=== PATIENT | male | born 1975 | race Caucasian/White ===

== ENCOUNTER 2018-10-28 20:00 | Emergency (ER) | payer MEDICAID, SELFPAY ==
[2018-10-28 20:01] VITALS: BP 143/86; PULSE 67; RESP 16; TEMP 36.8; O2SAT 96; BMI 44.7
[2018-10-28 21:18] LABS: Bacteria 0 SEEN /hpf (None Seen); Mucous, Urine 0 SEEN /hpf (<or=2+); Squamous Epithelial Cells - UA 0 SEEN /hpf (0-5); White Blood Cells 0 SEEN /hpf (0-5)
[2018-10-28 21:21] LABS: Color, Urine Yellow (Yellow); Glucose, Dipstick Normal (Normal); Ketone-Dipstick Negative (Negative); Leukocyte Esterase-Dipstick Negative /ul (Negative); Nitrite-Dipstick Negative (Negative); Occult Blood-Urine 10 /ul (Negative); Protein-Dipstick Negative (Negative); Specific Gravity, Urine 1.025 (1.002-1.030); Urine Bilirubin Dipstick Negative (Negative); Urine Clarity Clear (Clear); Urine Urobilinogen Normal (Normal)
[2018-10-28 21:29] LABS: Absolute Lymphocyte Count 3.23 X10^3/ul (0.83-4.51); Absolute Neutrophil Count 6.5 X10^3/uL (2.0-7.7); Basophil# 0.05 X10^3/uL; Basophil% 0.5 % (0-1); Eosinophil# 0.47 X10^3/uL; Eosinophils% 4.3 % (0-5); Hemoglobin 14.4 g/dl (13.0-16.5); Lymphocyte # 3.23 X10^3/ul (4.0); Lymphocyte % 29.3 % (19-41); Mean Corp Hgb Conc 32.7 g/gl (32-36); Mean Corpuscular Hgb 28.3 pg (27.0-32.0); Mean Corpuscular Volume 86.6 fL (80-94); Mean Platelet Vol. 9.4 fl (6.2-12.0); Monocyte# 0.75 X10^3/uL; Monocyte% 6.8 % (0-10); Neutrophil # 6.47 X10^3/uL (2.7-7.7); Neutrophil % 58.7 % (47-70); POSITIVE COUNT NO; POSITIVE DIFFERENTIAL NO; POSITIVE MORPHOLOGY NO; Platelet Count 294 K/mm3 (150-450); RBC Distribution Width CV 12.8 % (11.6-14.6); Red Blood Count 5.08 M/mm3 (4.6-6.2)
[2018-10-28 21:35] LABS: Anion Gap 8 (5-15); BUN 14 mg/dL (7-18); BUN/Creat Ratio 13.1 RATIO (10-20); Chloride 106 mmol/L (98-107); Creatinine, Serum 1.07 mg/dL (0.70-1.30); EST Glomerular Filtration Rate 80 mL/min (>60); Est Glom Filt Rate - Afr Amer 97 mL/min (>60); Estimated Creatinine Clearance 92.86 ml/min; Glucose 96 mg/dL (74-106); Potassium 3.9 mmol/L (3.5-5.1); Sodium Level 140 mmol/L (136-145)
[2018-10-28 21:46] LABS: Red Blood Cells-Urine 0-5 SEEN /hpf (0-5)
[2018-10-28 22:19] VITALS: BP 137/69; PULSE 63; RESP 18; O2SAT 99
[2018-10-28] MEDS: Ondansetron 4 MG/2 ML Vial IV (22:26)
[2018-10-28] MEDS: Ketorolac 30 MG/ML Syringe IV (22:26)
[2018-10-28] MEDS: 0.9% Normal Saline 1,000 ML 1000 ML IV (22:27)
--- NOTE | 2018-10-28 22:40 | ED.DCSUM_ITS ---
- ER Visit Summary Date of Service: 10/28/18 Chief Complaint: Abdominal pain History of Present Illness: The patient is a 43 M with no primary care physician. Patient reports approximate 230 this afternoon he had the onset of a crampy left-sided abdominal pain that is been constant since that time. Patient states pain waxes and wanes. Is 8 out of 10 at worst and 6 out of 10 currently. Is worsened by movement and relieved by remaining still. Is been nausea and vomited once. No blood in his emesis. He had a loose stool. No blood in stools or black tarry stools. No dysuria or frequency. Patient is concerned because he ate a sub-from [employer] last night that today and it did appear that the produce on this had gone bad. Patient denies sick contacts. Has not been camping out of the country. Does not drink well water. No recent antibiotic use. Patient denies any history of fatty food or spicy food intolerance. Physical Examination: Vitals: Stable. Afebrile. General: Well-nourished and well-developed. Head: Normocephalic atraumatic. Neck: Supple, no lymphadenopathy. No JVD. Nontender. Cardiovascular: Regular rate and rhythm. No murmurs. Respiratory: No respiratory distress. Clear to auscultation bilaterally. Abdominal: Soft, mild tenderness palpation left upper and left lower quadrants, nondistended, normal bowel sounds. No guarding, rebound, or peritoneal signs. Back: Nontender. Extremities: Nontender, no edema. Skin: Normal color, no rash. Neurologic: Alert and oriented ?3. Cranial nerves II through XII are intact. Normal strength and sensation. Psych: Normal affect. Test Results: CBC is normal. Chem-7 is normal. UA is negative. Emergency Department Course and Treatment: Patient had an IV placed. He was treated with Toradol and Zofran IV. He is resting comfortably. He said no vomiting or diarrhea while here. Treatment Plan: Patient will be discharged with Zofran. Instructed to follow-up with Dr. Wolff in 1-2 days if not improving. Return to the emergency department for any worsening symptoms. Disposition: To home in improved and stable condition. Impression: 1. Vomiting. 2. Abdominal pain, uncertain cause. This note was generated with [employer] software. It may contain incorrect words, spelling, and punctuation that were not noted in review of the chart prior to signing ED Disposition - Plan for ED Patient: Instructions: ED Vomiting Diarrhea Nonspecific Ad Prescriptions: Ondansetron [Zofran Odt] 4 mg PO Q8H PRN PRN #10 tablet PRN Reason: Nausea Referrals: Roz Wolff DO [STAFF PHYSICIAN] - 1-2 Days if not improving
[2018-10-28] MEDS: Ondansetron ODT 4 MG Tablet PO (23:42)
[2018-10-28 23:44] VITALS: BP 116/72; PULSE 69; RESP 16; O2SAT 99
== END 2018-10-28 23:45 | disposition home or self-care (01) ==
LOC: ED 22:25
PROVIDERS: Emergency Provider Emergency Medicine
DX: R10.12 Left upper quadrant pain (principal); R10.32 Left lower quadrant pain; R11.2 Nausea with vomiting, unspecified
CPT/HCPCS: 80048; 81001; 85025; 96361; 96374; 96375; 99283; A4216; J2405

== ENCOUNTER 2019-03-19 07:05 | Emergency (ER) | payer MEDICAID, SELFPAY ==
[2019-03-19 07:06] VITALS: BP 145/81; PULSE 59; RESP 14; TEMP 36.6; O2SAT 96; BMI 43.9
--- NOTE | 2019-03-19 07:30 | CT_ITS ---
STUDY: CT ABDOMEN AND PELVIS WITHOUT CONTRAST REASON FOR EXAM: Male, 43 years old. Left-sided abdominal pain with nausea and vomiting. RADIATION DOSAGE (If Supplied By Facility): CTDIvol = ( 34.32 ) mGy, DLP = ( 1774.94 ) mGycm TECHNIQUE: Transaxial images were obtained from the dome of the diaphragm to the symphysis pubis without oral contrast, and without intravenous contrast. Sagittal and coronal images were reconstructed. Individualized dose optimization techniques were used for this CT. COMPARISON: None. FINDINGS: The visualized lung bases are unremarkable. The visualized portions of the heart are within normal limits. Normal liver. Normal gallbladder and extrahepatic biliary system. Normal spleen. Normal pancreas. Normal bilateral adrenal glands. Normal right kidney. Normal left kidney. There is a small hiatal hernia. Normal small intestine. There are scattered colonic diverticula consistent with diverticulosis. The appendix is visualized and appears normal. Normal abdominal aorta. Normal inferior vena cava. There is borderline retroperitoneal lymphadenopathy with enlarged nodes no greater than 10mm in the short axis diameter. Normal urinary bladder. Normal abdominal wall. 50% loss of height of the T10 and T11 vertebrae. CT/Abdomen/Pelvis without Cont IMPRESSION: Scattered sigmoid diverticula. Electronically Signed: Domingo Biggs, at 8:53 EDT , Service support ,
--- NOTE | 2019-03-19 07:30 | EKG12_ITS ---
Test Reason : Blood Pressure : / mmHG Vent. Rate : 049 BPM Atrial Rate : 049 BPM P-R Int : 166 ms QRS Dur : 096 ms QT Int : 428 ms P-R-T Axes : 012 -37 005 degrees QTc Int : 386 ms Sinus bradycardia Left axis deviation Minimal voltage criteria for LVH, may be normal variant Abnormal ECG Confirmed by SHANIA PÉREZ, MICAH ([id number]), features editor MAGGIE BOLTON ([id number]) on 03/23/2019 1:10:12 PM Referred By: TOMER Confirmed By:MICAH JAUREGUI MD
--- NOTE | 2019-03-19 07:54 | ED.DCSUM_ITS ---
History of Present Illness Chief Complaint: Abd Pain Informant: Patient Onset: Today Current Severity: Mild Narrative: Patient has history of hypertension no other past medical history by his reports, he was having very good health woke up today feeling fine then he was driving to work and he suddenly had pain to the left middle quadrant into the left lower abdomen back, it was quite intense he had no premonitory symptoms of any kind he had a normal day today had normal bowel bladder habits nothing triggered the pain it he denies fever cough chest pain again he has had normal bowel bladder habits today he points to the left middle quadrant indicates the pain radiates down and radiates up to his back slightly he denies chest pain he indicates no trauma no fever no cough and he was perfectly fine when he went to bed woke up today Past Medical History - Allergies and Home Meds Allergies/Adverse Reactions: Allergies sulfamethoxazole [From Bactrim] Allergy (Verified 03/19/19 07:06) Rash trimethoprim [From Bactrim] Allergy (Verified 03/19/19 07:06) Rash naproxen Adverse Reaction (Verified 03/19/19 07:06) Other STOMACH BLEEDING Primary Care Physician: Care Physician,No Primary [Primary Care Provider] - Past Medical History: - - Hypertension see above Smoking Status: Never smoker Review of Systems General: Denies: Chills, Fever, Sweats Eyes: Denies: Visual changes - bilaterally, Diplopia ENT: Denies: Rhinorrhea, Sore throat Cardiovascular: Denies: Chest pain, Palpitations Respiratory: Denies: Dyspnea, Cough, Dyspnea on exertion Gastrointestinal: Reports: Abdominal pain. Denies: Nausea, Vomiting, Diarrhea, Melena, Hematochezia Genitourinary: Denies: Dysuria, Hematuria, Frequency Musculoskeletal: Denies: Back pain, Extremity Pain Skin: Denies: Rash, Wounds Neurological: Denies: Headache, Weakness, Numbness Physical Exam Vital Signs/Narrative: Vital Signs Temp Pulse Resp BP Pulse Ox 03/19/19 07:06 97.8 F 59 L 14 145/81 H 96 General: Well nourished, Well developed, No Acute Distress Head: Normocephalic, Atraumatic Eyes: Perrl, EOMI ENT: Moist mucous membranes, No rhinorrhea Neck: Supple, Nontender Cardiovascular: Regular rate, Regular rhythm, No murmurs Respiratory: No distress, CTA bilaterally, Chest nontender Abdomen: Soft, Nontender, Nondistended, Normal bowel sounds, - - He has discomfort over the left middle quadrant that radiates slightly to the left lower quadrant and some to the left upper back, there is no rebound guarding organomegaly there is a degree of obesity, his chest is clear his upper lower extremities unremarkable he has full range of motion nothing triggers causes or alleviates the pain Back: Nontender, Normal Inspection Extremities: Nontender, No edema Skin: Normal color, No rash Neurological: Alert, Oriented x3, Cranial nerves II-XII grossly intact, Normal Strength, Normal Sensation Psychological: Normal affect, Normal Mood Diagnostic/Tx/Re-eval - Medical Decision Making Differential is rather extensive he has no history of ID PE or DVT he was feeling fine this occurred suddenly the pain was quite intense he could not find comfort and came to the emergency department at this time given all the above screening labs flank CT IV fluids pain management IV meds Patient's EKG shows a sinus rhythm rate about 50 no acute injury pattern identified intervals otherwise unremarkable Patient screening labs are all unremarkable, including d-dimer, troponin, his flank pain is improved, understands studies where also unremarkable for the acute findings, no obvious explanation for symptoms and needs outpatient follow- up and he agrees over he is feeling better long conversation with him and family is comfortable discharge home, he understands exact etiology of the above is unclear he will follow-up with his outpatient providers Tylenol 3 for pain due to allergies Naprosyn and return for change in symptoms Home stable Final impression Sudden onset left flank pain etiology unclear ED Disposition - Plan for ED Patient: Diagnosis: Acute flank pain Instructions: ABDOMINAL PAIN, Unkown Cause, (Male) Prescriptions: Acetaminophen/Codeine #3 [Tylenol#3] 1 tab PO Q4H PRN PRN #14 tab PRN Reason: Pain Prescription Printed Referrals: Care Physician,No Primary [Primary Care Provider] -
[2019-03-19] MEDS: 0.9% Normal Saline 1,000 ML 1000 ML IV (08:02)
[2019-03-19] MEDS: morphine 8 MG/ML Syringe IV (08:02)
[2019-03-19] MEDS: Ondansetron 4 MG/2 ML Vial IV (08:02)
[2019-03-19 08:17] LABS: Absolute Lymphocyte Count 1.92 X10^3/uL (0.83-4.51); Absolute Neutrophil Count 5.8 X10^3/uL (2.0-7.7); Basophil# 0.07 X10^3/uL; Basophil% 0.8 % (0-1); Eosinophils% 3.4 % (0-5); Lymphocyte # 1.92 X10^3/ul (4.0); Lymphocyte % 21.8 % (19-41); Mean Corp Hgb Conc 32.6 g/dL (32-36); Mean Corpuscular Hgb 28.2 pg (27.0-32.0); Mean Corpuscular Volume 86.5 fL (80-94); Mean Platelet Vol. 9.3 fl (6.2-12.0); Monocyte# 0.71 X10^3/uL; NRBC Flagged by Analyzer 0 % (0-5); Neutrophil # 5.77 X10^3/uL (2.7-7.7); Neutrophil % 65.4 % (47-70); Platelet Count 282 K/mm3 (150-450); RBC Distribution Width CV 12.5 % (11.6-14.6); RBC Distribution Width SD 39.3 fl (35.1-43.9); Red Blood Count 5.32 M/mm3 (4.6-6.2); White Blood Count 8.8 K/mm3 (4.4-11.0)
[2019-03-19 08:51] LABS: AST(SGOT) 20 U/L (15-37); Alanine Aminotransfer ALT/SGPT 29 U/L (16-61); Albumin, Serum 3.8 g/dL (3.2-5.0); Alkaline Phosphatase 112 U/L (45-117); Anion Gap 4 (5-15); BUN 13 mg/dL (7-18); BUN/Creat Ratio 12.1 RATIO (10-20); Bilirubin, Direct 0.17 mg/dL (0.00-0.30); Calcium,Total 9.1 mg/dL (8.5-10.1); Chloride 105 mmol/L (98-107); Creatinine, Serum 1.07 mg/dL (0.70-1.30); EST Glomerular Filtration Rate 80 mL/min (>60); Est Glom Filt Rate - Afr Amer 97 mL/min (>60); Estimated Creatinine Clearance 95.79 ml/min; Globulin 3.9 g/dL (2.2-4.2); Glucose 114 mg/dL (74-106); Lipase 129 U/L (73-393); Protein, Total 7.7 g/dL (6.4-8.2); Sodium Level 136 mmol/L (136-145)
[2019-03-19 08:53] LABS: Bacteria 0 SEEN /hpf (None Seen); Mucous, Urine 0 SEEN /hpf (<or=2+); Squamous Epithelial Cells - UA 0 SEEN /hpf (0-5); White Blood Cells 0 SEEN /hpf (0-5)
[2019-03-19 08:56] LABS: Color, Urine Yellow (Yellow); Glucose, Dipstick Normal (Normal); Ketone-Dipstick Negative (Negative); Leukocyte Esterase-Dipstick Negative /ul (Negative); Nitrite-Dipstick Negative (Negative); Occult Blood-Urine 10 /ul (Negative); Protein-Dipstick Negative (Negative); Urine Bilirubin Dipstick Negative (Negative); Urine Clarity Clear (Clear); Urine Urobilinogen Normal (Normal)
[2019-03-19 09:05] LABS: Red Blood Cells-Urine 0-5 SEEN /hpf (0-5)
[2019-03-19 10:59] VITALS: BP 153/98; PULSE 54; RESP 18; O2SAT 98
== END 2019-03-19 11:02 | disposition home or self-care (01) ==
PROVIDERS: Emergency Provider Emergency Medicine
DX: R10.9 Unspecified abdominal pain (principal); I10 Essential (primary) hypertension
CPT/HCPCS: 74176; 80048; 80076; 81001; 83690; 84484; 85025; 85379; 93005; 96361; 96374; 96375; 99283; J7030; A4216; J2405

== ENCOUNTER 2019-04-25 22:31 | Emergency (ER) | payer MEDICAID, SELFPAY ==
[2019-04-25 22:31] VITALS: BP 146/83; PULSE 86; RESP 15; TEMP 36.6; O2SAT 95; BMI 41.8
[2019-04-25 22:43] VITALS: O2SAT 97
--- NOTE | 2019-04-25 22:51 | ED.VISSUMM ---
- ER Visit Summary Date of Service: 04/25/19 Chief Complaint: Cough, congestion History of Present Illness: The patient is a 43 M who has cough and sinus congestion. Started today. He did have a sore throat that went away and now he has sinus congestion and cough. Cough is nonproductive. He felt warm but did not have a fever at home. He does have a history of bronchitis. He tried ibuprofen and DayQuil without any relief at home. He is not a smoker. He does have a history of asthma and has been using his inhaler at home. Physical Examination: Vital signs are reviewed. HEENT exam shows some swollen turbinates bilaterally. Is got no oropharyngeal erythema. His heart is regular rate and rhythm. Lungs have some scant expiratory wheezing in the lower lung goff bilaterally. Abdomen soft nontender. Extremities have no edema. Neurologic exam is normal. Test Results: Two-view chest x-ray is unremarkable Emergency Department Course and Treatment: Patient was given albuterol. Upon reevaluation his lungs are now clear. He feels better. This is likely a viral etiology. I will give him steroids and Mucinex D for home. He will continue his albuterol inhaler. We will follow-up with his PCP Treatment Plan: [] Disposition: Discharge Impression: URI with cough This note was generated with [employer] dictation software. It may contain incorrect words, spelling, and punctuation that were not noted in review of the chart prior to signing ED Disposition - Plan for ED Patient: Referrals: Moisés Barclay MD [Primary Care Provider] -
[2019-04-25] MEDS: Albuterol 2.5 MG/3 ML VIAL.NEB. INHALATION (22:55)
[2019-04-25 22:56] VITALS: PULSE 81; RESP 14
--- NOTE | 2019-04-25 23:11 | RAD_ITS ---
HISTORY:SOB WITH CONGESTION AND COUGH FOR FEW DAYS SOB WITH CONGESTION AND COUGH FOR FEW DAYS EXAM: XR Chest 2 Views: COMPARISON: None FINDINGS: # of images incl. paperwork: 2 LINES/DEVICES: None. LUNGS: Radiographically clear. No consolidation, edema or effusion. No pneumothorax. MEDIASTINUM AND CARDIOVASCULAR STRUCTURES: Cardiac silhouette not enlarged. BONES AND SOFT TISSUES: Unremarkable. RAD/Chest PA and Lateral IMPRESSION: No radiographic evidence of acute cardiopulmonary disease. at 2324 Reported and signed by: Lexi Wadsworth DO Electronically Signed: Lexi Wadsworth DO at 23:23 EDT Tel , Service support ,
--- NOTE | 2019-04-25 23:31 | ED.DEP ---
ED Disposition - Plan for ED Patient: Disposition: Home or Assisted Living Instructions: BRONCHITIS, No Antibiotic (Adult) Prescriptions: Prednisone [Deltasone] 40 mg PO DAILY #10 tab Prescription Printed Guaifenesin/Pseudoephedrne HCl [Mucinex D ER 600-60 mg Tablet] 1 ea PO BID #14 tab.er.12h Prescription Printed Referrals: Moisés Barclay MD [Primary Care Provider] -
[2019-04-25 23:35] VITALS: BP 138/70; PULSE 75; RESP 14; O2SAT 98
== END 2019-04-25 23:38 | disposition home or self-care (01) ==
PROVIDERS: Emergency Provider Emergency Medicine; Family Provider Family Medicine; PCP Family Medicine
DX: J06.9 Acute upper respiratory infection, unspecified (principal); J45.909 Unspecified asthma, uncomplicated; I10 Essential (primary) hypertension; Z79.899 Other long term (current) drug therapy
CPT/HCPCS: 71046; 94640; 99282

== ENCOUNTER 2019-06-06 19:04 | Emergency (ER) | payer MEDICAID, SELFPAY ==
[2019-06-06 19:05] VITALS: BP 139/92; PULSE 74; RESP 15; TEMP 36.7; O2SAT 97; BMI 43.9
--- NOTE | 2019-06-06 19:21 | ED.DCSUM_ITS ---
- ER Visit Summary Date of Service: 06/06/19 Chief Complaint: Back pain History of Present Illness: The patient is a [address] Efren Pa. Reports that earlier today he leaned over to get something from under the couch and had the abrupt onset of midthoracic back pain. States that it is a sharp p ain is 10 to 10 hours now 10 currently. Is worsened by movement or bending. It is relieved by laying down and Biofreeze. He denies any radiation to his legs. No numbness or weakness in his legs. No problems with his bowels or his bladder. No groin numbness. Patient denies any other recent injury. No fall, MVA, or change in activity. No fever. No history of IV drug abuse. Physical Examination: Vitals: Stable. Afebrile. General: A&O x 3. NAD. Cardiovascular exam: Regular rate and rhythm, no murmur, rub or gallop. Respiratory exam: Clear to auscultation bilaterally. No wheezes or stridor. Abdominal exam: Soft, nontender, nondistended, normal bowel sounds. No peritoneal signs. Back: Diffuse moderate tenderness to palpation over the thoracic spine and the paraspinous musculature in this region. No point tenderness. Negative straight leg bilaterally. 5/5 DF, PF, EHL bilaterally. Normal sensation to light touch throughout. Extremity: No clubbing, cyanosis, or edema. Emergency Department Course and Treatment: Patient was given a dose of Toradol IM. He is resting comfortably. Treatment Plan: Patient will be discharged symptomatic care. Use Tylenol and/or ibuprofen for pain. Moist heat. TENS unit. Follow-up with primary care physician 1 week not improving. Return to the emergency department for any worsening symptoms. Disposition: To home in improved and stable condition. Impression: 1. Thoracic back pain, acute. This note was generated with [employer] dictation software. It may contain incorrect words, spelling, and punctuation that were not noted in review of the chart prior to signing ED Disposition - Plan for ED Patient: Disposition: Home or Assisted Living Instructions: BACK PAIN (Acute or Chronic) Referrals: Moisés Barclay MD [Primary Care Provider] - 1 Week if not improving
[2019-06-06] MEDS: Acetaminophen 500 MG Tablet 1000 MG PO (19:27)
[2019-06-06] MEDS: Ketorolac 60 MG/2 ML Vial IM (19:27)
[2019-06-06 19:47] VITALS: RESP 16
--- NOTE | 2019-06-06 19:47 | ED.RN ---
SHOT TIME WAS OBSERVED FOR 15 MIN NO REACTION NOTED BY THIS NURSE, PT D/C
== END 2019-06-06 19:48 | disposition home or self-care (01) ==
PROVIDERS: Emergency Provider Emergency Medicine; Family Provider Family Medicine; PCP Family Medicine
DX: M54.6 Pain in thoracic spine (principal); I10 Essential (primary) hypertension; Z79.899 Other long term (current) drug therapy
CPT/HCPCS: 96372; 99283

== ENCOUNTER 2019-10-26 02:48 | Emergency (ER) | payer MEDICAID, SELFPAY ==
[2019-10-26 02:49] VITALS: BP 168/99; PULSE 64; RESP 15; TEMP 36.6; O2SAT 98; BMI 43.1
--- NOTE | 2019-10-26 03:13 | ED.DCSUM_ITS ---
- ER Visit Summary Date of Service: 10/26/19 Chief Complaint: Nausea and vomiting History of Present Illness: The patient is a 44 M who presents with nausea and vomiting that began tonight. Patient states he vomited 5-6 times at home. Patient denies any hematemesis or coffee-ground emesis. Patient denies any abdominal pain. Patient states he was recently diagnosed with strep throat and has been taking Augmentin for this. Patient states he developed some diarrhea because of the Augmentin. Patient denies any melena or hematochezia. Patient denies any dysuria or hematuria. Patient admits to a fever when he had the strep throat. Patient states he has been on antibiotics for 5 days. Physical Examination: Vital signs are stable. Patient is afebrile. Patient is in no acute distress. Oral mucosa is pink and moist. Neck is supple. Trachea is midline. There is no JVD noted. Heart was regular rate and rhythm. Lungs are clear and equal bilaterally. Abdomen is soft. Bowel sounds are normal. There is mild epigastric and right upper quadrant tenderness. There is no rebound or guarding noted. Skin is warm dry. Cranial nerves II through XII are intact. There are no focal motor or sensory deficits noted. Extremities are intact. There is no calf tenderness or edema. Test Results: CBC and comprehensive metabolic profile were obtained were within normal limits. Lipase was within normal limits. Emergency Department Course and Treatment: Patient was given IV fluids and Zofran here. Patient had no further episodes of nausea or vomiting here. Patient was given a prescription for Zofran. Patient was instructed to stop taking his Augmentin. Patient was instructed to follow-up with his primary care physician in 5 to 7 days. Patient understood and was agreeable with the plan. All questions were answered. Disposition: Discharge home Impression: Nausea and vomiting This note was generated with [employer] dictation software. It may contain incorrect words, spelling, and punctuation that were not noted in review of the chart prior to signing ED Disposition - Plan for ED Patient: Disposition: Home or Assisted Living Diagnosis: Nausea and vomiting in adult Instructions: VOMITING (7y-Adult) Prescriptions: Ondansetron [Zofran Odt] 4 mg PO Q8H PRN PRN #10 tab PRN Reason: Nausea Prescription Printed Referrals: Moisés Barclay MD [Primary Care Provider] - 5-7 Days
[2019-10-26] MEDS: 0.9% Normal Saline 1,000 ML 1000 ML IV (03:18)
[2019-10-26] MEDS: Ondansetron 4 MG/2 ML Vial IV (03:19)
[2019-10-26 03:33] LABS: Absolute Lymphocyte Count 2.85 X10^3/uL (0.83-4.51); Absolute Neutrophil Count 4.9 X10^3/uL (2.0-7.7); Basophil# 0.05 X10^3/uL; Basophil% 0.6 % (0-1); Eosinophil# 0.39 X10^3/uL; Eosinophils% 4.4 % (0-5); Hematocrit 44.7 % (40-54); Hemoglobin 15.1 g/dL (13.0-16.5); Lymphocyte # 2.85 X10^3/ul (4.0); Lymphocyte % 32.2 % (19-41); Mean Corp Hgb Conc 33.8 g/dL (32-36); Mean Corpuscular Hgb 28.5 pg (27.0-32.0); Mean Corpuscular Volume 84.3 fL (80-94); Mean Platelet Vol. 9.6 fl (6.2-12.0); Monocyte# 0.62 X10^3/uL; NRBC Flagged by Analyzer 0 % (0-5); Neutrophil # 4.87 X10^3/uL (2.7-7.7); Platelet Count 260 K/mm3 (150-450); RBC Distribution Width CV 12.3 % (11.6-14.6); RBC Distribution Width SD 37.5 fl (35.1-43.9); White Blood Count 8.9 K/mm3 (4.4-11.0)
[2019-10-26 03:44] LABS: AST(SGOT) 16 U/L (15-37); Alanine Aminotransfer ALT/SGPT 28 U/L (16-61); Albumin, Serum 3.6 g/dL (3.2-5.0); Alkaline Phosphatase 98 U/L (45-117); Anion Gap 7 (5-15); BUN 18 mg/dL (7-18); Calcium,Total 8.4 mg/dL (8.5-10.1); Chloride 106 mmol/L (98-107); EST Glomerular Filtration Rate 87 mL/min (>60); Est Glom Filt Rate - Afr Amer 105 mL/min (>60); Estimated Creatinine Clearance 98.35 ml/min; Globulin 3.5 g/dL (2.2-4.2); Glucose 141 mg/dL (74-106); Lipase 174 U/L (73-393); Potassium 3.4 mmol/L (3.5-5.1); Protein, Total 7.1 g/dL (6.4-8.2); Sodium Level 140 mmol/L (136-145)
[2019-10-26 04:09] VITALS: BP 140/77; PULSE 50; RESP 18; O2SAT 97
== END 2019-10-26 04:11 | disposition home or self-care (01) ==
PROVIDERS: Emergency Provider Emergency Medicine; PCP Family Medicine
DX: R11.2 Nausea with vomiting, unspecified (principal); I10 Essential (primary) hypertension
CPT/HCPCS: 80053; 83690; 85025; 96361; 96374; 99282; J7030; J2405

== ENCOUNTER 2019-10-27 01:44 | Emergency (ER) | payer MEDICAID, SELFPAY ==
[2019-10-26 02:49] VITALS: BMI 43.1
[2019-10-27 01:45] VITALS: PULSE 60; RESP 19; TEMP 36.5; O2SAT 94; BMI 32.7
--- NOTE | 2019-10-27 01:54 | RAD_ITS ---
STUDY: X-RAY - ABDOMEN/PELVIS REASON FOR EXAM: Male, 44 years old. VOMITING X 1+ DAY -- UPPER ABD PAIN TECHNIQUE: Single AP view of the abdomen / pelvis. COMPARISON: None. FINDINGS: Normal visualized lung bases. There is a moderate amount of colonic fecal material. There is no demonstrated free abdominal air. The visualized liver, spleen and kidneys are grossly normal in size and morphology. Normal soft tissue structures. Normal visualized osseous structures. RAD/Abdomen Single View IMPRESSION: Moderate fecal debris otherwise unremarkable x-ray examination of the abdomen and pelvis. Electronically Signed: Edith Flowers MD at 3:30 EDT , Service support ,
--- NOTE | 2019-10-27 01:56 | ED.VIS.GI ---
History of Present Illness Chief Complaint: Nausea/Vomiting Narrative: Patient presenting for evaluation secondary to nausea and vomiting. Patient has a recent history of being treated for strep throat. He was placed on a course of Augmentin. He reports that he was initially having improvement, then this weekend he started to develop body aches and chills on Saturday, and then developed nausea and vomiting on Saturday. He reports that he came in Saturday night, had a work-up that was found to be negative was felt that he likely had gastroenteritis and was discharged with a course of Zofran. Patient reports that he woke up at about noon feeling nauseous again and vomited x1. He took Zofran and then went back to sleep. He reports that he woke up again at 1 AM, 45 minutes prior to arrival, and had nausea and vomiting again. Patient denies that he is having bilious emesis or blood in his emesis. He reports that he has not had a bowel movement in a couple of days although he has not really been eating. He is still getting some body aches and chills associated with this. Minimal epigastric abdominal pain worse with vomiting. Patient has no underlying history of abdominal surgeries. Review of systems otherwise negative. Past Medical History - Allergies and Home Meds Allergies/Adverse Reactions: Allergies Sulfa (Sulfonamide Antibiotics) Allergy (Verified 10/27/19 01:49) Rash sulfamethoxazole [From Bactrim] Allergy (Verified 10/27/19 01:49) Rash trimethoprim [From Bactrim] Allergy (Verified 10/27/19 01:49) Rash naproxen Adverse Reaction (Verified 10/27/19 01:49) Other STOMACH BLEEDING Primary Care Physician: Moisés Barclay MD [Primary Care Provider] - Past Medical History: - - Hypertension Smoking Status: Never smoker Review of Systems All systems negative except as indicated General: Reports: Chills, Malaise Eyes: Denies: Visual changes - bilaterally, Diplopia ENT: Denies: Rhinorrhea, Sore throat Cardiovascular: Denies: Chest pain, Palpitations Respiratory: Denies: Dyspnea, Cough, Dyspnea on exertion Gastrointestinal: Reports: Abdominal pain, Nausea, Vomiting Genitourinary: Denies: Dysuria, Hematuria, Frequency Musculoskeletal: Denies: Back pain, Extremity Pain Skin: Denies: Rash, Wounds Neurological: Denies: Headache, Weakness, Numbness Physical Exam Vital Signs/Narrative: Vital Signs Temp Pulse Resp Pulse Ox 10/27/19 01:45 97.7 F L 60 19 H 94 Inital Vital Signs reviewed: Yes General: Well nourished, Well developed, Obese Head: Normocephalic, Atraumatic Eyes: Perrl, EOMI ENT: Moist mucous membranes, No rhinorrhea Neck: Supple, Nontender Cardiovascular: Regular rate, Regular rhythm, No murmurs Respiratory: No distress, CTA bilaterally, Chest nontender Abdomen: Soft, Nondistended, Tender - Minimal epigastric no guarding or rebound Back: Nontender, Normal Inspection Extremities: Nontender, No edema Skin: Normal color, No rash Neurological: Alert, Oriented x3, Cranial nerves II-XII grossly intact, Normal Strength, Normal Sensation Psychological: Normal affect, Normal Mood Diagnostic/Tx/Re-eval 3 view plain films of the abdomen show some stool retention, but no evidence of bowel obstruction or free air by my personal interpretation. Laboratory Data 10/27/19 10/27/19 02:03 02:03 WBC 8.9 RBC 5.34 Hgb 15.0 Hct 45.7 MCV 85.6 MCH 28.1 MCHC 32.8 RDW Std Deviation 38.2 RDW Coeff of Asif 12.3 Plt Count 254 MPV 9.3 Immature Gran % (Auto) 0.600 Neut % (Auto) 53.0 Lymph % (Auto) 34.0 [place] % (Auto) 7.5 Eos % (Auto) 4.5 Baso % (Auto) 0.4 Absolute Neuts (auto) 4.7 Absolute Lymphs (auto) 3.03 Nucleated RBC % 0 Sodium 140 Potassium 3.7 Chloride 109 H Carbon Dioxide 26.0 Anion Gap 5 BUN 14 Creatinine 0.95 Estim Creat Clear Calc 103.52 Est GFR (MDRD) Af Amer 111 Est GFR (MDRD) Non-Af 92 BUN/Creatinine Ratio 14.7 Glucose 129 H Calcium 8.6 Total Bilirubin 0.30 AST 20 ALT 34 Alkaline Phosphatase 96 Total Protein 6.8 Albumin 3.3 Globulin 3.5 Albumin/Globulin Ratio 0.9 Lipase 167 - Medical Decision Making Patient presented secondary to nausea and vomiting. He had a benign physical exam, and normal vital signs. I do not feel that advanced imaging of the abdomen is indicated. As he is a bounce back, he was worked up for the possibility of dehydration or other new etiologies. IV was established he was given Phenergan and fluids. CBC CMP lipase unremarkable. Abdominal x-ray unremarkable by my personal review. He had improvement on repeat evaluation. This still is likely a viral gastroenteritis. As the patient reported to me that Zofran was not working for him at home he will be sent home with Phenergan pills and suppositories. He was instructed to follow-up with primary care. ED Disposition - Plan for ED Patient: Disposition: Home or Assisted Living Diagnosis: Gastroenteritis Instructions: VOMITING (7y-Adult) Prescriptions: proMETHazine suppository [Phenergan Suppository] 25 mg RECTAL Q6H PRN PRN #6 suppos. PRN Reason: Nausea Prescription Printed proMETHazine tablet [Phenergan] 25 mg PO Q6H PRN PRN #10 tab PRN Reason: Nausea Prescription Printed Referrals: Moisés Barclay MD [Primary Care Provider] - 3-5 Days if not improving
[2019-10-27] MEDS: 0.9% Normal Saline 1,000 ML 1000 ML IV (02:02)
[2019-10-27] MEDS: proMETHazine 25 MG/ML Syringe 12.5 MG IV (02:02)
[2019-10-27 02:07] LABS: Absolute Lymphocyte Count 3.03 X10^3/uL (0.83-4.51); Absolute Neutrophil Count 4.7 X10^3/uL (2.0-7.7); Basophil# 0.04 X10^3/uL; Basophil% 0.4 % (0-1); Eosinophils% 4.5 % (0-5); Hematocrit 45.7 % (40-54); Lymphocyte # 3.03 X10^3/ul (4.0); Mean Corp Hgb Conc 32.8 g/dL (32-36); Mean Corpuscular Hgb 28.1 pg (27.0-32.0); Mean Corpuscular Volume 85.6 fL (80-94); Mean Platelet Vol. 9.3 fl (6.2-12.0); Monocyte# 0.67 X10^3/uL; Monocyte% 7.5 % (0-10); NRBC Flagged by Analyzer 0 % (0-5); Neutrophil # 4.73 X10^3/uL (2.7-7.7); Platelet Count 254 K/mm3 (150-450); RBC Distribution Width CV 12.3 % (11.6-14.6); RBC Distribution Width SD 38.2 fl (35.1-43.9); Red Blood Count 5.34 M/mm3 (4.6-6.2); White Blood Count 8.9 K/mm3 (4.4-11.0)
[2019-10-27 02:24] LABS: ALB/GLOB Ratio 0.9 RATIO (0.9-2.4); AST(SGOT) 20 U/L (15-37); Alanine Aminotransfer ALT/SGPT 34 U/L (16-61); Albumin, Serum 3.3 g/dL (3.2-5.0); Alkaline Phosphatase 96 U/L (45-117); Anion Gap 5 (5-15); BUN 14 mg/dL (7-18); BUN/Creat Ratio 14.7 RATIO (10-20); Calcium,Total 8.6 mg/dL (8.5-10.1); Chloride 109 mmol/L (98-107); Creatinine, Serum 0.95 mg/dL (0.70-1.30); EST Glomerular Filtration Rate 92 mL/min (>60); Est Glom Filt Rate - Afr Amer 111 mL/min (>60); Estimated Creatinine Clearance 103.52 ml/min; Globulin 3.5 g/dL (2.2-4.2); Glucose 129 mg/dL (74-106); Lipase 167 U/L (73-393); Potassium 3.7 mmol/L (3.5-5.1); Protein, Total 6.8 g/dL (6.4-8.2); Sodium Level 140 mmol/L (136-145)
[2019-10-27 03:13] VITALS: BP 139/88; PULSE 61; RESP 16; O2SAT 95
== END 2019-10-27 03:15 | disposition home or self-care (01) ==
PROVIDERS: Emergency Provider Emergency Medicine; PCP Family Medicine
DX: K52.9 Noninfective gastroenteritis and colitis, unspecified (principal); I10 Essential (primary) hypertension
CPT/HCPCS: 74018; 80053; 83690; 85025; 96361; 96374; 99283; J7030

== ENCOUNTER 2020-02-18 14:21 | Emergency (ER) | payer MEDICAID, SELFPAY ==
[2019-12-18 13:38] VITALS: BMI 32.7
[2020-02-18 14:22] VITALS: BP 143/76; PULSE 72; RESP 20; TEMP 36.1; O2SAT 94; BMI 44.1
--- NOTE | 2020-02-18 14:44 | CT_ITS ---
STUDY: CT ABDOMEN AND PELVIS WITHOUT CONTRAST REASON FOR EXAM: Male, 44 years old. PT STATED RT SIDE FLANK PAIN, HX RT SIDE FLANK PAIN RADIATION DOSAGE (If Supplied By Facility): CTDIvol = ( 23.73 ) mGy, DLP = ( 1221.11 ) mGycm TECHNIQUE: Transaxial images were obtained from the dome of the diaphragm to the symphysis pubis without oral contrast, and without intravenous contrast. Sagittal and coronal images were reconstructed. Individualized dose optimization techniques were used for this CT. COMPARISON: 03/19/2019 FINDINGS: The visualized lung bases are unremarkable. The visualized portions of the heart are within normal limits. Normal liver. The gallbladder is contracted. Normal spleen. Normal pancreas. Normal bilateral adrenal glands. Questionable 2 cm mass of decreased attenuation the lower pole the right kidney and correlation with renal mass protocol CT or MRI is recommended. Normal left kidney. Normal visualized stomach. Normal small intestine. Normal colon. The appendix is visualized and appears normal. Normal abdominal aorta. Normal inferior vena cava. Normal retroperitoneum. Normal urinary bladder. There are prostatic calcifications. Normal abdominal wall. Normal osseous structures. CT/Abdomen/Pelvis without Cont IMPRESSION: Questionable 2 cm mass of the lower pole right kidney and correlation with renal mass protocol CT or MRI is recommended. Electronically Signed: Caleb Alvarado MD at 15:54 EDT Tel , Service support ,
--- NOTE | 2020-02-18 14:47 | ED.VIS.GEN ---
History of Present Illness Chief Complaint: Flank Pain Informant: Patient Onset: Yesterday Narrative: Patient presents the emergency department for evaluation of right flank pain. Symptoms began yesterday. He describes it as a burning sensation that sometimes worse with movement. Difficult for him to find a position of comfort. Exacerbated by his rubbing on it. He states he feels very similar to when he was diagnosed with a kidney stone last year. He denies any known back injuries but states he does lift heavy things at work. He does not recall any particular episode where he strained his back. Denies any urinary symptoms but states his pain seems to be worse after he empties his bladder. No testicular or penile pain. Past Medical History - Allergies and Home Meds Allergies/Adverse Reactions: Allergies Sulfa (Sulfonamide Antibiotics) Allergy (Verified 02/18/20 14:24) Rash sulfamethoxazole [From Bactrim] Allergy (Verified 02/18/20 14:24) Rash trimethoprim [From Bactrim] Allergy (Verified 02/18/20 14:24) Rash naproxen Adverse Reaction (Verified 02/18/20 14:24) Other STOMACH BLEEDING Primary Care Physician: Moisés Barclay MD [Primary Care Provider] - Smoking Status: Never smoker Review of Systems General: Denies: Chills, Fever, Sweats Eyes: Denies: Visual changes - bilaterally, Diplopia ENT: Denies: Rhinorrhea, Sore throat Cardiovascular: Denies: Chest pain, Palpitations Respiratory: Denies: Dyspnea, Cough, Dyspnea on exertion Gastrointestinal: Denies: Abdominal pain, Nausea, Vomiting, Diarrhea, Melena, Hematochezia Genitourinary: Reports: - - Right flank pain. Denies: Dysuria, Hematuria, Frequency Musculoskeletal: Reports: Back pain - History of present illness. Denies: Extremity Pain Skin: Denies: Rash, Wounds Neurological: Denies: Headache, Weakness, Numbness Physical Exam Vital Signs/Narrative: Vital Signs Temp Pulse Resp BP Pulse Ox 02/18/20 14:22 96.9 F L 72 20 H 143/76 H 94 Inital Vital Signs reviewed: Yes General: Well nourished, Well developed, No Acute Distress Head: Normocephalic, Atraumatic Eyes: Perrl, EOMI ENT: Moist mucous membranes, No rhinorrhea Neck: Supple, Nontender Cardiovascular: Regular rate, Regular rhythm, No murmurs Respiratory: No distress, CTA bilaterally, Chest nontender Abdomen: Soft, Nontender, Nondistended, Normal bowel sounds Back: Normal Inspection, - - Has tenderness to palpation in the right CVA area. Extremities: Nontender, No edema Skin: Normal color, No rash Neurological: Alert, Oriented x3, Cranial nerves II-XII grossly intact, Normal Strength, Normal Sensation Psychological: Normal affect, Normal Mood Diagnostic/Tx/Re-eval Clinical Impression(s) from Imaging Studies Abdomen/Pelvis CT 02/18/20 14:44 IMPRESSION: Questionable 2 cm mass of the lower pole right kidney and correlation with renal mass protocol CT or MRI is recommended. Electronically Signed: Caleb Alvarado MD at 15:54 EDT Tel , Service support , Abdomen/Pelvis CT 02/18/20 16:08 IMPRESSION: Enhanced CT confirms a 2 cm cyst lower pole the right kidney. Electronically Signed: Caleb Alvarado MD at 16:56 EDT Tel , Service support , Laboratory Last Values WBC 9.0 K/mm3 (4.4-11.0) 02/18/20 14:41 RBC 5.29 M/mm3 (4.6-6.2) 02/18/20 14:41 Hgb 15.1 g/dL (13.0-16.5) 02/18/20 14:41 Hct 46.1 % (40-54) 02/18/20 14:41 MCV 87.1 fL (80-94) 02/18/20 14:41 MCH 28.5 pg (27.0-32.0) 02/18/20 14:41 MCHC 32.8 g/dL (32-36) 02/18/20 14:41 RDW Std Deviation 39.9 fl (35.1-43.9) 02/18/20 14:41 RDW Coeff of Asif 12.6 % (11.6-14.6) 02/18/20 14:41 Plt Count 268 K/mm3 (150-450) 02/18/20 14:41 MPV 9.4 fl (6.2-12.0) 02/18/20 14:41 Immature Gran % (Auto) 0.400 % (0.0-0.9) 02/18/20 14:41 Neut % (Auto) 64.5 % (47-70) 02/18/20 14:41 Lymph % (Auto) 22.5 % (19-41) 02/18/20 14:41 [place] % (Auto) 7.9 % (0-10) 02/18/20 14:41 Eos % (Auto) 4.0 % (0-5) 02/18/20 14:41 Baso % (Auto) 0.7 % (0-1) 02/18/20 14:41 Absolute Neuts (auto) 5.8 X10^3/uL (2.0-7.7) 02/18/20 14:41 Absolute Lymphs (auto) 2.01 X10^3/uL (0.83-4.51) 02/18/20 14:41 Nucleated RBC % 0 % (0-5) 02/18/20 14:41 Sodium 141 mmol/L (136-145) 02/18/20 14:41 Potassium 4.1 mmol/L (3.5-5.1) 02/18/20 14:41 Chloride 111 mmol/L (98-107) H 02/18/20 14:41 Carbon Dioxide 27.0 mmol/L (21.0-32.0) 02/18/20 14:41 Anion Gap 3 (5-15) L 02/18/20 14:41 BUN 21 mg/dL (7-18) H 02/18/20 14:41 Creatinine 0.91 mg/dL (0.70-1.30) 02/18/20 14:41 Estim Creat Clear Calc 108.07 ml/min 02/18/20 14:41 Est GFR (MDRD) Af Amer 117 mL/min (>60) 02/18/20 14:41 Est GFR (MDRD) Non-Af 96 mL/min (>60) 02/18/20 14:41 BUN/Creatinine Ratio 23.1 RATIO (10-20) H 02/18/20 14:41 Glucose 111 mg/dL (74-106) H 02/18/20 14:41 Calcium 8.6 mg/dL (8.5-10.1) 02/18/20 14:41 Total Bilirubin 0.50 mg/dL (0.20-1.00) 02/18/20 14:41 AST 19 U/L (15-37) 02/18/20 14:41 ALT 29 U/L (16-61) 02/18/20 14:41 Alkaline Phosphatase 106 U/L (45-117) 02/18/20 14:41 Total Protein 7.3 g/dL (6.4-8.2) 02/18/20 14:41 Albumin 3.6 g/dL (3.2-5.0) 02/18/20 14:41 Globulin 3.7 g/dL (2.2-4.2) 02/18/20 14:41 Albumin/Globulin Ratio 1.0 RATIO (0.9-2.4) 02/18/20 14:41 Urine Color Yellow (Yellow) 02/18/20 15:45 Urine Clarity Clear (Clear) 02/18/20 15:45 Urine pH 5.0 (5.0 - 8.0) 02/18/20 15:45 Ur Specific Achille 1.020 (1.002-1.030) 02/18/20 15:45 Urine Protein Negative mg/dl (Negative) 02/18/20 15:45 Urine Glucose (UA) Normal mg/dl (Normal) 02/18/20 15:45 Urine Ketones Negative mg/dl (Negative) 02/18/20 15:45 Urine Occult Blood 10 /ul (Negative) H 02/18/20 15:45 Urine Nitrite Negative (Negative) 02/18/20 15:45 Urine Bilirubin Negative mg/dL (Negative) 02/18/20 15:45 Urine Urobilinogen Normal mg/dl (Normal) 02/18/20 15:45 Ur Leukocyte Esterase Negative /ul (Negative) 02/18/20 15:45 Urine RBC 0-5 SEEN /hpf (0-5) 02/18/20 15:45 Urine WBC 0-5 SEEN /hpf (0-5) 02/18/20 15:45 Ur Squamous Epith Cells 0-5 SEEN /hpf (0-5) 02/18/20 15:45 Urine Bacteria 0 SEEN /hpf (None Seen) 07/02/20 15:45 Urine Mucus 0 SEEN /hpf (<or=2+) 02/18/20 15:45 - Medical Decision Making Patient received Toradol Zofran IV fluids. CT showed a 2 cm hypoattenuation area in the right kidney. To rule out renal infarct CT was ordered. This is more consistent with a renal cyst. Patient states he believes he had soft like this in the past and saw somebody for evaluation and they were to monitor it. Unfortunately do not have any sizing of this prior to today to compare to. Basic labs are negative. Given that he has tenderness and the rest of his work-up is negative for a treat this is musculoskeletal back pain. ED Disposition - Plan for ED Patient: Disposition: Home or Assisted Living Diagnosis: Muscle spasm of back, Renal cyst, Right-sided back pain Instructions: ED SPASM Muscle Prescriptions: cycloBENZAPRine HCl [Flexeril] 10 mg PO TID PRN #15 tab PRN Reason: Muscle Spasm Transmission Status: Pending to [facility] Referrals: Moisés Barclay MD [Primary Care Provider] - 1 Week if not improving Additional Instructions: Motrin with food as needed for pain every 6-8 hours. Today a 2 cm cyst was noted on the lower right pole the right kidney. I do not have any sizing of this to compare to. Please discuss with your doctor.
[2020-02-18 14:58] LABS: Absolute Lymphocyte Count 2.01 X10^3/uL (0.83-4.51); Absolute Neutrophil Count 5.8 X10^3/uL (2.0-7.7); Basophil# 0.06 X10^3/uL; Basophil% 0.7 % (0-1); Eosinophil# 0.36 X10^3/uL; Hematocrit 46.1 % (40-54); Hemoglobin 15.1 g/dL (13.0-16.5); Lymphocyte # 2.01 X10^3/ul (4.0); Lymphocyte % 22.5 % (19-41); Mean Corp Hgb Conc 32.8 g/dL (32-36); Mean Corpuscular Hgb 28.5 pg (27.0-32.0); Mean Corpuscular Volume 87.1 fL (80-94); Mean Platelet Vol. 9.4 fl (6.2-12.0); Monocyte# 0.71 X10^3/uL; Monocyte% 7.9 % (0-10); NRBC Flagged by Analyzer 0 % (0-5); Neutrophil # 5.77 X10^3/uL (2.7-7.7); Neutrophil % 64.5 % (47-70); Platelet Count 268 K/mm3 (150-450); RBC Distribution Width CV 12.6 % (11.6-14.6); RBC Distribution Width SD 39.9 fl (35.1-43.9); Red Blood Count 5.29 M/mm3 (4.6-6.2)
[2020-02-18] MEDS: Ketorolac 30 MG/ML Syringe IV (14:58)
[2020-02-18] MEDS: Ondansetron 4 MG/2 ML Vial IV (14:58)
[2020-02-18 15:16] LABS: AST(SGOT) 19 U/L (15-37); Alanine Aminotransfer ALT/SGPT 29 U/L (16-61); Albumin, Serum 3.6 g/dL (3.2-5.0); Alkaline Phosphatase 106 U/L (45-117); Anion Gap 3 (5-15); BUN 21 mg/dL (7-18); BUN/Creat Ratio 23.1 RATIO (10-20); Calcium,Total 8.6 mg/dL (8.5-10.1); Chloride 111 mmol/L (98-107); Creatinine, Serum 0.91 mg/dL (0.70-1.30); EST Glomerular Filtration Rate 96 mL/min (>60); Est Glom Filt Rate - Afr Amer 117 mL/min (>60); Estimated Creatinine Clearance 108.07 ml/min; Globulin 3.7 g/dL (2.2-4.2); Glucose 111 mg/dL (74-106); Potassium 4.1 mmol/L (3.5-5.1); Protein, Total 7.3 g/dL (6.4-8.2); Sodium Level 141 mmol/L (136-145)
[2020-02-18] MEDS: 0.9% Normal Saline 1,000 ML 250 ML IV (15:58)
[2020-02-18 15:59] LABS: Bacteria 0 SEEN /hpf (None Seen); Mucous, Urine 0 SEEN /hpf (<or=2+)
--- NOTE | 2020-02-18 16:08 | CT_ITS ---
STUDY: CT ABDOMEN AND PELVIS WITH CONTRAST REASON FOR EXAM: Male, [address], 3 PHASE KIDNEY SUGGESTED, ALREADY DID C- STUDY, RT FLANK PAIN,PLEASE REFER TO CT ABD/PEL C- DONE PRIOR TO THIS STUDY RADIATION DOSAGE (If Supplied By Facility): CTDIvol = ( 30.64 ) mGy, DLP = ( 3843.91 ) mGycm TECHNIQUE: Transaxial images were obtained from the dome of the diaphragm to the symphysis pubis without oral contrast. IV 100mL Isovue-300 was administered. Sagittal and coronal images were reconstructed. Individualized dose optimization techniques were used for this CT. COMPARISON: Earlier today FINDINGS: The visualized lung bases are unremarkable. The visualized portions of the heart are within normal limits. Normal liver. The gallbladder is contracted. Normal spleen. Normal pancreas. Normal bilateral adrenal glands. 2 cm cyst in lower pole the right kidney. Normal left kidney. Normal visualized stomach. Normal small intestine. Normal colon. The appendix is visualized and appears normal. Normal abdominal aorta. Normal inferior vena cava. Normal retroperitoneum. Normal urinary bladder. Normal abdominal wall. Normal osseous structures. CT/Abdomen/Pelvis WITH Contrast IMPRESSION: Enhanced CT confirms a 2 cm cyst lower pole the right kidney. Electronically Signed: Caleb Alvarado MD at 16:56 EDT Tel , Service support ,
[2020-02-18 16:34] LABS: Color, Urine Yellow (Yellow); Glucose, Dipstick Normal (Normal); Ketone-Dipstick Negative (Negative); Leukocyte Esterase-Dipstick Negative /ul (Negative); Nitrite-Dipstick Negative (Negative); Occult Blood-Urine 10 /ul (Negative); Protein-Dipstick Negative (Negative); Urine Bilirubin Dipstick Negative (Negative); Urine Clarity Clear (Clear); Urine Urobilinogen Normal (Normal)
[2020-02-18 16:54] LABS: Red Blood Cells-Urine 0-5 SEEN /hpf (0-5); Squamous Epithelial Cells - UA 0-5 SEEN /hpf (0-5); White Blood Cells 0-5 SEEN /hpf (0-5)
[2020-02-18 17:27] VITALS: BP 137/82; PULSE 64; RESP 15; O2SAT 98
== END 2020-02-18 17:28 | disposition home or self-care (01) ==
PROVIDERS: Emergency Provider Emergency Medicine; PCP Family Medicine
DX: M62.830 Muscle spasm of back (principal); N28.1 Cyst of kidney, acquired; M54.9 Dorsalgia, unspecified
CPT/HCPCS: 74176; 74177; 80053; 81001; 85025; 96374; 96375; 99284; J7030; Q9967; A4216; J2405

== ENCOUNTER 2020-03-28 22:15 | Emergency (ER) | payer MEDICAID, SELFPAY ==
[2020-03-18 17:10] VITALS: BMI 44.1
[2020-03-28 22:15] VITALS: BP 176/111; PULSE 64; RESP 16; TEMP 36.8; O2SAT 96; BMI 43.9
--- NOTE | 2020-03-28 23:47 | ED.VIS.INJ ---
History of Present Illness Chief Complaint: Laceration Informant: Patient Onset: Hours - -3 Mechanism/Context: Blunt Injury Quality of Pain: - - sore Location: mouth Current Severity: Mild Maximum Severity: Moderate Worsened by: palpation Relieved by: leaving alone Associated Symptoms: - - no n/v or headache. Negative for: Parasthesias, Loss of consciousness, Amnesia Narrative: Patient states he was playing with his cat, and in the process accidentally knocked over a lamp that had the shade off of it in order to change a light bulb that had not been performed yet, and the middle part of the lamp that usually goes over the bulb hit him in the mouth, and he sustained a small laceration to the mucosal surface of the lower lip. It was bleeding for a while hence coming to the hospital once he got here to the bleeding became controlled. He takes no anticoagulants or antiplatelets. - Past Medical History (1) Gout Status: Chronic Past Medical History - Allergies and Home Meds Allergies/Adverse Reactions: Allergies Sulfa (Sulfonamide Antibiotics) Allergy (Verified 03/28/20 22:15) Rash sulfamethoxazole [From Bactrim] Allergy (Verified 03/28/20 22:15) Rash trimethoprim [From Bactrim] Allergy (Verified 03/28/20 22:15) Rash naproxen Adverse Reaction (Verified 03/28/20 22:15) Other STOMACH BLEEDING Primary Care Physician: Moisés Barclay MD [Primary Care Provider] - As Needed Smoking Status: Never smoker Review of Systems ENT: Reports: - - lip pain. no dental injury. Respiratory: Denies: Dyspnea, Cough, Dyspnea on exertion Gastrointestinal: Denies: Abdominal pain, Nausea, Vomiting, Diarrhea Musculoskeletal: Denies: Neck pain, Back pain, Swelling, Extremity Pain Skin: Reports: Wounds. Denies: Rash Neurological: Denies: Headache, Weakness, Numbness Physical Exam Vital Signs/Narrative: Vital Signs Temp Pulse Resp BP Pulse Ox 03/28/20 22:15 98.2 F 64 16 176/111 H 96 Inital Vital Signs reviewed: Yes General: Well nourished, Well developed, - - NAD Head: Normocephalic, Atraumatic Eyes: Perrl, EOMI ENT: - - 0.5 cm curved partial-thickness laceration to the mucosal surface inside the mouth anteriorly, lower lip. The vermilion is not involved. Externally there is no injury. There is no dental injury or tenderness or subluxation/loosening. There is no active bleeding even with manipulation of the laceration. Neck: Nontender, Full ROM Respiratory: No distress Extremeties: Atraumatic, full range of motion throughout all 4 extremities. Skin: Normal color, No rash, No Trauma Neurological: Alert, Oriented x3, Cranial nerves II-XII grossly intact, Normal Strength, Normal Sensation, Normal Gait Psychological: Normal affect, Normal Mood - Glascow Coma Scale Eye Opening: Spontaneous Motor: Obeys Commands Verbal: Oriented Coma Scale Total: 15 Diagnostic/Tx/Re-eval - Medical Decision Making Patient was reassured, this laceration does not require repair at this time. I recommend rinsing with saline once or twice daily to help of infection, we discussed reasons to return, he is comfortable with that plan. ED Disposition - Plan for ED Patient: Disposition: Home or Assisted Living Diagnosis: Laceration of oral cavity Instructions: ED Laceration Mouth Referrals: Moisés Barclay MD [Primary Care Provider] - As Needed
== END 2020-03-28 23:56 | disposition home or self-care (01) ==
PROVIDERS: Emergency Provider Emergency Medicine; PCP Family Medicine
DX: S01.512A Laceration without foreign body of oral cavity, initial encounter (principal); X58.XXXA Exposure to other specified factors, initial encounter
CPT/HCPCS: 99282

== ENCOUNTER 2020-05-30 23:21 | Emergency (ER) | payer MEDICAID, SELFPAY ==
[2020-05-26 15:03] VITALS: BMI 43.9
[2020-05-30 23:22] VITALS: PULSE 84; RESP 18; TEMP 35.9; O2SAT 96; BMI 42.5
[2020-05-30 23:24] VITALS: BP 145/102
--- NOTE | 2020-05-30 23:35 | RAD_ITS ---
STUDY: X-RAY - left KNEE REASON FOR EXAM: Male, 44 years old. HIT LEFT KNEE ON METAL TABLE LEG -- C/O PAIN AROUND LT PATELLA TECHNIQUE: 4 view(s) of the knee. COMPARISON: None. FINDINGS: Normal visualized distal femur. Normal visualized proximal tibia and fibula. Normal proximal tibiofibular articulation. There is minimal degenerative arthrosis of the medial femorotibial compartment. Normal lateral femorotibial compartment. There is mild degenerative arthrosis of the patellofemoral articulation. There is mild soft tissue edema. RAD/Knee 4 or More Views IMPRESSION: Minimal degenerative change. No visualized fracture. Electronically Signed: Lexi Schmitt MD at 0:07 EDT Tel , Service support ,
--- NOTE | 2020-05-30 23:51 | ED.VIS.LOWEX ---
History of Present Illness Chief Complaint: Lower Extremity Injury Narrative: Patient presenting for evaluation secondary to a left knee injury. Patient reports that he was carrying a wooden table with metal legs, states that the legs came off of the table and forcibly struck him in the left knee. Patient reports that he has a moderate amount of pain in that knee, and he feels that he has some difficulty with bending it. No numbness or weakness, is not on any sort of anticoagulants. Review of systems otherwise negative Past Medical History - Allergies and Home Meds Allergies/Adverse Reactions: Allergies Sulfa (Sulfonamide Antibiotics) Allergy (Verified 05/26/20 15:02) Rash sulfamethoxazole [From Bactrim] Allergy (Verified 05/26/20 15:02) Rash trimethoprim [From Bactrim] Allergy (Verified 05/26/20 15:02) Rash naproxen Adverse Reaction (Verified 05/26/20 15:02) Other STOMACH BLEEDING Primary Care Physician: Moisés Barclay MD [Primary Care Provider] - Prior records reviewed: Yes Past Medical History: - - Gout Smoking Status: Never smoker Drugs: None Review of Systems General: Denies: Fever Respiratory: Denies: Dyspnea, Cough Gastrointestinal: Denies: Nausea, Vomiting Musculoskeletal: Reports: Extremity Pain Skin: Denies: Rash Neurological: Denies: Weakness, Parasthesia Hematologic: Denies: Easy bruising, Easy bleeding Physical Exam Vital Signs/Narrative: Vital Signs Temp Pulse Resp BP Pulse Ox 05/30/20 23:24 145/102 H 05/30/20 23:22 96.6 F L 84 18 96 - Extremity Exam Left Knee: - - Examination of the patient's left lower extremity shows no outward signs of trauma, no tenderness to palpation of the thigh finch ankle or foot. Tenderness palpation of the knee over the patella, with no obvious joint effusion. Patient has limited range of motion secondary to pain. No medial or lateral joint line tenderness. Patient has an intact extensor mechanism. Diagnostic/Tx/Re-eval - Medical Decision Making Multiple views of the patient's left knee were obtained by my personal review show no evidence of fracture, no large joint effusion, patella appears to be intact. Patient likely given the mechanism suffered a contusion over his patella. He will be given an Dave wrap and NSAIDs. Patient was discharged in stable condition. ED Disposition - Plan for ED Patient: Disposition: Home or Assisted Living Diagnosis: Contusion of left knee Instructions: ED Knee Pain [facility] Referrals: Moisés Barclay MD [Primary Care Provider] - As Needed
== END 2020-05-31 00:07 | disposition home or self-care (01) ==
LOC: ED 23:58
PROVIDERS: Emergency Provider Emergency Medicine; PCP Family Medicine
DX: S80.02XA Contusion of left knee, initial encounter (principal); X58.XXXA Exposure to other specified factors, initial encounter
CPT/HCPCS: 73564; 99281; 99283

== ENCOUNTER 2020-06-27 16:51 | Emergency (ER) | payer MEDICAID, SELFPAY ==
[2020-06-27 16:52] VITALS: BP 136/93; PULSE 83; RESP 14; TEMP 35.5; O2SAT 97; BMI 42.0
--- NOTE | 2020-06-27 17:40 | RAD_ITS ---
STUDY: X-RAY - RIGHT RADIUS AND ULNA REASON FOR EXAM: Male, 44 years old. right arm pain after lifting a box TECHNIQUE: 2 view(s) of the forearm. COMPARISON: None. FINDINGS: There is no demonstrated soft tissue swelling. Normal visualized radius. Normal visualized ulna. RAD/Forearm 2 Views IMPRESSION: Normal x-ray examination of the radius and ulna. Electronically Signed: Ho Thayer MD at 17:55 EST , Service support ,
[2020-06-27] MEDS: Acetaminophen 500 MG Tablet 1000 MG PO (17:41)
--- NOTE | 2020-06-27 18:05 | ED.DCSUM_ITS ---
- ER Visit Summary Date of Service: 06/27/20 Chief Complaint: Right forearm injury History of Present Illness: The patient is a 44 M who presents with an injury to the right forearm. He states that started today. He was moving a box when he twisted and felt pain. Pain is in the proximal area the forearm. Worse with movement. He denies any previous fractures or surgeries. He nothing for this pain at home. Physical Examination: Vital signs reviewed. Right forearm exam shows tenderness in the proximal muscles of the forearm. He has pain with supination and pronation. There is no bony tenderness. Distal pulses are equal. Sensation is intact. Test Results: X-rays negative Emergency Department Course and Treatment: Patient was given Tylenol here. He will continue Tylenol and NSAIDs at home. Treatment Plan: [] Disposition: Discharge Impression: Right forearm strain This note was generated with [employer] dictation software. It may contain incorrect words, spelling, and punctuation that were not noted in review of the chart prior to signing ED Disposition - Plan for ED Patient: Disposition: Home or Assisted Living Instructions: ED ELBOW SPRAIN Referrals: Moisés Barclay MD [Primary Care Provider] -
[2020-06-27 18:30] VITALS: PULSE 72; RESP 18; O2SAT 99
--- NOTE | 2020-06-27 18:31 | ED.RN ---
THIS NURSE REVIEWED D/C INSTRUCTIONS WITH PT. PT VERBALIZED UNDERSTANDING OF INSTRUCTIONS. PT DENIES FURTHER NEEDS OR QUESTIONS AT THIS TIME. PT AMBULATES FROM ROOM ON OWN WITHOUT ASSISTANCE FROM STAFF
== END 2020-06-27 18:32 | disposition home or self-care (01) ==
PROVIDERS: Emergency Provider Emergency Medicine; PCP Family Medicine
DX: S56.911A Strain of unspecified muscles, fascia and tendons at forearm level, right arm, initial encounter (principal)
CPT/HCPCS: 73090; 99283

== ENCOUNTER 2020-09-17 00:43 | Emergency (ER) | payer MEDICAID, SELFPAY ==
[2020-09-17 00:44] VITALS: BP 157/102; PULSE 68; RESP 18; TEMP 36; O2SAT 96; BMI 44.0
--- NOTE | 2020-09-17 00:46 | ED.VIS.GEN ---
History of Present Illness Chief Complaint: Headache Informant: Patient Onset: Today Context: Gradual Onset Timing: Continuous Current Severity: Moderate Maximum Severity: Moderate Narrative: Patient is a 45-year-old male history of hypertension migraine the presents to the emergency department with migraine headache. He states that started gradually this morning. He tried Imitrex nasal spray earlier and he states it did seem to help, but the headache rebounded. He states he tried it again with no relief. He does describe photophobia. He also describes nausea without vomiting. He describes it as bandlike pressure behind both eyes. It is consistent with history of migraines. He denies any sudden onset, neck pain, fever, or carbon monoxide exposure. Prior similar symptoms: Yes Recent Illness/Hospitalization: No Past Medical History - Allergies and Home Meds Allergies/Adverse Reactions: Allergies Sulfa (Sulfonamide Antibiotics) Allergy (Verified 09/17/20 00:44) Rash sulfamethoxazole [From Bactrim] Allergy (Verified 09/17/20 00:44) Rash trimethoprim [From Bactrim] Allergy (Verified 09/17/20 00:44) Rash naproxen Adverse Reaction (Verified 09/17/20 00:44) Other STOMACH BLEEDING Primary Care Physician: Moisés Barclay MD [Primary Care Provider] - Prior records reviewed: Yes Past Medical History: - - Hypertension, migraine headache Surgical History: noncontributory Review of Systems General: Denies: Chills, Fever, Sweats Eyes: Denies: Visual changes - bilaterally, Diplopia ENT: Denies: Rhinorrhea, Sore throat Cardiovascular: Denies: Chest pain, Palpitations Respiratory: Denies: Dyspnea, Cough, Dyspnea on exertion Gastrointestinal: Reports: Nausea. Denies: Abdominal pain, Vomiting, Diarrhea, Melena, Hematochezia Genitourinary: Denies: Dysuria, Hematuria, Frequency Musculoskeletal: Denies: Back pain, Extremity Pain Skin: Denies: Rash, Wounds Neurological: Reports: Headache. Denies: Weakness, Numbness Physical Exam Inital Vital Signs reviewed: Yes General: Well nourished, Well developed, No Acute Distress Head: Normocephalic, Atraumatic Eyes: Perrl, EOMI ENT: Moist mucous membranes, No rhinorrhea Neck: Supple, Nontender Cardiovascular: Regular rate, Regular rhythm, No murmurs Respiratory: No distress, CTA bilaterally, Chest nontender Abdomen: Soft, Nontender, Nondistended, Normal bowel sounds Back: Nontender, Normal Inspection Extremities: Nontender, No edema Skin: Normal color, No rash Neurological: Alert, Oriented x3, Cranial nerves II-XII grossly intact, Normal Strength, Normal Sensation Psychological: Normal affect, Normal Mood Diagnostic/Tx/Re-eval - Medical Decision Making Patient is well-appearing. He is not listless or lethargic. He is not meningitic or encephalopathic. His neurologic examination is benign. His headache is consistent with his history of headaches. IV was established. Patient was treated with migraine abortive medications. On reevaluation, he does have some improvement. He is resting comfortably. At this point, the patient will be discharged home. Impression 1. Migraine headache ED Disposition - Plan for ED Patient: Instructions: ED, Migraine (Classical) Referrals: Moisés Barclay MD [Primary Care Provider] -
[2020-09-17] MEDS: 0.9% Normal Saline 1,000 ML 999 ML IV (01:17)
[2020-09-17] MEDS: proCHLORPERazine 10 MG/2 ML Vial IV (01:19)
[2020-09-17] MEDS: DiphenhydrAMINE 50 MG/ML Syringe IV (01:19)
[2020-09-17 02:00] VITALS: BP 150/87; PULSE 64; RESP 18; O2SAT 95
== END 2020-09-17 02:01 | disposition home or self-care (01) ==
LOC: ED 01:31
PROVIDERS: Emergency Provider Emergency Medicine; PCP Family Medicine
DX: G43.909 Migraine, unspecified, not intractable, without status migrainosus (principal); I10 Essential (primary) hypertension
CPT/HCPCS: 96374; 96375; 99284; J7030; A4216

== ENCOUNTER 2020-11-30 23:57 | Emergency (ER) | payer MEDICAID, SELFPAY ==
[2020-11-30 23:58] VITALS: BP 154/95; PULSE 75; RESP 18; TEMP 36.1; O2SAT 97; BMI 43.3
--- NOTE | 2020-12-01 00:07 | RAD_ITS ---
STUDY: X-RAY - RIGHT SHOULDER REASON FOR EXAM: Male, 45 years old. Injury TECHNIQUE: 4 view(s) of the shoulder. COMPARISON: April 25, 2019 chest x-ray FINDINGS: Normal glenohumeral articulation. There is degenerative arthrosis of the acromioclavicular joint without inferior osseous spur formation. Normal acromion. Normal humeral head and visualized proximal humerus. The soft tissue structures are unremarkable. Normal visualized pulmonary apex. RAD/Shoulder min 2 Views IMPRESSION: Degenerative change no visualized fracture. Electronically Signed: Lexi Schmitt MD at 0:33 EDT Tel , Service support ,
--- NOTE | 2020-12-01 00:12 | ED.DCSUM_ITS ---
- ER Visit Summary Date of Service: 12/01/20 Chief Complaint: Right shoulder pain History of Present Illness: The patient is a 45 M presenting with right shoulder pain. Patient states yesterday he was getting something out of the trunk of his vehicle and the trunk came down and hit him in the right shoulder. It did not hit his head and he did not lose consciousness. He is not on anticoagulants. He has tried ibuprofen at home. He went to work today and has been using his right upper extremity and the pain increases when he tries to lift. Denies other complaints. Physical Examination: Vitals are stable. Patient is afebrile. Alert no acute distress. HEENT exam is unremarkable. Neck is nontender Lungs are clear and equal bilaterally. Heart is regular rate and rhythm. Extremities diffuse right shoulder tenderness with painful range of motion. Neurovascularly intact distally Skin is warm and dry. No focal neurologic deficit. Remainder of exam is unremarkable. Emergency Department Course and Treatment: Right shoulder x-ray read by myself and radiology shows degenerative change no visualized fracture. Patient was given a sling for comfort. He was given prescription for Flexeril and advised to continue ibuprofen. Advised to follow-up with primary care physician. Advised return to ED for worsening complaints. Disposition: Discharge home Impression: Right shoulder contusion This note was generated with [employer] dictation software. It may contain incorrect words, spelling, and punctuation that were not noted in review of the chart prior to signing ED Disposition - Plan for ED Patient: Instructions: ED Shoulder Contusion Prescriptions: cycloBENZAPRine HCl [Flexeril] 10 mg PO TID PRN #20 tab PRN Reason: Muscle Spasm Prescription Printed Referrals: Moisés Barclay MD [Primary Care Provider] -
--- NOTE | 2020-12-01 00:51 | ED.DEP ---
ED Disposition - Plan for ED Patient: Instructions: ED Shoulder Contusion Prescriptions: cycloBENZAPRine HCl [Flexeril] 10 mg PO TID PRN #20 tab PRN Reason: Muscle Spasm Prescription Printed Referrals: Moisés Barclay MD [Primary Care Provider] -
[2020-12-01 01:04] VITALS: RESP 16
== END 2020-12-01 01:04 | disposition home or self-care (01) ==
LOC: ED 12-01 00:30
PROVIDERS: Emergency Provider Emergency Medicine; PCP Family Medicine
DX: S40.011A Contusion of right shoulder, initial encounter (principal); X58.XXXA Exposure to other specified factors, initial encounter
CPT/HCPCS: 73030; 99283

== ENCOUNTER 2020-12-26 14:17 | Emergency (ER) | payer MEDICAID, SELFPAY ==
[2020-12-26 11:52] VITALS: BMI 43.3
[2020-12-26 14:18] VITALS: BP 150/101; PULSE 63; RESP 18; TEMP 36; O2SAT 95; BMI 41.9
--- NOTE | 2020-12-26 14:26 | EDS_ITS ---
HPI History of Present Illness Chief Complaint: Male Pain/Injury Informant: patient Pain Onset: Yesterday Context: Gradual Onset Timing: Intermittent Current Severity: Moderate Maximum Severity: Moderate Appearance Lesion(s): No Genital Edema: No Related History Sexually: Active and Single Partner Unprotected Sex: No Narrative Narrative: Patient is a 45-year-old male otherwise healthy the presents to the emergency department with left testicular pain. He states yesterday, he noticed a dull ache in his testicle. He states throughout the day, it would just not go away. He states that he showed his and she was worried that his testicle is high riding. He called his primary care and was sent to the emergency department for further evaluation. He states that he recently had gastroillness but seemed to recover. He is sexually active with single partner. He denies any trauma. He denies any urinary symptoms. [facility] Medical History Acute frontal sinusitis, unspecified Asthma Deviated nasal septum Gout History of gout Hypertension Hypertrophy of nasal turbinates Hypertrophy of tonsils Laceration of oral cavity PING (obstructive sleep apnea) Home Medications NK 12/26/20 [History Last Taken Unknown] Allergy/AdvReac Type Severity Reaction Status Date / Time Sulfa (Sulfonamide Allergy Rash Verified 12/26/20 14:18 Antibiotics) sulfamethoxazole Allergy Rash Verified 12/26/20 14:18 [From Bactrim] trimethoprim [From Bactrim] Allergy Rash Verified 12/26/20 14:18 naproxen AdvReac Other Verified 12/26/20 14:18 no significant family history Surgical History History of ankle surgery Social History Smoking Status: Never smoker ROS ROS ED Constitutional Constitutional ED: Denies chills or fever(s) Eyes Eyes: Denies blurry vision or change in vision ENT ENT ED: Denies ear pain or sore throat Cardiovascular Cardiovascular: Denies chest pain or palpitations Respiratory/Chest Respiratory/Chest: Denies cough, dyspnea or dyspnea on exertion Gastrointestinal Gastrointestinal: Denies abdominal pain, nausea or vomiting Genitourinary Genitourinary ED: Denies dysuria or urinary frequency Musculoskeletal Musculoskeletal: Denies arthralgias or myalgias Integumentary Denies rash Neurologic Neurologic: Denies headache(s) or paresthesias Psychiatric Psychiatric: Denies anxiety or depression Endocrine Endocrinology: Denies polydipsia or polyuria Allergic/Immunologic Allergic/Immunologic ED: Denies urticaria EXAM Physical Exam Const Vital Signs: 12/26/20 14:18 12/26/20 16:18 12/26/20 16:35 Temperature 96.8 F L Temperature Source Temporal Pulse Rate 63 Respiratory Rate 18 18 15 Blood Pressure 150/101 H Blood Pressure Mean 117 Pulse Ox 95 Oxygen Delivery Method Room Air Positive well nourished and well developed General Appearance ED: well developed HEENT Reports normocephalic, head/scalp atraumatic and moist mucous membranes Eyes PERRL and EOMs intact bilaterally Neck no lymphadenopathy and supple General: Negative for tenderness Chest Wall inspection of chest normal Resp normal respiratory effort and clear to auscultation bilaterally Cardio regular rate, regular rhythm and no murmurs GI normal to inspection, nondistended, normoactive bowel sounds Palpation: Negative for tender, guarding or rebound tenderness present Penis: normal penis Meatus: meatus normal Scrotum: tenderness; Negative for scrotal mass Testes: testicular tenderness Back/Spine no CVA tenderness Cervical Spine: Negative for cervical spine tenderness Thoracic Spine / Upper Back: Negative for thoracic spinal tenderness Extremity normal to inspection General Extremety ED: Negative for tenderness Neuro oriented x3 and CN's II-XII intact bilaterally Neuro Narrative: No focal deficits appreciated. Sensorium / Orientation: alert Psych mental status grossly normal Skin no rashes or lesions noted, no wounds and skin turgor normal MDM MDM MDM Narrative Medical decision making narrative: Patient presents with left testicular pain. He has a normal cremasteric. It is mildly tender to palpation. I did obtain a urine which showed notes of infection. Patient underwent ultrasound. There was no evidence of torsion. He does have a small left-sided varicocele. I do feel this is likely was causing the pain especially as it is focal. I am going to treat him with anti-inflammatories and outpatient urology follow-up. He is comfortable with this plan of care. Impression 1. Left varicocele Lab Data Attestation: I reviewed the patient's lab results. Labs: Laboratory Results - last 24 hr 12/26/20 14:35 Urine Color Yellow Urine Clarity Clear Urine pH 5.0 Ur Specific [place] 1.025 Urine Protein Negative Urine Glucose (UA) Normal Urine Ketones 5 H Urine Occult Blood 10 H Urine Nitrite Negative Urine Bilirubin Negative Urine Urobilinogen Normal Ur Leukocyte Esterase Negative Urine RBC 0-5 SEEN Urine WBC 0 SEEN Ur Squamous Epith Cells 0 SEEN Urine Bacteria 0 SEEN Urine Mucus 0 SEEN Radiography Diagnostic Testing: Radiology Impression Testicular Ultrasound 12/26/20 14:26 IMPRESSION: Normal bilateral testes. Left-sided varicocele. Bilateral, right greater than left hydroceles. Bilateral epididymal head cysts. Electronically Signed: Bi Mims MD at 16:33 EDT Tel , Service support , Discharge Plan Triage Chief Complaint: Male Pain/Injury ED Provider: Rey Piedra Dx/Rx/DC Orders Instructions: ED Varicocele Prescriptions: No Action NK RF: 0 Primary Care Provider: Moisés Barclay Referrals: Jack Blandon MD [STAFF PHYSICIAN] - 3-5 Days Moisés Barclay MD [Primary Care Provider] -
--- NOTE | 2020-12-26 14:26 | US_ITS ---
INDICATION: left testicular pain EXAMINATION: US Scrotum (Contents) TECHNIQUE: Realtime ultrasound of the testicles was performed with grayscale, Color Doppler and spectral Doppler analysis. COMPARISON: None. FINDINGS: RIGHT: TESTIS: Measures 4.5 x 2.6 x 1.9 cm. Normal in size and echotexture, without focal lesion. Scrotal melchor. COLOR DOPPLER: Normal arterial flow present in the testicle with monophasic waveforms. EPIDIDYMIS: Normal in size and echotexture. 5 mm epididymal head cyst. [Normal color Doppler flow pattern in the epididymis. HYDROCELE: Moderate hydrocele.. VARICOCELE: None. LEFT: TESTIS: Measures 4.3 x 2.6 x 2 cm. Normal in size and echotexture, without focal lesion. COLOR DOPPLER: Normal arterial flow present in the testicle with monophasic waveforms. EPIDIDYMIS: Normal in size and echotexture. 9 mm epididymal head cyst. [Normal color Doppler flow pattern in the epididymis. HYDROCELE: Small hydrocele.. VARICOCELE: Yes. US/Testicular with Arterial Flow IMPRESSION: Normal bilateral testes. Left-sided varicocele. Bilateral, right greater than left hydroceles. Bilateral epididymal head cysts. Electronically Signed: Bi Mims MD at 16:33 EDT Tel , Service support ,
[2020-12-26 14:45] LABS: Bacteria 0 SEEN /hpf (None Seen); Mucous, Urine 0 SEEN /hpf (<or=2+); Squamous Epithelial Cells - UA 0 SEEN /hpf (0-5); White Blood Cells 0 SEEN /hpf (0-5)
[2020-12-26 14:53] LABS: Color, Urine Yellow (Yellow); Glucose, Dipstick Normal (Normal); Ketone-Dipstick 5 mg/dl (Negative); Leukocyte Esterase-Dipstick Negative /ul (Negative); Nitrite-Dipstick Negative (Negative); Occult Blood-Urine 10 /ul (Negative); Protein-Dipstick Negative (Negative); Specific Gravity, Urine 1.025 (1.002-1.030); Urine Bilirubin Dipstick Negative (Negative); Urine Clarity Clear (Clear); Urine Urobilinogen Normal (Normal)
[2020-12-26 14:59] LABS: Red Blood Cells-Urine 0-5 SEEN /hpf (0-5)
[2020-12-26 16:18] VITALS: RESP 18
[2020-12-26 16:35] VITALS: RESP 15
[2020-12-26 16:46] VITALS: PULSE 88; RESP 17; O2SAT 96
== END 2020-12-26 16:48 | disposition home or self-care (01) ==
LOC: ED 15:11
PROVIDERS: Emergency Provider Emergency Medicine; PCP Family Medicine
DX: I86.1 Scrotal varices (principal)
CPT/HCPCS: 76870; 81001; 93976; 99282

== ENCOUNTER → 2021-01-09 13:41 | Outpatient (CLI) | payer MEDICAID, SELFPAY ==
[2021-01-05 07:49] VITALS: BMI 42.7
== END ==
PROVIDERS: PCP Family Medicine; Visit Provider Nurse Practitioner Acute Care
DX: Z46.89 Encounter for fitting and adjustment of other specified devices (principal)

== ENCOUNTER → 2021-01-23 10:00 | Outpatient (CLI) | payer MEDICAID, SELFPAY ==
[2021-01-05 07:49] VITALS: BMI 42.7
== END ==
PROVIDERS: PCP Family Medicine; Visit Provider Nurse Practitioner Acute Care
DX: Z00.00 Encounter for general adult medical examination without abnormal findings (principal)

== ENCOUNTER → 2021-02-06 12:29 | Outpatient (CLI) | payer MEDICAID, SELFPAY ==
[2021-01-05 07:49] VITALS: BMI 42.7
== END ==
PROVIDERS: PCP Family Medicine; Referring Provider Otolaryngology; Visit Provider Otolaryngology
DX: Z03.818 Encounter for observation for suspected exposure to other biological agents ruled out (principal)
CPT/HCPCS: 87635; C9803; U0005; U0003

== ENCOUNTER 2021-04-12 13:23 | Emergency (ER) | payer MEDICAID, SELFPAY ==
[2021-04-12 13:24] VITALS: BP 152/108; PULSE 66; RESP 18; TEMP -13.4; TEMP 7.9; O2SAT 98; BMI 43.0
--- NOTE | 2021-04-12 14:13 | EX.ED.VIS.HA ---
HPI History of Present Illness Chief Complaint: Headache Informant: patient Onset/Context/Timing Onset: Yesterday Timing: Continuous Current Severity: Mild Maximum Severity: Mild Associated Symptoms/Injury Associated Symptoms: Positive for Nausea, Vomiting, Blurred Vision and Photophobia; Negative for Fever, Sore Throat, Sinus Pressure, Numbness and Tingling Injury - FLANNERY: Negative for Direct Trauma, Fall and Assault Narrative Narrative: 45-year-old male history of hypertension and migraine headaches. Has had migraine headaches for 20 years. Says he awoke with this headache yesterday. He denies any head trauma. He denies any fever. He is on no blood thinners. He has had imaging before in the past and has no history of intracranial bleeds or aneurysms. There is no family history neither. He states this is typical for one of his migraines it settles behind his eyes. He did use Imitrex nasal spray at home and did not completely relieve his headache. He denies any problems using his arms or legs or walking. Prior similar symptoms: Yes Recent Illness/Hospitalization: No PFSH PFSH Medical History Acute frontal sinusitis, unspecified Asthma Deviated nasal septum Gout History of gout Hypertension Hypertrophy of nasal turbinates Hypertrophy of tonsils Laceration of oral cavity PING (obstructive sleep apnea) Home Medications sertraline 50 mg tablet 50 mg PO DAILY 03/20/21 [History Last Taken Unknown] Allergy/AdvReac Type Severity Reaction Status Date / Time Sulfa (Sulfonamide Allergy Rash Verified 04/12/21 13:26 Antibiotics) sulfamethoxazole Allergy Rash Verified 04/12/21 13:26 [From Bactrim] trimethoprim [From Bactrim] Allergy Rash Verified 04/12/21 13:26 naproxen AdvReac Other Verified 04/12/21 13:26 Surgical History History of ankle surgery Social History Smoking Status: Never smoker ROS ROS ED ROS Narrative Headache with nausea and vomiting. Review of Systems ROS Unobtainable: Denies due to encephalopathy Constitutional Constitutional ED: Denies chills or fever(s) Eyes Eyes: Denies change in vision ENT ENT ED: Denies ear pain or sore throat Cardiovascular Cardiovascular: Denies chest pain Respiratory/Chest Respiratory/Chest: Denies cough or dyspnea Gastrointestinal Gastrointestinal: Reports nausea and vomiting; Denies abdominal pain or diarrhea Genitourinary Genitourinary ED: Denies dysuria Musculoskeletal Musculoskeletal: Denies myalgias Integumentary Denies rash Neurologic Neurologic: Reports headache(s) Psychiatric Psychiatric: Denies depression Endocrine Endocrinology: Denies polyuria Hematologic/Lymphatic Hematologic/Lymphatic: Denies easy bruising Allergic/Immunologic Allergic/Immunologic ED: Denies urticaria EXAM Physical Exam Narrative Exam Narrative: Middle-aged Marisol in darkened room. Vital signs stable afebrile. Initial blood pressure 152/108. He does not look septic or toxic. H EENT exam pupils round react to light his motions are intact. No trauma to his head or face. Neck nontender no meningismus. Able to touch chin to chest. Lungs clear. Heart regular rate and rhythm no murmur. Abdomen soft nontender normal bowel sounds no peritoneal signs. Patient moving all 4 extremities. Normal motor strength. Neurologically is awake alert with no focal motor deficits. 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 Dorsi plantar flexion intact. Fingertip to nose and [id number] within normal limits. NIH 0. Const Vital Signs: 04/12/21 13:24 Temperature 7.9 F L Temperature Source Temporal Pulse Rate 66 Respiratory Rate 18 Blood Pressure 152/108 H Blood Pressure Mean 122 Pulse Ox 98 Oxygen Delivery Method Room Air Positive well nourished and well developed; Negative for obese, cachectic, contractures or unkempt General Appearance ED: well developed and NAD; Negative for unkempt, cachectic or contractures Nutritional Appearance: Negative for cachectic or obese HEENT Reports normocephalic and moist mucous membranes atraumatic; Negative for trauma or tenderness Eyes PERRL and EOMs intact bilaterally Neck no lymphadenopathy, supple, no meningeal signs and no JVD General: Negative for tenderness Resp normal respiratory effort and clear to auscultation bilaterally Auscultation: Negative for rales, rhonchi or wheezes Cardio regular rate, regular rhythm, S1 normal heart sound, S2 normal heart sound and no murmurs GI non-tender and non-distended Auscultation: normoactive bowel sounds Palpation: soft; Negative for firm, tender or guarding Back/Spine no CVA tenderness General Back: Negative for CVA tenderness Extremity normal to inspection and full ROM Neuro oriented x3 and CN's II-XII intact bilaterally Sensorium / Orientation: awake, alert, oriented to person, oriented to place and oriented to time; Negative for orientation impaired, lethargic or stuporous Coordination / Balance: [id number] test normal and [id number] test normal Motor Exam: strength 5/5 throughout and strength abnormal; Negative for general weakness Psych mental status grossly normal Appearance: Negative for unkempt Skin Lesions: no lesions Rashes: no rashes MDM MDM MDM Narrative Medical decision making narrative: Middle-age male with headache consistent with migraine. Which exam and specifically neurologic exam normal. He will be treated with IV fluids, Toradol, Benadryl and Compazine. Then reassess. I do not think he needs imaging. Has had in the past that was reportedly negative. Repeat exam at 3:37 PM patient is doing well. Headache is resolving. Neurologic exam remains normal. I offered him more medication or to be observed longer he said he is feeling much better and wants to be discharged home. Discharge Plan Triage Chief Complaint: Headache ED Provider: Tylor Green Dx/Rx/DC Orders Clinical Impression: Migraine headache Instructions: ED, Migraine (Classical) Prescriptions: No Action sertraline [Zoloft] 50 mg tablet 50 mg PO DAILY RF: 0 Primary Care Provider: Moisés Barclay Referrals: Moisés Barclay MD [Primary Care Provider] - 1-2 Days if not improving Activity Restrictions/Additional Instructions: Plenty of fluids and rest. Tylenol and Motrin for pain and/or your Imitrex. Return if feeling worse or follow-up with your doctor if not improving. Disposition Disposition: Home, Self Care
[2021-04-12] MEDS: proCHLORPERazine 10 MG/2 ML Vial IV (14:54)
[2021-04-12] MEDS: DiphenhydrAMINE 50 MG/ML Syringe IV (14:54)
[2021-04-12] MEDS: Ketorolac 30 MG/ML Syringe IV (14:54)
[2021-04-12] MEDS: 0.9% Normal Saline 1,000 ML 15 ML IV (14:54)
== END 2021-04-12 15:48 | disposition home or self-care (01) ==
PROVIDERS: Emergency Provider Emergency Medicine; PCP Family Medicine
DX: G43.909 Migraine, unspecified, not intractable, without status migrainosus (principal)
CPT/HCPCS: 96374; 96375; 99283; J7030; A4216

== ENCOUNTER 2021-05-25 15:12 | Emergency (ER) | payer MEDICAID, SELFPAY ==
[2021-05-25 15:13] VITALS: BP 131/95; PULSE 64; RESP 19; TEMP 36.4; O2SAT 96; BMI 42.3
--- NOTE | 2021-05-25 15:31 | EX.ED.VIS.HA ---
HPI History of Present Illness Chief Complaint: Headache Informant: patient Onset/Context/Timing Onset: Today Timing: Continuous Quality -Headache: Positive for Similar Prior Headaches and Throbbing Location: Generalized Worsened by: Light Relieved by: Resting in a dark room Associated Symptoms/Injury Associated Symptoms: Positive for Blurred Vision and Photophobia; Negative for Fever, Nausea, Vomiting, Sore Throat, Sinus Pressure, Numbness, Tingling, Preceding Aura, Visual Changes and Visual Loss Injury - FLANNERY: Negative for Direct Trauma Narrative Narrative: Patient presents with migraine headache that began when he woke up today. Patient states this feels similar to prior migraine headaches but not quite as bad. Patient states it is generalized over the top of his head. Patient describes it as throbbing. Patient states it is worse with light. Patient states it is better when he keeps his eyes closed in a nice dark room. Patient admits to some blurry vision. Patient admits to some photophobia. Patient denies any nausea or vomiting. Patient denies any fevers or chills. Patient denies any scotoma or other visual changes. [facility] Medical History Acute frontal sinusitis, unspecified Asthma Deviated nasal septum Gout History of gout Hypertension Hypertrophy of nasal turbinates Hypertrophy of tonsils Laceration of oral cavity Migraine PING (obstructive sleep apnea) Home Medications sertraline 50 mg tablet 50 mg PO DAILY 03/20/21 [History Last Taken Unknown] lisinopril 05/25/21 [History Last Taken Unknown] Allergy/AdvReac Type Severity Reaction Status Date / Time Sulfa (Sulfonamide Allergy Rash Verified 05/25/21 15:16 Antibiotics) sulfamethoxazole Allergy Rash Verified 05/25/21 15:16 [From Bactrim] trimethoprim [From Bactrim] Allergy Rash Verified 05/25/21 15:16 naproxen AdvReac Other Verified 05/25/21 15:16 Surgical History History of ankle surgery Social History Smoking Status: Never smoker ROS ROS ED Constitutional Constitutional ED: Denies chills or fever(s) Eyes Eyes: Reports blurry vision; Denies change in vision ENT ENT ED: Denies rhinorrhea or sore throat Cardiovascular Cardiovascular: Denies chest pain or palpitations Respiratory/Chest Respiratory/Chest: Denies cough or dyspnea Gastrointestinal Gastrointestinal: Denies nausea or vomiting Genitourinary Genitourinary ED: Denies dysuria or hematuria Musculoskeletal Musculoskeletal: Denies back pain or neck pain Integumentary Denies abscess or rash Neurologic Neurologic: Reports headache(s); Denies weakness Allergic/Immunologic Allergic/Immunologic ED: Denies mouth swelling or urticaria EXAM Physical Exam Const Vital Signs: 05/25/21 15:13 Temperature 97.6 F L Temperature Source Temporal Pulse Rate 64 Respiratory Rate 19 H Blood Pressure 131/95 H Blood Pressure Mean 107 Pulse Ox 96 Oxygen Delivery Method Room Air Positive well nourished and well developed General Appearance ED: well developed HEENT Reports moist mucous membranes Neck supple and no JVD Resp normal respiratory effort and clear to auscultation bilaterally Cardio regular rate, regular rhythm and no murmurs GI normal to inspection, nondistended, normoactive bowel sounds and non-tender Palpation: soft Extremity normal to inspection General Extremety ED: Negative for edema or tenderness General Extremity: Negative for edema Neuro oriented x3, CN's II-XII intact bilaterally and no sensory deficits noted Sensorium / Orientation: awake and alert Motor Exam: strength 5/5 throughout Psych mental status grossly normal Skin no rashes or lesions noted MDM MDM MDM Narrative Medical decision making narrative: Patient was given IV fluids, Reglan, and Benadryl. Patient states his headache is improving and feels well enough to go home. Patient was instructed to rest in a dark quiet room. Patient was instructed to follow-up with his primary care physician in 5 to 7 days. Patient understood and was agreeable with the plan. All questions were answered. Discharge Plan Triage Chief Complaint: Headache ED Provider: Luigi Londono Dx/Rx/DC Orders Clinical Impression: Migraine headache Instructions: ED, Migraine (Classical) Prescriptions: No Action sertraline [Zoloft] 50 mg tablet 50 mg PO DAILY RF: 0 lisinopril RF: 0 Stand Alone Forms: ED Work / School Excuse Primary Care Provider: Moisés Barclay Referrals: Moisés Barclay MD [Primary Care Provider] - 5-7 Days Disposition Disposition: Home, Self Care
[2021-05-25] MEDS: Metoclopramide 10 MG/2 ML Vial IV (15:47)
[2021-05-25] MEDS: DiphenhydrAMINE 50 MG/ML Syringe 25 MG IV (15:47)
[2021-05-25] MEDS: 0.9% Normal Saline 1,000 ML 999 ML IV (15:48)
[2021-05-25 17:09] VITALS: BP 118/79; PULSE 48; RESP 16; O2SAT 98
== END 2021-05-25 17:10 | disposition home or self-care (01) ==
PROVIDERS: Emergency Provider Emergency Medicine; PCP Family Medicine
DX: G43.909 Migraine, unspecified, not intractable, without status migrainosus (principal); G47.33 Obstructive sleep apnea (adult) (pediatric); Z79.899 Other long term (current) drug therapy
CPT/HCPCS: 96374; 96375; 99283; J7030; A4216

== ENCOUNTER 2021-06-19 15:47 | Emergency (ER) | payer OTHER, MEDICAID, SELFPAY ==
[2021-06-19 15:51] VITALS: BP 148/96; PULSE 65; RESP 14; TEMP 35.5; O2SAT 96; BMI 43.0
--- NOTE | 2021-06-19 17:37 | ED.RN ---
pt reports jaw feeling numb. post knee pain
--- NOTE | 2021-06-19 18:09 | RAD_ITS ---
STUDY: X-RAY - LEFT KNEE REASON FOR EXAM: Male, 45 years old. PAIN IN POSTERIOR PORTION OF LEFT KNEE. PATIENT STATES STOOD UP AND KNEE GAVE OUT. LEG DID NOT STRAIGHTEN OUT AND HE FELLinjury/twisted TECHNIQUE: 4 view(s) of the knee. COMPARISON: Left knee x-ray dated May 30, 2020 FINDINGS: Normal visualized distal femur. Normal visualized proximal tibia and fibula. Normal proximal tibiofibular articulation. There is no demonstrated fracture. Normal medial femorotibial compartment. Normal lateral femorotibial compartment. Normal patellofemoral articulation. There is no demonstrated joint effusion. The soft tissue structures are unremarkable. RAD/Knee 4 or More Views IMPRESSION: Normal x-ray examination of the knee. Electronically Signed: Timothy Ernst MD at 20:07 EDT , Service support ,
--- NOTE | 2021-06-19 18:11 | ED.VIS.LOWEX ---
HPI History of Present Illness Chief Complaint: Lower Extremity Injury Informant: patient Occured/Mechanism Mechanism/Context: Yes other see comment below Comment: unsure, thinks twisted Onset/Context/Timing Onset: Today Context: Sudden Onset (getting out of bed) Timing: Continuous Quality of Pain: Aching Location: posterior L knee Current Severity: Moderate Maximum Severity: Moderate Worsened by: walking/WBing, moving Relieved by: rest Associated Symptoms Associated Symptoms: Negative for Parasthesia, Weakness and Loss of Funtion Narrative Narrative: Patient states he was getting out of bed, he is unsure exactly what the mechanism was, but his left knee felt like it gave out as he lunged forward to walk, and he fell to the floor, hitting his head on the nearby wall but did not hit it hard. Did not put a hole in the wall. He denies any headache, loss of consciousness, amnesia, nausea, vomiting, focal neurologic symptoms, or changes in his vision. [facility] Medical History Acute frontal sinusitis, unspecified Asthma Deviated nasal septum Gout History of gout Hypertension Hypertrophy of nasal turbinates Hypertrophy of tonsils Laceration of oral cavity Migraine PING (obstructive sleep apnea) Home Medications sertraline 50 mg tablet 50 mg PO DAILY 03/20/21 [History Last Taken Unknown] lisinopril 05/25/21 [History Last Taken Unknown] allopurinol 100 mg PO DAILY 06/19/21 [History Last Taken Unknown] Allergy/AdvReac Type Severity Reaction Status Date / Time Sulfa (Sulfonamide Allergy Rash Verified 06/19/21 15:51 Antibiotics) sulfamethoxazole Allergy Rash Verified 06/19/21 15:51 [From Bactrim] trimethoprim [From Bactrim] Allergy Rash Verified 06/19/21 15:51 naproxen AdvReac Other Verified 06/19/21 15:51 Surgical History History of ankle surgery Social History Smoking Status: Never smoker ROS ROS ED Constitutional Constitutional ED: Denies chills or fever(s) Eyes Eyes: Denies blurry vision, change in vision or diplopia ENT ENT ED: Denies disequillibrium, dizziness, ear pain, epistaxis, facial pain or nasal trauma Musculoskeletal Musculoskeletal: Reports extremity pain; Denies neck pain Integumentary Denies Abrasions, rash or wounds Neurologic Neurologic: Denies headache(s), paresthesias or weakness EXAM Physical Exam Const Vital Signs: 06/19/21 15:51 Temperature 96 F L Temperature Source Temporal Pulse Rate 65 Respiratory Rate 14 Blood Pressure 148/96 H Blood Pressure Mean 113 Pulse Ox 96 Oxygen Delivery Method Room Air Positive well nourished and well developed General Appearance ED: well developed and NAD HEENT Reports normocephalic, head/scalp atraumatic and moist mucous membranes HEENT Narrative: No CSF otorhinorrhea. Area where patient hit his head high left parietal was nontender and without any signs of trauma. No crepitance or depression. Eyes PERRL, EOMs intact bilaterally and conjunctivae normal Neck full ROM and supple Back/Spine normal ROM and normal to inspection Extremity Extremity Narrative: Left knee: No bony tenderness. Tender in the area of the biceps femoris/IT band insertion/plantaris and popliteal fossa. No masses, no effusion. Almost full flexion of the knee but limited at extreme. All 4 knee ligaments are with short endpoints, are stable without laxity, and no severe pain on stressing. Extensor mechanism intact able to straighten fully. No deformities. Neuro oriented x3, no focal motor deficits and no sensory deficits noted Sensorium / Orientation: alert Psych mental status grossly normal and thought process normal Skin no wounds Rashes: no rashes MDM MDM MDM Narrative Medical decision making narrative: On my interpretation 4 view x-ray series of the left knee is normal showing no acute fracture or dislocation. Patient will be placed on an Dave wrap, he was given ibuprofen, and instructions for supportive care and orthopedic follow-up if his symptoms do not improve after a week of rest and ice. He is comfortable with that plan. Discharge Plan Triage Chief Complaint: Lower Extremity Injury ED Provider: Arturo Welch Dx/Rx/DC Orders Clinical Impression: Left knee sprain Instructions: ED Bandage Elastic Wrap, ED Knee Sprain Prescriptions: No Action sertraline [Zoloft] 50 mg tablet 50 mg PO DAILY RF: 0 lisinopril RF: 0 allopurinol 100 mg tablet 100 mg PO DAILY RF: 0 Primary Care Provider: Moisés Barclay Referrals: Moisés Barclay MD [Primary Care Provider] - Bridger Horn MD [STAFF PHYSICIAN] - 1 Week if not improving Disposition Disposition: Home, Self Care
[2021-06-19] MEDS: Ibuprofen 200 MG Tablet 400 MG PO (18:18)
[2021-06-19 19:49] VITALS: BP 147/89; PULSE 80; RESP 17; O2SAT 97
== END 2021-06-19 19:55 | disposition home or self-care (01) ==
PROVIDERS: Emergency Provider Emergency Medicine; PCP Family Medicine
DX: S83.92XA Sprain of unspecified site of left knee, initial encounter (principal); I10 Essential (primary) hypertension; G47.33 Obstructive sleep apnea (adult) (pediatric); Z79.899 Other long term (current) drug therapy; W19.XXXA Unspecified fall, initial encounter
CPT/HCPCS: 73564; 99283

== ENCOUNTER → 2021-07-12 10:14 | Outpatient (CLI) | payer OTHER, MEDICAID, SELFPAY ==
--- NOTE | 2021-07-12 10:15 | MRI_ITS ---
STUDY: MRI LEFT KNEE REASON FOR EXAM: Posterior/lateral left knee pain for 3 years. TECHNIQUE: Standardized fat and water weighted pulse sequences were obtained in all 3 orthogonal planes. COMPARISON: Radiographs 06/19/2021. FINDINGS: Normal medial meniscus. Normal hyaline cartilage of the medial femorotibial compartment. Normal medial femoral condyle and tibial plateau. Normal medial collateral ligamentous complex (MCL). Normal distal semimembranosus, gracilis and semitendinosus tendons. Normal lateral meniscus. Normal hyaline cartilage of the lateral femorotibial compartment. Normal lateral femoral condyle and tibial plateau. Normal proximal tibiofibular articulation. Normal lateral collateral (fibular) ligament. Normal popliteus tendon. Normal biceps femoris tendon. Normal anterior cruciate ligament (ACL). Normal posterior cruciate ligament (PCL). Normal congruent patellofemoral articulation. Normal hyaline cartilage of the patellofemoral compartment. Normal medial and lateral patellar retinaculum. Normal visualized quadriceps tendon. Normal patellar tendon. Normal Hoffa''s fat pad. There is no joint effusion. There is a thin medial patellar plica. There is a small ganglion cyst of the distal popliteus tendon sheath (T2 sagittal images 17, 18) measuring 2 cm in length. The otherwise visualized osseous structures are unremarkable. MRI/Lower Ext Joint Only (Routine) IMPRESSION: Small ganglion cyst of the distal popliteus tendon sheath. Otherwise, unremarkable MRI of the left knee without demonstrated meniscal or ligamentous injury. Electronically Signed: Kyle Zimmerman MD at 12:24 EST Tel , Service support ,
== END ==
PROVIDERS: PCP Family Medicine
DX: M23.92 Unspecified internal derangement of left knee (principal)
CPT/HCPCS: 73721

== ENCOUNTER 2021-09-11 15:09 | Emergency (ER) | payer BC, MEDICAID, SELFPAY ==
[2021-09-11 15:11] VITALS: BP 138/97; PULSE 79; RESP 16; TEMP 35.5; O2SAT 95; BMI 43.3
--- NOTE | 2021-09-11 16:23 | CT_ITS ---
STUDY: CT THORACIC SPINE WITHOUT CONTRAST REASON FOR EXAM: Male, 46 years old. Pain after a fall RADIATION DOSAGE (If Supplied By Facility): CTDIvol = ( 40.03 ) mGy, DLP = ( 1334.28 ) mGycm TECHNIQUE: The patient was scanned in a multi detector CT scanner. High resolution imaging was performed. Images were obtained from C7 to T12. Sagittal and coronal images were reconstructed. Individualized dose optimization techniques were used for this CT. COMPARISON: None. FINDINGS: Normal visualized cervical spine. Normal kyphosis of the thoracic spine. There is no substantial scoliosis. Normal thoracic vertebrae and endplates. Mild disc space narrowing throughout the thoracic spine with multiple Schmorl''s nodes noted. No demonstrated fracture or suspicious osseous lesion The soft tissue structures are unremarkable. CT/Spine Thoracic without Contras IMPRESSION: Age consistent degenerative changes, no acute findings Electronically Signed: Mark Leon MD at 17:05 EST , Service support ,
--- NOTE | 2021-09-11 16:24 | ED.VIS.FALL ---
HPI HPI - Fall History of Present Illness Chief Complaint: Fall Informant: patient Narrative Narrative: Mechanical fall 2 hours ago shoveling the driveway. States slipped falling directly on his back on patch of hard snow. Pain to his upper mid back worse with movement. No radicular symptoms. No head injuries. No neck pain. No loss of conscious. Patient does not take anticoagulants. No lower back pain. No extremity pain or injuries. History of gastric ulcers. Reports allergy to Percocet causing hives however is tolerated [place] in the past. Prior similar symptoms: No PFSH PFSH Medical History Acute frontal sinusitis, unspecified Asthma Bradycardia Deviated nasal septum Encounter for screening for COVID-19 Essential hypertension Family history of premature CAD Gastroenteritis Gout Hypertrophy of nasal turbinates Hypertrophy of tonsils Laceration of oral cavity Migraine PING (obstructive sleep apnea) Home Medications sertraline 50 mg tablet 50 mg PO DAILY 03/20/21 [History Last Taken Unknown] allopurinol 100 mg PO DAILY 06/19/21 [History Last Taken Unknown] lisinopril 10 mg tablet 10 mg PO DAILY 08/10/21 [History Last Taken Unknown] hydrocodone-acetaminophen 1 tab PO Q6H PRN 3 Days #12 tab 09/11/21 [Rx Last Taken Unknown] Allergy/AdvReac Type Severity Reaction Status Date / Time Sulfa (Sulfonamide Allergy Rash Verified 09/11/21 15:11 Antibiotics) sulfamethoxazole Allergy Rash Verified 09/11/21 15:11 [From Bactrim] trimethoprim [From Bactrim] Allergy Rash Verified 09/11/21 15:11 naproxen AdvReac Other Verified 09/11/21 15:11 Family History Mother Heart disease Myocardial infarction Surgical History History of ankle surgery Social History household members: spouse and children Smoking Status: Never smoker alcohol intake: never substance use type: does not use caffeine: Yes Type: tea Number of servings: 1 ROS ROS ED Constitutional Constitutional ED: Denies chills, fever(s) or sweats Eyes Eyes: Denies change in vision ENT ENT ED: Denies dysphagia or sore throat Cardiovascular Cardiovascular: Denies chest pain, leg edema, palpitations or racing heartbeat Respiratory/Chest Respiratory/Chest: Denies cough, dyspnea or dyspnea on exertion Gastrointestinal Gastrointestinal: Denies abdominal pain, diarrhea, nausea or vomiting Genitourinary Genitourinary ED: Denies dysuria, hematuria or urinary frequency Musculoskeletal Musculoskeletal: Reports back pain; Denies extremity pain or neck pain Integumentary Denies rash or wounds Neurologic Neurologic: Denies headache(s), paresthesias or weakness EXAM Physical Exam Const Vital Signs: 09/11/21 15:11 09/11/21 16:04 Temperature 95.9 F L Temperature Source Temporal Pulse Rate 79 Respiratory Rate 16 Respiratory Effort Normal Respiratory Depth Normal Respiratory Pattern Normal Blood Pressure 138/97 H Blood Pressure Mean 110 Pulse Ox 95 Oxygen Delivery Method Room Air Room Air Positive well nourished and well developed Constitutional Narrative: GCS 15. General Appearance ED: well developed and NAD HEENT Reports moist mucous membranes HEENT Narrative: No hemotympanum. normocephalic and atraumatic Eyes PERRL, EOMs intact bilaterally and conjunctivae normal General Eye ED: Yes normal appearance of both eyes Neck no lymphadenopathy and supple General: Negative for tenderness Chest Wall Chest: Negative for tenderness Resp normal respiratory effort and normal air movement Effort and Inspection: symmetric chest movement; Negative for respiratory distress Cardio regular rate, regular rhythm and no murmurs Peripheral Pulses: pulses 2+ throughout GI normal to inspection, nondistended, normoactive bowel sounds and non-tender Palpation: Negative for guarding or rebound tenderness present Back/Spine no CVA tenderness and no thoracic nor lumbar tenderness General Back: other Midline tenderness T-spine T9-T10 without step-offs. No ecchymosis. No lumbar tenderness. No cervical neck tenderness. Extremity normal to inspection General Extremety ED: Negative for edema or tenderness General Extremity: Negative for edema Neuro oriented x3 and no sensory deficits noted Sensorium / Orientation: awake and alert Skin no rashes or lesions noted and no wounds MDM MDM MDM Narrative Medical decision making narrative: Patient mechanical fall no head injuries. Pain in the mid lower thoracic. Patient with a noncontrast CT thoracic spine returning negative for any fractures. Patient drove himself here. History of gastric ulcers therefore NSAIDs will be avoided. Prescription of [place] for he is tolerated in the past to help with symptom control. He is able to ambulate. Discharged with outpatient follow-up. Radiography Diagnostic Testing: Clinical Impression(s) from Imaging Studies Thoracic Spine CT 09/11/21 16:23 IMPRESSION: Age consistent degenerative changes, no acute findings Electronically Signed: Mark Leon MD at 17:05 EST , Service support , Discharge Plan Triage Chief Complaint: Fall ED Provider: Galileo Kaufman Dx/Rx/DC Orders Clinical Impression: Contusion of thoracic spine, Fall Instructions: ED Back Contusion Prescriptions: New hydrocodone-acetaminophen 5-325 mg tablet 1 tab PO Q6H PRN (Reason: pain) 3 Days Qty: 12 RF: 0 No Action sertraline [Zoloft] 50 mg tablet 50 mg PO DAILY RF: 0 lisinopril 10 mg tablet 10 mg PO DAILY RF: 0 allopurinol 100 mg tablet 100 mg PO DAILY RF: 0 Primary Care Provider: Moisés Barclay Referrals: Moisés Barclay MD [Primary Care Provider] - 5-7 Days Disposition Disposition: Home, Self Care Discharge Date/Time: 09/11/21 18:40
== END 2021-09-11 18:40 | disposition home or self-care (01) ==
PROVIDERS: Emergency Provider Emergency Medicine; PCP Family Medicine; Visit Provider Emergency Medicine
DX: S20.20XA Contusion of thorax, unspecified, initial encounter (principal); G47.33 Obstructive sleep apnea (adult) (pediatric); W19.XXXA Unspecified fall, initial encounter
CPT/HCPCS: 72128; 99283; J7030

== ENCOUNTER 2021-09-18 09:26 | Emergency (ER) | payer BC, MEDICAID, SELFPAY ==
[2021-09-18 09:26] VITALS: BP 139/100; PULSE 62; RESP 18; TEMP 36.6; O2SAT 95; BMI 43.5
--- NOTE | 2021-09-18 09:41 | EX.ED.DYSGE1 ---
HPI History of Present Illness Chief Complaint: Nausea/Vomiting Informant: patient Narrative Narrative: 46-year-old male presenting to the emergency department with 5 days of vomiting and diarrhea. He states that his family has had Covid all of this month. He has been tested several times and has been negative. He denies any fever chills. He denies any cough or significant runny nose. He states he has been drinking plenty of fluids so he does not believe he is dehydrated. He is Covid vaccinated. No new medications. No recent antibiotics. No known bad food exposure and no blood in vomit or stool [facility] Medical History Acute frontal sinusitis, unspecified Asthma Bradycardia Deviated nasal septum Encounter for screening for COVID-19 Essential hypertension Family history of premature CAD Gastroenteritis Gout Hypertrophy of nasal turbinates Hypertrophy of tonsils Laceration of oral cavity Migraine PING (obstructive sleep apnea) Home Medications sertraline 50 mg tablet 50 mg PO DAILY 03/20/21 [History Last Taken Unknown] allopurinol 100 mg PO DAILY 06/19/21 [History Last Taken Unknown] lisinopril 10 mg tablet 10 mg PO DAILY 08/10/21 [History Last Taken Unknown] ondansetron 4 mg PO Q6H PRN PRN #15 tab 09/18/21 [Rx Last Taken Unknown] Allergy/AdvReac Type Severity Reaction Status Date / Time Sulfa (Sulfonamide Allergy Rash Verified 09/18/21 09:28 Antibiotics) sulfamethoxazole Allergy Rash Verified 09/18/21 09:28 [From Bactrim] trimethoprim [From Bactrim] Allergy Rash Verified 09/18/21 09:28 naproxen AdvReac Other Verified 09/18/21 09:28 Family History Mother Heart disease Myocardial infarction Surgical History History of ankle surgery Social History household members: spouse and children Smoking Status: Never smoker alcohol intake: never substance use type: does not use caffeine: Yes Type: tea Number of servings: 1 ROS ROS ED Constitutional Constitutional ED: Denies chills, fever(s) or weight loss Eyes Eyes: Denies change in vision or diplopia ENT ENT ED: Denies ear pain, rhinorrhea or sore throat Cardiovascular Cardiovascular: Denies chest pain, orthopnea, palpitations or racing heartbeat Respiratory/Chest Respiratory/Chest: Denies cough, dyspnea or orthopnea Gastrointestinal Gastrointestinal: Reports diarrhea, nausea and vomiting; Denies abdominal pain Genitourinary Genitourinary ED: Denies dysuria, hematuria or urinary frequency Musculoskeletal Musculoskeletal: Denies arthralgias or myalgias Integumentary Denies abscess or rash Neurologic Neurologic: Denies headache(s) or weakness Psychiatric Psychiatric: Denies anxiety, depression, suicidal ideation or suicidal thoughts Endocrine Endocrinology: Denies polydipsia, polyphagia or polyuria Allergic/Immunologic Allergic/Immunologic ED: Denies mouth swelling, tongue swelling or urticaria EXAM Physical Exam Const Vital Signs: 09/18/21 09:26 09/18/21 09:50 Temperature 97.8 F 97.8 F Temperature Source Temporal Temporal Pulse Rate 62 62 Respiratory Rate 18 18 Blood Pressure 139/100 H 139/100 H Blood Pressure Mean 113 113 Pulse Ox 95 95 Oxygen Delivery Method Room Air Room Air Positive well nourished, well developed and obese General Appearance ED: well developed Nutritional Appearance: obese HEENT Reports normocephalic, head/scalp atraumatic, TM's clear and moist mucous membranes Negative for trauma Tympanic Membrane ED: Yes TM's clear Eyes PERRL and EOMs intact bilaterally Neck no lymphadenopathy, supple and no JVD Resp normal respiratory effort and clear to auscultation bilaterally Cardio regular rate, regular rhythm and no murmurs GI normal to inspection, nondistended, normoactive bowel sounds and non-tender Palpation: soft Back/Spine no CVA tenderness and normal ROM Extremity normal to inspection General Extremety ED: Negative for edema General Extremity: Negative for edema Neuro oriented x3 and CN's II-XII intact bilaterally Sensorium / Orientation: alert Motor Exam: strength 5/5 throughout Psych mental status grossly normal Mood & Affect: Negative for depressed or tearful Skin no rashes or lesions noted and no wounds MDM MDM MDM Narrative Medical decision making narrative: Basic blood work including CBC CMP and lipase were normal. Noted glucose of 108. Patient received IV fluids and Zofran. His Covid test is negative. Patient be discharged home with prescription for Zofran return if worsening or concerns Lab Data Attestation: I reviewed the patient's lab results. Labs: Laboratory Results - last 24 hr 09/18/21 09/18/21 09:50 09:50 WBC 9.1 RBC 5.39 Hgb 15.1 Hct 46.5 MCV 86.3 MCH 28.0 MCHC 32.5 RDW Std Deviation 39.8 RDW Coeff of Asif 12.7 Plt Count 270 MPV 9.3 Immature Gran % (Auto) 0.700 Neut % (Auto) 58.4 Lymph % (Auto) 28.6 Meade % (Auto) 7.2 Eos % (Auto) 4.4 Baso % (Auto) 0.7 Absolute Neuts (auto) 5.3 Absolute Lymphs (auto) 2.60 Nucleated RBC % 0 Sodium 139 Potassium 4.0 Chloride 106 Carbon Dioxide 28.0 Anion Gap 5 BUN 10 Creatinine 1.07 Estim Creat Clear Calc 90.02 Est GFR (MDRD) Af Amer 96 Est GFR (MDRD) Non-Af 79 BUN/Creatinine Ratio 9.3 L Glucose 108 H Calcium 8.5 Total Bilirubin 0.80 AST 12 L ALT 26 Alkaline Phosphatase 96 Total Protein 6.8 Albumin 3.3 Globulin 3.5 Albumin/Globulin Ratio 0.9 Lipase 194 Discharge Plan Triage Chief Complaint: Nausea/Vomiting ED Provider: [place] Hines Dx/Rx/DC Orders Clinical Impression: Gastroenteritis Instructions: ED Gastroenteritis, Viral (Adult) Prescriptions: New ondansetron [ondansetron] 4 MG tablet 4 mg PO Q6H PRN PRN (Reason: Nausea) Qty: 15 RF: 0 No Action sertraline [Zoloft] 50 mg tablet 50 mg PO DAILY RF: 0 lisinopril 10 mg tablet 10 mg PO DAILY RF: 0 allopurinol 100 mg tablet 100 mg PO DAILY RF: 0 Primary Care Provider: Moisés Barclay Referrals: Moisés Barclay MD [Primary Care Provider] - As Needed Disposition Disposition: Home, Self Care
[2021-09-18 09:50] VITALS: BP 139/100; PULSE 62; RESP 18; TEMP 36.6; O2SAT 95
[2021-09-18 09:58] LABS: Absolute Neutrophil Count 5.3 X10^3/uL (2.0-7.7); Basophil# 0.06 X10^3/uL; Basophil% 0.7 % (0-1); Eosinophils% 4.4 % (0-5); Hematocrit 46.5 % (40-54); Hemoglobin 15.1 g/dL (13.0-16.5); Lymphocyte % 28.6 % (19-41); Mean Corp Hgb Conc 32.5 g/dL (32-36); Mean Corpuscular Volume 86.3 fL (80-94); Mean Platelet Vol. 9.3 fl (6.2-12.0); Monocyte# 0.65 X10^3/uL; Monocyte% 7.2 % (0-10); NRBC Flagged by Analyzer 0 % (0-5); Neutrophil # 5.31 X10^3/uL (2.7-7.7); Neutrophil % 58.4 % (47-70); Platelet Count 270 K/mm3 (150-450); RBC Distribution Width CV 12.7 % (11.6-14.6); RBC Distribution Width SD 39.8 fl (35.1-43.9); Red Blood Count 5.39 M/mm3 (4.6-6.2); White Blood Count 9.1 K/mm3 (4.4-11.0)
[2021-09-18] MEDS: 0.9% Normal Saline 1,000 ML 1000 ML IV (10:02)
[2021-09-18] MEDS: Ondansetron 4 MG/2 ML Vial IV (10:02)
[2021-09-18 10:20] LABS: ALB/GLOB Ratio 0.9 RATIO (0.9-2.4); AST(SGOT) 12 U/L (15-37); Alanine Aminotransfer ALT/SGPT 26 U/L (16-61); Albumin, Serum 3.3 g/dL (3.2-5.0); Alkaline Phosphatase 96 U/L (45-117); Anion Gap 5 (5-15); BUN 10 mg/dL (7-18); BUN/Creat Ratio 9.3 RATIO (10-20); Calcium,Total 8.5 mg/dL (8.5-10.1); Chloride 106 mmol/L (98-107); Creatinine, Serum 1.07 mg/dL (0.70-1.30); EST Glomerular Filtration Rate 79 mL/min (>60); Est Glom Filt Rate - Afr Amer 96 mL/min (>60); Estimated Creatinine Clearance 90.02 ml/min; Globulin 3.5 g/dL (2.2-4.2); Glucose 108 mg/dL (74-106); Lipase 194 U/L (73-393); Protein, Total 6.8 g/dL (6.4-8.2); Sodium Level 139 mmol/L (136-145)
== END 2021-09-18 10:42 | disposition home or self-care (01) ==
PROVIDERS: Emergency Provider Emergency Medicine; PCP Family Medicine; Visit Provider Emergency Medicine
DX: K52.9 Noninfective gastroenteritis and colitis, unspecified (principal); I10 Essential (primary) hypertension; G47.33 Obstructive sleep apnea (adult) (pediatric); E66.9 Obesity, unspecified; Z79.899 Other long term (current) drug therapy
CPT/HCPCS: 80053; 83690; 85025; 87426; 96361; 96374; 99283; J2405

== ENCOUNTER 2021-09-29 13:30 | Outpatient (CLI) | payer BC, MEDICAID, SELFPAY ==
[2021-09-29 14:41] LABS: Erythrocyte Sedimentation Rate 3 mm/hr (0-20)
[2021-09-29 15:22] LABS: CPK Total, Creatine Kinase 115 U/L (39-308); CRP 3.89 mg/L (0.0-3.0); Free T3 2.8 pg/mL (2.18-3.98); LDH 175 U/L (87-241); T4 Free Direct 1.11 ng/dL (0.76-1.46); Troponin-I HS 9 pg/mL (3.0-78.0)
[2021-10-02 14:08] LABS: Anti-Centromere B Ab <0.2 AI (0.0-0.9); Anti-Chromatin <0.2 AI (0.0-0.9); Anti-Jo <0.2 AI (0.0-0.9); Anti-Scleroderma-70 AB <0.2 AI (0.0-0.9); RNP Ab 0.2 AI (0.0-0.9); SJOGREN'S Anti-SS-A test < 0.2 AI (0.0-0.9); SJOGREN'S Anti-SS-B test < 0.2 AI (0.0-0.9); Smith Ab <0.2 AI (0.0-0.9)
[2021-10-02 16:59] LABS: Anti-dsDNA Ab <1 IU/mL (0-9)
[2021-10-06 13:08] LABS: Endomysial Antibody IgA Negative (Negative); Immunoglobulin A 403 mg/dL (90-386); Immunoglobulin E 36 IU/mL (6-495); Immunoglobulin G 988 mg/dL (603-1613)
[2021-10-06 16:04] LABS: Immunoglobulin M 52 mg/dL (20-172); t-Transglutaminase IgA <2 U/mL (0-3)
== END 2021-09-29 23:59 | disposition home or self-care (01) ==
LOC: LAB 13:33
PROVIDERS: PCP Family Medicine; Visit Provider Internal Medicine Gastroenterology
DX: R10.9 Unspecified abdominal pain (principal)
CPT/HCPCS: 36415; 82550; 82784; 82785; 83516; 83615; 84439; 84443; 84481; 84484; 85652; 86140; 86225; 86235; 86255

== ENCOUNTER 2021-10-12 12:01 | Outpatient (CLI) | payer BC, MEDICAID, SELFPAY ==
--- NOTE | 2021-10-12 13:14 | STRESSREP_ITS ---
Stress Test Report Date: 10-12-2021 Procedure: Exercise tolerance test Indications: Shortness of breath/dyspnea on exertion; bradycardia; family history of CAD Consent: Per the patient Procedure: The patient exercised on a Jaswinder protocol for 6 minutes completing Stage II achieving a peak heart rate of 150 bpm (85% predicted maximal heart rate) with a peak blood pressure 202/90 mmHg and a peak MET capacity of approximately 7 MET's. The baseline ECG demonstrated sinus bradycardia. The peak exercise ECG demonstrated sinus tachycardia with the appearance of an acceleration dependent right bundle branch block pattern with subsequent resolution towards baseline with slowing ventricular rate. There were no cardiac dysrhythmias pretest, during exercise, or recovery. The functional capacity was considered average. The patient had no complaint of chest discomfort during exercise or recovery. The examination was discontinued secondary to dyspnea. Impression: 1. Technically adequate (percent predicted maximal heart rate greater than 85%) exercise tolerance test 2. Peak exercise ECG with sinus tachycardia with the appearance of an acceleration dependent right bundle branch block pattern with subsequent resolution towards baseline with slowing ventricular rate 3. There were no cardiac dysrhythmias during exercise or recovery This note was generated with [employer] software. It may contain incorrect words, spelling, and punctuation that were not noted in checking the note before signing.
== END 2021-10-12 23:59 | disposition home or self-care (01) ==
LOC: CVS 12:02
PROVIDERS: PCP Family Medicine; Referring Provider Nurse Practitioner Family; Visit Provider Nurse Practitioner Family
DX: R00.1 Bradycardia, unspecified (principal); I10 Essential (primary) hypertension; Z82.49 Family history of ischemic heart disease and other diseases of the circulatory system
CPT/HCPCS: 93017

== ENCOUNTER 2021-10-27 12:20 | Outpatient (CLI) | payer BC, MEDICAID, SELFPAY ==
--- NOTE | 2021-10-27 12:24 | CT_ITS ---
STUDY: CT ABDOMEN AND PELVIS WITH CONTRAST REASON FOR EXAM: Male, 46 years old. Abdominal pain. Nausea and vomiting for 17 days. RADIATION DOSAGE (If Supplied By Facility): CTDIvol = ( 29.78 ) mGy, DLP = ( 1364.33 ) mGycm TECHNIQUE: Transaxial images were obtained from the dome of the diaphragm to the symphysis pubis without oral contrast. IV 100mL Isovue-370 was administered. Sagittal and coronal images were reconstructed. Individualized dose optimization techniques were used for this CT. COMPARISON: Comparison is made with prior study dated 02/18/2020. FINDINGS: The visualized lung bases are unremarkable. The visualized portions of the heart are within normal limits. There is decreased attenuation of the liver consistent with steatosis. Normal gallbladder and extrahepatic biliary system. Normal spleen. Normal pancreas. Normal bilateral adrenal glands. Stable 2 cm cyst in the lower pole of the right kidney. Normal left kidney. Normal visualized stomach. Normal small intestine. There are scattered colonic diverticula consistent with diverticulosis. The appendix is visualized and appears normal. Normal abdominal aorta. Normal inferior vena cava. Normal retroperitoneum. The bladder is empty. Mild degree of bladder wall thickening. The prostate measures 4.8 cm x 3.8 cm. Normal abdominal wall. Normal osseous structures. CT/CT ANGIO ABD&PEL W/O&W/DYE IMPRESSION: Fatty infiltration of the liver. 2 cm cyst in the right kidney. Scattered sigmoid diverticula. Electronically Signed: Domingo Biggs MD at 14:09 EST ,
[2021-10-27 12:41] LABS: CREATININE FINGERSTICK 1.4 mg/dL (0.70-1.30)
== END 2021-10-27 23:59 | disposition home or self-care (01) ==
PROVIDERS: PCP Family Medicine; Visit Provider Internal Medicine Gastroenterology
DX: R10.9 Unspecified abdominal pain (principal)
CPT/HCPCS: 74174; Q9967

== ENCOUNTER 2021-11-08 06:09 | Outpatient (CLI) | payer BC, MEDICAID, SELFPAY ==
--- NOTE | 2021-11-08 18:50 | STRESSREP_ITS ---
Stress Test Report Date: 02-08-2022 Procedure: Pharmacologic stress nuclear imaging study Indications: Bradycardia, abnormal ECG stress test with rate dependent right bundle branch block Consent: Per the patient Procedure: The patient underwent pharmacologic (Regadenoson 0.4mg ) evaluation with a peak heart rate of 75 beats per minute (42%predicted maximal heart rate) and a peak blood pressure of 142/88 mmHg. The baseline ECG demonstrated sinus bradycardia. The peak pharmacologic ECG demonstrated no obvious ECG changes. There were no cardiac dysrhythmias pretest, during pharmacologic infusion, or recovery. There was no complaint of chest discomfort during pharmacologic infusion or recovery. The examination was discontinued secondary to completion of protocol. Impression: 1. Pharmacologic (Regadenoson) evaluation 2. Peak pharmacologic ECG with no obvious ECG changes. 3. There were no cardiac dysrhythmias pretest, during pharmacologic infusion, or recovery. 4. Nuclear images pending Myocardial perfusion imaging study: Technique: The patient was injected with 14.6 millicuries of technetium 99m Cardiolite and subsequently rest SPECT Cardiolite nuclear imaging was obtained in the horizontal long, vertical long, and short axis views. The patient underwent pharmacologic (Regadenoson) evaluation with a peak heart rate of 75 beats per minute (42% percent predicted maximal heart rate) and a peak blood pressure of 142/88 mmHg. The patient was injected with 44.9 millicuries of technetium 99m Cardiolite and subsequently stress SPECT Cardiolite nuclear imaging was obtained in the horizontal long, vertical long, and short axis views. A gated Cardiolite study at peak stress was obtained. Interpretation: Rest and stress SPECT Cardiolite nuclear imaging status post realignment, normalization, and attenuation correction demonstrate a small area of subtle diminished tracer uptake in the mid anterior segments on both the preattenuation correction and post attenuation correction post-rest images. There is end systolic thickening and brightening. The gated Cardiolite study demonstrates myocardial thickening and inward wall motion. The reported LVEF is 64%. Impression: 1. Rest and stress myocardial nuclear imaging demonstrate subtle diminished tracer uptake in the mid anterior segments post stress potentially compatible with an area of stress-induced myocardial ischemia, however, an element of shifting soft tissue attenuation/artifact cannot necessarily be excluded. 2. The gated Cardiolite study reports an LVEF of 64%. This note was generated with [employer] software. It may contain incorrect words, spelling, and punctuation that were not noted in checking the note before signing.
== END 2021-11-08 23:59 | disposition home or self-care (01) ==
LOC: CVS 06:10
PROVIDERS: PCP Family Medicine; Referring Provider Internal Medicine Cardiovascular Disease; Visit Provider Internal Medicine Cardiovascular Disease
DX: R94.31 Abnormal electrocardiogram [ECG] [EKG] (principal); I45.10 Unspecified right bundle-branch block
CPT/HCPCS: 78452; 93017; A9500; A4216; J2785

== ENCOUNTER 2021-11-28 13:32 | Outpatient (CLI) | payer BC, MEDICAID, SELFPAY ==
--- NOTE | 2021-11-21 10:15 | RAD_ITS ---
STUDY: X-RAY CHEST REASON FOR EXAM: Male, 46 years old. CHEST PAIN Cardioversion TECHNIQUE: XR Chest 2 Views COMPARISON: 04/25/2019 FINDINGS: There is no demonstrated pleural abnormality. Normal size heart. Normal mediastinum and vazquez. Normal visualized pulmonary arteries. Normal visualized aortic arch and descending thoracic aorta. There are diffuse degenerative changes of the visualized thoracic spine. Normal visualized ribs, clavicles, and shoulders. There is no demonstrated abnormality of the visualized soft tissue structures of the upper abdomen. RAD/Chest PA and Lateral IMPRESSION: There are no acute findings. Electronically Signed: Js Holland MD at 14:47 EDT ,
[2021-11-21 11:14] LABS: Absolute Lymphocyte Count 2.17 X10^3/uL (0.83-4.51); Absolute Neutrophil Count 6.2 X10^3/uL (2.0-7.7); Basophil# 0.08 X10^3/uL; Basophil% 0.8 % (0-1); Eosinophils% 4.1 % (0-5); Hematocrit 46.7 % (40-54); Hemoglobin 15.6 g/dL (13.0-16.5); Lymphocyte # 2.17 X10^3/ul (0.83-4.51); Lymphocyte % 22.2 % (19-41); Mean Corp Hgb Conc 33.4 g/dL (32-36); Mean Corpuscular Hgb 28.5 pg (27.0-32.0); Mean Corpuscular Volume 85.2 fL (80-94); Mean Platelet Vol. 9.5 fl (6.2-12.0); Monocyte# 0.92 X10^3/uL; Monocyte% 9.4 % (0-10); NRBC Flagged by Analyzer 0 % (0-5); Neutrophil # 6.18 X10^3/uL (2.7-7.7); Neutrophil % 63.1 % (47-70); Platelet Count 292 K/mm3 (150-450); RBC Distribution Width CV 12.6 % (11.6-14.6); RBC Distribution Width SD 39.5 fl (35.1-43.9); Red Blood Count 5.48 M/mm3 (4.6-6.2); White Blood Count 9.8 K/mm3 (4.4-11.0)
[2021-11-21 11:36] LABS: International Normalized Ratio 1.1; Prothrombin Time (Protime)PT. 13.2 SECONDS (11.7-14.9)
[2021-11-21 11:37] LABS: Partial Thromboplast Time 28.1 Seconds (24.1-36.2)
[2021-11-21 11:45] LABS: Anion Gap 4 (5-15); BUN 14 mg/dL (7-18); BUN/Creat Ratio 13.5 RATIO (10-20); Calcium,Total 8.5 mg/dL (8.5-10.1); Chloride 109 mmol/L (98-107); Creatinine, Serum 1.04 mg/dL (0.70-1.30); EST Glomerular Filtration Rate 82 mL/min (>60); Est Glom Filt Rate - Afr Amer 99 mL/min (>60); Glucose 101 mg/dL (74-106); Potassium 3.8 mmol/L (3.5-5.1); Sodium Level 140 mmol/L (136-145)
[2021-11-27 10:24] VITALS: BMI 43.7
== END 2021-11-28 23:59 | disposition home or self-care (01) ==
LOC: PAT 12-07 13:32
PROVIDERS: Nurse Practitioner Gerontology; PCP Family Medicine; Referring Provider Internal Medicine Cardiovascular Disease; Visit Provider Internal Medicine Cardiovascular Disease
DX: R94.31 Abnormal electrocardiogram [ECG] [EKG] (principal)
CPT/HCPCS: 36415; 71046; 80048; 85025; 85610; 85730

== ENCOUNTER → 2021-12-13 | Outpatient (CLI) | payer BC, MEDICAID, SELFPAY ==
--- NOTE | 2021-12-13 08:04 | CT_ITS ---
INDICATION: abnormal stress test EXAMINATION: CT CHEST WITHOUT CONTRAST - CT Chest W/O Contrast Injection TECHNIQUE: Helically acquired images were obtained of the chest. A radiation dose optimization technique was used for this scan. IV Contrast dosage and agent: None. COMPARISON: None. FINDINGS: This study is limited due to images through the heart during performance of coronary artery calcium scoring. LUNGS, PLEURA AND LARGE AIRWAYS: No masses, consolidation, or edema. No pleural effusion or thickening. No pneumothorax. THYROID: No thyroid lesions. HEART AND PERICARDIUM: Heart size is normal. No pericardial effusion. CORONARY ARTERIES: Coronary artery calcification is not seen. VESSELS: Thoracic aorta is not dilated. MEDIASTINUM AND [place]: No mediastinal or hilar adenopathy. Esophagus is unremarkable. No hiatal hernia. UPPER ABDOMEN: No acute pathology. BONES: No suspicious lytic or blastic abnormality. CT/Limited Chest CT w/CCTA IMPRESSION: Negative limited CT chest without contrast. Electronically Signed: Caleb Alvarado MD at 13:52 EDT ,
[2021-12-13 08:15] VITALS: BP 142/103; PULSE 49; RESP 16; O2SAT 99
[2021-12-13 08:55] VITALS: BP 142/103; PULSE 55
[2021-12-13] MEDS: Nitroglycerin SL (ED/IMG/CATH) 0.4 MG TABLET SL (08:55)
--- NOTE | 2021-12-13 11:14 | CA.SCORE ---
Calcium Scoring Date of Study:: 12/13/21 Coronary Calcium Scoring: High-resolution Computed Tomographic imaging of the chest was performed on 12/13/2021 with particular attention paid to the coronary arteries. Images from the examination were analyzed for the presence and extent of coronary artery calcification , using coronary calcium quantification software. The patient tolerated the procedure well and there were no complications. The results of the coronary calcification analysis are provided below. Findings Coronary Artery Left Main (LM): 0 Left Anterior Descending (LAD): 0 Left Circumflex (LCX): 0 Right Coronary Artery (RCA): 0 Total Agatston Score: 0 Percentile Ranking: According to prepublished reference tables 25% of patients of the same gender/similar age had the same/lower scores. Calcium Scoring Interpretation: 0 No identifiable atherosclerotic plaque. Very low cardiovascular disease risk. <5% chance of presence coronary artery disease A Negative Examination 1-10 Minimal Plaque burden. Significant coronary artery disease very unlikely. 11-100 Mild plaque burden. Likely mild or minimal coronary atherosclerosis. 101-400 Moderate plaque burden Moderate non-obstructive coronary artery disease highly likely. Over 400 Extensive plaque burden. High likelihood of at least one significant coronary stenosis (>50% diameter) Calcium Score: 0 Negative Examination Conclusion: Continue cardiovascular risk factor evaluation and care as deemed appropriate. This note was generated using a voice recognition system and there may be incorrect words, spelling or punctuation that were not noted when reviewing the office note prior to saving.
--- NOTE | 2021-12-16 14:17 | CCTA_ITS ---
CCTA w/Cont Coronary Arteries Date of Study:: 12/13/21 Abnormal Stress Nuclear Imaging Study Consent:: Per Patient High-resolution Computed Tomographic imaging of the chest was performed on 12/13/2021 with particular attention paid to the coronary arteries. Images from the examination were analyzed for the presence and extent of coronary artery calcification , using coronary calcium quantification software. The patient tolerated the procedure well and there were no complications. The results of the coronary calcification analysis are provided below. Technical adequacy: The thoracic/cardiovascular anatomy/coronary vasculature appears to be somewhat under penetrated / under illuminated . LEFT MAIN CORONARY ARTERY: The left main coronary appears to be a large vessel giving rise to the left anterior descending and left circumflex coronary arteries. It appears to be patent with no angiographically significant appearing disease. LEFT ANTERIOR DESCENDING CORONARY ARTERY: The left anterior descending coronary artery appears to be a large vessel giving rise to a septal mental health case manager system and diagonal branching system. The mid LAD demonstrates the appearance of an area compatible with a small nonobstructive eccentric soft plaque. LEFT CIRCUMFLEX CORONARY ARTERY: The left circumflex coronary artery appears to give rise to a moderate-sized obtuse marginal coronary artery. The mid to distal LCx demonstrates the appearance of an area compatible with a small nonobstructive eccentric soft plaque. RIGHT CORONARY ARTERY: The right coronary artery appears to be a large dominant vessel giving rise to a right PDA system. It appears to be patent with no angiographically significant appearing disease THORACIC AORTA: The thoracic aorta appears to be patent with no angiographically significant appearing disease. PULMONARY ARTERY: The main pulmonary artery and proximal portions of the right pulmonary artery and left pulmonary artery appear to be patent with no obvious filling defects. LEFT ATRIUM/APPENDAGE: The left atrial appendage appears to be patent with no obvious filling defects. MITRAL VALVE: The mitral valve appears to be a bileaflet valve. AORTIC VALVE: The aortic valve appears to be a trileaflet valve. LEFT VENTRICLE: The left ventricular cavity demonstrated no obvious filling defects. CORONARY CALCIUM SCORE: The coronary calcium score was reported as 0. Coronary calcium score of 0, according to prepublished reference tables, would be indicative of a low percentage chance of coronary artery disease and a low cardiovascular risk. This note was generated using a voice recognition system and there may be incorrect words, spelling or punctuation that were not noted when reviewing the office note prior to saving.
== END | disposition home or self-care (01) ==
LOC: CT 08:03
PROVIDERS: PCP Family Medicine; Visit Provider Physician Assistant Medical
DX: R94.39 Abnormal result of other cardiovascular function study (principal)
CPT/HCPCS: 75571; 75574; 76380; Q9967

== ENCOUNTER 2022-03-23 15:36 | Emergency (ER) | payer BC, MEDICAID, SELFPAY ==
[2022-03-23 15:38] VITALS: BP 144/90; PULSE 64; RESP 16; TEMP 37.1; O2SAT 96; BMI 41.4
--- NOTE | 2022-03-23 16:30 | EDS_ITS ---
HPI History of Present Illness Chief Complaint: General Illness Informant: patient Narrative Narrative: 46-year-old male presenting to the emergency room with chief complaint of diarrhea. States his son was diagnosed with COVID-19 on Saturday. Patient notes that yesterday food started not sounding good to him and he developed diarrhea. Denies any fever sore throat cough. He does note a slight headache and abdominal cramping. He notes some fatigue. [facility] Medical History Acute frontal sinusitis, unspecified Asthma Bradycardia Deviated nasal septum Encounter for screening for COVID-19 Essential hypertension Family history of premature CAD Gastroenteritis Gout Hypertrophy of nasal turbinates Hypertrophy of tonsils Laceration of oral cavity Migraine PING (obstructive sleep apnea) Home Medications sertraline 50 mg tablet (Zoloft) 50 mg PO DAILY 03/20/21 [History Last Taken Unknown] allopurinol 100 mg tablet 100 mg PO DAILY 06/19/21 [History Last Taken Unknown] lisinopril 10 mg tablet 10 mg PO DAILY 08/10/21 [History Last Taken Unknown] ondansetron 4 mg disintegrating tablet 4 mg PO Q6H PRN PRN Nausea #15 tabs 09/18/21 [Rx Last Taken Unknown] aspirin 81 mg tablet,delayed release (Adult Aspirin Regimen) 81 mg PO DAILY 11/21/21 [History Last Taken Unknown] fluticasone propionate 50 mcg/actuation nasal spray,suspension 2 spray intranasal DAILY PRN Congestion 11/21/21 [History Last Taken Unknown] meloxicam 15 mg tablet 15 mg PO DAILY Pain #30 tabs 11/28/21 [Rx Last Taken Unknown] dicyclomine 20 mg tablet 20 mg PO TID PRN abdominal pain #20 tabs 03/23/22 [Rx Last Taken Unknown] Allergy/AdvReac Type Severity Reaction Status Date / Time Sulfa (Sulfonamide Allergy Rash Verified 03/23/22 15:38 Antibiotics) sulfamethoxazole Allergy Rash Verified 03/23/22 15:38 [From Bactrim] trimethoprim [From Bactrim] Allergy Rash Verified 03/23/22 15:38 naproxen AdvReac Other Verified 03/23/22 15:38 Family History Mother Heart disease Myocardial infarction Father Throat cancer Surgical History History of ankle surgery Social History household members: spouse and children Smoking Status: Never smoker alcohol intake: never substance use type: does not use caffeine: Yes Type: tea Number of servings: 1 ROS ROS ED ROS Narrative Fatigue Constitutional Constitutional ED: Denies chills, fever(s) or weight loss Eyes Eyes: Denies change in vision or diplopia ENT ENT ED: Denies ear pain, rhinorrhea or sore throat Cardiovascular Cardiovascular: Denies chest pain, orthopnea, palpitations or racing heartbeat Respiratory/Chest Respiratory/Chest: Denies cough, dyspnea or orthopnea Gastrointestinal Gastrointestinal: Reports diarrhea and other Details: Abdominal cramping ; Denies abdominal pain, nausea or vomiting Genitourinary Genitourinary ED: Denies dysuria, hematuria or urinary frequency Musculoskeletal Musculoskeletal: Reports myalgias; Denies arthralgias Integumentary Denies abscess or rash Neurologic Neurologic: Reports headache(s); Denies weakness Psychiatric Psychiatric: Denies anxiety, depression, suicidal ideation or suicidal thoughts Endocrine Endocrinology: Denies polydipsia, polyphagia or polyuria Allergic/Immunologic Allergic/Immunologic ED: Denies mouth swelling, tongue swelling or urticaria EXAM Physical Exam Const Vital Signs: 03/23/22 15:38 Temperature 98.8 F Temperature Source Oral Pulse Rate 64 Respiratory Rate 16 Blood Pressure 144/90 H Blood Pressure Mean 108 Pulse Ox 96 Oxygen Delivery Method Room Air Positive well nourished and well developed General Appearance ED: well developed HEENT Reports normocephalic, head/scalp atraumatic and moist mucous membranes Eyes PERRL and EOMs intact bilaterally Neck no lymphadenopathy, supple and no JVD Resp normal respiratory effort and clear to auscultation bilaterally Cardio regular rate, regular rhythm and no murmurs GI normal to inspection, nondistended, normoactive bowel sounds and non-tender Palpation: soft Back/Spine no CVA tenderness and normal ROM Extremity normal to inspection General Extremety ED: Negative for edema General Extremity: Negative for edema Neuro oriented x3 and CN's II-XII intact bilaterally Sensorium / Orientation: alert Motor Exam: strength 5/5 throughout Psych mental status grossly normal Mood & Affect: Negative for depressed or tearful Skin no rashes or lesions noted and no wounds MDM MDM MDM Narrative Medical decision making narrative: Basic blood work showed a white count of 9.1 platelet count of 289 hemoglobin 16. CMP within normal limits except for glucose of 114. Patient received a liter of fluids. His COVID test was negative. He was advised this may still be COVID we could send off a PCR I do not think is going to pattern changer and repairer. Would recommend Bentyl for abdominal cramping Imodium as needed for diarrhea. Lab Data Attestation: I reviewed the patient's lab results. Labs: Laboratory Results - last 24 hr 03/23/22 03/23/22 16:19 16:19 WBC 9.1 RBC 5.70 Hgb 16.0 Hct 48.2 MCV 84.6 MCH 28.1 MCHC 33.2 RDW Std Deviation 39.0 RDW Coeff of Asif 12.7 Plt Count 289 MPV 9.6 Immature Gran % (Auto) 0.300 Neut % (Auto) 70.8 H Lymph % (Auto) 20.6 [place] % (Auto) 6.2 Eos % (Auto) 1.5 Baso % (Auto) 0.6 Absolute Neuts (auto) 6.4 Absolute Lymphs (auto) 1.87 Nucleated RBC % 0 Sodium 139 Potassium 4.1 Chloride 107 Carbon Dioxide 26.0 Anion Gap 6 BUN 12 Creatinine 1.05 Estim Creat Clear Calc 91.73 Est GFR (MDRD) Af Amer 98 Est GFR (MDRD) Non-Af 81 BUN/Creatinine Ratio 11.4 Glucose 114 H Calcium 9.2 Total Bilirubin 1.00 AST 23 ALT 29 Alkaline Phosphatase 117 Total Protein 7.3 Albumin 3.6 Globulin 3.7 Albumin/Globulin Ratio 1.0 Discharge Plan Triage Chief Complaint: General Illness ED Provider: [place] Dx/Rx/DC Orders Clinical Impression: Diarrhea, Acute viral syndrome Instructions: Treating Diarrhea, ED Viral Syndrome (Adult) Prescriptions: New dicyclomine 20 mg tablet 20 mg PO TID PRN (Reason: abdominal pain) Qty: 20 0RF No Action sertraline [Zoloft] 50 mg tablet 50 mg PO DAILY lisinopril 10 mg tablet 10 mg PO DAILY aspirin [Adult Aspirin Regimen] 81 mg tablet,delayed release (DR/EC) 81 mg PO DAILY fluticasone propionate 50 mcg/actuation spray,suspension 2 spray intranasal DAILY PRN (Reason: Congestion) meloxicam 15 mg tablet 15 mg PO DAILY Qty: 30 0RF Rx Instructions: Do not take in conjunction with other NSAIDs. Tylenol is okay. allopurinol 100 mg tablet 100 mg PO DAILY ondansetron [ondansetron] 4 MG tablet 4 mg PO Q6H PRN PRN (Reason: Nausea) Qty: 15 0RF Primary Care Provider: Moisés Barclay Referrals: Moisés Barclay MD [Primary Care Provider] - As Needed Disposition Disposition: Home, Self Care
[2022-03-23] MEDS: 0.9% Normal Saline 1,000 ML 1000 ML IV (16:33)
[2022-03-23 16:54] LABS: Absolute Lymphocyte Count 1.87 X10^3/uL (0.83-4.51); Absolute Neutrophil Count 6.4 X10^3/uL (2.0-7.7); Basophil# 0.05 X10^3/uL; Basophil% 0.6 % (0-1); Eosinophil# 0.14 X10^3/uL; Eosinophils% 1.5 % (0-5); Hematocrit 48.2 % (40-54); Lymphocyte # 1.87 X10^3/ul (0.83-4.51); Lymphocyte % 20.6 % (19-41); Mean Corp Hgb Conc 33.2 g/dL (32-36); Mean Corpuscular Hgb 28.1 pg (27.0-32.0); Mean Corpuscular Volume 84.6 fL (80-94); Mean Platelet Vol. 9.6 fl (6.2-12.0); Monocyte# 0.56 X10^3/uL; Monocyte% 6.2 % (0-10); NRBC Flagged by Analyzer 0 % (0-5); Neutrophil # 6.42 X10^3/uL (2.7-7.7); Neutrophil % 70.8 % (47-70); Platelet Count 289 K/mm3 (150-450); RBC Distribution Width CV 12.7 % (11.6-14.6); White Blood Count 9.1 K/mm3 (4.4-11.0)
[2022-03-23 17:01] LABS: AST(SGOT) 23 U/L (15-37); Alanine Aminotransfer ALT/SGPT 29 U/L (16-61); Albumin, Serum 3.6 g/dL (3.2-5.0); Alkaline Phosphatase 117 U/L (45-117); Anion Gap 6 (5-15); BUN 12 mg/dL (7-18); BUN/Creat Ratio 11.4 RATIO (10-20); Calcium,Total 9.2 mg/dL (8.5-10.1); Chloride 107 mmol/L (98-107); Creatinine, Serum 1.05 mg/dL (0.70-1.30); EST Glomerular Filtration Rate 81 mL/min (>60); Est Glom Filt Rate - Afr Amer 98 mL/min (>60); Estimated Creatinine Clearance 91.73 ml/min; Globulin 3.7 g/dL (2.2-4.2); Glucose 114 mg/dL (74-106); Potassium 4.1 mmol/L (3.5-5.1); Protein, Total 7.3 g/dL (6.4-8.2); Sodium Level 139 mmol/L (136-145)
== END 2022-03-23 17:51 | disposition home or self-care (01) ==
PROVIDERS: Emergency Provider Emergency Medicine; PCP Family Medicine; Visit Provider Emergency Medicine
DX: R19.7 Diarrhea, unspecified (principal); B34.9 Viral infection, unspecified; I10 Essential (primary) hypertension; G47.33 Obstructive sleep apnea (adult) (pediatric); Z79.82 Long term (current) use of aspirin; Z79.899 Other long term (current) drug therapy; Z20.822 Contact with and (suspected) exposure to COVID-19
CPT/HCPCS: 80053; 85025; 87811; 99283; J7030; A4216

== ENCOUNTER 2022-04-17 11:23 | Emergency (ER) | payer BC, MEDICAID, SELFPAY ==
[2022-04-17 11:24] VITALS: BP 152/108; PULSE 54; RESP 18; TEMP 36.2; O2SAT 95; BMI 42.4
--- NOTE | 2022-04-17 12:46 | ED.VIS.DENTA ---
HPI History of Present Illness Chief Complaint: Dental Informant: patient Onset/Context/Timing Onset: Yesterday Context: Sudden Onset Timing: Continuous Quality: Throbbing, sharp, aching Location: Left upper molars Worsened by: Talking, chewing Relieved by: - (Nothing) Associated Symptoms Assocated Symptom - Dental: Negative for fever, jaw swelling, face swelling, cold sensitivity or hot sensitivity Narrative Narrative: Patient presents with left upper dental pain that began last night. Patient states he has a temporary filling in one of his left upper molars and it fell out last night. Patient states the pain is throbbing, sharp, and aching. Patient states the pain is worse with talking and chewing. Patient states it is over the left upper molars and left cheek area. Patient denies any fevers or chills. Patient denies any hot or cold sensitivity. Patient denies any difficulty breathing or difficulty swallowing. [facility] Medical History Acute frontal sinusitis, unspecified Asthma Bradycardia Deviated nasal septum Encounter for screening for COVID-19 Essential hypertension Family history of premature CAD Gastroenteritis Gout Hypertrophy of nasal turbinates Hypertrophy of tonsils Laceration of oral cavity Migraine PING (obstructive sleep apnea) Home Medications sertraline 50 mg tablet (Zoloft) 50 mg PO DAILY 03/20/21 [History Last Taken Unknown] allopurinol 100 mg tablet 100 mg PO DAILY 06/19/21 [History Last Taken Unknown] lisinopril 10 mg tablet 10 mg PO DAILY 08/10/21 [History Last Taken Unknown] ondansetron 4 mg disintegrating tablet 4 mg PO Q6H PRN PRN Nausea #15 tabs 09/18/21 [Rx Last Taken Unknown] aspirin 81 mg tablet,delayed release (Adult Aspirin Regimen) 81 mg PO DAILY 11/21/21 [History Last Taken Unknown] fluticasone propionate 50 mcg/actuation nasal spray,suspension 2 spray intranasal DAILY PRN Congestion 11/21/21 [History Last Taken Unknown] meloxicam 15 mg tablet 15 mg PO DAILY Pain #30 tabs 11/28/21 [Rx Last Taken Unknown] dicyclomine 20 mg tablet 20 mg PO TID PRN abdominal pain #20 tabs 03/23/22 [Rx Last Taken Unknown] penicillin V potassium 500 mg tablet 500 mg PO 4X/DAY #40 tabs 04/17/22 [Rx Last Taken Unknown] Allergy/AdvReac Type Severity Reaction Status Date / Time Sulfa (Sulfonamide Allergy Rash Verified 04/17/22 11:27 Antibiotics) sulfamethoxazole Allergy Rash Verified 04/17/22 11:27 [From Bactrim] trimethoprim [From Bactrim] Allergy Rash Verified 04/17/22 11:27 naproxen AdvReac Other Verified 04/17/22 11:27 Family History Mother Heart disease Myocardial infarction Father Throat cancer Surgical History History of ankle surgery Social History household members: spouse and children Smoking Status: Never smoker alcohol intake: never substance use type: does not use caffeine: Yes Type: tea Number of servings: 1 ROS ROS ED Constitutional Constitutional ED: Denies chills or fever(s) Eyes Eyes: Denies blurry vision or change in vision ENT ENT ED: Denies rhinorrhea or sore throat Cardiovascular Cardiovascular: Denies chest pain or palpitations Respiratory/Chest Respiratory/Chest: Denies cough or dyspnea Gastrointestinal Gastrointestinal: Denies nausea or vomiting Genitourinary Genitourinary ED: Denies dysuria or hematuria Musculoskeletal Musculoskeletal: Denies back pain or neck pain Integumentary Denies abscess or rash Neurologic Neurologic: Reports headache(s); Denies weakness Allergic/Immunologic Allergic/Immunologic ED: Denies mouth swelling or urticaria EXAM Physical Exam Const Vital Signs: 04/17/22 11:24 Temperature 97.1 F L Temperature Source Temporal Pulse Rate 54 L Respiratory Rate 18 Blood Pressure 152/108 H Blood Pressure Mean 122 Pulse Ox 95 Oxygen Delivery Method Room Air Positive well nourished and well developed General Appearance ED: well developed and NAD HEENT HEENT Narrative: There is tenderness to percussion over the left upper first molar. There is a temporary filling in place. There is no gingival edema. There is no discharge or drainage. Oropharynx is clear. Airway is patent. There is no sublingual edema or erythema. There is no evidence of Jadiel's angina. Mouth ED: Yes oral and palatal mucosa normal, Yes lips normal and Yes tongue normal Mouth: oral and palatal mucosa normal, lips normal and tongue normal Teeth and Gingiva: caries Neck supple and no JVD General: Negative for anterior neck swelling, tenderness or submandibular swelling Resp normal respiratory effort and clear to auscultation bilaterally Cardio regular rate and regular rhythm Neuro oriented x3, CN's II-XII intact bilaterally, moves all extremities, no focal motor deficits and no sensory deficits noted Sensorium / Orientation: alert Motor Exam: strength 5/5 throughout Psych mental status grossly normal MDM MDM MDM Narrative Medical decision making narrative: Patient was given a dose of Pen-Vee K here. Patient was given a prescription for Pen-Vee K. Patient was instructed to follow-up with his dentist in 5 to 7 days. Patient was instructed to continue Tylenol or ibuprofen as needed for pain. Patient was instructed return if worse in any way. Patient understood and was agreeable with the plan. All questions were answered. Discharge Plan Triage Chief Complaint: Dental ED Provider: Luigi Londono Dx/Rx/DC Orders Clinical Impression: Infected dental caries, BMI greater than 40 Instructions: ED Dental Cavity Prescriptions: New penicillin V potassium 500 mg tablet 500 mg PO 4X/DAY Qty: 40 0RF No Action sertraline [Zoloft] 50 mg tablet 50 mg PO DAILY lisinopril 10 mg tablet 10 mg PO DAILY aspirin [Adult Aspirin Regimen] 81 mg tablet,delayed release (DR/EC) 81 mg PO DAILY fluticasone propionate 50 mcg/actuation spray,suspension 2 spray intranasal DAILY PRN (Reason: Congestion) meloxicam 15 mg tablet 15 mg PO DAILY Qty: 30 0RF Rx Instructions: Do not take in conjunction with other NSAIDs. Tylenol is okay. allopurinol 100 mg tablet 100 mg PO DAILY ondansetron [ondansetron] 4 MG tablet 4 mg PO Q6H PRN PRN (Reason: Nausea) Qty: 15 0RF dicyclomine 20 mg tablet 20 mg PO TID PRN (Reason: abdominal pain) Qty: 20 0RF Primary Care Provider: Moisés Barclay Referrals: Moisés Barclay MD [Primary Care Provider] - 5-7 Days Dentist,[place] [STAFF PHYSICIAN] - 5-7 Days Disposition Disposition: Home, Self Care
[2022-04-17] MEDS: Penicillin Vk 250 MG Tablet 500 MG PO (13:02)
== END 2022-04-17 13:03 | disposition home or self-care (01) ==
PROVIDERS: Emergency Provider Emergency Medicine; PCP Family Medicine; Visit Provider Emergency Medicine
DX: K02.9 Dental caries, unspecified (principal); G47.33 Obstructive sleep apnea (adult) (pediatric)
CPT/HCPCS: 99283

== ENCOUNTER → 2022-05-28 | Outpatient (CLI) | payer BC, MEDICAID, SELFPAY ==
--- NOTE | 2022-05-28 16:04 | RAD_ITS ---
STUDY: X-RAY - LUMBAR SPINE REASON FOR EXAM: Male, 46 years old. low back pain TECHNIQUE: AP and lateral view(s) of the lumbar spine were obtained. COMPARISON: None FINDINGS: Normal lumbar lordosis. There is no substantial scoliosis. There is a normal alignment of the vertebrae. Normal vertebral bodies. Minimal endplate spurring at L3-4. Normal disc space heights. The soft tissue structures are unremarkable. RAD/Lumbar Spine 2 or 3 Views IMPRESSION: Early spondylotic changes. No acute fracture or other significant bony pathology Electronically Signed: Ho Thayer MD at 16:26 EDT ,
== END | disposition home or self-care (01) ==
LOC: MTRAD 16:02
PROVIDERS: PCP Family Medicine; Referring Provider Physician Assistant; Visit Provider Physician Assistant
DX: M54.50 Low back pain, unspecified (principal)
CPT/HCPCS: 72100

== ENCOUNTER 2022-11-15 10:37 | Emergency (ER) | payer MEDICAID, SELFPAY ==
[2022-11-15 10:38] VITALS: BP 152/103; PULSE 59; RESP 18; TEMP 36.4; O2SAT 94
--- NOTE | 2022-11-15 10:54 | CT_ITS ---
HISTORY: Pain. TECHNIQUE: Helically acquired images were obtained of the abdomen and pelvis without oral or IV contrast. A radiation dose optimization technique was used for this scan. 469 images. COMPARISON: 10/27/2021. FINDINGS: LOWER CHEST: Lung bases clear. BOWEL: Bowel including appendix nondilated. Colonic diverticulosis without focal pericolonic inflammatory change. PERITONEUM: No significant free fluid. Mild mesenteric stranding with small lymph nodes. LIVER: Fatty infiltration. GALLBLADDER/BILIARY TREE: Gallbladder present. SPLEEN/PANCREAS: Not enlarged. KIDNEYS AND URETERS: 2 cm right renal cyst. No nephrolithiasis or hydronephrosis. ADRENAL GLANDS: No nodules. VESSELS: No abdominal aortic aneurysm. PELVIC ORGANS: Underdistended bladder with unchanged wall thickening. Small prostate calcifications. ABDOMINAL WALL: Small fat-containing inguinal hernias BONES: Intact. CT/Abdomen/Pelvis without Cont IMPRESSION: Mild mid mesenteric stranding with small lymph nodes, suggesting mesenteric panniculitis. Colonic diverticulosis without acute diverticulitis. Hepatic steatosis. Small right renal cyst. Unchanged bladder wall thickening. Electronically Signed: Rekha Vick MD at 11:53 EDT ,
--- NOTE | 2022-11-15 10:54 | ED.VIS.GI ---
HPI HPI - GI History of Present Illness Chief Complaint: Abd Pain Detail of Chief Complaint: Abdominal pain Informant: patient Narrative Narrative: Patient presents with abdominal pain that started 5 days ago. Patient states he developed some lower abdomen cramping and initially thought he might be constipated although he had been having normal bowel movements. Patient took a stool softener and in his stool became somewhat loose. Today he went to work and began having more severe pain and vomited x4 at work and then vomited at home twice. He denies any blood in the stool or black tarry stool. He denies urinary symptoms. He denies fever. Patient denies sick contacts. He has had no prior abdominal surgeries. Prior similar symptoms: No PFSH [facility] Medical History Acute frontal sinusitis, unspecified Asthma Bradycardia Contact with and (suspected) exposure to other viral communicable diseases Deviated nasal septum Encounter for screening for COVID-19 Essential hypertension Family history of premature CAD Gastroenteritis Gout Hypertrophy of nasal turbinates Hypertrophy of tonsils Laceration of oral cavity Left-sided chest wall pain Lumbar strain Migraine PING (obstructive sleep apnea) URI (upper respiratory infection) Home Medications sertraline 50 mg tablet (Zoloft) 50 mg PO DAILY 03/20/21 [History Last Taken Unknown] allopurinol 100 mg tablet 100 mg PO DAILY 06/19/21 [History Last Taken Unknown] lisinopril 10 mg tablet 10 mg PO DAILY 08/10/21 [History Last Taken Unknown] ondansetron 4 mg disintegrating tablet 4 mg PO Q6H PRN PRN Nausea #15 tabs 09/18/21 [Rx Last Taken Unknown] aspirin 81 mg tablet,delayed release (Adult Aspirin Regimen) 81 mg PO DAILY 11/21/21 [History Last Taken Unknown] fluticasone propionate 50 mcg/actuation nasal spray,suspension 2 spray intranasal DAILY PRN Congestion 11/21/21 [History Last Taken Unknown] meloxicam 15 mg tablet 15 mg PO DAILY Pain #30 tabs 11/28/21 [Rx Last Taken Unknown] dicyclomine 20 mg tablet 20 mg PO TID PRN abdominal pain #20 tabs 03/23/22 [Rx Last Taken Unknown] penicillin V potassium 500 mg tablet 500 mg PO 4X/DAY #40 tabs 04/17/22 [Rx Last Taken Unknown] prednisone 10 mg tablet 10 mg PO DAILY #30 tabs 05/28/22 [Rx Last Taken Unknown] cyclobenzaprine 10 mg tablet 10 mg PO TID PRN muscle spasm #20 tabs 06/27/22 [Rx Last Taken Unknown] benzonatate 200 mg capsule 200 mg PO TID PRN cough #20 caps 07/06/22 [Rx Last Taken Unknown] hydrocodone-acetaminophen 5-325mg 5mg-325mg 1 tab PO Q4H PRN PRN Pain 2 days #10 TABLETS 11/15/22 [Rx Last Taken Unknown] ondansetron 4 mg disintegrating tablet 4 mg PO Q8H PRN PRN Nausea #10 tabs 11/15/22 [Rx Last Taken Unknown] Allergy/AdvReac Type Severity Reaction Status Date / Time Sulfa (Sulfonamide Allergy Rash Verified 11/15/22 10:40 Antibiotics) sulfamethoxazole Allergy Rash Verified 11/15/22 10:40 [From Bactrim] trimethoprim [From Bactrim] Allergy Rash Verified 11/15/22 10:40 naproxen AdvReac Other Verified 11/15/22 10:40 Family History Mother Heart disease Myocardial infarction Father Throat cancer Surgical History History of ankle surgery Social History household members: spouse and children Smoking Status: Never smoker alcohol intake: never substance use type: does not use caffeine: Yes Type: tea Number of servings: 1 ROS ROS ED Review of Systems ROS Unobtainable: other Constitutional Constitutional ED: Reports lethargy; Denies chills, fever(s), sweats or weight loss Eyes Eyes: Denies blurry vision, change in vision or diplopia ENT ENT ED: Denies rhinorrhea or sore throat Cardiovascular Cardiovascular: Denies chest pain, orthopnea or racing heartbeat Respiratory/Chest Respiratory/Chest: Denies cough, dyspnea, dyspnea on exertion, orthopnea or sputum Gastrointestinal Gastrointestinal: Reports abdominal pain, nausea and vomiting; Denies diarrhea Genitourinary Genitourinary ED: Denies dysuria, hematuria or urinary frequency Musculoskeletal Musculoskeletal: Denies arthralgias, back pain, myalgias or neck pain Integumentary Denies abscess, Abrasions or rash Neurologic Neurologic: Denies headache(s) or weakness Psychiatric Psychiatric: Denies anxiety, depression or suicidal thoughts Endocrine Endocrinology: Denies polydipsia, polyphagia or polyuria Hematologic/Lymphatic Hematologic/Lymphatic: Denies easy bleeding, easy bruising or lymphadenopathy Allergic/Immunologic Allergic/Immunologic ED: Denies mouth swelling, tongue swelling or urticaria EXAM Physical Exam Const Vital Signs: 11/15/22 10:38 Temperature 97.5 F L Temperature Source Temporal Pulse Rate 59 L Respiratory Rate 18 Blood Pressure 152/103 H Blood Pressure Mean 119 Pulse Ox 94 Oxygen Delivery Method Room Air Positive well nourished and well developed General Appearance ED: well developed and NAD HEENT Reports TM's clear and moist mucous membranes normocephalic and atraumatic; Negative for trauma or tenderness Tympanic Membrane ED: Yes TM's clear Eyes PERRL and EOMs intact bilaterally General Eye ED: Negative for pale conjunctiva or scleral icterus Neck no lymphadenopathy, supple and no JVD General: Negative for tenderness Chest Wall inspection of chest normal and palpation of chest normal Chest: Negative for tenderness Resp normal respiratory effort and clear to auscultation bilaterally Effort and Inspection: Negative for respiratory distress or pain with movement Auscultation: Negative for rhonchi, wheezes or diminished lung sounds Cardio regular rate, regular rhythm, S1 normal heart sound, S2 normal heart sound and no murmurs Peripheral Pulses: pulses 2+ throughout GI normal to inspection, nondistended, normoactive bowel sounds, soft to palpation, non-tender, non-distended and no masses GI Narrative: Tenderness palpation over the left lower quadrant and suprapubic region with some guarding. No rebound, rigidity, or peritoneal signs. No significant discomfort over the right lower quadrant. Back/Spine no CVA tenderness and no thoracic nor lumbar tenderness Extremity normal to inspection General Extremety ED: Negative for edema General Extremity: Negative for edema Neuro oriented x3, CN's II-XII intact bilaterally, no sensory deficits noted and gait normal Sensorium / Orientation: awake, alert, oriented to person, oriented to place and oriented to time Motor Exam: strength 5/5 throughout and strength abnormal Psych mental status grossly normal Skin no rashes or lesions noted and no wounds MDM MDM MDM Narrative Medical decision making narrative: IV line established on arrival. In the differential was diverticulitis versus kidney stone versus bowel obstruction versus bowel perforation versus other. Patient received morphine and Zofran for pain and had good pain relief with that. CBC with differential obtained was normal. Chemistries were unremarkable. Lactate was 0.6. LFTs were unremarkable. CT scan of the abdomen pelvis showed some mild mid mesentery inflammation which may be consistent with mesenteric panniculitis. I discussed these findings with the patient and also spoke with the general surgeon on-call Dr. Lopez who recommended symptomatic treatment and follow-up with his surgeon of record Dr. Wharton whom patient has seen in the past for colonoscopy which she had last March, If pain does not improve or resolve. Lab Data Attestation: I reviewed the patient's lab results. Labs: Laboratory Results - last 24 hr 11/15/22 11/15/22 11/15/22 11:00 11:00 11:00 WBC 8.8 RBC 5.07 Hgb 14.2 Hct 43.0 MCV 84.8 MCH 28.0 MCHC 33.0 RDW Std Deviation 39.7 RDW Coeff of Asif 12.8 Plt Count 240 MPV 9.1 Immature Gran % (Auto) 0.300 Neut % (Auto) 61.4 Lymph % (Auto) 22.9 [place] % (Auto) 9.7 Eos % (Auto) 4.7 Baso % (Auto) 1.0 Absolute Neuts (auto) 5.4 Absolute Lymphs (auto) 2.01 Nucleated RBC % 0 Sodium 138 Potassium 4.0 Chloride 106 Carbon Dioxide 25.0 Anion Gap 7 BUN 8 Creatinine 0.91 Estim Creat Clear Calc 104.73 Est GFR (MDRD) Af Amer 115 Est GFR (MDRD) Non-Af 95 BUN/Creatinine Ratio 8.8 L Glucose 112 H Lactic Acid 0.6 Calcium 8.9 Total Bilirubin 0.60 AST 16 ALT 30 Alkaline Phosphatase 104 Total Protein 7.1 Albumin 3.6 Globulin 3.5 Albumin/Globulin Ratio 1.0 Urine Color Urine Clarity Urine pH Ur Specific [place] Urine Protein Urine Glucose (UA) Urine Ketones Urine Occult Blood Urine Nitrite Urine Bilirubin Urine Urobilinogen Ur Leukocyte Esterase Urine RBC Urine WBC Ur Squamous Epith Cells Urine Bacteria Urine Mucus 11/15/22 11:05 WBC RBC Hgb Hct MCV MCH MCHC RDW Std Deviation RDW Coeff of Asif Plt Count MPV Immature Gran % (Auto) Neut % (Auto) Lymph % (Auto) [place] % (Auto) Eos % (Auto) Baso % (Auto) Absolute Neuts (auto) Absolute Lymphs (auto) Nucleated RBC % Sodium Potassium Chloride Carbon Dioxide Anion Gap BUN Creatinine Estim Creat Clear Calc Est GFR (MDRD) Af Amer Est GFR (MDRD) Non-Af BUN/Creatinine Ratio Glucose Lactic Acid Calcium Total Bilirubin AST ALT Alkaline Phosphatase Total Protein Albumin Globulin Albumin/Globulin Ratio Urine Color Yellow Urine Clarity Clear Urine pH 5.0 Ur Specific [place] 1.020 Urine Protein Negative Urine Glucose (UA) Normal Urine Ketones Negative Urine Occult Blood 50 H Urine Nitrite Negative Urine Bilirubin Negative Urine Urobilinogen Normal Ur Leukocyte Esterase Negative Urine RBC 0-5 SEEN Urine WBC 0 SEEN Ur Squamous Epith Cells 0 SEEN Urine Bacteria 0 SEEN Urine Mucus 0 SEEN Radiography Diagnostic Testing: Clinical Impression(s) from Imaging Studies Abdomen/Pelvis CT 11/15/22 10:54 IMPRESSION: Mild mid mesenteric stranding with small lymph nodes, suggesting mesenteric panniculitis. Colonic diverticulosis without acute diverticulitis. Hepatic steatosis. Small right renal cyst. Unchanged bladder wall thickening. Electronically Signed: Rekha Vick MD at 11:53 EDT Reading Location ID and State: [facility] / [place] Tel , Service support , Discharge Plan Triage Chief Complaint: Abd Pain ED Provider: Tala Jordan Dx/Rx/DC Orders Clinical Impression: Abdominal pain, Mesenteric panniculitis Instructions: Abdominal Pain, ED Abdominal Pain Unkn Cause Male... Prescriptions: New hydrocodone-acetaminophen [hydrocodone-acetaminophen] 5-325 mg tablet 1 tab PO Q4H PRN PRN (Reason: Pain) 2 Days Qty: 10 0RF ondansetron [ondansetron] 4 mg tablet,disintegrating 4 mg PO Q8H PRN PRN (Reason: Nausea) Qty: 10 0RF No Action sertraline [Zoloft] 50 mg tablet 50 mg PO DAILY lisinopril 10 mg tablet 10 mg PO DAILY aspirin [Adult Aspirin Regimen] 81 mg tablet,delayed release (DR/EC) 81 mg PO DAILY fluticasone propionate 50 mcg/actuation spray,suspension 2 spray intranasal DAILY PRN (Reason: Congestion) meloxicam 15 mg tablet 15 mg PO DAILY Qty: 30 0RF Rx Instructions: Do not take in conjunction with other NSAIDs. Tylenol is okay. prednisone 10 mg tablet 10 mg PO DAILY Qty: 30 0RF Rx Instructions: 4 tablets daily for 3 days, then 3 tablets daily for 3 days, then 2 tablets daily for 3 days, then 1 tablet daily for 3 days cyclobenzaprine 10 mg tablet 10 mg PO TID PRN (Reason: muscle spasm) Qty: 20 0RF Rx Instructions: To be used only AFTER work hours on workdays benzonatate 200 mg capsule 200 mg PO TID PRN (Reason: cough) Qty: 20 0RF allopurinol 100 mg tablet 100 mg PO DAILY ondansetron [ondansetron] 4 MG tablet 4 mg PO Q6H PRN PRN (Reason: Nausea) Qty: 15 0RF dicyclomine 20 mg tablet 20 mg PO TID PRN (Reason: abdominal pain) Qty: 20 0RF penicillin V potassium 500 mg tablet 500 mg PO 4X/DAY Qty: 40 0RF Primary Care Provider: Moisés Barclay Referrals: Roberta Wharton MD [Med Staff - Active Staff] - 3-5 Days Moisés Barclay MD [Primary Care Provider] - Disposition Disposition: Home, Self Care
[2022-11-15 11:10] LABS: Bacteria 0 SEEN /hpf (None Seen); Mucous, Urine 0 SEEN /hpf (<or=2+); Squamous Epithelial Cells - UA 0 SEEN /hpf (0-5); White Blood Cells 0 SEEN /hpf (0-5)
[2022-11-15] MEDS: Morphine 4 MG/ML Syringe IV (11:10)
[2022-11-15] MEDS: 0.9% Normal Saline 1,000 ML 125 ML IV (11:10)
[2022-11-15] MEDS: Ondansetron 4 MG/2 ML Vial IV (11:10)
[2022-11-15 11:12] VITALS: BMI 43.7
[2022-11-15 11:12] LABS: Absolute Lymphocyte Count 2.01 X10^3/uL (0.83-4.51); Absolute Neutrophil Count 5.4 X10^3/uL (2.0-7.7); Basophil# 0.09 X10^3/uL; Eosinophil# 0.41 X10^3/uL; Eosinophils% 4.7 % (0-5); Hemoglobin 14.2 g/dL (13.0-16.5); Lymphocyte # 2.01 X10^3/ul (0.83-4.51); Lymphocyte % 22.9 % (19-41); Mean Corpuscular Volume 84.8 fL (80-94); Mean Platelet Vol. 9.1 fl (6.2-12.0); Monocyte# 0.85 X10^3/uL; Monocyte% 9.7 % (0-10); NRBC Flagged by Analyzer 0 % (0-5); Neutrophil # 5.38 X10^3/uL (2.7-7.7); Neutrophil % 61.4 % (47-70); Platelet Count 240 K/mm3 (150-450); RBC Distribution Width CV 12.8 % (11.6-14.6); RBC Distribution Width SD 39.7 fl (35.1-43.9); Red Blood Count 5.07 M/mm3 (4.6-6.2); White Blood Count 8.8 K/mm3 (4.4-11.0)
[2022-11-15 11:19] LABS: Color, Urine Yellow (Yellow); Glucose, Dipstick Normal (Normal); Ketone-Dipstick Negative (Negative); Leukocyte Esterase-Dipstick Negative /ul (Negative); Nitrite-Dipstick Negative (Negative); Occult Blood-Urine 50 /ul (Negative); Protein-Dipstick Negative (Negative); Urine Bilirubin Dipstick Negative (Negative); Urine Clarity Clear (Clear); Urine Urobilinogen Normal (Normal)
[2022-11-15 11:24] LABS: AST(SGOT) 16 U/L (15-37); Alanine Aminotransfer ALT/SGPT 30 U/L (16-61); Albumin, Serum 3.6 g/dL (3.2-5.0); Alkaline Phosphatase 104 U/L (45-117); Anion Gap 7 (5-15); BUN 8 mg/dL (7-18); BUN/Creat Ratio 8.8 RATIO (10-20); Calcium,Total 8.9 mg/dL (8.5-10.1); Chloride 106 mmol/L (98-107); Creatinine, Serum 0.91 mg/dL (0.70-1.30); EST Glomerular Filtration Rate 95 mL/min (>60); Est Glom Filt Rate - Afr Amer 115 mL/min (>60); Estimated Creatinine Clearance 104.73 ml/min; Globulin 3.5 g/dL (2.2-4.2); Glucose 112 mg/dL (74-106); Protein, Total 7.1 g/dL (6.4-8.2); Sodium Level 138 mmol/L (136-145)
[2022-11-15 11:32] LABS: Lactic Acid 0.6 mmol/L (0.4-1.9)
[2022-11-15 11:39] LABS: Red Blood Cells-Urine 0-5 SEEN /hpf (0-5)
[2022-11-15 12:49] VITALS: BP 145/102; PULSE 88; RESP 18; O2SAT 95
== END 2022-11-15 13:08 | disposition home or self-care (01) ==
PROVIDERS: Emergency Provider Emergency Medicine; PCP Family Medicine; Visit Provider Emergency Medicine
DX: R10.30 Lower abdominal pain, unspecified (principal); K65.4 Sclerosing mesenteritis; G47.33 Obstructive sleep apnea (adult) (pediatric)
CPT/HCPCS: 74176; 80053; 81001; 83605; 85025; 96374; 96375; 99284; J7030; A4216; J2405

== ENCOUNTER 2022-12-03 23:11 | Emergency (ER) | payer MEDICAID, SELFPAY ==
[2022-12-03 23:12] VITALS: BP 133/89; PULSE 61; RESP 18; TEMP 36; O2SAT 99; BMI 43.0
--- NOTE | 2022-12-03 23:22 | RAD_ITS ---
EXAM: XR LEFT HAND COMPLETE, 3 OR MORE VIEWS CLINICAL INDICATION: hand trauma TECHNIQUE: Frontal, lateral and oblique views of the left hand. This report was created using [employer] report generation technology. COMPARISON: None. FINDINGS: BONES/JOINTS: Unremarkable. No acute fracture. No subluxation. Normal alignment. Preservation of the joint space. No sclerotic or destructive changes observed. SOFT TISSUES: Mild soft tissue swelling around the PIP joint of the index finger. Possibly mild soft tissue swelling around the IP joints diffusely. No radiopaque foreign body. RAD/Hand Min 3 Views IMPRESSION: No fracture identified. Mild soft tissue swelling. Electronically Signed: Raegan Joyner MD at 0:29 EDT ,
--- NOTE | 2022-12-03 23:28 | EX.ED.UPPERE ---
HPI History of Present Illness HPI Narrative: Left hand injured when caught between the washer and the wall. Occurred about 3 hours ago. He is right-hand dominant. No prior history. Chief Complaint: Upper Extremity Injury Informant: patient Occured/Mechanism Mechanism/Context: Yes injury and Yes blunt trauma Onset/Context/Timing Onset: Today and Hours Context: Sudden Onset Timing: Continuous Quality of Pain: Dull and Aching Current Severity: Mild Maximum Severity: Mild Associated Symptoms Associated Symptoms: Positive for Parasthesia; Negative for Weakness or Loss of Funtion Narrative Narrative: [id number] 47-year-old male history of hypertension. Was pushing his washing machine back against the wall when he slid and caught his left hand between the washing machine and the wall. Complaining of pain in his wrist and numbness at the end of his left long and ring fingers. No prior history of surgery to this hand. No other injuries. Prior similar symptoms: No Recent Illness/Hospitalization: No PFSH [facility] Medical History Acute frontal sinusitis, unspecified Asthma Bradycardia Contact with and (suspected) exposure to other viral communicable diseases Deviated nasal septum Encounter for screening for COVID-19 Essential hypertension Family history of premature CAD Gastroenteritis Gout Hypertrophy of nasal turbinates Hypertrophy of tonsils Laceration of oral cavity Left-sided chest wall pain Lumbar strain Migraine PING (obstructive sleep apnea) URI (upper respiratory infection) Home Medications sertraline 50 mg tablet (Zoloft) 50 mg PO DAILY 03/20/21 [History Last Taken Unknown] allopurinol 100 mg tablet 100 mg PO DAILY 06/19/21 [History Last Taken Unknown] lisinopril 10 mg tablet 10 mg PO DAILY 08/10/21 [History Last Taken Unknown] ondansetron 4 mg disintegrating tablet 4 mg PO Q6H PRN PRN Nausea #15 tabs 09/18/21 [Rx Last Taken Unknown] aspirin 81 mg tablet,delayed release (Adult Aspirin Regimen) 81 mg PO DAILY 11/21/21 [History Last Taken Unknown] fluticasone propionate 50 mcg/actuation nasal spray,suspension 2 spray intranasal DAILY PRN Congestion 11/21/21 [History Last Taken Unknown] meloxicam 15 mg tablet 15 mg PO DAILY Pain #30 tabs 11/28/21 [Rx Last Taken Unknown] dicyclomine 20 mg tablet 20 mg PO TID PRN abdominal pain #20 tabs 03/23/22 [Rx Last Taken Unknown] penicillin V potassium 500 mg tablet 500 mg PO 4X/DAY #40 tabs 04/17/22 [Rx Last Taken Unknown] prednisone 10 mg tablet 10 mg PO DAILY #30 tabs 05/28/22 [Rx Last Taken Unknown] cyclobenzaprine 10 mg tablet 10 mg PO TID PRN muscle spasm #20 tabs 06/27/22 [Rx Last Taken Unknown] benzonatate 200 mg capsule 200 mg PO TID PRN cough #20 caps 07/06/22 [Rx Last Taken Unknown] hydrocodone-acetaminophen 5-325mg 5mg-325mg 1 tab PO Q4H PRN PRN Pain 2 days #10 TABLETS 11/15/22 [Rx Last Taken Unknown] ondansetron 4 mg disintegrating tablet 4 mg PO Q8H PRN PRN Nausea #10 tabs 11/15/22 [Rx Last Taken Unknown] Allergy/AdvReac Type Severity Reaction Status Date / Time Sulfa (Sulfonamide Allergy Rash Verified 12/03/22 23:13 Antibiotics) sulfamethoxazole Allergy Rash Verified 12/03/22 23:13 [From Bactrim] trimethoprim [From Bactrim] Allergy Rash Verified 12/03/22 23:13 naproxen AdvReac Other Verified 12/03/22 23:13 Family History Mother Heart disease Myocardial infarction Father Throat cancer Surgical History History of ankle surgery Social History household members: spouse and children Smoking Status: Never smoker alcohol intake: never substance use type: does not use caffeine: Yes Type: tea Number of servings: 1 ROS ROS ED ROS Narrative Denies. Review of Systems ROS Unobtainable: Denies due to encephalopathy Constitutional Constitutional ED: Denies chills or fever(s) Eyes Eyes: Denies blurry vision ENT ENT ED: Denies ear pain Cardiovascular Cardiovascular: Denies chest pain Respiratory/Chest Respiratory/Chest: Denies cough or dyspnea Gastrointestinal Gastrointestinal: Denies abdominal pain Genitourinary Genitourinary ED: Denies dysuria or hematuria Musculoskeletal Musculoskeletal: Denies back pain or myalgias Integumentary Denies abscess or Abrasions Neurologic Neurologic: Reports paresthesias LUE; Denies headache(s) Psychiatric Psychiatric: Denies anxiety Endocrine Endocrinology: Denies cold intolerance Hematologic/Lymphatic Hematologic/Lymphatic: Denies easy bleeding or easy bruising Allergic/Immunologic Allergic/Immunologic ED: Denies mouth swelling or tongue swelling EXAM Physical Exam Narrative Exam Narrative: Well-appearing 47-year-old male. Vital signs stable afebrile. H EENT exam unremarkable atraumatic. Lungs clear. Heart regular rhythm. Chest nontender. Abdomen soft nontender. Moving all 4 extremities. Specific left hand he has mild tenderness at the palm of his left hand proximally over the median nerve. No gross bony deformity of the wrist. No significant swelling. He is able to do flexion extension of all digits. He has full 180 degrees extension. Limited flexion of the ring and long finger due to discomfort and mild swelling. Normal cap refill. Drastically decreased sensation of the entire left long finger and left ring finger the entire length of stocking glove distribution. No gross bony deformity. No skin lacerations. No bruising. Neurologically is awake and alert. He does have decreased sensation in the long and ring finger. Const Vital Signs: 12/03/22 23:12 Temperature 96.8 F L Temperature Source Temporal Pulse Rate 61 Respiratory Rate 18 Blood Pressure 133/89 H Blood Pressure Mean 103 Pulse Ox 99 Oxygen Delivery Method Room Air Positive well nourished, well developed and obese; Negative for cachectic, contractures or unkempt General Appearance ED: well developed and NAD; Negative for unkempt, cachectic, contractures, cyanotic or diaphoretic Nutritional Appearance: obese; Negative for cachectic HEENT Reports moist mucous membranes normocephalic and atraumatic; Negative for trauma or tenderness Eyes PERRL and EOMs intact bilaterally General Eye ED: Negative for other Neck full ROM and supple General: Negative for tenderness Lymph Lymphatic: Negative for other Chest Wall inspection of chest normal and palpation of chest normal Chest: Negative for other Resp normal respiratory effort and clear to auscultation bilaterally Effort and Inspection: Negative for pain with movement Auscultation: Negative for rales, rhonchi or wheezes Cardio regular rhythm, S1 normal heart sound, S2 normal heart sound and no murmurs Rate: Negative for bradycardia or tachycardic Rhythm: Negative for abnormal rhythm GI non-tender, non-distended and no masses Inspection: Negative for abdominal distention Auscultation: normoactive bowel sounds Palpation: soft; Negative for tender or guarding Back/Spine no CVA tenderness General Back: Negative for CVA tenderness Cervical Spine: Negative for cervical spine tenderness Thoracic Spine / Upper Back: Negative for thoracic spinal tenderness Lumbar Spine / Lower Back: Negative for lumbar spinal tenderness Extremity Negative for normal to inspection or full ROM Extremity Narrative: Left hand and wrist mildly tender over the ring and long fingers. No gross bony deformity. Limited flexion with those 2 digits with full flexion-extension of all other digits. Full extension of all digits. Decreased sensation along the long and ring finger on both the palmar and dorsal surfaces. Both medially and laterally. Nontender. No redness. Neuro oriented x3, moves all extremities, no focal motor deficits and No no sensory deficits noted Sensorium / Orientation: alert, oriented to person, oriented to place and oriented to time; Negative for orientation impaired, lethargic or stuporous Motor Exam: strength 5/5 throughout Psych mental status grossly normal Appearance: Negative for unkempt Attitude: No agitated Mood & Affect: Negative for depressed, anxious or tearful Skin General Skin Exam: Negative for petechiae Lesions: no lesions Rashes: no rashes Trauma: no lacerations or abrasions; Negative for abrasion, laceration or puncture MDM MDM MDM Narrative Medical decision making narrative: 47-year-old male injury to his left hand with paresthesias to the left long and ring finger. No signs of compartment. He could have a contusion to the median nerve. Could also be from swelling and contusion of the fingers and themselves. No bony deformity. X-ray will be obtained. Ice and elevate. Tylenol Motrin. He took ibuprofen 2 hours prior to arrival. With the way his fingers are numb and also the palm of his hand I think he has a contusion to his median nerve on the palmar aspect. There is no laceration to the skin so I do not feel there is any likelihood there is a laceration of the nerve. Radiography Diagnostic Testing: Left hand x-ray, 3 views, interpreted by myself Discharge Plan Triage Chief Complaint: Upper Extremity Injury ED Provider: Tylor Green Dx/Rx/DC Orders Clinical Impression: Contusion of hand, left, Paresthesias in left hand, Injury of median nerve Instructions: ED Crush Injury, Hand Prescriptions: No Action sertraline [Zoloft] 50 mg tablet 50 mg PO DAILY lisinopril 10 mg tablet 10 mg PO DAILY aspirin [Adult Aspirin Regimen] 81 mg tablet,delayed release (DR/EC) 81 mg PO DAILY fluticasone propionate 50 mcg/actuation spray,suspension 2 spray intranasal DAILY PRN (Reason: Congestion) meloxicam 15 mg tablet 15 mg PO DAILY Qty: 30 0RF Rx Instructions: Do not take in conjunction with other NSAIDs. Tylenol is okay. prednisone 10 mg tablet 10 mg PO DAILY Qty: 30 0RF Rx Instructions: 4 tablets daily for 3 days, then 3 tablets daily for 3 days, then 2 tablets daily for 3 days, then 1 tablet daily for 3 days cyclobenzaprine 10 mg tablet 10 mg PO TID PRN (Reason: muscle spasm) Qty: 20 0RF Rx Instructions: To be used only AFTER work hours on workdays benzonatate 200 mg capsule 200 mg PO TID PRN (Reason: cough) Qty: 20 0RF allopurinol 100 mg tablet 100 mg PO DAILY ondansetron [ondansetron] 4 MG tablet 4 mg PO Q6H PRN PRN (Reason: Nausea) Qty: 15 0RF dicyclomine 20 mg tablet 20 mg PO TID PRN (Reason: abdominal pain) Qty: 20 0RF penicillin V potassium 500 mg tablet 500 mg PO 4X/DAY Qty: 40 0RF hydrocodone-acetaminophen [hydrocodone-acetaminophen] 5-325 mg tablet 1 tab PO Q4H PRN PRN (Reason: Pain) 2 Days Qty: 10 0RF ondansetron [ondansetron] 4 mg tablet,disintegrating 4 mg PO Q8H PRN PRN (Reason: Nausea) Qty: 10 0RF Primary Care Provider: Moisés Barclay Referrals: Moisés Barclay MD [Primary Care Provider] - 3-5 Days if not improving Activity Restrictions/Additional Instructions: Ice and elevate your left hand to decrease pain and swelling. Motrin for pain and swelling. May also alternate with Tylenol. Follow-up with your doctor if not improving. Disposition Disposition: Home, Self Care
== END 2022-12-03 23:56 | disposition home or self-care (01) ==
PROVIDERS: Emergency Provider Emergency Medicine; PCP Family Medicine; Visit Provider Emergency Medicine
DX: S60.222A Contusion of left hand, initial encounter (principal); Z68.41 Body mass index [BMI] 40.0-44.9, adult; S64.12XA Injury of median nerve at wrist and hand level of left arm, initial encounter; W23.0XXA Caught, crushed, jammed, or pinched between moving objects, initial encounter; Y93.89 Activity, other specified; I10 Essential (primary) hypertension; E66.9 Obesity, unspecified; Z79.82 Long term (current) use of aspirin; Z79.899 Other long term (current) drug therapy
CPT/HCPCS: 73130; 99282

== ENCOUNTER 2022-12-26 19:29 | Emergency (ER) | payer MEDICAID, SELFPAY ==
[2022-12-26 19:30] VITALS: BP 143/103; PULSE 71; RESP 15; TEMP 36.4; O2SAT 98; BMI 41.8
--- NOTE | 2022-12-26 19:59 | EX.ED.VIS.HA ---
HPI History of Present Illness Chief Complaint: Headache Narrative Narrative: 47-year-old male with left-sided headache. He states he has a history of migraine and this feels similar. He woke up with it today. He said some nausea and some lightheadedness with it. Denies fever, neck stiffness. No head trauma. He states nothing is making it better. He does admit to photophobia and photophobia. [facility] Medical History Acute frontal sinusitis, unspecified Asthma Bradycardia Contact with and (suspected) exposure to other viral communicable diseases Deviated nasal septum Encounter for screening for COVID-19 Essential hypertension Family history of premature CAD Gastroenteritis Gout Hypertrophy of nasal turbinates Hypertrophy of tonsils Laceration of oral cavity Left-sided chest wall pain Lumbar strain Migraine PING (obstructive sleep apnea) URI (upper respiratory infection) Home Medications sertraline 50 mg tablet (Zoloft) 50 mg PO DAILY 03/20/21 [History Last Taken Unknown] allopurinol 100 mg tablet 100 mg PO DAILY 06/19/21 [History Last Taken Unknown] lisinopril 10 mg tablet 10 mg PO DAILY 08/10/21 [History Last Taken Unknown] ondansetron 4 mg disintegrating tablet 4 mg PO Q6H PRN PRN Nausea #15 tabs 09/18/21 [Rx Last Taken Unknown] aspirin 81 mg tablet,delayed release (Adult Aspirin Regimen) 81 mg PO DAILY 11/21/21 [History Last Taken Unknown] fluticasone propionate 50 mcg/actuation nasal spray,suspension 2 spray intranasal DAILY PRN Congestion 11/21/21 [History Last Taken Unknown] dicyclomine 20 mg tablet 20 mg PO TID PRN abdominal pain #20 tabs 03/23/22 [Rx Last Taken Unknown] penicillin V potassium 500 mg tablet 500 mg PO 4X/DAY #40 tabs 04/17/22 [Rx Last Taken Unknown] prednisone 10 mg tablet 10 mg PO DAILY #30 tabs 05/28/22 [Rx Last Taken Unknown] cyclobenzaprine 10 mg tablet 10 mg PO TID PRN muscle spasm #20 tabs 06/27/22 [Rx Last Taken Unknown] benzonatate 200 mg capsule 200 mg PO TID PRN cough #20 caps 07/06/22 [Rx Last Taken Unknown] hydrocodone-acetaminophen 5-325mg 5mg-325mg 1 tab PO Q4H PRN PRN Pain 2 days #10 TABLETS 11/15/22 [Rx Last Taken Unknown] ondansetron 4 mg disintegrating tablet 4 mg PO Q8H PRN PRN Nausea #10 tabs 11/15/22 [Rx Last Taken Unknown] meloxicam 15 mg tablet 15 mg PO DAILY Pain #30 tabs 12/06/22 [Rx Last Taken Unknown] Allergy/AdvReac Type Severity Reaction Status Date / Time Sulfa (Sulfonamide Allergy Rash Verified 12/26/22 19:34 Antibiotics) sulfamethoxazole Allergy Rash Verified 12/26/22 19:34 [From Bactrim] trimethoprim [From Bactrim] Allergy Rash Verified 12/26/22 19:34 acetaminophen [From Percocet] AdvReac Hives Verified 12/26/22 19:34 naproxen AdvReac Other Verified 12/26/22 19:34 oxycodone [From Percocet] AdvReac Hives Verified 12/26/22 19:34 Family History Mother Heart disease Myocardial infarction Father Throat cancer Surgical History History of ankle surgery Social History household members: spouse and children Smoking Status: Never smoker alcohol intake: never substance use type: does not use caffeine: Yes Type: tea Number of servings: 1 ROS ROS ED Constitutional Constitutional ED: Denies chills or fever(s) Eyes Eyes: Reports other Details: Photophobia ENT ENT ED: Reports other Details: Phonophobia Cardiovascular Cardiovascular: Denies chest pain Respiratory/Chest Respiratory/Chest: Denies cough or dyspnea Gastrointestinal Gastrointestinal: Reports nausea; Denies abdominal pain Genitourinary Genitourinary ED: Denies dysuria or hematuria Musculoskeletal Musculoskeletal: Denies arthralgias or back pain Integumentary Denies abscess Neurologic Neurologic: Reports headache(s); Denies paresthesias Psychiatric Psychiatric: Denies anxiety or depression EXAM Physical Exam Const Vital Signs: 12/26/22 19:30 Temperature 97.6 F L Temperature Source Oral Pulse Rate 71 Respiratory Rate 15 Blood Pressure 143/103 H Blood Pressure Mean 116 Pulse Ox 98 Oxygen Delivery Method Room Air Positive well nourished General Appearance ED: NAD; Negative for pallor HEENT Reports normocephalic atraumatic Eyes PERRL and EOMs intact bilaterally Resp normal respiratory effort Cardio regular rate and regular rhythm Neuro oriented x3, CN's II-XII intact bilaterally and no sensory deficits noted Sensorium / Orientation: awake and alert Speech: speech normal Motor Exam: strength 5/5 throughout Psych mental status grossly normal Skin General Skin Exam: Negative for jaundice or pallor MDM MDM MDM Narrative Medical decision making narrative: 47-year-old male presenting with headache. It is typical of his migraines except for a little bit of dizziness/lightheadedness with it. He has nausea as well. Patient admits to light sensitivity and sound severity as well. Patient with no focal neurologic deficits or lateralizing signs or symptoms. IV line was established. Patient given Reglan 10 mg, Benadryl 25 mg, Toradol 15 mg IV as well as a liter normal saline. I do not believe he needs any imaging of his brain currently. Reevaluation at 9:29 PM the patient is doing well. His headache is not completely improved but he states he feels well enough to go home and sleep it off. At this point I feel the patient stable for discharge. Return precautions were discussed. Impression: 1. Headache 2. Nausea 3. Dizziness Discharge Plan Triage Chief Complaint: Headache ED Provider: Reece Saucedo Dx/Rx/DC Orders Prescriptions: No Action sertraline [Zoloft] 50 mg tablet 50 mg PO DAILY lisinopril 10 mg tablet 10 mg PO DAILY aspirin [Adult Aspirin Regimen] 81 mg tablet,delayed release (DR/EC) 81 mg PO DAILY fluticasone propionate 50 mcg/actuation spray,suspension 2 spray intranasal DAILY PRN (Reason: Congestion) prednisone 10 mg tablet 10 mg PO DAILY Qty: 30 0RF Rx Instructions: 4 tablets daily for 3 days, then 3 tablets daily for 3 days, then 2 tablets daily for 3 days, then 1 tablet daily for 3 days cyclobenzaprine 10 mg tablet 10 mg PO TID PRN (Reason: muscle spasm) Qty: 20 0RF Rx Instructions: To be used only AFTER work hours on workdays benzonatate 200 mg capsule 200 mg PO TID PRN (Reason: cough) Qty: 20 0RF meloxicam 15 mg tablet 15 mg PO DAILY Qty: 30 0RF Rx Instructions: Do not take in conjunction with other NSAIDs. Tylenol is okay. allopurinol 100 mg tablet 100 mg PO DAILY ondansetron [ondansetron] 4 MG tablet 4 mg PO Q6H PRN PRN (Reason: Nausea) Qty: 15 0RF dicyclomine 20 mg tablet 20 mg PO TID PRN (Reason: abdominal pain) Qty: 20 0RF penicillin V potassium 500 mg tablet 500 mg PO 4X/DAY Qty: 40 0RF hydrocodone-acetaminophen [hydrocodone-acetaminophen] 5-325 mg tablet 1 tab PO Q4H PRN PRN (Reason: Pain) 2 Days Qty: 10 0RF ondansetron [ondansetron] 4 mg tablet,disintegrating 4 mg PO Q8H PRN PRN (Reason: Nausea) Qty: 10 0RF Primary Care Provider: Moisés Barclay Referrals: Moisés Barclay MD [Primary Care Provider] -
[2022-12-26] MEDS: Ketorolac 15 MG/ML Vial IV (20:27)
[2022-12-26] MEDS: 0.9% Normal Saline 1,000 ML 999 ML IV (20:27)
[2022-12-26] MEDS: DiphenhydrAMINE 50 MG/ML Syringe 25 MG IV (20:27)
[2022-12-26] MEDS: Metoclopramide 10 MG/2 ML Vial IV (20:27)
== END 2022-12-26 21:58 | disposition home or self-care (01) ==
PROVIDERS: Emergency Provider Student in an Organized Health Care Education/Training Program; PCP Family Medicine; Visit Provider Student in an Organized Health Care Education/Training Program
DX: R51.9 Headache, unspecified (principal); R11.0 Nausea; R42 Dizziness and giddiness; G47.33 Obstructive sleep apnea (adult) (pediatric)
CPT/HCPCS: 96374; 96375; 99283; J7030

== ENCOUNTER 2023-01-01 13:07 | Emergency (ER) | payer MEDICAID, SELFPAY ==
[2023-01-01 13:07] VITALS: BP 162/96; PULSE 60; RESP 16; TEMP 36.8; O2SAT 98; BMI 42.2
--- NOTE | 2023-01-01 13:23 | CT_ITS ---
STUDY: CT ABDOMEN AND PELVIS WITH CONTRAST REASON FOR EXAM: Male, 47 years old. Nausea and vomiting. Generalized abdominal pain. RADIATION DOSAGE (If Supplied By Facility): CTDIvol = ( 18.72 ) mGy, DLP = ( 1306.89 ) mGycm TECHNIQUE: Transaxial images were obtained from the dome of the diaphragm to the symphysis pubis without oral contrast. IV 100mL Isovue-370 was administered. Sagittal and coronal images were reconstructed. Individualized dose optimization techniques were used for this CT. COMPARISON: Comparison is made with prior study dated November 15, 2022. FINDINGS: The visualized lung bases are unremarkable. The visualized portions of the heart are within normal limits. There is decreased attenuation of the liver consistent with steatosis. Normal gallbladder and extrahepatic biliary system. Normal spleen. Normal pancreas. Normal bilateral adrenal glands. 2 cm right renal cyst. Normal left kidney. Normal visualized stomach. Normal small intestine. There are multiple colonic diverticula consistent with diverticulosis. The appendix is visualized and appears normal. Normal abdominal aorta. Normal inferior vena cava. Normal retroperitoneum. Normal urinary bladder. There is a right-sided inguinal hernia containing adipose tissue. Normal osseous structures. CT/Abdomen/Pelvis W IV Cont ONLY IMPRESSION: Fatty infiltration of the liver. Scattered sigmoid diverticula. Stable right renal cyst. Electronically Signed: Domingo Biggs MD at 14:47 EDT ,
--- NOTE | 2023-01-01 13:23 | ED.VIS.GI ---
HPI HPI - GI History of Present Illness Chief Complaint: Abd Pain Detail of Chief Complaint: Abdominal pain Informant: patient Abdominal Pain/Flank Pain Current Severity: 11/26 Maximum Severity: 02/25 Narrative Narrative: Patient presents to the emergency department complaint of abdominal pain that started this morning. Patient states that he developed the pain and then started having large amount of emesis. Patient took an antiemetic and has not thrown up since this morning. Patient also states that he had loose stools for about 3 days and that his daughter recently last week had stomach flu type illness. Patient called his primary care physician's office and was advised to come to the emergency department to be evaluated for the abdominal pain. Patient denies urinary symptoms. He denies fever. Patient denies recent antibiotics. [facility] Medical History Acute frontal sinusitis, unspecified Asthma Bradycardia Contact with and (suspected) exposure to other viral communicable diseases Deviated nasal septum Encounter for screening for COVID-19 Essential hypertension Family history of premature CAD Gastroenteritis Gout Hypertrophy of nasal turbinates Hypertrophy of tonsils Laceration of oral cavity Left-sided chest wall pain Lumbar strain Migraine PING (obstructive sleep apnea) URI (upper respiratory infection) Home Medications sertraline 50 mg tablet (Zoloft) 50 mg PO DAILY 03/20/21 [History Last Taken Unknown] lisinopril 10 mg tablet 10 mg PO DAILY 08/10/21 [History Last Taken Unknown] dicyclomine 10 mg capsule 20 mg PO TIDAC #20 CAPSULES 01/01/23 [Rx Last Taken Unknown] Allergy/AdvReac Type Severity Reaction Status Date / Time Sulfa (Sulfonamide Allergy Rash Verified 01/01/23 13:10 Antibiotics) sulfamethoxazole Allergy Rash Verified 01/01/23 13:10 [From Bactrim] trimethoprim [From Bactrim] Allergy Rash Verified 01/01/23 13:10 naproxen AdvReac Other Verified 01/01/23 13:10 oxycodone [From Percocet] AdvReac Hives Verified 01/01/23 13:10 Family History Mother Heart disease Myocardial infarction Father Throat cancer Surgical History History of ankle surgery Social History household members: spouse and children Smoking Status: Never smoker alcohol intake: never substance use type: does not use caffeine: Yes Type: tea Number of servings: 1 ROS ROS ED Review of Systems ROS Unobtainable: other Constitutional Constitutional ED: Reports lethargy; Denies chills, fever(s), sweats or weight loss Eyes Eyes: Denies blurry vision, change in vision or diplopia ENT ENT ED: Denies rhinorrhea or sore throat Cardiovascular Cardiovascular: Denies chest pain, orthopnea or racing heartbeat Respiratory/Chest Respiratory/Chest: Denies cough, dyspnea, dyspnea on exertion, orthopnea or sputum Gastrointestinal Gastrointestinal: Reports abdominal pain, diarrhea, nausea and vomiting Genitourinary Genitourinary ED: Denies dysuria, hematuria or urinary frequency Musculoskeletal Musculoskeletal: Denies arthralgias, back pain, myalgias or neck pain Integumentary Denies abscess, Abrasions or rash Neurologic Neurologic: Denies headache(s) or weakness Psychiatric Psychiatric: Denies anxiety, depression or suicidal thoughts Endocrine Endocrinology: Denies polydipsia, polyphagia or polyuria Hematologic/Lymphatic Hematologic/Lymphatic: Denies easy bleeding, easy bruising or lymphadenopathy Allergic/Immunologic Allergic/Immunologic ED: Denies mouth swelling, tongue swelling or urticaria EXAM Physical Exam Const Vital Signs: 01/01/23 13:07 01/01/23 15:17 Temperature 98.2 F Temperature Source Temporal Pulse Rate 60 Respiratory Rate 16 Blood Pressure 162/96 H 150/92 H Blood Pressure Mean 118 111 Pulse Ox 98 98 Oxygen Delivery Method Room Air Room Air Positive well nourished and well developed General Appearance ED: well developed and NAD HEENT Reports TM's clear and moist mucous membranes normocephalic and atraumatic; Negative for trauma or tenderness Tympanic Membrane ED: Yes TM's clear Eyes PERRL and EOMs intact bilaterally General Eye ED: Negative for pale conjunctiva or scleral icterus Neck no lymphadenopathy, supple and no JVD General: Negative for tenderness Chest Wall inspection of chest normal and palpation of chest normal Chest: Negative for tenderness Resp normal respiratory effort and clear to auscultation bilaterally Effort and Inspection: Negative for respiratory distress or pain with movement Auscultation: Negative for rhonchi, wheezes or diminished lung sounds Cardio regular rate, regular rhythm, S1 normal heart sound, S2 normal heart sound and no murmurs Peripheral Pulses: pulses 2+ throughout GI normal to inspection, nondistended, normoactive bowel sounds, soft to palpation, non-distended and no masses GI Narrative: Tenderness to palpation over the right upper quadrant and epigastric region. There are some mild guarding. There is no rebound, rigidity, or. Signs. No mass palpated. Back/Spine no CVA tenderness and no thoracic nor lumbar tenderness Extremity normal to inspection General Extremety ED: Negative for edema General Extremity: Negative for edema Neuro oriented x3, CN's II-XII intact bilaterally, no sensory deficits noted and gait normal Sensorium / Orientation: awake, alert, oriented to person, oriented to place and oriented to time Motor Exam: strength 5/5 throughout and strength abnormal Psych mental status grossly normal Skin no rashes or lesions noted and no wounds MDM MDM MDM Narrative Medical decision making narrative: Patient presents with loose stools x3 days and then belly pain that started today. Patient emesis x1. In the differential would be gastroenteritis versus gallbladder disease versus pancreatitis versus gastritis. IV line was established. Patient was ordered normal saline. Currently not feeling nauseated and did not want thing for pain. Patient had a CBC with differential normal white count 7.4 with a hemoglobin of 15 and platelet count of 277. Chemistries unremarkable. LFTs were essentially normal his lipase was minimally elevated at 86. Lactate was normal 1.7. CT scan of the abdomen pelvis obtained showed no acute disease process other than some fatty infiltration of the liver. Patient I suspect likely has viral gastroenteritis. He has antiemetic at home. He is advised to use Imodium for the diarrhea. I will write him a prescription for Bentyl. Lab Data Attestation: I reviewed the patient's lab results. Labs: Laboratory Results - last 24 hr 01/01/23 01/01/23 01/01/23 13:37 13:37 13:37 WBC 7.4 RBC 5.43 Hgb 15.0 Hct 46.4 MCV 85.5 MCH 27.6 MCHC 32.3 RDW Std Deviation 41.1 RDW Coeff of Asif 13.2 Plt Count 277 MPV 9.1 Immature Gran % (Auto) 0.400 Neut % (Auto) 62.0 Lymph % (Auto) 26.5 Vernon % (Auto) 7.3 Eos % (Auto) 3.1 Baso % (Auto) 0.7 Absolute Neuts (auto) 4.6 Absolute Lymphs (auto) 1.96 Nucleated RBC % 0 Sodium 139 Potassium 4.1 Chloride 104 Carbon Dioxide 27.0 Anion Gap 8 BUN 12 Creatinine 1.06 Estim Creat Clear Calc 89.91 Est GFR (MDRD) Af Amer 97 Est GFR (MDRD) Non-Af 80 BUN/Creatinine Ratio 11.3 Glucose 144 H Lactic Acid 1.7 Calcium 9.1 Total Bilirubin 0.70 AST 18 ALT 24 Alkaline Phosphatase 95 Total Protein 7.0 Albumin 3.5 Globulin 3.5 Albumin/Globulin Ratio 1.0 Lipase 86 H Discharge Plan Triage Chief Complaint: Abd Pain Other Complaint: Nausea/Vomiting ED Provider: Tala Jordan Dx/Rx/DC Orders Clinical Impression: Abdominal pain, Viral gastroenteritis Instructions: ED Abdominal Pain Unkn Cause Fem, ED Gastroenteritis, Viral (Adult) Prescriptions: New dicyclomine 10 mg capsule 20 mg PO TIDAC Qty: 20 0RF No Action sertraline [Zoloft] 50 mg tablet 50 mg PO DAILY lisinopril 10 mg tablet 10 mg PO DAILY Primary Care Provider: Moisés Barclay Referrals: Moisés Barclay MD [Primary Care Provider] - 3-5 Days Disposition Disposition: Home, Self Care
[2023-01-01] MEDS: 0.9% Normal Saline 1,000 ML 1000 ML IV (13:34)
[2023-01-01 13:47] LABS: Absolute Lymphocyte Count 1.96 X10^3/uL (0.83-4.51); Absolute Neutrophil Count 4.6 X10^3/uL (2.0-7.7); Basophil# 0.05 X10^3/uL; Basophil% 0.7 % (0-1); Eosinophil# 0.23 X10^3/uL; Eosinophils% 3.1 % (0-5); Hematocrit 46.4 % (40-54); Lymphocyte # 1.96 X10^3/ul (0.83-4.51); Lymphocyte % 26.5 % (19-41); Mean Corp Hgb Conc 32.3 g/dL (32-36); Mean Corpuscular Hgb 27.6 pg (27.0-32.0); Mean Corpuscular Volume 85.5 fL (80-94); Mean Platelet Vol. 9.1 fl (6.2-12.0); Monocyte# 0.54 X10^3/uL; Monocyte% 7.3 % (0-10); NRBC Flagged by Analyzer 0 % (0-5); Neutrophil # 4.58 X10^3/uL (2.7-7.7); Platelet Count 277 K/mm3 (150-450); RBC Distribution Width CV 13.2 % (11.6-14.6); RBC Distribution Width SD 41.1 fl (35.1-43.9); Red Blood Count 5.43 M/mm3 (4.6-6.2); White Blood Count 7.4 K/mm3 (4.4-11.0)
[2023-01-01 14:04] LABS: BUN 12 mg/dL (7-18); Creatinine, Serum 1.06 mg/dL (0.70-1.30); Estimated Creatinine Clearance 89.91 ml/min; Glucose 144 mg/dL (74-106)
[2023-01-01 14:05] LABS: AST(SGOT) 18 U/L (15-37); Alanine Aminotransfer ALT/SGPT 24 U/L (16-61); Albumin, Serum 3.5 g/dL (3.2-5.0); Alkaline Phosphatase 95 U/L (45-117); Anion Gap 8 (5-15); BUN/Creat Ratio 11.3 RATIO (10-20); Calcium,Total 9.1 mg/dL (8.5-10.1); Chloride 104 mmol/L (98-107); EST Glomerular Filtration Rate 80 mL/min (>60); Est Glom Filt Rate - Afr Amer 97 mL/min (>60); Globulin 3.5 g/dL (2.2-4.2); Lipase 86 U/L (13-75); Potassium 4.1 mmol/L (3.5-5.1); Sodium Level 139 mmol/L (136-145)
[2023-01-01 14:20] LABS: Lactic Acid 1.7 mmol/L (0.4-1.9)
[2023-01-01 15:17] VITALS: BP 150/92; O2SAT 98
[2023-01-01 15:30] VITALS: BP 150/92; RESP 17; O2SAT 97
== END 2023-01-01 16:04 | disposition home or self-care (01) ==
PROVIDERS: Emergency Provider Emergency Medicine; PCP Family Medicine; Visit Provider Emergency Medicine
DX: A08.4 Viral intestinal infection, unspecified (principal); R10.9 Unspecified abdominal pain; I10 Essential (primary) hypertension; G47.33 Obstructive sleep apnea (adult) (pediatric); Z79.899 Other long term (current) drug therapy
CPT/HCPCS: 74177; 80053; 83605; 83690; 85025; 96360; 99283; J7030; Q9967; A4216

== ENCOUNTER 2023-01-08 12:09 | Emergency (ER) | payer MEDICAID, SELFPAY ==
[2023-01-08 12:10] VITALS: BP 147/104; PULSE 60; RESP 16; TEMP 36.9; O2SAT 99; BMI 42.2
--- NOTE | 2023-01-08 13:29 | CT_ITS ---
STUDY: CT ABDOMEN AND PELVIS WITH CONTRAST REASON FOR EXAM: Male, 47 years old. RLQ pain -- IV PO Contrast RADIATION DOSAGE (If Supplied By Facility): CTDIvol = ( 20.40 ) mGy, DLP = ( 1319.14 ) mGycm TECHNIQUE: Transaxial images were obtained from the dome of the diaphragm to the symphysis pubis with oral contrast. ml of 100mL Isovue-300 contrast was administered. Sagittal and coronal images were reconstructed. Individualized dose optimization techniques were used for this CT. COMPARISON: CT of abdomen and pelvis dated November 15, 2022 CT of abdomen and pelvis dated January 01, 2023 FINDINGS: The visualized lung bases are unremarkable. The visualized portions of the heart are within normal limits. There is decreased attenuation of the liver consistent with steatosis. Normal gallbladder and extrahepatic biliary system. Normal spleen. Normal pancreas. Normal bilateral adrenal glands. There is mild cortical atrophy of the right kidney, consistent with chronic medical renal disease. Stable small simple cyst at the inferior pole of the right kidney. There is mild cortical atrophy of the left kidney, consistent with chronic medical renal disease. Normal visualized stomach. Normal small intestine. There are few scattered diverticula of the descending colon. No acute diverticulitis is present.. The appendix is visualized and appears normal. There is no bowel dilatation or free air or free fluid or evidence of obstruction. Normal abdominal aorta. Normal inferior vena cava. Normal retroperitoneum. Normal urinary bladder. There are prostatic calcifications. Normal abdominal wall. There are diffuse degenerative changes of the visualized lumbar spine. Small fat-containing bilateral inguinal hernias. CT/Abdomen/Pelvis WITH Contrast IMPRESSION: 1. There are few scattered diverticula of the descending colon. No acute diverticulitis is present.. The appendix is visualized and appears normal. There is no bowel dilatation or free air or free fluid or evidence of obstruction. Electronically Signed: Timothy Ernst MD at 15:52 EDT ,
[2023-01-08 13:52] LABS: Absolute Lymphocyte Count 2.01 X10^3/uL (0.83-4.51); Absolute Neutrophil Count 4.9 X10^3/uL (2.0-7.7); Basophil# 0.05 X10^3/uL; Basophil% 0.6 % (0-1); Eosinophil# 0.27 X10^3/uL; Eosinophils% 3.4 % (0-5); Hematocrit 45.3 % (40-54); Lymphocyte # 2.01 X10^3/ul (0.83-4.51); Lymphocyte % 25.4 % (19-41); Mean Corp Hgb Conc 33.1 g/dL (32-36); Mean Corpuscular Hgb 27.9 pg (27.0-32.0); Mean Corpuscular Volume 84.4 fL (80-94); Mean Platelet Vol. 9.6 fl (6.2-12.0); Monocyte# 0.62 X10^3/uL; Monocyte% 7.8 % (0-10); NRBC Flagged by Analyzer 0 % (0-5); Platelet Count 273 K/mm3 (150-450); RBC Distribution Width CV 13.2 % (11.6-14.6); RBC Distribution Width SD 40.7 fl (35.1-43.9); Red Blood Count 5.37 M/mm3 (4.6-6.2); White Blood Count 7.9 K/mm3 (4.4-11.0)
[2023-01-08] MEDS: Ondansetron 4 MG/2 ML Vial IV (14:01)
[2023-01-08] MEDS: 0.9% Normal Saline 1,000 ML 1000 ML IV (14:01)
[2023-01-08] MEDS: Morphine 4 MG/ML Syringe IV (14:01)
[2023-01-08 14:11] LABS: AST(SGOT) 15 U/L (15-37); Alanine Aminotransfer ALT/SGPT 24 U/L (16-61); Albumin, Serum 3.6 g/dL (3.2-5.0); Alkaline Phosphatase 95 U/L (45-117); Anion Gap 6 (5-15); BUN 15 mg/dL (7-18); BUN/Creat Ratio 14.7 RATIO (10-20); Bilirubin, Direct 0.18 mg/dL (0.00-0.30); Chloride 107 mmol/L (98-107); Creatinine, Serum 1.02 mg/dL (0.70-1.30); EST Glomerular Filtration Rate 83 mL/min (>60); Est Glom Filt Rate - Afr Amer 101 mL/min (>60); Estimated Creatinine Clearance 93.44 ml/min; Globulin 3.6 g/dL (2.2-4.2); Glucose 113 mg/dL (74-106); Potassium 3.9 mmol/L (3.5-5.1); Protein, Total 7.2 g/dL (6.4-8.2); Sodium Level 139 mmol/L (136-145)
--- NOTE | 2023-01-08 14:35 | EDS_ITS ---
HPI History of Present Illness Chief Complaint: Abd Pain Informant: patient Onset/Context/Timing Onset: Weeks Context: Gradual Onset Narrative Narrative: Patient presents with 7 to 10 days of nausea, vomiting, abdominal pain. Patient was seen in the emergency room 1 week ago with gastro symptoms. A CT scan at that time revealed no obvious abnormalities. Patient states that he continues to have intermittent vomiting and soft stools. He has pain in the right lower quadrant and when he was seen in his PCPs office today was quite tender on exam. He was sent back to the ER for repeat imaging and further testing. Patient has not noted a fever. [facility] Medical History Acute frontal sinusitis, unspecified Asthma Bradycardia Contact with and (suspected) exposure to other viral communicable diseases Deviated nasal septum Encounter for screening for COVID-19 Essential hypertension Family history of premature CAD Gastroenteritis Gout Hypertrophy of nasal turbinates Hypertrophy of tonsils Laceration of oral cavity Left-sided chest wall pain Lumbar strain Migraine PING (obstructive sleep apnea) URI (upper respiratory infection) Home Medications sertraline 50 mg tablet (Zoloft) 100 mg PO DAILY 03/20/21 [History Last Taken Unknown] lisinopril 10 mg tablet 10 mg PO DAILY 08/10/21 [History Last Taken Unknown] dicyclomine 10 mg capsule 20 mg PO TIDAC #20 CAPSULES 01/01/23 [Rx Last Taken Unknown] omeprazole 20 mg capsule,delayed release 20 mg PO DAILY 01/08/23 [History Last Taken Unknown] sumatriptan succinate 100 mg tablet 0 mg PO DAILY 01/08/23 [History Last Taken Unknown] tramadol 100 mg tablet 100 mg PO TID PRN pain #14 tabs 01/08/23 [Rx Last Taken Unknown] Allergy/AdvReac Type Severity Reaction Status Date / Time Sulfa (Sulfonamide Allergy Rash Verified 01/08/23 12:13 Antibiotics) sulfamethoxazole Allergy Rash Verified 01/08/23 12:13 [From Bactrim] trimethoprim [From Bactrim] Allergy Rash Verified 01/08/23 12:13 naproxen AdvReac Other Verified 01/08/23 12:13 Family History Mother Heart disease Myocardial infarction Father Throat cancer Surgical History History of ankle surgery Social History household members: spouse and children Smoking Status: Never smoker alcohol intake: never substance use type: does not use caffeine: Yes Type: tea Number of servings: 1 ROS ROS ED Constitutional Constitutional ED: Denies chills or fever(s) Eyes Eyes: Denies change in vision or discharge from eye(s) ENT ENT ED: Denies discharge from eye(s), rhinorrhea or sore throat Cardiovascular Cardiovascular: Denies chest pain or palpitations Respiratory/Chest Respiratory/Chest: Denies cough or dyspnea Gastrointestinal Gastrointestinal: Reports abdominal pain, diarrhea, nausea and vomiting Genitourinary Genitourinary ED: Denies difficulty urinating or dysuria Musculoskeletal Musculoskeletal: Denies back pain or extremity pain Integumentary Denies Abrasions or rash Neurologic Neurologic: Denies headache(s) or weakness Psychiatric Psychiatric: Denies anxiety or depression Allergic/Immunologic Allergic/Immunologic ED: Denies lip swelling or urticaria EXAM Physical Exam Const Vital Signs: 01/08/23 12:10 Temperature 98.4 F Temperature Source Temporal Pulse Rate 60 Respiratory Rate 16 Blood Pressure 147/104 H Blood Pressure Mean 118 Pulse Ox 99 Oxygen Delivery Method Room Air Positive well nourished and well developed General Appearance ED: well developed HEENT Reports normocephalic and head/scalp atraumatic Eyes PERRL and EOMs intact bilaterally Neck supple Chest Wall inspection of chest normal and palpation of chest normal Resp normal respiratory effort and clear to auscultation bilaterally Cardio regular rate and regular rhythm GI GI Narrative: Moderate tenderness to palpation in the right lower quadrant. No guarding or rebound. Palpation: soft Back/Spine no CVA tenderness Extremity normal to inspection Neuro oriented x3 and no sensory deficits noted Sensorium / Orientation: alert Motor Exam: strength 5/5 throughout Psych mental status grossly normal Skin no rashes or lesions noted MDM MDM MDM Narrative Medical decision making narrative: Patient given a dose of morphine and Zofran along with IV fluids. Labwork obtained to evaluate for leukocytosis, anemia, and electrolyte derangement. CT scan of the abdomen pelvis with p.o. and IV contrast obtained. Lab Data Attestation: I reviewed the patient's lab results. Labs: Laboratory Results - last 24 hr 01/08/23 01/08/23 12:41 12:41 WBC 7.9 RBC 5.37 Hgb 15.0 Hct 45.3 MCV 84.4 MCH 27.9 MCHC 33.1 RDW Std Deviation 40.7 RDW Coeff of Asif 13.2 Plt Count 273 MPV 9.6 Immature Gran % (Auto) 0.800 Neut % (Auto) 62.0 Lymph % (Auto) 25.4 [place] % (Auto) 7.8 Eos % (Auto) 3.4 Baso % (Auto) 0.6 Absolute Neuts (auto) 4.9 Absolute Lymphs (auto) 2.01 Nucleated RBC % 0 Sodium 139 Potassium 3.9 Chloride 107 Carbon Dioxide 26.0 Anion Gap 6 BUN 15 Creatinine 1.02 Estim Creat Clear Calc 93.44 Est GFR (MDRD) Af Amer 101 Est GFR (MDRD) Non-Af 83 BUN/Creatinine Ratio 14.7 Glucose 113 H Calcium 9.0 Total Bilirubin 0.70 Direct Bilirubin 0.18 AST 15 ALT 24 Alkaline Phosphatase 95 Total Protein 7.2 Albumin 3.6 Globulin 3.6 Radiography Diagnostic Testing: Clinical Impression(s) from Imaging Studies Abdomen/Pelvis CT 01/08/23 13:29 IMPRESSION: 1. There are few scattered diverticula of the descending colon. No acute diverticulitis is present.. The appendix is visualized and appears normal. There is no bowel dilatation or free air or free fluid or evidence of obstruction. Electronically Signed: Timothy Ernst MD at 15:52 EDT Reading Location ID and State: [facility] / [place] , Service support , Treatment and Re-Evaluation :: CBC was normal white count and normal differential. Chemistry studies unremarkable.CT scan of the abdomen pelvis reveals a few scattered diverticula Without evidence of diverticulitis. The appendix is visualized and is normal. Test results discussed with patient and at bedside. He has Zofran at home and I will write him for short course of tramadol. He is scheduled to see GI on Saturday. He is encouraged to continue bland diet until that time. Discharge Plan Triage Chief Complaint: Abd Pain ED Provider: Yanira Cantu Dx/Rx/DC Orders Clinical Impression: Gastroenteritis Instructions: ED Gastroenteritis, Viral (Adult) Prescriptions: New tramadol 100 mg tablet 100 mg PO TID PRN (Reason: pain) Qty: 14 0RF No Action sertraline [Zoloft] 50 mg tablet 100 mg PO DAILY lisinopril 10 mg tablet 10 mg PO DAILY dicyclomine 10 mg capsule 20 mg PO TIDAC Qty: 20 0RF sumatriptan succinate 100 mg tablet 0 mg PO DAILY omeprazole 20 mg capsule,delayed release(DR/EC) 20 mg PO DAILY Primary Care Provider: Moisés Barclay Referrals: Moisés Barclay MD [Primary Care Provider] - Robin Mcadams DO [Med Staff - Active Staff] - Keep Mela appointment Disposition Disposition: Home, Self Care
[2023-01-08 15:50] LABS: Bacteria 0 SEEN /hpf (None Seen); Mucous, Urine 0 SEEN /hpf (<or=2+); Red Blood Cells-Urine 0 SEEN /hpf (0-5); White Blood Cells 0 SEEN /hpf (0-5)
[2023-01-08 15:56] LABS: Color, Urine Yellow (Yellow); Glucose, Dipstick Normal (Normal); Ketone-Dipstick Negative (Negative); Leukocyte Esterase-Dipstick Negative /ul (Negative); Nitrite-Dipstick Negative (Negative); Occult Blood-Urine Negative /ul (Negative); Protein-Dipstick Negative (Negative); Urine Bilirubin Dipstick Negative (Negative); Urine Clarity Sl. Cloudy (Clear); Urine Urobilinogen Normal (Normal)
[2023-01-08 16:08] LABS: Squamous Epithelial Cells - UA 0-5 SEEN /hpf (0-5)
[2023-01-08 16:12] VITALS: BP 130/83; PULSE 42; RESP 16; O2SAT 98
== END 2023-01-08 16:19 | disposition home or self-care (01) ==
PROVIDERS: Emergency Provider Emergency Medicine; PCP Family Medicine; Visit Provider Emergency Medicine
DX: K52.9 Noninfective gastroenteritis and colitis, unspecified (principal); I10 Essential (primary) hypertension; G43.909 Migraine, unspecified, not intractable, without status migrainosus; Z79.899 Other long term (current) drug therapy
CPT/HCPCS: 74177; 80048; 80076; 81001; 85025; 96361; 96374; 96375; 99283; J7030; Q9967; A4216; J2405

== ENCOUNTER → 2023-01-11 | Outpatient (CLI) | payer MEDICAID, SELFPAY ==
[2023-01-11 16:45] LABS: CRP 6.75 mg/L (0.0-3.0); Erythrocyte Sedimentation Rate 8 mm/hr (0-20)
[2023-01-15 15:08] LABS: Endomysial Antibody IgA Negative (Negative); Immunoglobulin A 391 mg/dL (90-386); t-Transglutaminase IgA <2 U/mL (0-3)
[2023-01-23 00:06] LABS: Calprotectin, Stool 21 ug/g (0-120)
== END | disposition home or self-care (01) ==
PROVIDERS: PCP Family Medicine; Referring Provider Nurse Practitioner Adult Health; Visit Provider Nurse Practitioner Adult Health
DX: R10.813 Right lower quadrant abdominal tenderness (principal); K58.9 Irritable bowel syndrome, unspecified
CPT/HCPCS: 36415; 82784; 83516; 83630; 83993; 85652; 86140; 86255

== ENCOUNTER → 2023-01-23 | Outpatient (CLI) | payer MEDICAID, SELFPAY ==
--- NOTE | 2023-01-23 14:52 | NEURO ---
NCS and/or EMG Patient Report Ordering Doctor: Zenaida Day DATE OF SERVICE: 01/23/23 Kam presents for electrodiagnostic testing of the left upper limb. He reports numbness and tingling in the left hand. Electrodiagnostic findings: Left median motor nerve demonstrates prolonged distal latency with normal amplitude and reduced conduction velocity. Normal left ulnar motor response, including conduction across the elbow. Borderline prolonged left median F wave. Prolonged left median sensory latency at the wrist. On needle EMG testing, all muscles tested in the left upper limb showed no evidence of denervation with normal motor unit action potentials. Electrodiagnostic impression: This is an abnormal study in the left upper limb. 1. Electrodiagnostic findings demonstrate left-sided median mononeuropathy. This is consistent with a mild to moderate left carpal tunnel syndrome. Multi Select Codes Neurology Neurology Interp Codes: 73716-43 Musc test done w/n test comp (interp) and 39453-63 Nrv cndj tst 5-6 studies (interp)
== END | disposition home or self-care (01) ==
LOC: PSN 13:55
PROVIDERS: PCP Family Medicine
DX: R20.2 Paresthesia of skin (principal); S54.10XA Injury of median nerve at forearm level, unspecified arm, initial encounter; S60.222A Contusion of left hand, initial encounter
CPT/HCPCS: 95886; 95909

== ENCOUNTER 2023-04-09 13:24 | Day surgery (SDC) | payer MEDICAID, SELFPAY ==
--- NOTE | 2023-04-09 | IMM_PTH ---
PATIENT: BETZY PERSON LOC: EN U#:[id number] AGE/SX: 47/M ROOM: RE04/09/[address]: Dr. Robin Mcadams DO : 1975 BED: DIS: 04/09/2023 SPEC #: [id number] RECD: 04/11/23 06:04 STATUS: JENNY JAKE #: [id number] EMILIA: 04/09/23 00:[address]: Robin Mcadams DEPT: IMMUNOHISTOCHEMISTRY RECD BY: Karina Jones ENTERED: 04/11/23 06:05 SP TYPE: IMMUNO OTHR DR: Dr. Moisés Barclay MD Tissues: B - Gastric mucous membrane C - Esophagus, NOS Procedures: H Pylori (initial) CK20 (add) CK7 (add) CK8 (add) KI-67 (add) P53 (add) Pankeratin (initial) PHYSICIAN & INSTITUTION [place] [id number] SPECIMEN INFORMATION: Tissue Source: B. Gastric body, C. Distal esophagus Clinical Info: RLQ abdominal tenderness, mesenteric panniculitis, tubulovillous adenoma of rectum Specimen Number: [id number] B & C CPT code: 76677 x2, 53890 x5 METHODOLOGY: Deparaffinized sections of prefer/formalin-fixed tissue or PAP/DQ stained slides are incubated with monoclonal/polyclonal antibodies/oligonucleotide probes. Localization is made via biotin free immunoperoxidase method. Appropriate controls are performed and reacted as expected. Results on target cell population are indicated in the following table: RESULTS: ANTIBODY / CLONE RESULT Block B H Pylori (polyclonal) negative Block C P53 (DO-7) negative Ki-67 (30-9) positive, low AE1-3 (AE1/AE3/PCK26) negative CK7 (OV-TL12/30) negative CK20 (KS20.8) negative CK8 (65uhlkC73) negative These tests were developed and their performance characteristics determined by [facility]. They may not have been cleared or approved by the U.S. Food and Drug Administration. The FDA has determined that such clearance or approval is not necessary. The above immunohistochemical/dualISH markers are ordered and reviewed by the Pathologist. INTERPRETATION: B. Gastric body, biopsy: Negative for Helicobacter pylori organisms. C. Distal esophagus, biopsy: Atypical stromal cells noted favor reactive atypia. SJ:karel 04/12/23
--- NOTE | 2023-04-09 | EGD_PTH ---
PATIENT: BETZY PERSON LOC: EN U#:[id number] AGE/SX: 47/M ROOM: RE04/09/[address]: Dr. Robin Mcadams DO : 1975 BED: DIS: 04/09/2023 SPEC #: [id number] RECD: 04/09/23 14:15 STATUS: JENNY JAKE #: [id number] EMILIA: 04/09/23 00:[address]: Robin Mcadams DEPT: SURGICAL PATHOLOGY RECD BY: Janie Cisneros ENTERED: 04/10/23 09:26 SP TYPE: EGD BIOPSY [facility] DR: Dr. Moisés Barclay MD Tissues: A - Duodenum, NOS B - Gastric mucous membrane C - Esophagus, NOS Procedures: Special Stain Group II Surgery Specimen Level IV Alcian Blue/PAS (control) HEADER OPERATION: EGD wit biopsies PRE-OP DIAGNOSIS: RLQ abdominal tenderness, mesenteric panniculitis, tubulovillous adenoma of rectum TISSUE SUBMITTED: A. duodenum, B. Gastric body, C. Distal esophagus MICROSCOPIC DIAGNOSIS A. Duodenum, biopsy: Fragments of duodenal mucosa, no pathologic diagnosis. B. Gastric body, biopsy: Mild gastritis. See microscopic description and comment. C. Distal esophagus, biopsy: Fragments of gastroesophageal mucosa with chronic inflammation and minimal chronic inflammation. Atypical stromal cells, favor reactive atypia. See comment. SJ: 04/12/2023 COMMENT B. The results of immunohistochemistry for Helicobacter pylori will be reported separately ([id number]). C. Alcian blue/PAS stain with matched control is used in the evaluation of the specimen. Immunohistochemistry ([id number]) supports the above diagnosis. Correlation with clinical, endoscopic findings and appropriate follow up are necessary. MICROSCOPIC DESCRIPTION Slides are reviewed. GROSS DESCRIPTION A. Received is one container labeled with the patient name and designated duodenum. The specimen consists of multiple irregular fragments of light edgar soft tissue that in aggregate measure 1.0 x 0.5 x 0.1 cm. The specimen is totally submitted in one cassette. B. Received is one container labeled with the patient name and designated gastric body. The specimen consists of one irregular fragment of light edgar soft tissue that measures 0.6 x 0.5 x 0.1 cm. The specimen is totally submitted in one cassette. C. Received is one container labeled with the patient name and designated distal esophagus. The specimen consists of multiple irregular fragment sof light edgar soft tissue that in aggregate measure 0.6 x 0.6 x 0.1 cm. The specimen is totally submitted in one cassette. /AM:karel 04/10/23 TC:3 CPT: 40608, x3, 03255
[2023-04-09 13:49] VITALS: BP 131/77; PULSE 58; RESP 16; TEMP 36.6; O2SAT 98; BMI 48.4
--- NOTE | 2023-04-09 13:58 | PCM.HP.BLA ---
History and Physical Date of Admission: 04/09/23 Chief Complaint: right sided abdominal pain Details: BETZY PERSON, is a 47 M who presents to the office today for right sided abd pain that began in October 2022. Pain never resolves, getting worse over time, worse when he eats, especially a bid meal, and worse when he bends over. He takes omeprazole already, not having upper abd pain. No relief of this pain with dicyclomine. This is different from abd pain he had last year that resolved with sucralfate. He has had 3 ED visits for this RLQ pain. Went to ED on 01/08/23 for nausea, vomiting, abdominal pain, soft stools; as well as ED visit on 01/01/23 for abdominal pain, vomiting, loose stools; both times it was felt he had gastroenteritis. ED visit on 11/15/22 for abdominal pain, vomiting, soft stools. He had CT done each visit--he has diverticula, fatty liver, and on the October CT he had mild mesenteric stranding. CBC, CMP, pancreas enzymes were all normal. ROS Const Constitutional: No fatigue ENT ENT: No difficulty swallowing Gastro GI: Positive for diarrhea, nausea/dyspepsia and vomiting; No abdominal pain, belching, bloating, change in bowel habits, change in stool character, coffee ground emesis, constipation, cramping, heartburn, difficulty swallowing, feeling full early, excessive flatus, incontinent of stools, Vomiting blood/hematemesis, Blood in stool, loose stools, Black,tarry stools, pain with swallowing or other Musc Musculoskeletal: No joint pain Skin Skin: No yellowing of the eye or itchy eyes Psych Psychiatric: No anxiety and No depression Endo Endocrine: No fatigue Aller/Imm Allergy/Immunologic: No itchy eyes D[place]lo/Lymp Hematologic/Lymphatic: No easy bleeding or easy bruising Exam Const General: cooperative and no acute distress Nutritional Appearance: obese Orientation: alert, awake and oriented x3 HENMT Head: normal to inspection Eyes Sclera: sclerae normal Resp Effort & Inspection: normal respiratory effort GI Inspection: obesity Palpation: soft, no hepatosplenomegaly, no masses and tender in the RLQ Skin General: no rashes or lesions noted Neuro Gait: normal gait Extrem General: pedal edema present Psych Mood: congruent mood Quality Reporting Tobacco Screening ([facility] 138) Smoking Status: Never smoker Assessment and Plan Assessment and Plan (1) RLQ abdominal tenderness: Status: Acute Plan: 2+ months of RLQ pain which is associated with nausea and vomiting and soft stools. Tender at terminal ileum. Pain is constant, worse with large meal, worse with bending over, getting more severe over time. He has had 3 ED visits for this. CT showed mesenteric panniculitis, will treat for that with prednisone 40 mg daily x 2 wks. Will get blood and stool tests. Will call him with results and see how he's doing. He will be scheduled for EGD and colonoscopy, see below, f/u after those. (2) Mesenteric panniculitis: Status: Acute Plan: see above (3) Tubulovillous adenoma of rectum: Status: Acute Plan: Hx of 13-19 mm rectal polyp in 03/2022, tubulovillous adenoma with high-grade dysplasia, cauterized margin free of epithelial dysplasia Schedule repeat colonoscopy, will also get EGD at same time for hx recurrent nausea and vomiting Orders: Orders Erythrocyte Sed Rate Today R10.813 - Right lower quadrant abdominal tenderness CRP Today R10.813 - Right lower quadrant abdominal tenderness Celiac Disease Profile Today R10.813 - Right lower quadrant abdominal tenderness Stool Lactoferrin/WBC Today K58.9 - Irritable bowel syndrome without diarrhea, R10.813 - Right lower quadrant abdominal tenderness Calprotectin, Stool Today R10.813 - Right lower quadrant abdominal tenderness Miscellaneous Lab Procedure Today R10.813 - Right lower quadrant abdominal tenderness Medications: New prednisone 40 mg (2 x 20 mg) PO DAILY 28 tabs 0RF Discontinued dicyclomine Discontinued Reason: Pt no longer taking 20 mg (2 x 10 mg) PO TIDAC 20 CAPSULES 0RF I have examined the patient and the H&P has been reviewed. There are no clinical changes since date of exam.
[2023-04-09] MEDS: Lactated Ringers 1,000 ML 15 ML IV (14:03)
[2023-04-09 15:15] VITALS: BP 121/92; BP 131/77; PULSE 67; RESP 18; TEMP 36.4; O2SAT 97
--- NOTE | 2023-04-09 15:17 | OP.CCLET_ITS ---
04/09/2023 Moisés Barclay [address] [place] [address] Re : Upper GI endoscopy procedure for Kam Gonzalez Dear Dr. Barclay This procedure was performed on Sunday, April 09, 2023. My impressions and recommendations are as follows: Impressions : - LA Grade A reflux esophagitis with no bleeding. Biopsied. - Erythematous mucosa in the gastric body. Biopsied. - Erythematous duodenopathy. Biopsied. Recommendations : - Discharge patient to home. - Continue present medications. My findings are described in the full procedure note, which is enclosed. If I can be of further assistance, please feel free to contact me at . Sincerely, Robin Mcadams, 04/09/2023 3:16:58 PM This report has been signed electronically.
--- NOTE | 2023-04-09 15:17 | OP.EGD_ITS ---
Patient Name: Kam Gonzalez Procedure Date: 04/09/2023 2:55 PM Date of : 1975 Age: 47 Procedure: Upper GI endoscopy Indications: Epigastric abdominal pain, Suspected esophageal reflux Providers: Robin Mcadams DO Referring MD: Moisés Barclay Medicines: Monitored Anesthesia Care Patient Profile: This is a 47 year old male. Refer to note in patient chart for documentation of history and physical. Complications: No immediate complications. Procedure: Pre-Anesthesia Assessment: - Prior to the procedure, a History and Physical was performed, and patient medications and allergies were reviewed. The patient is competent. The risks and benefits of the procedure and the sedation options and risks were discussed with the patient. All questions were answered and informed consent was obtained. Patient identification and proposed procedure were verified by the physician in the pre-procedure area. Mental Status Examination: alert and oriented. Airway Examination: normal oropharyngeal airway and neck mobility. Respiratory Examination: clear to auscultation. CV Examination: normal. Prophylactic Antibiotics: The patient does not require prophylactic antibiotics. Prior Anticoagulants: The patient has taken no anticoagulant or antiplatelet agents. ASA Grade Assessment: II - A patient with mild systemic disease. After reviewing the risks and benefits, the patient was deemed in satisfactory condition to undergo the procedure. The anesthesia plan was to use monitored anesthesia care (MAC). Immediately prior to administration of medications, the patient was re-assessed for adequacy to receive sedatives. The heart rate, respiratory rate, oxygen saturations, blood pressure, adequacy of pulmonary ventilation, and response to care were monitored throughout the procedure. The physical status of the patient was re-assessed after the procedure. After obtaining informed consent, the endoscope was passed under direct vision. Throughout the procedure, the patient's blood pressure, pulse, and oxygen saturations were monitored continuously. The Endoscope was introduced through the mouth, and advanced to the second part of duodenum. The upper GI endoscopy was accomplished without difficulty. The patient tolerated the procedure well. Scope In: 2:59:57 PM Scope Out: 3:05:26 PM Total Procedure Duration Time 0 hours 5 minutes 29 seconds Findings: LA Grade A (one or more mucosal breaks less than 5 mm, not extending between tops of 2 mucosal folds) esophagitis with no bleeding was found 38 to 40 cm from the incisors. Biopsies were taken with a cold forceps for histology. Verification of patient identification for the specimen was done. Estimated blood loss was minimal. Localized mildly erythematous mucosa without bleeding was found in the gastric body. Biopsies were taken with a cold forceps for histology. Verification of patient identification for the specimen was done. Estimated blood loss was minimal. Patchy mildly erythematous mucosa without active bleeding and with no stigmata of bleeding was found in the duodenal bulb and in the first portion of the duodenum. Biopsies were taken with a cold forceps for histology. Verification of patient identification for the specimen was done. Estimated blood loss was minimal. Impression: - LA Grade A reflux esophagitis with no bleeding. Biopsied. - Erythematous mucosa in the gastric body. Biopsied. - Erythematous duodenopathy. Biopsied. Recommendation: - Discharge patient to home. - Continue present medications. Procedure Code(s): --- Professional --- 39064, Esophagogastroduodenoscopy, flexible, transoral; with biopsy, single or multiple CPT copyright 2021 [employer]. All rights reserved. The codes documented in this report are preliminary and upon floor coverings salesperson review may be revised to meet current compliance requirements. Robin Mcadams DO 04/09/2023 3:16:58 PM This report has been signed electronically. Number of Addenda: 0 Note Initiated On: 04/09/2023 2:55 PM
[2023-04-09 15:20] VITALS: BP 122/85; BP 131/77; PULSE 55; RESP 18; O2SAT 95
[2023-04-09 15:25] VITALS: BP 127/87; BP 131/77; PULSE 56; RESP 18; O2SAT 95
[2023-04-09 15:30] VITALS: BP 127/97; BP 131/77; PULSE 55; RESP 18; TEMP 36.4; O2SAT 95
[2023-04-09 15:50] VITALS: BP 131/77
== END 2023-04-09 16:10 | disposition home or self-care (01) ==
LOC: EN 13:26 → AC 13:28
PROVIDERS: PCP Family Medicine; Referring Provider Family Medicine; Visit Provider Internal Medicine Gastroenterology
PROC: 0DJ08ZZ Inspection of Upper Intestinal Tract, Via Natural or Artificial Opening Endoscopic (ICD-10-PCS; CPT 43235; principal; 2023-04-09 14:40)
DX: K21.00 Gastro-esophageal reflux disease with esophagitis, without bleeding (principal); Z68.42 Body mass index [BMI] 45.0-49.9, adult; K65.4 Sclerosing mesenteritis; K31.89 Other diseases of stomach and duodenum; K29.70 Gastritis, unspecified, without bleeding; E66.9 Obesity, unspecified; I10 Essential (primary) hypertension; G47.33 Obstructive sleep apnea (adult) (pediatric); M99.01 Segmental and somatic dysfunction of cervical region; M99.02 Segmental and somatic dysfunction of thoracic region; M99.03 Segmental and somatic dysfunction of lumbar region; M99.05 Segmental and somatic dysfunction of pelvic region; F32.A Depression, unspecified; Z86.16 Personal history of COVID-19; Z79.899 Other long term (current) drug therapy
CPT/HCPCS: 43239; 88305; 88313; 88341; 88342; J7120

== ENCOUNTER 2023-04-28 12:02 | Emergency (ER) | payer MEDICAID, SELFPAY ==
[2023-04-28 12:03] VITALS: BP 159/102; PULSE 56; RESP 16; TEMP 36.3; O2SAT 97; BMI 43.2
--- NOTE | 2023-04-28 12:33 | EX.ED.UPPERE ---
HPI History of Present Illness Chief Complaint: Upper Extremity Injury Informant: patient Narrative Narrative: Patient complains of pain to his right elbow. States has been hurting for couple days. It is worse when he pulls on things. 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 But he knows no specific injury. He points right to the lateral aspect of the elbow over the radial head as the area of pain. No fevers or chills. No recent infections. No dental or skin infections. No prior fractures known to the area. Its worse with use and better with rest. PFSH PFS Medical History Acute frontal sinusitis, unspecified Asthma BiPAP (biphasic positive airway pressure) dependence Bradycardia Cardiology follow-up encounter Contact with and (suspected) exposure to other viral communicable diseases Depression Deviated nasal septum Encounter for screening for COVID-19 Essential hypertension Family history of premature CAD Gastroenteritis Gout History of stress test Hypertrophy of nasal turbinates Hypertrophy of tonsils Laceration of oral cavity Left-sided chest wall pain Lumbar strain Migraine PING (obstructive sleep apnea) URI (upper respiratory infection) Home Medications sertraline 50 mg tablet (Zoloft) 100 mg PO DAILY 03/20/21 [History Last Taken Unknown] lisinopril 10 mg tablet 10 mg PO DAILY 08/10/21 [History Last Taken Unknown] sumatriptan succinate 100 mg tablet 100 mg PO DAILY PRN migraine headache 01/08/23 [History Last Taken Unknown] prednisone 20 mg tablet 60 mg (3 x 20 mg) PO DAILY #15 TABLETS 04/28/23 [Rx Last Taken Unknown] Allergy/AdvReac Type Severity Reaction Status Date / Time Sulfa (Sulfonamide Allergy Rash Verified 04/28/23 12:04 Antibiotics) sulfamethoxazole Allergy Rash Verified 04/28/23 12:04 [From Bactrim] trimethoprim [From Bactrim] Allergy Rash Verified 04/28/23 12:04 naproxen AdvReac Other Verified 04/28/23 12:04 Family History Mother Heart disease Myocardial infarction Father Throat cancer Surgical History History of ankle surgery Social History household members: spouse and children Smoking Status: Never smoker alcohol intake: never substance use type: does not use caffeine: Yes Type: tea Number of servings: 1 ROS ROS ED Constitutional Constitutional ED: Denies chills, fever(s), subjective or sweats ENT ENT ED: Denies rhinorrhea Cardiovascular Cardiovascular: Denies chest pain Respiratory/Chest Respiratory/Chest: Denies cough or dyspnea Gastrointestinal Gastrointestinal: Denies nausea or vomiting Musculoskeletal Musculoskeletal: Reports other Details: See history of present illness Integumentary Denies abscess, Abrasions or rash Neurologic Neurologic: Denies paresthesias or weakness Endocrine Endocrinology: Denies polydipsia or polyuria Hematologic/Lymphatic Hematologic/Lymphatic: Denies easy bleeding or easy bruising Allergic/Immunologic Allergic/Immunologic ED: Denies urticaria EXAM Physical Exam Narrative Exam Narrative: Patient is awake alert sitting comfortably in bed. No acute distress. HEENT shows no trauma. Cardiorespiratory shows easy unlabored breathing. Heart rate is slightly slow but asymptomatic. Extremities show no erythema or warmth. I am not seeing any definite sign of swelling. There is no sign of olecranon bursitis. He has tenderness over the radial head and gripping with his hand or pulling back causes significant pain. Overall his exam is most consistent with a lateral epicondylitis. Pulses are normal distally. Sensation is normal distally. There is no swelling distally. Const Vital Signs: 04/28/23 12:03 Temperature 97.4 F L Temperature Source Temporal Pulse Rate 56 L Respiratory Rate 16 Blood Pressure 159/102 H Blood Pressure Mean 121 Pulse Ox 97 Oxygen Delivery Method Room Air MDM MDM MDM Narrative Medical decision making narrative: My independent interpretation of patient's three-view x-rays right elbow shows no acute process final reading is similar. Patient's exam and history are consistent with lateral epicondylitis. X-rays show no acute process. I think nonsteroidals, compression band rest and ice is appropriate. I went back to talk to the patient. He is not currently in the room. I am not sure if he left or if he is just in the restroom. I will go back and check again to try to explain the process to him. I was able to talk to the patient. He had just been in the restroom. We went over what lateral epicondylitis is. We discussed treatment with compression band that he can get at the store. He has intolerance to nonsteroidal so I will try some prednisone as he is not diabetic. We discussed that this can take a while to heal and can be waxing and waning and recurrent. He should follow-up with his physician. Discharge Plan Triage Chief Complaint: Upper Extremity Injury ED Provider: Hosea Lockwood Dx/Rx/DC Orders Clinical Impression: Epicondylitis, lateral, right Instructions: ED Tennis Elbow Prescriptions: New prednisone 20 mg tablet 60 mg PO DAILY Qty: 15 0RF No Action sertraline [Zoloft] 50 mg tablet 100 mg PO DAILY lisinopril 10 mg tablet 10 mg PO DAILY sumatriptan succinate 100 mg tablet 100 mg PO DAILY PRN (Reason: migraine headache) Primary Care Provider: Moisés Barclay Referrals: Moisés Barclay MD [Primary Care Provider] - 3-5 Days Disposition Disposition: Home, Self Care
--- NOTE | 2023-04-28 12:35 | RAD_ITS ---
STUDY: X-RAY - RIGHT ELBOW REASON FOR EXAM: Male, 47 years old. pain TECHNIQUE: 3 view(s) of the elbow. COMPARISON: None. FINDINGS: Normal visualized humerus, radius and ulna. Normal radiocapitellar and ulnotrochlear articulations. The soft tissue structures are unremarkable. RAD/Elbow min 3 Views IMPRESSION: Normal x-ray examination of the elbow. Electronically Signed: Caleb Alvarado MD at 12:58 EDT ,
[2023-04-28 14:18] VITALS: BP 134/78; PULSE 64; RESP 14; TEMP 36.4; O2SAT 99
== END 2023-04-28 14:21 | disposition home or self-care (01) ==
PROVIDERS: Emergency Provider Emergency Medicine; PCP Family Medicine; Visit Provider Emergency Medicine
DX: M77.11 Lateral epicondylitis, right elbow (principal); G47.33 Obstructive sleep apnea (adult) (pediatric)
CPT/HCPCS: 73080; 99282

== ENCOUNTER 2023-06-06 09:46 | Day surgery (SDC) | payer MEDICAID, SELFPAY ==
[2023-06-06] VITALS (7 sets, daily range): BP systolic 129–145; BP diastolic 78–93; PULSE 56–79; RESP 16–18; TEMP 36.5–36.7; O2SAT 93–97; BMI 42.0
[2023-06-06] MEDS: Lactated Ringers 1,000 ML 15 ML IV (10:11)
--- NOTE | 2023-06-06 10:36 | HP.PCM_ITS ---
History and Physical Date of Admission: 06/06/23 47 M who presents to the office today for follow up. [facility] ED 09.18.21 emesis and loose stools for five days; reports COVID exposure.?Discharged with Zofran.? *BGI established 09.28.21 with N/V and abdominal pain/discomfort with dizziness, weight loss of 10lbs and weakness.?Start scopolamine, PPI and sucralfate.?Biochemical 09.28.21?ESR, LDH, CPK, T3, T4, TSH, celiac, GA(H403)ME, JENY comp, troponin without pertinent abnormality? CRP H3.89?CTA abd/pel 10.27.21?hepatic steatosis; diverticulosis; mild urinary bladder wall thickening.? OV 01.02.22 doing better than previously though bandlike pain across abd continues. Cardiac workup has been pursued and no abnormality.? [facility] ED 03.23.22 with diarrhea. Son recently diagnosed with COVID.?Start dicyclomine and PRN immodium.? [facility] outpatient 04.13.22 internal hemorrhoids; one 13-19mm polyp, high-grade dysplasia? [facility] ED 11.15.22 with abdominal pain and possible constipation?Biochemical?CBC, CMP, LFT without pertinent abnormality?CT 11.15.22?hepatic steatosis; diverticulosis; mild mesenteric st randing, ?mesenteric panniculitis.? [facility] ED 01.03.23 with abdominal pain with large amount of emesis?Biochemical?CBC, CMP, LFT without pertinent abnormality.? Lipase H86?CT 01.08.23?hepatic steatosis; CKD with cyst renal atrophy; diverticulosis.? OV 01.11.23 concern for mesenteric panniculitis,?start prednisone.?Biochemical?CBC, CMP, LFT, ESR, CRP, celiac, IBD WNL? Stool calprotectin, lactoferrin WNL?EGD 04.09.23?LA grade A esophagitis, atypical stromal cells, reactive atypia; gastritis; duodenitis?MRCP 04.11.23?denied by insurance? Contact attempted 04.18.23 without answer, no ability to leave VM. HIPPA form without numbers to call.? OV 05.31.23 Pt reports he is feeling the same as last visit. However, says he denies abdominal pain, cramping, bloating, nausea or heartburn. Says he has occasional diarrhea but bowels are normal otherwise. ROS Const Constitutional: No fatigue ENT ENT: No difficulty swallowing Gastro GI: No abdominal pain, belching, bloating, change in bowel habits, change in stool character, coffee ground emesis, constipation, cramping, diarrhea, heartburn, difficulty swallowing, feeling full early, excessive flatus, incontinent of stools, Vomiting blood/hematemesis, Blood in stool, loose stools, Black,tarry stools, nausea/dyspepsia, pain with swallowing, vomiting or other Musc Musculoskeletal: Positive for joint pain and back pain Skin Skin: No yellowing of the eye or itchy eyes Psych Psychiatric: No anxiety and No depression Endo Endocrine: No fatigue Aller/Imm Allergy/Immunologic: No itchy eyes Dialol/Lymp Hematologic/Lymphatic: No easy bleeding or easy bruising Exam Const General: cooperative and no acute distress Nutritional Appearance: obese Orientation: alert, awake and oriented x3 HENMT Head: normal to inspection Eyes Sclera: sclerae normal Resp Effort & Inspection: normal respiratory effort GI Inspection: obesity Palpation: soft, no hepatosplenomegaly, no masses and tender in the RLQ Skin General: no rashes or lesions noted Neuro Gait: normal gait Extrem General: pedal edema present Psych Mood: congruent mood Quality Reporting Tobacco Screening ([facility] 138) Smoking Status: Never smoker Assessment and Plan Assessment and Plan (1) Mesenteric panniculitis: Status: Acute Plan: see above (2) RLQ abdominal tenderness: Status: Acute Qualifiers: Presence of rebound: absent Qualified Code(s): R10.813 - Right lower quadrant abdominal tenderness Plan: 2+ months of RLQ pain which is associated with nausea and vomiting and soft stools. Tender at terminal ileum. Pain is constant, worse with large meal, worse with bending over, getting more severe over time. He has had 3 ED visits for this. CT showed mesenteric panniculitis, will treat for that with prednisone 40 mg daily x 2 wks. Will get blood and stool tests. Will call him with results and see how he's doing. He will be scheduled for EGD and colonoscopy, see below, f/u after those. 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 There are no clinical changes since date of exam.
--- NOTE | 2023-06-06 10:45 | COLBX_PTH ---
PATIENT: BETZY PERSON LOC: EN U#:[id number] AGE/SX: 47/M ROOM: RE06/06/[address]: Dr. Robin Mcadams DO : 1975 BED: DIS: 06/06/2023 SPEC #: [id number] RECD: 06/06/23 12:10 STATUS: JENNY REEmeli #: [id number] EMILIA: 06/06/23 10:[address]: Robin Mcadams DEPT: SURGICAL PATHOLOGY RECD BY: Janie Cisneros ENTERED: 06/06/23 13:00 SP TYPE: COLON BX OT DR: Dr. Moisés Barclay MD Tissues: A - Ileum, NOS B - Ascending colon C - COLON BIOPSY Procedures: Surgery Specimen Level IV HEADER OPERATION: Colonoscopy with biopsy PRE-OP DIAGNOSIS: Mesenteric panniculitis, RLQ abdominal tenderness TISSUE SUBMITTED: A - Colon biopsy, terminal ileum, B - Ascending colon polyp, C - Random colon biopsy MICROSCOPIC DIAGNOSIS A. Terminal ileum, colon biopsy: Fragments of small intestinal mucosa, no pathologic diagnosis. B. Ascending colon polyp, biopsy: Hyperplastic polyp. C. Colon, random biopsy: Fragments of colonic mucosa, no pathologic diagnosis. DESHAWN:herb 06/07/2023 MICROSCOPIC DESCRIPTION Slides are reviewed. GROSS DESCRIPTION A - Received in fixative is one container labeled with the patient's name and designated colon biopsy, terminal ileum. The specimen consists of two irregular fragments of light edgar soft tissue that in aggregate measure 1.0 x 0.3 x 0.1 cm. The specimen is totally submitted in one cassette. B - Received in fixative is one container labeled with the patient's name and designated ascending colon. The specimen consists of one irregular fragment of light edgar soft tissue that measures 0.6 x 0.5 x 0.1 cm. The specimen is totally submitted in one cassette. C - Received in fixative is one container labeled with the patient's name and designated random colon biopsy. The specimen consists of multiple irregular fragments of light edgar soft tissue that in aggregate measure 2.0 x 1.0 x 0.1 cm. The specimen is totally submitted in one cassette. / AM:herb 06/06/2023 TC:1 CPT: 31231 x3
--- NOTE | 2023-06-06 11:05 | OP.COLON_ITS ---
Patient Name: Kam Gonzalez Procedure Date: 06/06/2023 10:33 AM Date of : 1975 Age: 47 Procedure: Colonoscopy Indications: Clinically significant diarrhea of unexplained origin Providers: Robin Mcadams DO Referring MD: Moisés Barclay Medicines: Monitored Anesthesia Care Patient Profile: This is a 47 year old male. Refer to note in patient chart for documentation of history and physical. Last Colonoscopy: none. The patient's first colonoscopy is today. Complications: No immediate complications. Procedure: Pre-Anesthesia Assessment: - Prior to the procedure, a History and Physical was performed, and patient medications and allergies were reviewed. The patient is competent. The risks and benefits of the procedure and the sedation options and risks were discussed with the patient. All questions were answered and informed consent was obtained. Patient identification and proposed procedure were verified by the physician in the pre-procedure area. Mental Status Examination: alert and oriented. Airway Examination: normal oropharyngeal airway and neck mobility. Respiratory Examination: clear to auscultation. CV Examination: normal. Prophylactic Antibiotics: The patient does not require prophylactic antibiotics. Prior Anticoagulants: The patient has taken no anticoagulant or antiplatelet agents. ASA Grade Assessment: II - A patient with mild systemic disease. After reviewing the risks and benefits, the patient was deemed in satisfactory condition to undergo the procedure. The anesthesia plan was to use monitored anesthesia care (MAC). Immediately prior to administration of medications, the patient was re-assessed for adequacy to receive sedatives. The heart rate, respiratory rate, oxygen saturations, blood pressure, adequacy of pulmonary ventilation, and response to care were monitored throughout the procedure. The physical status of the patient was re-assessed after the procedure. After I obtained informed consent, the scope was passed under direct vision. Throughout the procedure, the patient's blood pressure, pulse, and oxygen saturations were monitored continuously. The Colonoscope was introduced through the anus and advanced to the terminal ileum. The colonoscopy was performed without difficulty. The patient tolerated the procedure well. The quality of the bowel preparation was adequate. Scope In: 10:45:53 AM Scope Withdrawal Time 0 hours 9 minutes 57 seconds Scope Out: 10:59:57 AM Total Procedure Duration Time 0 hours 14 minutes 4 seconds Findings: The perianal and digital rectal examinations were normal. A few small and large-mouthed diverticula were found in the recto-sigmoid colon and sigmoid colon. An 8 mm polyp was found in the ascending colon. The polyp was sessile. The polyp was removed with a cold snare. Resection and retrieval were complete. Verification of patient identification for the specimen was done. Estimated blood loss was minimal. An area of mildly congested mucosa was found in the recto-sigmoid colon, in the sigmoid colon and in the ascending colon. Biopsies for histology were taken with a cold forceps from the entire colon for evaluation of microscopic colitis. Verification of patient identification for the specimen was done. Estimated blood loss was minimal. An area of the terminal ileum was congested. Biopsies were taken with a cold forceps for histology. Verification of patient identification for the specimen was done. Estimated blood loss was minimal. Impression: - Diverticulosis in the recto-sigmoid colon and in the sigmoid colon. - One 8 mm polyp in the ascending colon, removed with a cold snare. Resected and retrieved. - Congested mucosa in the recto-sigmoid colon, in the sigmoid colon and in the ascending colon. Biopsied. - Congested mucosa in the terminal ileum. Biopsied. Recommendation: - Discharge patient to home. - Resume previous diet. - Continue present medications. - Await pathology results. - Repeat colonoscopy in 5 years for surveillance. Procedure Code(s): --- Professional --- 78532, Colonoscopy, flexible; with removal of tumor(s), polyp(s), or other lesion(s) by snare technique 45070, 59, Colonoscopy, flexible; with biopsy, single or multiple CPT copyright 2021 [employer]. All rights reserved. The codes documented in this report are preliminary and upon associate professor of music review may be revised to meet current compliance requirements. Robin Mcadams DO 06/06/2023 11:04:46 AM This report has been signed electronically. Number of Addenda: 0 Note Initiated On: 06/06/2023 10:33 AM
--- NOTE | 2023-06-06 11:05 | OP.CCLET_ITS ---
06/06/2023 Moisés Barclay [address] [place] [address] Re : Colonoscopy procedure for Kam Gonzalez Dear Dr. Barclay This procedure was performed on May. My impressions and recommendations are as follows: Impressions : - Diverticulosis in the recto-sigmoid colon and in the sigmoid colon. - One 8 mm polyp in the ascending colon, removed with a cold snare. Resected and retrieved. - Congested mucosa in the recto-sigmoid colon, in the sigmoid colon and in the ascending colon. Biopsied. - Congested mucosa in the terminal ileum. Biopsied. Recommendations : - Discharge patient to home. - Resume previous diet. - Continue present medications. - Await pathology results. - Repeat colonoscopy in 5 years for surveillance. My findings are described in the full procedure note, which is enclosed. If I can be of further assistance, please feel free to contact me at . Sincerely, Robin Mcadams, 06/06/2023 11:04:46 AM This report has been signed electronically.
== END 2023-06-06 12:07 | disposition home or self-care (01) ==
LOC: EN 09:46 → AC 09:48
PROVIDERS: PCP Family Medicine; Referring Provider Family Medicine; Visit Provider Internal Medicine Gastroenterology
PROC: 0DJD8ZZ Inspection of Lower Intestinal Tract, Via Natural or Artificial Opening Endoscopic (ICD-10-PCS; CPT 45378; principal; 2023-06-06 10:40)
DX: K57.30 Diverticulosis of large intestine without perforation or abscess without bleeding (principal); K65.4 Sclerosing mesenteritis; K63.89 Other specified diseases of intestine; K63.5 Polyp of colon; R19.7 Diarrhea, unspecified; E66.9 Obesity, unspecified; I10 Essential (primary) hypertension; G47.33 Obstructive sleep apnea (adult) (pediatric); Z86.16 Personal history of COVID-19; M99.01 Segmental and somatic dysfunction of cervical region; M99.03 Segmental and somatic dysfunction of lumbar region; M99.05 Segmental and somatic dysfunction of pelvic region; M99.02 Segmental and somatic dysfunction of thoracic region; F17.220 Nicotine dependence, chewing tobacco, uncomplicated; Z79.899 Other long term (current) drug therapy
CPT/HCPCS: 45385; 45380; 87493; 87506; 88305; J7120

== ENCOUNTER 2023-10-11 18:58 | Emergency (ER) | payer MEDICAID, SELFPAY ==
[2023-10-11 19:00] VITALS: BP 157/109; PULSE 70; RESP 16; TEMP 35.6; BMI 41.4
[2023-10-11 19:01] VITALS: BP 157/109; PULSE 70; RESP 16; TEMP 35.6
--- OUTSIDE RECORDS SUMMARY | 2023-10-11 21:54 | XMS RPT_ITS | CCD ---
Author Name Unknown Address [address] [place] [address] Organization [facility] Care Team Providers Care Church Administrator Name Role Phone Jono Jerome Unavailable Unavailable PROVIDER, UNKNOWN Unavailable Unavailable Brennen Padgett Unavailable Brennen Richardson MD Primary Care Provider Brennen Doshi MD Primary Care Provider Brennen Doshi MD Primary Care Provider Brennen Doshi MD Primary Care Provider [phone] BRENNEN DOSHI Primary Care Unavailable HÉCTOR LAGUNAS Attending Unavailable RADHA KEN Referring Unavailable BRENNEN DOSHI Primary Care Unavailable PODLOGRADHA CLARKE Referring Unavailable BRENNEN DOSHI Primary Care Unavailable BRENNEN DOSHI Referring Unavailable ROBERTA WHARTON Attending Unavailable BRENNEN DOSHI Primary Care Unavailable BRENNEN DOSHI Referring Unavailable HÉCTOR LAGUNAS Attending Unavailable MARÍALOGRADHA CLARKE Referring Unavailable BRENNEN DOSHI Primary Care Unavailable PODLOGRADHA CLARKE Referring Unavailable BRENNEN DOSHI Primary Care Unavailable PODLOGRADHA CLARKE Referring Unavailable BRENNEN DOSHI Primary Care Unavailable BRENNEN DOSHI Primary Care Unavailable PODLOGRADHA CLARKE Referring Unavailable PODLOGRADHA CLARKE Referring Unavailable BRENNEN DOSHI Primary Care Unavailable BRENNEN DOSHI Primary Care Unavailable BRENNEN DOSHI Attending Unavailable ROBERTA WHARTON Referring Unavailable BRENNEN DOSHI Primary Care Unavailable DON MARQUEZ Attending Unavailable BRENNEN DOSHI Primary Care Unavailable RADHA KEN Attending Unavailable BRENNEN DOSHI Primary Care Unavailable ROBERTA WHARTON Attending Unavailable BRENNEN DOSHI Primary Care Unavailable DAMARIS BLANCHARD Referring Unavailable ROBERTA WHARTON Referring Unavailable BRENNEN DOSHI Primary Care Unavailable ROBERTA WHARTON Attending Unavailable MARÍALOGRADHA CLARKE Attending Unavailable BRENNEN DOSHI Primary Care Unavailable SHI NOBLES Attending Unavailable BRENNEN DOSHI Primary Care Unavailable SHI NOBLES Attending Unavailable BRNENEN DOSHI Primary Care Unavailable BRENNEN DOSHI Primary Care Unavailable RADHA KEN Referring Unavailable HÉCTOR LAGUNAS Attending Unavailable BRENNEN DOSHI Primary Care Unavailable HÉCTOR LAGUNAS Attending Unavailable MARÍALOGRADHA CLARKE Referring Unavailable Allergies Allergy Classification Reported Allergen(s) Allergy Type Date of Onset Reaction(s) Facility (20 sources) Naproxen; Translations: [NAPROXEN] Drug Allergy 7 GI Upset [facility] (20 sources) Sulfonamides (Antibiotic); Translations: [SULFA (SULFONAMIDE ANTIBIOTICS)] Drug Allergy 5 Hives, Shortness of Breath [facility] Medications Current Medications Medication Drug Class(es) Dates Sig (Normalized) Sig (Original) methylPREDNISolone (1 source) Corticosteroid Start: 11-19-2022 End: 11-25-2022 methylPREDNISolone (MEDROL, ROSALES,) 4 mg Dose-Pack Indications: Mesenteric panniculitis (HCC) Follow dosing instructions, take with food. 21 tablet 0 11/19/2022 11/25/2022 Active Completed/Discontinued Medications Medication Drug Class(es) Dates Sig (Normalized) Sig (Original) [id number] 200 actuat albuterol 0.09 mg/actuat metered dose inhaler (4 sources) beta2-Adrenergic Agonist Start: 06-09-2021 End: 01-16-2022 take 2 puff(s) by inhalation every six hours as needed for wheezing albuterol HFA (PROVENTIL HFA, VENTOLIN HFA) 90 mcg/actuation inhaler Inhale 2 Puffs as instructed every 6 hours as needed for wheezing/shortness of breath. 1 Each 5 06/09/2021 01/16/2022 Discontinued (Course of therapy completed) Problems Active Problems Problem Classification Problem Date Documented Date Episodic/Chronic Diabetes mellitus without complication (4 sources) Increased glucose level; Translations: [Other abnormal glucose] Onset: 02-18-2023 Episodic Essential hypertension (20 sources) Essential (primary) hypertension; Translations: [Essential hypertension] Onset: 03-12-2017 01-12-2021 Chronic Gout and other crystal arthropathies (20 sources) Gout; Translations: [Gout, unspecified] Onset: 06-23-2007 06-23-2007 Chronic Headache; including migraine (20 sources) Refractory migraine without aura; Translations: [Migraine without aura, intractable, without status migrainosus] Onset: 06-23-2007 01-12-2021 Chronic Immunizations and screening for infectious disease (1 source) Vaccination needed; Translations: [Encounter for immunization] Episodic Mood disorders (20 sources) Recurrent major depressive episodes, moderate ; Translations: [Major depressive disorder, recurrent, moderate] Onset: 12-15-2020 12-15-2020 Chronic Osteoarthritis (20 sources) Disorder of ankle joint; Translations: [Primary osteoarthritis, unspecified ankle and foot] Onset: 03-02-2014 03-02-2014 Chronic Other and unspecified benign neoplasm (1 source) Dysplasia of colon; Translations: [Polyp of colon] Episodic Other and unspecified benign neoplasm (1 source) Benign adenomatous neoplasm; Translations: [Benign neoplasm, unspecified site] Episodic Other bone disease and musculoskeletal deformities (20 sources) Osteochondritis dissecans; Translations: [Osteochondritis dissecans, unspecified ankle and joints of foot] Onset: 04-04-2014 04-04-2014 Chronic Other nervous system disorders (2 sources) Other chronic pain; Translations: [Other chronic pain] Onset: 03-12-2017 Chronic Other nervous system disorders (20 sources) Circadian rhythm sleep disorder of shift work type; Translations: [Circadian rhythm sleep disorder, shift work type] Onset: 04-06-2015 04-06-2015 Chronic Other non-traumatic joint disorders (1 source) Chronic pain of right upper limb; Translations: [Pain in right shoulder] Episodic Other nutritional; endocrine; and metabolic disorders (20 sources) Body mass index 40+ - severely obese; Translations: [Morbid (severe) obesity due to excess calories] Onset: 04-06-2015 04-28-2020 Chronic Other nutritional; endocrine; and metabolic disorders (1 source) Morbid obesity; Translations: [Morbid (severe) obesity due to excess calories] Chronic Other upper respiratory disease (20 sources) Seasonal allergy; Translations: [Other seasonal allergic rhinitis] Onset: 01-12-2021 01-12-2021 Chronic Peritonitis and intestinal abscess (2 sources) Sclerosing mesenteritis; 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] Onset: 11-20-2022 Episodic Residual codes; unclassified (20 sources) Obstructive sleep apnea syndrome; Translations: [Obstructive sleep apnea (adult) (pediatric)] Onset: 04-06-2015 01-12-2021 Chronic Unclassified (1 source) Acute midline low back pain without sciatica; Translations: [Acute midline low back pain without sciatica] Onset: 06-14-2022 Past or Other Problems Problem Classification Problem Date Documented Date Episodic/Chronic Allergic reactions (4 sources) Allergy status to sulfonamides status; Translations: [Allergy status to other drugs, medicaments and biological substances status] Onset: 03-12-2017 Episodic Other connective tissue disease (20 sources) Peroneal tendinitis; Translations: [Peroneal tendinitis, unspecified leg] Onset: 04-04-2014 04-04-2014 Episodic Other connective tissue disease (20 sources) History of arthrodesis of ankle; Translations: [Arthrodesis status] Onset: 03-09-2015 03-09-2015 Episodic Other diseases of kidney and ureters (20 sources) Cyst of kidney; Translations: [Cyst of kidney, acquired] Onset: 03-03-2020 03-03-2020 Episodic Other nervous system disorders (20 sources) Abnormal gait; Translations: [Unspecified abnormalities of gait and mobility] Onset: 03-09-2015 03-09-2015 Episodic Other non-traumatic joint disorders (20 sources) Chronic ankle pain; Translations: [Pain in unspecified ankle and joints of unspecified foot] Onset: 04-04-2014 04-04-2014 Episodic Other non-traumatic joint disorders (20 sources) Sinus tarsi syndrome; Translations: [Pain in unspecified ankle and joints of unspecified foot] Onset: 04-04-2014 04-04-2014 Episodic Other screening for suspected conditions (not mental disorders or infectious disease) (6 sources) Patient encounter status; Translations: [Encounter for screening for malignant neoplasm of colon] Onset: 03-07-2022 Episodic Residual codes; unclassified (20 sources) Family history of diabetes mellitus; Translations: [Family history of diabetes mellitus] Onset: 06-23-2007 06-23-2007 Episodic Spondylosis; intervertebral disc disorders; other back problems (20 sources) Dorsalgia, unspecified; Translations: [Low back pain] Onset: 03-12-2017 Episodic Sprains and strains (20 sources) Sprain of ankle; Translations: [Sprain of unspecified ligament of unspecified ankle, initial encounter] Onset: 03-02-2014 03-02-2014 Episodic Results Test Name Value Interpretation Reference Range Facil ity Vital Signs Date Time Vital Sign Value Performing Clinician Isidra gonzales 12-19-2022 14:27-0400 Body weight 134.35 kg Radha Podlogar DEICER INSPECTOR PNEUMATIC.YIELD LOSS INSPECTOR Work Phone: [facility] 12-19-2022 14:27-0400 Diastolic blood pressure 94 mm[Hg] Radha Podlogar DEICER INSPECTOR PNEUMATIC.YIELD LOSS INSPECTOR Work Phone: [facility] 12-19-2022 14:27-0400 Heart rate 68 /min Radha Podlogar DEICER INSPECTOR PNEUMATIC.YIELD LOSS INSPECTOR Work Phone: [facility] 12-19-2022 14:27-0400 Respiratory rate 18 /min Radha Podlogar DEICER INSPECTOR PNEUMATIC.YIELD LOSS INSPECTOR Work Phone: [facility] 12-19-2022 14:27-0400 SaO2% (BldA) [Mass fraction] 96 % Radha Podlogar DEICER INSPECTOR PNEUMATIC.YIELD LOSS INSPECTOR Work Phone: [facility] 12-19-2022 14:27-0400 Systolic blood pressure 132 mm[Hg] Radha Podlogar DEICER INSPECTOR PNEUMATIC.YIELD LOSS INSPECTOR Work Phone: [facility] 11-20-2022 16:06-0400 Body height 177.8 cm Roberta Wharton MD Work Phone: [facility] 11-20-2022 16:06-0400 Body temperature 98.4 [degF] Roberta Wharton MD Work Phone: [facility] 11-20-2022 16:06-0400 Body weight 135.44 kg Roberta Wharton MD Work Phone: [facility] 11-20-2022 16:06-0400 Diastolic blood pressure 92 mm[Hg] Roberta Wharton MD Work Phone: [facility] 11-20-2022 16:06-0400 Heart rate 88 /min Roberta Wharton MD Work Phone: [facility] 11-20-2022 16:06-0400 SaO2% (BldA) [Mass fraction] 100 % Roberta Wharton MD Work Phone: [facility] 11-20-2022 16:06-0400 Systolic blood pressure 138 mm[Hg] Roberta Wharton MD Work Phone: [facility] 06-05-2022 10:50-0400 Body height 177.8 cm Don Jimmy PA-C Work Phone: [facility] 06-05-2022 10:50-0400 Body temperature 97.39 [degF] Don [place] PA-C Work Phone: [facility] 06-05-2022 10:50-0400 Body weight 136.08 kg Don Jimmy PA-C Work Phone: [facility] 06-05-2022 10:50-0400 Diastolic blood pressure 90 mm[Hg] Don Jimmy PA-C Work Phone: [facility] 06-05-2022 10:50-0400 Heart rate 60 /min Don Jimmy PA-C Work Phone: [facility] 06-05-2022 10:50-0400 SaO2% (BldA) [Mass fraction] 95 % Don [place] PA-C Work Phone: [facility] 06-05-2022 10:50-0400 Systolic blood pressure 138 mm[Hg] Don [place] PA-C Work Phone: [facility] 05-23-2022 13:39-0400 Body weight 136.35 kg Radha Ken APRN.CNP Work Phone: [facility] 05-23-2022 13:39-0400 Diastolic blood pressure 96 mm[Hg] Radha Podlogar DEICER INSPECTOR PNEUMATIC.YIELD LOSS INSPECTOR Work Phone: [facility] 05-23-2022 13:39-0400 Heart rate 67 /min Radha Podlogar DEICER INSPECTOR PNEUMATIC.YIELD LOSS INSPECTOR Work Phone: [facility] 05-23-2022 13:39-0400 Respiratory rate 18 /min Radha Podlogar DEICER INSPECTOR PNEUMATIC.YIELD LOSS INSPECTOR Work Phone: [facility] 05-23-2022 13:39-0400 SaO2% (BldA) [Mass fraction] 98 % Radha Podlogar DEICER INSPECTOR PNEUMATIC.YIELD LOSS INSPECTOR Work Phone: [facility] 05-23-2022 13:39-0400 Systolic blood pressure 138 mm[Hg] Radha Podlogar DEICER INSPECTOR PNEUMATIC.YIELD LOSS INSPECTOR Work Phone: [facility] 04-13-2022 09:28-0400 Diastolic blood pressure 78 mm[Hg] Roberta Wharton MD Work Phone: [facility] 04-13-2022 09:28-0400 Heart rate 52 /min Roberta Wharton MD Work Phone: [facility] 04-13-2022 09:28-0400 Respiratory rate 16 /min Roberta Wharton MD Work Phone: [facility] 04-13-2022 09:28-0400 SaO2% (BldA) [Mass fraction] 91 % Roberta Wharton MD Work Phone: [facility] 04-13-2022 09:28-0400 Systolic blood pressure 154 mm[Hg] Roberta Wharton MD Work Phone: [facility] 04-13-2022 07:57-0400 Body temperature 98.29 [degF] Roberta Wharton MD Work Phone: [facility] 03-07-2022 14:00-0400 Body height 177.8 cm Roberta Wharton MD Work Phone: [facility] 03-07-2022 14:00-0400 Body temperature 97.81 [degF] Roberta Wharton MD Work Phone: [facility] 03-07-2022 14:00-0400 Body weight 136.53 kg Roberta Wharton MD Work Phone: [facility] 03-07-2022 14:00-0400 Diastolic blood pressure 92 mm[Hg] Roberta Wharton MD Work Phone: [facility] 03-07-2022 14:00-0400 Heart rate 73 /min Roberta Wharton MD Work Phone: [facility] 03-07-2022 14:00-0400 SaO2% (BldA) [Mass fraction] 99 % Roberta Wharton MD Work Phone: [facility] 03-07-2022 14:00-0400 Systolic blood pressure 148 mm[Hg] Roberta Wharton MD Work Phone: [facility] 01-16-2022 13:09-0400 Body temperature 97.11 [degF] Damaris Ken DEICER INSPECTOR PNEUMATIC.YIELD LOSS INSPECTOR Work Phone: [facility] 01-16-2022 13:09-0400 Body weight 132 kg Damaris Ken DEICER INSPECTOR PNEUMATIC.YIELD LOSS INSPECTOR Work Phone: [facility] 01-16-2022 13:09-0400 Diastolic blood pressure 86 mm[Hg] Damaris Ken DEICER INSPECTOR PNEUMATIC.YIELD LOSS INSPECTOR Work Phone: [facility] 01-16-2022 13:09-0400 Heart rate 60 /min Damaris Ken DEICER INSPECTOR PNEUMATIC.YIELD LOSS INSPECTOR Work Phone: [facility] 01-16-2022 13:09-0400 Respiratory rate 14 /min Damaris Ken DEICER INSPECTOR PNEUMATIC.YIELD LOSS INSPECTOR Work Phone: [facility] 01-16-2022 13:09-0400 Systolic blood pressure 122 mm[Hg] Damaris Ken DEICER INSPECTOR PNEUMATIC.YIELD LOSS INSPECTOR Work Phone: [facility] Encounters Encounter Date Encounter Type Care Provider Facility Start: 02-18-2023 End: 02-19-2023 ambulatory BRENNEN DOSHI Facility:[facility] Start: 01-29-2023 Telephone encounter Brennen adame MD Work Phone: [facility] Procedures Date Procedure Procedure Detail Performing Clinician Start: 07-19-2022 PFIZER-BIONTECH COVI D-19 BIVALENT BOOSTER VACCINE, AGE 12+ YR Bi Leija MD Work Phone: Start: 04-13-2022 Colonoscopy flx dx w/collj spec when pfrmd Roberta Wharton MD Work Phone: Start: 04-13-2022 Colonoscopy Roberta Wharton MD Work Phone: Plan of Treatment Date Care Activity Detail Author Start: 06-09-2031 Urine microalbumin profile DTAP,TDAP,TD (2 - Td or Tdap) [facility] Start: 01-16-2027 LIPID SCREEN LIPID SCREEN [facility] Start: 01-12-2026 LIPID SCREEN LIPID SCREEN [facility] Start: 01-16-2025 DIABETES SCREEN DIABETES SCREEN [facility] Start: 01-13-2024 DIABETES SCREEN DIABETES SCREEN [facility] Start: 01-09-2024 ANNUAL PCP TEAM CHRONIC DISEASE VISIT ANNUAL PCP TEAM CHRONIC DISEASE VISIT [facility] Start: 12-20-2023 ANNUAL PCP TEAM CHRONIC DISEASE VISIT ANNUAL PCP TEAM CHRONIC DISEASE VISIT [facility] Start: 11-20-2023 ANNUAL PCP TEAM CHRONIC DISEASE VISIT ANNUAL PCP TEAM CHRONIC DISEASE VISIT [facility] Start: 05-23-2023 ANNUAL PCP TEAM CHRONIC DISEASE VISIT ANNUAL PCP TEAM CHRONIC DISEASE VISIT [facility] Start: 04-19-2023 Influenza vaccination INFLUENZA (Season Ended) [facility] Start: 04-13-2023 Colonoscopy COLONOSCOPY [facility] Start: 04-13-2023 COLORECTAL CANCER SCREENING COLORECTAL CANCER SCREENING [facility] Start: 01-31-2023 End: 04-02-2023 CBC panel - Blood by Automated count CBC Lab Routine Hypertension, essential Expected: 01/31/2023 (Approximate), Expires: 04/02/2023 [facility] Work Phone: Immunizations Immunization Date Immunization Notes Care Provider Fa cility 07-19-2022 COVID-19 booster vaccine, age 12+ yr, bivalent (PFIZER-BIONTECH) Mi Nurse Work Phone: [facility] Work Phone: 06-09-2021 tetanus toxoid, reduced diphtheria toxoid, and acellular pertussis vaccine, adsorbed Brennen Doshi MD Work Phone: [facility] 03-08-2021 COVID-19 vaccine, ag e 12+ yr (PFIZER-BIONTECH - PURPLE TOP) Brennen Doshi MD Work Phone: [facility] 02-15-2021 COVID-19 vaccine, ag e 12+ yr (PFIZER-BIONTECH - PURPLE TOP) Brennen Doshi MD Work Phone: [facility] 11-16-2009 novel [id number], preservative-free, injectable Brennen Doshi MD Work Phone: [facility] Payers Date Payer Category Payer Medicaid [id number] 2021 Unknown [employer] PPO [id number] 2021-Present [phone] [address] [place] [address] PPO [id number] 2021 Unknown [employer] PPO [id number] 2021-Present [phone] [address] [place] [address] PPO [id number] 2021 Unknown [id number] 2019 Medicaid [employer] [id number] 2019-Present [phone] [address] [place] [address] Medicaid [id number] 2019 Medicaid [id number] 2019 Medicaid [id number] Private Health Insurance Social History Date Type Detail Facility Start: 09-22-2010 End: 11-19-2022 Tobacco smoking status NHIS Never smoked tobacco [facility] Start: 09-22-2010 End: 11-19-2022 Tobacco use and exposure User of smokeless tobacco [facility] End: 01-03-2019 History of tobacco use Chews Tobacco [facility] Start: 09-20-2021 End: 01-16-2022 Alcohol intake Ex-drinker (finding) [facility] Start: 07-21-2015 History SDOH Alcohol Comment occassionally [facility] Start: 1975 Sex Assigned At Not on file [facility] Start: 12-24-2021 End: 06-14-2022 Exposure to SARS-CoV-2 (event) Not sure [facility] Start: 03-07-2022 End: 11-20-2022 Alcohol intake Current drinker of alcohol (finding) [facility] Start: 11-19-2022 History SDOH Alcohol Frequency 2 [facility] Start: 11-19-2022 History SDOH Alcohol Std Drinks 1 [facility] Start: 11-19-2022 History SDOH Social Connections Living 3 [facility] Start: 11-19-2022 Tobacco Comment chew [facility] Clinical Notes 01-07-2019 to 01-31-2023 Telephone Encounter - Lorraine Stringer Ma - 01/31/2023 5:03 PM EDTTelephone Encounter - Brennen Doshi MD - 01/31/2023 4:53 PM EDTTelephone Encounter - Brent Dubois RN - 01/29/2023 4:11 PM EDT Note Date & Type Note Facility 01-31-2023 Miscellaneous Notes Pt notified. Lorraine Stringer Ma Labs ordered Brennen Doshi MD asking pcp to order patient's yearly routine labs. Pended. Please phone patient to let him know when to go to lab. documented in this encounter [facility] 01-08-2023 Note HNO ID: [id number] Author: Shi Nobles APRN.YIELD LOSS INSPECTOR Service: ? Author Type: Nurse Practitioner Type: Progress Notes Filed: 01/08/2023 11:55 AM Note Text: Chief Complaint Patient presents with: Follow Up: Abdominal pain HPI Kam Gonzalez is a 47 year old male who presents here today for Above Complaints.. Patient presents with continued abdominal pain and vomiting. Patient was seen 01/03 and started on prilosec. Patient was seen in ER on 01/[address] was negative. Patient will be ok for a day or two and then will start having abdominal pain and vomiting again. The vomiting has not been responsive to sucralfate for past 24 hours. Patient can not eat due to pain and nausea. Patient is tolerating fluids. Past medical history, appointments, medications, allergies reviewed. Previous Medical History PAST MEDICAL HISTORY Diagnosis Date Arthritis Gout, unspecified Hypertension, essential 01/12/2021 Mesenteric panniculitis (HCC) Migraine, unspecified, with intractable migraine, so stated, without mention of status migrainosus Migraine Moderate episode of recurrent major depressive disorder (HCC) 12/15/2020 Morbid obesity with BMI of 40.0-44.9, adult (HCC) Obstructive sleep apnea Previous Surgical History PAST SURGICAL HISTORY Procedure Laterality Date COLONOSCOPY 04/13/2022 TVA with high-grade dysplasia-repeat colonoscopy in 1 year FUSION OF ANKLE JOINT Right 2014 Family History FAMILY HISTORY Problem Relation Age of Onset Diabetes Mother Coronary Artery Disease Mother Hypertension Mother Alcohol/Drug Father cirrhosis, ETOH Diabetes Maternal Uncle Heart Sister Patient Allergies ALLERGIES Allergen Reactions Naprosyn [Naproxen] GI Upset Sulfa (Sulfonamide * Hives, Shortness of Breath Current Medications Current Outpatient Medications on File Prior to Visit Medication Sig omeprazole (PRILOSEC) 20 mg capsule Take 1 capsule by mouth daily before breakfast. 1/2 hr before meal. SUMAtriptan (IMITREX) 20 mg/actuation nasal spray Use 1 [place] in the nose as needed. SUMAtriptan (IMITREX) 100 mg tablet Take 1 tablet by mouth as needed. sucralfate (CARAFATE) 100 mg/mL suspension Take 10 mL by mouth four times daily as needed (Nausea). sertraline (ZOLOFT) 100 mg tablet TAKE ONE TABLET BY MOUTH EVERY DAY lisinopril (ZESTRIL, PRINIVIL) 10 mg tablet TAKE ONE TABLET BY MOUTH EVERY DAY cyclobenzaprine (FLEXERIL) 10 mg tablet Take 1 tablet by mouth three times daily as needed for muscle spasm. meloxicam (MOBIC) 15 mg tablet Take 1 tablet by mouth once daily. With food. peg 3350-Electrolytes (GOLYTELY) 236-22.74-6.74 -5.86 gram suspension Refer to printed prep instructions from your provider. ibuprofen (MOTRIN) 800 mg tablet take 1 tablet by mouth every 8 hours if needed for pain with food allopurinol (ZYLOPRIM) 300 mg tablet Take 1 tablet by mouth once daily. For gout. BIPAP loratadine (CLARITIN) 10 mg tablet Take 1 tablet by mouth once daily. No current facility-administered medications on file prior to visit. Social History Social History Tobacco Use Smoking status: Never Smokeless tobacco: Current Types: Chew Last attempt to quit: 01/03/2019 Tobacco comments: chew Vaping Use Vaping Use: Never used Substance Use Topics Alcohol use: Yes Comment: occassionally Drug use: No Review of Symptoms REVIEW OF SYSTEMS SEE HPI EXAM: BP 124/80 Pulse (!) 56 Resp 16 Wt 133.8 kg (295 lb) BMI 42.33 kg/m? General Appearance: Overweight and pale. Abdomen: Normal abdominal exam, Positive findings: obese, distended, tenderness marked RLQ. Health Maintenance List HEPATITIS B(1 of 3 - 3-dose series) Never done BP CONTROLLED (<130/80) due on 06/09/2022 HEPATITIS C SCREENING due on 01/16/2023 HIV SCREENING due on 01/16/2023 COLORECTAL CANCER SCREENING due on 04/13/2023 INFLUENZA(Season Ended) due on 04/19/2023 ANNUAL PCP TEAM CHRONIC DISEASE VISIT due on 01/04/2024 DIABETES SCREEN due on 01/16/2025 LIPID SCREEN due on 01/16/2027 DTAP,TDAP,TD(2 - Td or Tdap) due on 06/09/2031 COVID-19 VACCINE Completed ASSESSMENT/PLAN: 1. RLQ abdominal pain - ICD9: 789.03, ICD10: R10.31 (primary diagnosis) - Patient directed to ER for further evaluation as his pain and vomiting have become increasingly worse 2. Nausea and vomiting, unspecified vomiting type - ICD9: 787.01, ICD10: R11.2 - Patient directed to ER for further evaluation as his pain and vomiting have become increasingly worse Shi Nobles APRN.CNP [facility] 01-03-2023 Note HNO ID: [id number] Author: Shi Nobles APRN.JULIET Service: ? Author Type: Nurse Practitioner Type: Progress Notes Filed: 01/03/2023 6:25 PM Note Text: Chief Complaint Patient presents with: ER F/U HPI Kam Gonzalez is a 47 year old male who presents here today for Above Complaints.. Patient presents for ER follow up. Patient was seen 01/01 for abdominal pain, nausea, vomiting, and diarrhea. Patient has been having ongoing GI upset and cramping. Patient has consult to see Dr. Mcadams. Patient has had multiple CT's which are negative. Labwork at ER showed slight elevation of lipase but is otherwise normal. Past medical history, appointments, medications, allergies reviewed. Previous Medical History PAST MEDICAL HISTORY Diagnosis Date Arthritis Gout, unspecified Hypertension, essential 01/12/2021 Mesenteric panniculitis (HCC) Migraine, unspecified, with intractable migraine, so stated, without mention of status migrainosus Migraine Moderate episode of recurrent major depressive disorder (HCC) 12/15/2020 Morbid obesity with BMI of 40.0-44.9, adult (HCC) Obstructive sleep apnea Previous Surgical History PAST SURGICAL HISTORY Procedure Laterality Date COLONOSCOPY 04/13/2022 TVA with high-grade dysplasia-repeat colonoscopy in 1 year FUSION OF ANKLE JOINT Right 2014 Family History FAMILY HISTORY Problem Relation Age of Onset Diabetes Mother Coronary Artery Disease Mother Hypertension Mother Alcohol/Drug Father cirrhosis, ETOH Diabetes Maternal Uncle Heart Sister Patient Allergies ALLERGIES Allergen Reactions Naprosyn [Naproxen] GI Upset Sulfa (Sulfonamide * Hives, Shortness of Breath Current Medications Current Outpatient Medications on File Prior to Visit Medication Sig SUMAtriptan (IMITREX) 20 mg/actuation nasal spray Use 1 [place] in the nose as needed. SUMAtriptan (IMITREX) 100 mg tablet Take 1 tablet by mouth as needed. sucralfate (CARAFATE) 100 mg/mL suspension Take 10 mL by mouth four times daily as needed (Nausea). sertraline (ZOLOFT) 100 mg tablet TAKE ONE TABLET BY MOUTH EVERY DAY lisinopril (ZESTRIL, PRINIVIL) 10 mg tablet TAKE ONE TABLET BY MOUTH EVERY DAY cyclobenzaprine (FLEXERIL) 10 mg tablet Take 1 tablet by mouth three times daily as needed for muscle spasm. meloxicam (MOBIC) 15 mg tablet Take 1 tablet by mouth once daily. With food. peg 3350-Electrolytes (GOLYTELY) 236-22.74-6.74 -5.86 gram suspension Refer to printed prep instructions from your provider. ibuprofen (MOTRIN) 800 mg tablet take 1 tablet by mouth every 8 hours if needed for pain with food allopurinol (ZYLOPRIM) 300 mg tablet Take 1 tablet by mouth once daily. For gout. BIPAP loratadine (CLARITIN) 10 mg tablet Take 1 tablet by mouth once daily. No current facility-administered medications on file prior to visit. Social History Social History Tobacco Use Smoking status: Never Smokeless tobacco: Current Types: Chew Last attempt to quit: 01/03/2019 Tobacco comments: chew Vaping Use Vaping Use: Never used Substance Use Topics Alcohol use: Yes Comment: occassionally Drug use: No Review of Symptoms REVIEW OF SYSTEMS SEE HPI EXAM: BP 130/76 Pulse 70 Resp 16 Wt 132 kg (291 lb) BMI 41.75 kg/m? General Appearance: Well appearing, alert, in no acute distress, well-hydrated, well nourished.. Abdomen: Normal abdominal exam, Positive findings: tenderness mild RUQ. Health Maintenance List HEPATITIS B(1 of 3 - 3-dose series) Never done BP CONTROLLED (<130/80) due on 06/09/2022 HEPATITIS C SCREENING due on 01/16/2023 HIV SCREENING due on 01/16/2023 COLORECTAL CANCER SCREENING due on 04/13/2023 INFLUENZA(Season Ended) due on 04/19/2023 ANNUAL PCP TEAM CHRONIC DISEASE VISIT due on 12/20/2023 DIABETES SCREEN due on 01/16/2025 LIPID SCREEN due on 01/16/2027 DTAP,TDAP,TD(2 - Td or Tdap) due on 06/09/2031 COVID-19 VACCINE Completed ASSESSMENT/PLAN: 1. RUQ abdominal pain - ICD9: 789.01, ICD10: R10.11 Differential Diagnosis includes GERD and Gastritis - Begin treatment with Prilosec 20 mg QD - Referral to Gastroenterology- provided at previous appointment will call to reschedule with Dr. Mcadams - OMEPRAZOLE 20 MG CAPSULE,DELAYED RELEASE Shi Nobles APRN.YIELD LOSS INSPECTOR [facility] 01-01-2023 Miscellaneous Notes Noted I agree with the advice given Brennen Doshi MD Patient calling has been vomiting since he woke up this morning, and having loose stools. said he is having abdominal discomfort, no fever. said he was able to keep his medications down and he had eaten a banana. He has been sleeping most of the morning, not getting fluids in. Advised to go to ER for evaluation, he may need IV fluids, etc. documented in this encounter [facility] 12-24-2022 Miscellaneous Notes Rec'd approval from [facility]. this is approved from 12/21/22 to 12/20/23. Pharmacy notified and my chart message to pt. PA form completed for [facility] for sumatriptan nasal spray. Faxed for review. documented in this encounter [facility] 12-19-2022 Note HNO ID: [id number] Author: Radha Ken APRN.YIELD LOSS INSPECTOR Service: ? Author Type: Nurse Practitioner Type: Progress Notes Filed: 12/19/2022 3:53 PM Note Text: 12/19/2022 Patient presents with: Headache: Migraine since yesterday, took last dose of inhalation nasal spray. Woke up today and migraine is still there. Patient with nausea and vomiting x2 this day. SUBJECTIVE: This is a 47 year old that is here today for Above Complaints. Woke up yesterday with migraine. Took one dose of imitrex nasal spray. Seemed to help but when he woke up this AM was back. Went to work made him nauseated and dizzy. Has vomited twice. Positive for light sensitivity. Has taken ibuprofen which took the edge off. Hs leave work. Reports this is a typical migraine. Denies visual changes, worst headache of his life, lightheadedness, phonophobia, slurred speech, facial drooping, SOB, dyspnea, chest pain or palpitations PAST MEDICAL HISTORY Diagnosis Date Arthritis Gout, unspecified Hypertension, essential 01/12/2021 Mesenteric panniculitis (HCC) Migraine, unspecified, with intractable migraine, so stated, without mention of status migrainosus Migraine Moderate episode of recurrent major depressive disorder (HCC) 12/15/2020 Morbid obesity with BMI of 40.0-44.9, adult ([facility]) Obstructive sleep apnea ALLERGIES Naprosyn [Naproxen] and Sulfa (Sulfonamide Antibiotics) MEDICATIONS Current Outpatient Medications Medication Sig sucralfate (CARAFATE) 100 mg/mL suspension Take 10 mL by mouth four times daily as needed (Nausea). sertraline (ZOLOFT) 100 mg tablet TAKE ONE TABLET BY MOUTH EVERY DAY lisinopril (ZESTRIL, PRINIVIL) 10 mg tablet TAKE ONE TABLET BY MOUTH EVERY DAY cyclobenzaprine (FLEXERIL) 10 mg tablet Take 1 tablet by mouth three times daily as needed for muscle spasm. meloxicam (MOBIC) 15 mg tablet Take 1 tablet by mouth once daily. With food. peg 3350-Electrolytes (GOLYTELY) 236-22.74-6.74 -5.86 gram suspension Refer to printed prep instructions from your provider. ibuprofen (MOTRIN) 800 mg tablet take 1 tablet by mouth every 8 hours if needed for pain with food allopurinol (ZYLOPRIM) 300 mg tablet Take 1 tablet by mouth once daily. For gout. SUMAtriptan (IMITREX) 20 mg/actuation nasal spray Use 1 [place] in the nose as needed. BIPAP loratadine (CLARITIN) 10 mg tablet Take 1 tablet by mouth once daily. No current facility-administered medications for this visit. Medications and allergies reviewed by this provider. SOCIAL HISTORY Social History Tobacco Use Smoking status: Never Smokeless tobacco: Current Types: Chew Last attempt to quit: 01/03/2019 Tobacco comments: chew Vaping Use Vaping Use: Never used Substance Use Topics Alcohol use: Yes Comment: occassionally Drug use: No REVIEW OF SYSTEMS All other reviewed and negative other than HPI. OBJECTIVE: BP 132/94 Pulse 68 Resp 18 Wt 134.4 kg (296 lb 3.2 oz) SpO2 96% BMI 42.50 kg/m? . Vital signs reviewed by this provider. APPEARANCE Well appearing, alert, in no acute distress, well-hydrated, well nourished. EYES PERRLA, conjunctiva and sclera normal. HEART RRR with normal S1 and S2, no murmurs, no gallops, no JVD appreciated LUNG clear to auscultation EXTREMITIES Extremities normal, No deformities, No skin discoloration, and No edema NEURO Awake, alert and oriented x 3, Cranial nerves II-XII grossly intact, Reflexes symmetrical, Normal gait, No involuntary motions., and negative findings: speech normal, mental status intact, muscle tone normal, muscle strength normal, reflexes normal and symmetric, plantar response downgoing bilaterally SKIN Skin color, texture, turgor normal, no suspicious rashes or lesions to exposed skin HEPATITIS B(1 of 3 - 3-dose series) Never done BP CONTROLLED (<130/80) due on 06/09/2022 HEPATITIS C SCREENING due on 01/16/2023 HIV SCREENING due on 01/16/2023 COLORECTAL CANCER SCREENING due on 04/13/2023 INFLUENZA(Season Ended) due on 04/19/2023 ANNUAL PCP TEAM CHRONIC DISEASE VISIT due on 12/20/2023 DIABETES SCREEN due on 01/16/2025 LIPID SCREEN due on 01/16/2027 DTAP,TDAP,TD(2 - Td or Tdap) due on 06/09/2031 COVID-19 VACCINE Completed ASSESSMENT/PLAN: 1. Migraine without status migrainosus, not intractable, unspecified migraine type - ICD9: 346.90, ICD10: G43.909 - no red flag symptoms - red flag symptoms discussed, verbalizes understanding - looks like nasal spray has to go through prior auth so I will give him script for pills in case he can no obtain the spray tonight - SUMATRIPTAN 20 MG/ACTUATION NASAL SPRAY - SUMATRIPTAN 100 MG TABLET - KETOROLAC 60 MG/2 ML INTRAMUSCULAR SOLUTION - has zofran at home for nausea - follow-up as needed to ER with red flag symptoms Radha Podlogar, DEICER INSPECTOR PNEUMATIC.YIELD LOSS INSPECTOR Prescription instructions reviewed with patient as applicable. Patient advised if symptoms do not improve or if symptoms worsen sooner, to contac (more content not included)... [facility] 12-19-2022 History of Presen t illness Narrative 12/19/2022 Patient presents with: Headache: Migraine since yesterday, took last dose of inhalation nasal spray. Woke up today and migraine is still there. Patient with nausea and vomiting x2 this day. SUBJECTIVE: This is a 47 year old that is here today for Above Complaints. Woke up yesterday with migraine. Took one dose of imitrex nasal spray. Seemed to help but when he woke up this AM was back. Went to work made him nauseated and dizzy. Has vomited twice. Positive for light sensitivity. Has taken ibuprofen which took the edge off. Hs leave work. Reports this is a typical migraine. Denies visual changes, worst headache of his life, lightheadedness, phonophobia, slurred speech, facial drooping, SOB, dyspnea, chest pain or palpitations PAST MEDICAL HISTORY Diagnosis Date Arthritis Gout, unspecified Hypertension, essential 01/12/2021 Mesenteric panniculitis (HCC) Migraine, unspecified, with intractable migraine, so stated, without mention of status migrainosus Migraine Moderate episode of recurrent major depressive disorder (HCC) 12/15/2020 Morbid obesity with BMI of 40.0-44.9, adult (HCC) Obstructive sleep apnea ALLERGIES Naprosyn [Naproxen] and Sulfa (Sulfonamide Antibiotics) MEDICATIONS Current Outpatient Medications Medication Sig sucralfate (CARAFATE) 100 mg/mL suspension Take 10 mL by mouth four times daily as needed (Nausea). sertraline (ZOLOFT) 100 mg tablet TAKE ONE TABLET BY MOUTH EVERY DAY lisinopril (ZESTRIL, PRINIVIL) 10 mg tablet TAKE ONE TABLET BY MOUTH EVERY DAY cyclobenzaprine (FLEXERIL) 10 mg tablet Take 1 tablet by mouth three times daily as needed for muscle spasm. meloxicam (MOBIC) 15 mg tablet Take 1 tablet by mouth once daily. With food. peg 3350-Electrolytes (GOLYTELY) 236-22.74-6.74 -5.86 gram suspension Refer to printed prep instructions from your provider. ibuprofen (MOTRIN) 800 mg tablet take 1 tablet by mouth every 8 hours if needed for pain with food allopurinol (ZYLOPRIM) 300 mg tablet Take 1 tablet by mouth once daily. For gout. SUMAtriptan (IMITREX) 20 mg/actuation nasal spray Use 1 [place] in the nose as needed. BIPAP loratadine (CLARITIN) 10 mg tablet Take 1 tablet by mouth once daily. No current facility-administered medications for this visit. Medications and allergies reviewed by this provider. SOCIAL HISTORY Social History Tobacco Use Smoking status: Never Smokeless tobacco: Current Types: Chew Last attempt to quit: 01/03/2019 Tobacco comments: chew Vaping Use Vaping Use: Never used Substance Use Topics Alcohol use: Yes Comment: occassionally Drug use: No REVIEW OF SYSTEMS All other reviewed and negative other than HPI. OBJECTIVE: BP 132/94 Pulse 68 Resp 18 Wt 134.4 kg (296 lb 3.2 oz) SpO2 96% BMI 42.50 kg/m . Vital signs reviewed by this provider. APPEARANCE Well appearing, alert, in no acute distress, well-hydrated, well nourished. EYES PERRLA, conjunctiva and sclera normal. HEART RRR with normal S1 and S2, no murmurs, no gallops, no JVD appreciated LUNG clear to auscultation EXTREMITIES Extremities normal, No deformities, No skin discoloration, and No edema NEURO Awake, alert and oriented x 3, Cranial nerves II-XII grossly intact, Reflexes symmetrical, Normal gait, No involuntary motions., and negative findings: speech normal, mental status intact, muscle tone normal, muscle strength normal, reflexes normal and symmetric, plantar response downgoing bilaterally SKIN Skin color, texture, turgor normal, no suspicious rashes or lesions to exposed skin HEPATITIS B(1 of 3 - 3-dose series) Never done BP CONTROLLED (<130/80) due on 06/09/2022 HEPATITIS C SCREENING due on 01/16/2023 HIV SCREENING due on 01/16/2023 COLORECTAL CANCER SCREENING due on 04/13/2023 INFLUENZA(Season Ended) due on 04/19/2023 ANNUAL PCP TEAM CHRONIC DISEASE VISIT due on 12/20/2023 DIABETES SCREEN due on 01/16/2025 LIPID SCREEN due on 01/16/2027 DTAP,TDAP,TD(2 - Td or Tdap) due on 06/09/2031 COVID-19 VACCINE Completed ASSESSMENT/PLAN: 1. Migraine without status migrainosus, not intractable, unspecified migraine type - ICD9: 346.90, ICD10: G43.909 - no red flag symptoms - red flag symptoms discussed, verbalizes understanding - looks like nasal spray has to go through prior auth so I will give him script for pills in case he can no obtain the spray tonight - SUMATRIPTAN 20 MG/ACTUATION NASAL SPRAY - SUMATRIPTAN 100 MG TABLET - KETOROLAC 60 MG/2 ML INTRAMUSCULAR SOLUTION - has zofran at home for nausea - follow-up as needed to ER with red flag symptoms Radha Ken APRN.JULIET Prescription instructions reviewed with patient as applicable. Patient advised if symptoms do not improve or if symptoms worsen sooner, to contact their primary care physician. Potential red flag symptoms discussed with the patient. Reviewed appropriate action plan to take if red flag symptoms occur. Patient agreeable to treatment plan. I spent a total of 25 minutes on the date of the service which included preparing to see the patient, [id number] patient care, completing clinical documentation, obtaining and/or reviewing separately obtained history, performing a medically appropriate examination, counseling and educating the patient/family/caregiver, ordering medications, tests, or procedures, and communicating with other HCPs (not separately reported). documented in this encounter [facility] 11-20-2022 Nurse Note REVIEW OF SYSTEMS: General: The patient denies fatigue, denies weight loss, denies weight gain, NOTES feeling hot, and denies feelings of cold. Eyes: The patient denies glaucoma, denies eye injury/surgery, wears glasses or contacts. Ear/Nose/Throat: The patient NOTES allergies, denies hayfever, denies ear infections, and denies bloody noses. Cardiovascular: The patient denies chest pain, denies heart disease, NOTES high blood pressure,denies cardiac stent, denies prior heart attack, denies irregular heart beat, denies high cholesterol, denies poor circulation, denies heart failure, other cardiac issues, denies claudication, denies cold feet, denies peripheral arterial stent. Respiratory: The patient denies tuberculosis, denies pneumonia, denies frequent cough, denies pulmonary embolism, denies shortness of breath, and denies coughing up blood. Gastrointestinal: The patient denies difficulty swallowing, NOTES acid reflux, denies ulcers, NOTES vomiting, denies jaundice/hepatitis, denies gallbladder problems, denies black or tarry stools, denies hemorrhoids, denies bleeding from rectum, denies diverticulitis, denies constipation, NOTES diarrhea, denies loss of stool control, and denies hernias. Kidney/Bladder: The patient NOTES kidney stones, denies urine infections, and denies bloody urine. Skin: The patient denies a history of skin cancer, denies bleeding/changing moles, and denies a history of skin rash. Neurologic: The patient denies a history of epilepsy/convulsions, NOTES headaches, denies head/spinal injuries, and denies stroke/TIA. Psychiatric: The patient denies psychiatric medications, NOTES depression, and denies voices, denies substance abuse. Endocrine: The patient denies thyroid disorders, denies diabetes, and denies hormonal problems. Hematologic: The patient denies a history of bruising, denies bleeding, and denies anemia, denies blood clots. Infections: The patient denies a history of measles and mumps, denies rheumatic fever, and denies sexually transmitted diseases. Musculoskeletal: The patient NOTES back pain/injury, NOTES back problems, denies sciatica, denies knee/foot trouble, NOTES arthritis, or NOTES gout. When was patient's last Mammogram screening? N/A Last Colonoscopy: 04/13/2022 Dolly Nielsen RN documented in this encounter [facility] 11-20-2022 Note HNO ID: [id number] Author: Roberta Wharton MD Service: ? Author Type: Physician Type: Progress Notes Filed: 11/24/2022 12:32 PM Note Text: Kam Gonzalez 1975 REFERRING PHYSICIAN: Brennen Doshi MD CHIEF COMPLAINT: Consult (ER follow-up, Mesenteric panniculitis) HPI: The patient is a 47 year old male presents with complaint of abdominal pain. Patient points to entire abdomen as to location of pain. It is also accompanied by nausea/emesis. He also notes loose stools - 3-4 episodes per day. He also notes low grade fevers. This has been going on since . He denies previous such symptoms. He had been seen at [facility] ED on 11/15/[address] scan revealed mild mid mesenteric stranding with small lymph nodes, suggesting mesenteric panniculitis. PAST MEDICAL HISTORY Diagnosis Date Arthritis Gout, unspecified Hypertension, essential 01/12/2021 Mesenteric panniculitis (HCC) Migraine, unspecified, with intractable migraine, so stated, without mention of status migrainosus Migraine Moderate episode of recurrent major depressive disorder (HCC) 12/15/2020 Morbid obesity with BMI of 40.0-44.9, adult (HCC) Obstructive sleep apnea PAST SURGICAL HISTORY Procedure Laterality Date COLONOSCOPY 04/13/2022 TVA with high-grade dysplasia-repeat colonoscopy in 1 year FUSION OF ANKLE JOINT Right 2014 Current Outpatient Medications Medication Sig sucralfate (CARAFATE) 100 mg/mL suspension Take 10 mL by mouth four times daily as needed (Nausea). methylPREDNISolone (MEDROL, ROSALES,) 4 mg Dose-Pack Follow dosing instructions, take with food. sertraline (ZOLOFT) 100 mg tablet TAKE ONE TABLET BY MOUTH EVERY DAY lisinopril (ZESTRIL, PRINIVIL) 10 mg tablet TAKE ONE TABLET BY MOUTH EVERY DAY cyclobenzaprine (FLEXERIL) 10 mg tablet Take 1 tablet by mouth three times daily as needed for muscle spasm. meloxicam (MOBIC) 15 mg tablet Take 1 tablet by mouth once daily. With food. peg 3350-Electrolytes (GOLYTELY) 236-22.74-6.74 -5.86 gram suspension Refer to printed prep instructions from your provider. ibuprofen (MOTRIN) 800 mg tablet take 1 tablet by mouth every 8 hours if needed for pain with food allopurinol (ZYLOPRIM) 300 mg tablet Take 1 tablet by mouth once daily. For gout. SUMAtriptan (IMITREX) 20 mg/actuation nasal spray Use 1 [place] in the nose as needed. BIPAP loratadine (CLARITIN) 10 mg tablet Take 1 tablet by mouth once daily. ALLERGIES: Naprosyn [Naproxen] and Sulfa (Sulfonamide Antibiotics) PERSONAL HISTORY: Social History Tobacco Use Smoking status: Never Smokeless tobacco: Current Types: Chew Last attempt to quit: 01/03/2019 Tobacco comments: chew Vaping Use Vaping Use: Never used Substance Use Topics Alcohol use: Yes Comment: occassionally Drug use: No FAMILY HISTORY Problem Relation Age of Onset Diabetes Mother Coronary Artery Disease Mother Hypertension Mother Alcohol/Drug Father cirrhosis, ETOH Diabetes Maternal Uncle Heart Sister The review of systems data was entered by the nurse and reviewed by me Nursing Notes: Dolly Nielsen RN 11/20/2022 4:24 PM Signed REVIEW OF SYSTEMS: General: The patient denies fatigue, denies weight loss, denies weight gain, NOTES feeling hot, and denies feelings of cold. Eyes: The patient denies glaucoma, denies eye injury/surgery, wears glasses or contacts. Ear/Nose/Throat: The patient NOTES allergies, denies hayfever, denies ear infections, and denies bloody noses. Cardiovascular: The patient denies chest pain, denies heart disease, NOTES high blood pressure,denies cardiac stent, denies prior heart attack, denies irregular heart beat, denies high cholesterol, denies poor circulation, denies heart failure, other cardiac issues, denies claudication, denies cold feet, denies peripheral arterial stent. Respiratory: The patient denies tuberculosis, denies pneumonia, denies frequent cough, denies pulmonary embolism, denies shortness of breath, and denies coughing up blood. Gastrointestinal: The patient denies difficulty swallowing, NOTES acid reflux, denies ulcers, NOTES vomiting, denies jaundice/hepatitis, denies gallbladder problems, denies black or tarry stools, denies hemorrhoids, denies bleeding from rectum, denies diverticulitis, denies constipation, NOTES diarrhea, denies loss of stool control, and denies hernias. Kidney/Bladder: The patient NOTES kidney stones, denies urine infections, and denies bloody urine. Skin: The patient denies a history of skin cancer, denies bleeding/changing moles, and denies a history of skin rash. Neurologic: The patient denies a history of epilepsy/convulsions, NOTES headaches, denies head/spinal injuries, and denies stroke/TIA. Psychiatric: The patient denies psychiatric medications, NOTES depression, and denies voices, denies substance abuse. Endocrine: The patient denies thyroid disorders, den (more content not included)... [facility] 11-20-2022 History of Presen t illness Narrative Kam Gonzalez 1975 REFERRING PHYSICIAN: Brennen Doshi MD CHIEF COMPLAINT: Consult (ER follow-up, Mesenteric panniculitis) HPI: The patient is a 47 year old male presents with complaint of abdominal pain. Patient points to entire abdomen as to location of pain. It is also accompanied by nausea/emesis. He also notes loose stools - 3-4 episodes per day. He also notes low grade fevers. This has been going on since . He denies previous such symptoms. He had been seen at [facility] ED on 11/15/[address] scan revealed mild mid mesenteric stranding with small lymph nodes, suggesting mesenteric panniculitis. PAST MEDICAL HISTORY Diagnosis Date Arthritis Gout, unspecified Hypertension, essential 01/12/2021 Mesenteric panniculitis (HCC) Migraine, unspecified, with intractable migraine, so stated, without mention of status migrainosus Migraine Moderate episode of recurrent major depressive disorder (HCC) 12/15/2020 Morbid obesity with BMI of 40.0-44.9, adult (HCC) Obstructive sleep apnea PAST SURGICAL HISTORY Procedure Laterality Date COLONOSCOPY 04/13/2022 TVA with high-grade dysplasia-repeat colonoscopy in 1 year FUSION OF ANKLE JOINT Right 2014 Current Outpatient Medications Medication Sig sucralfate (CARAFATE) 100 mg/mL suspension Take 10 mL by mouth four times daily as needed (Nausea). methylPREDNISolone (MEDROL, ROSALES,) 4 mg Dose-Pack Follow dosing instructions, take with food. sertraline (ZOLOFT) 100 mg tablet TAKE ONE TABLET BY MOUTH EVERY DAY lisinopril (ZESTRIL, PRINIVIL) 10 mg tablet TAKE ONE TABLET BY MOUTH EVERY DAY cyclobenzaprine (FLEXERIL) 10 mg tablet Take 1 tablet by mouth three times daily as needed for muscle spasm. meloxicam (MOBIC) 15 mg tablet Take 1 tablet by mouth once daily. With food. peg 3350-Electrolytes (GOLYTELY) 236-22.74-6.74 -5.86 gram suspension Refer to printed prep instructions from your provider. ibuprofen (MOTRIN) 800 mg tablet take 1 tablet by mouth every 8 hours if needed for pain with food allopurinol (ZYLOPRIM) 300 mg tablet Take 1 tablet by mouth once daily. For gout. SUMAtriptan (IMITREX) 20 mg/actuation nasal spray Use 1 [place] in the nose as needed. BIPAP loratadine (CLARITIN) 10 mg tablet Take 1 tablet by mouth once daily. ALLERGIES: Naprosyn [Naproxen] and Sulfa (Sulfonamide Antibiotics) PERSONAL HISTORY: Social History Tobacco Use Smoking status: Never Smokeless tobacco: Current Types: Chew Last attempt to quit: 01/03/2019 Tobacco comments: chew Vaping Use Vaping Use: Never used Substance Use Topics Alcohol use: Yes Comment: occassionally Drug use: No FAMILY HISTORY Problem Relation Age of Onset Diabetes Mother Coronary Artery Disease Mother Hypertension Mother Alcohol/Drug Father cirrhosis, ETOH Diabetes Maternal Uncle Heart Sister The review of systems data was entered by the nurse and reviewed by mn Nursing Notes: Dolly Nielsen RN 11/20/2022 4:24 PM Signed REVIEW OF SYSTEMS: General: The patient denies fatigue, denies weight loss, denies weight gain, NOTES feeling hot, and denies feelings of cold. Eyes: The patient denies glaucoma, denies eye injury/surgery, wears glasses or contacts. Ear/Nose/Throat: The patient NOTES allergies, denies hayfever, denies ear infections, and denies bloody noses. Cardiovascular: The patient denies chest pain, denies heart disease, NOTES high blood pressure,denies cardiac stent, denies prior heart attack, denies irregular heart beat, denies high cholesterol, denies poor circulation, denies heart failure, other cardiac issues, denies claudication, denies cold feet, denies peripheral arterial stent. Respiratory: The patient denies tuberculosis, denies pneumonia, denies frequent cough, denies pulmonary embolism, denies shortness of breath, and denies coughing up blood. Gastrointestinal: The patient denies difficulty swallowing, NOTES acid reflux, denies ulcers, NOTES vomiting, denies jaundice/hepatitis, denies gallbladder problems, denies black or tarry stools, denies hemorrhoids, denies bleeding from rectum, denies diverticulitis, denies constipation, NOTES diarrhea, denies loss of stool control, and denies hernias. Kidney/Bladder: The patient NOTES kidney stones, denies urine infections, and denies bloody urine. Skin: The patient denies a history of skin cancer, denies bleeding/changing moles, and denies a history of skin rash. Neurologic: The patient denies a history of epilepsy/convulsions, NOTES headaches, denies head/spinal injuries, and denies stroke/TIA. Psychiatric: The patient denies psychiatric medications, NOTES depression, and denies voices, denies substance abuse. Endocrine: The patient denies thyroid disorders, denies diabetes, and denies hormonal problems. Hematologic: The patient denies a history of bruising, denies bleeding, and denies anemia, denies blood clots. Infections: The patient denies a history of measles and mumps, denies rheumatic fever, and denies sexually transmitted diseases. Musculoskeletal: The patient NOTES back pain/injury, NOTES back problems, denies sciatica, denies knee/foot trouble, NOTES arthritis, or NOTES gout. When was patient's last Mammogram screening? N/A Last Colonoscopy: 04/13/2022 Dolly Nielsen RN PHYSICAL EXAMINATION: General: The patient is 47 year old male, well nourished, well hydrated in no acute distress. The patient is oriented to time, place, and person. Walks and sits comfortably in exam room VITALS: Blood pressure 138/92, pulse 88, temperature 36.9 C (98.4 F), height 177.8 cm (5' 10 ), weight 135.4 kg (298 lb 9.6 oz), SpO2 100 %. Body mass index is 42.84 kg/m . Head: Normal cephalic, atraumatic Eyes: pupils are equally round, sclera are clear/anicteric Neck is supple with no tracheal deviation Respiratory: Normal respiratory excursion and pattern. Abdominal exam: soft, obese and no peritoneal signs Extremities: no clubbing, cyanosis or edema. 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 I have no surgical options to offer patient. I have recommended increased fluid intake. This is probably of viral etiology and may take 1-2 weeks to resolve. Return to ED if any worsening signs/symptoms. The patient acknowledges the above. I have answered all questions to the patient s satisfaction and the patient has no further questions. I have confirmed and edited as necessary, the PFSH and ROS obtained by others. Consultation requested by Dr. Brennen Doshi for an opinion regarding patient's mesenteric panniculitis. My final recommendations will be communicated back to the requesting physician by way of shared Medical record or letter to requesting physician via US mail. . 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 I spent a total of 32 minutes on the date of the service which included preparing to see the patient with review of any pertinent laboratory studies/radiological imaging/medical records from other medical facilities such as [facility], aecf-to-uvjt patient care, obtaining oral medical history from the patient in this encounter, counseling and educating the patient/family/caregiver, and completing appropriate medical documentation. Roberta Wharton MD documented in this encounter [facility] 11-19-2022 Note HNO ID: [id number] Author: Brennen Doshi MD Service: ? Author Type: Physician Type: Progress Notes Filed: 11/19/2022 7:59 PM Note Text: Chief Complaint Patient presents with: Hospital F/U: [facility] Kam Gonzalez is a 47 year old male who presents here today for an ED follow up. Pt here today for a [facility] ED f/u. Pt has not been seen by this office since December 2021. Pt follows with Dr. Cem MONTOYA office. Pt was scheduled on 07/03/22 at 10:00 am but no showed his appt. Pt reports he did not feel well stating that he had GI upset and cramping. Tried to go to the bathroom but was not able to have a BM. Went to work and started vomiting. He was sent home. Pt took a shower and then told his that he needed to go to ED due to his severe stomach pain. ED Provider thought this was diverticulitis, but CT did not show this. Pt was d/c home with Marcella 5-325 mg #10 and Zofran 4 mg #10 and was advised to f/u with Dr. Wharton in 3-5 days if symptoms did not improve. Pt woke up this morning and was having severe abdominal pain and took a Marcella 5-325 mg as needed for pain, using sparingly. He did call off work today and is requesting a work note. He's been fevering on/off today with using Ibuprofen prn. States that he's still vomiting, but believes this is to belching up an acid type taste. He was given Zofran from ED and this is not helping him. Pt is asking for a refill that Dr. Mcadams gave him for his previously abdominal issues/acid type symptoms. Trying to eat light foods. States that he did miss a call from Dr. Priest office today and needs to contact them back to schedule. [facility] ED Visit notes from 11/15/22: HPI - GI History of Present Illness Chief Complaint: Abd Pain Detail of Chief Complaint: Abdominal pain Informant: patient Narrative Narrative: Patient presents with abdominal pain that started 5 days ago. Patient states he developed some lower abdomen cramping and initially thought he might be constipated although he had been having normal bowel movements. Patient took a stool softener and in his stool became somewhat loose. Today he went to work and began having more severe pain and vomited x4 at work and then vomited at home twice. He denies any blood in the stool or black tarry stool. He denies urinary symptoms. He denies fever. Patient denies sick contacts. He has had no prior abdominal surgeries. Prior similar symptoms: No Medical decision making narrative: IV line established on arrival. In the differential was diverticulitis versus kidney stone versus bowel obstruction versus bowel perforation versus other. Patient received morphine and Zofran for pain and had good pain relief with that. CBC with differential obtained was normal. Chemistries were unremarkable. Lactate was 0.6. LFTs were unremarkable. CT scan of the abdomen pelvis showed some mild mid mesentery inflammation which may be consistent with mesenteric panniculitis. I discussed these findings with the patient and also spoke with the general surgeon on-call Dr. Lopez who recommended symptomatic treatment and follow-up with his surgeon of record Dr. Wharton whom patient has seen in the past for colonoscopy which she had last March, If pain does not improve or resolve. Abdomen/Pelvis CT 11/15/22 10:54 IMPRESSION: Mild mid mesenteric stranding with small lymph nodes, suggesting mesenteric panniculitis. Colonic diverticulosis without acute diverticulitis. Hepatic steatosis. Small right renal cyst. Unchanged bladder wall thickening. Electronically Signed: Rekha Vick MD at 11:53 EDT Documentation was copied and pasted for continuity of care. Past medical history, appointments, medications, allergies reviewed. Previous Medical History PAST MEDICAL HISTORY Diagnosis Date Arthritis Gout, unspecified Hypertension, essential 01/12/2021 Migraine, unspecified, with intractable migraine, so stated, without mention of status migrainosus Migraine Moderate episode of recurrent major depressive disorder (HCC) 12/15/2020 Morbid obesity with BMI of 40.0-44.9, adult (HCC) Obstructive sleep apnea Previous Surgical History PAST SURGICAL HISTORY Procedure Laterality Date COLONOSCOPY 04/13/2022 TVA with high-grade dysplasia-repeat colonoscopy in 1 year FUSION OF ANKLE JOINT Right 2014 Family History FAMILY HISTORY Problem Relation Age of Onset Diabetes Mother Coronary Artery Disease Mother Hypertension Mother Alcohol/Drug Father cirrhosis, ETOH Diabetes Maternal Uncle Heart Sister Patient Allergies ALLERGIES Allergen Reactions Naprosyn [Naproxen] GI Upset Sulfa (Sulfonamide * Hives, Shortness of Breath Current Medications Current Outpatient Medications on File Prior to Visit Medication Sig sertraline (ZOLOFT) 100 mg tablet TAKE ONE TABLET BY MOUTH EVERY DAY lisinopril (ZESTRIL, PRINIVIL) 10 mg tablet TAKE ONE TABLET BY MO (more content not included)... [facility] 08-21-2022 Note HNO ID: [id number] Author: Héctor Lagunas, PT Service: ? Author Type: Physical Therapist Type: Progress Notes Filed: 09/20/2022 8:19 AM Note Text: 09/20/2022 [facility] REHABILITATION AND SPORTS THERAPY PHYSICAL THERAPY DISCONTINUANCE OF CARE Plan of Care Period: Start of Care Date: 06/14/22 Last Visit Date: 08/21/2022 Therapy Program: The following is a summary of the interventions provided for this episode of care; Therapeutic exercise, Manual therapy, and Self-skilled nursing management Assessment: The following is the goal status: Goals for Episode of Care: created on 06/14/22 through 07/26/22 Goals updated on 07/13/2022 through 08/17/22 Independent in home exercises. -- MET Patient will decrease pain to 2-3/10 with functional activities to allow patient to improve ambulation, transfers, and standing tolerance for ADLs. -- MET Restore pain-free lumbar ROM to minimal to no limitation grossly to allow for improved mobility to complete transfers and lifting activities at work. -- PARTIALLY MET WITH THE EXCEPTION OF L SB Stand / Walk 30 min on level surface, and unlevel surfaces without Pain/symptoms. -- MET Sleep through night without pain/symptoms. -- MET Sit 1-2 hours without pain/symptoms to allow for seated rest. -- MET Maintain proper sitting posture throughout session -- MET Patient will be able to tolerate lifting #30 or greater without increased symptoms while using correct body mechanics without need for cues. -- MET Patient will be able to correct postural deviations independently in order to improve postural alignment of trunk during transfers, ambulation, sitting, standing, and functional activities. -- MET Knowledgeable regarding prophylaxis. -- MET Patient Goals: return to work -- PT. RETURNS SATURDAY Based on the most recent progress report, patient was progressing slower than expected toward functional goals based on home exercise program compliance, documented subjective information on progress, and appointment compliance. Reason for Discontinuation of Care: Patient has not returned to therapy or scheduled additional follow-up appointments. Héctor Lagunas, PT Episode Visit Count: 9 Therapist That Will Accept/Oversee The Plan Of Care: Héctor Lagunas Start of Care Date: 06/14/22 Onset Date: 05/22/22 Plan of Care Certification Date: 07/13/22 Next Certification Due Date: 08/17/22 Patient Identified by Name and Date of : Yes REHABILITATION AND SPORTS THERAPY PHYSICAL THERAPY TREATMENT NOTE ASSESSMENT: Kam Gonzalez tolerated the session with fatigue and expected muscle soreness. He demonstrated improvements in endurance with hoist machine exercises. The patient will continue to benefit from ongoing skilled physical therapy for reassessment by supervising therapist. PLAN FOR NEXT VISIT: PN, update POC SUBJECTIVE: Patient Reason for Visit: Pt states that he started back to work and his back locked up midshift and cannot perform his duties. 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 Pt reports that he quit his job since incident happened with his back locking up. Pt states he feels he is moving around a little better. Pt reports that he is able to lift a little over 25 pounds. Pain: Pain Pain Level: 0 Pain Location: Low Back/Lumbar Spine - Left Post Treatment Pain Post Treatment Pain Location: Low Back/Lumbar Spine - Left;Low Back/Lumbar Spine - Right;Low Back/Lumbar Spine- Midline Post Treatment Symptoms: aching OBJECTIVE MEASURES WITH LEVEL OF FUNCTION: Lumbar Spine AROM Lumbar R Side-Bend: Minimal limitation TREATMENT: Therapeutic Exercise: 1: prone lying x 3 minutes 2: prone on elbows 3 min 3: prone press ups 2x10 4: Standing lateral flexion 2x10 5: prone quad stretch 3x30 sec each side with strap (limited on L side compared to R) 6: Stir the pot at [place] 2 plates plus 3 round 2x15 B CW and CCW 7: hoist walk back and forward 5 steps 2x10 ; 2 plates + 3 small round 2 sets 8: Standing at hoist Pallof's press 2x15 both directions 2 plates plus 3 round Skilled Intervention: Patient was educated in proper exercise technique and purpose for exercises. Skilled judgment was provided in selection of appropriate interventions. Correct performance of therapeutic exercises was facilitated with verbal and visual cuing. Billing Therapeutic Exercise Treatment Minutes: 40 Total Treatment Time Minutes (timed/untimed): 40 Ana Sprague, PHARMACEUTICAL SALES REPRESENTATIVE Héctor Lagunas, PT [facility] 08-21-2022 History of Presen t illness Narrative Episode Visit Count: 9 Therapist That Will Accept/Oversee The Plan Of Care: Héctor Lagunas Start of Care Date: 06/14/22 Onset Date: 05/22/22 Plan of Care Certification Date: 07/13/22 Next Certification Due Date: 08/17/22 Patient Identified by Name and Date of : Yes REHABILITATION AND SPORTS THERAPY PHYSICAL THERAPY TREATMENT NOTE ASSESSMENT: Kam Gonazlez tolerated the session with fatigue and expected muscle soreness. He demonstrated improvements in endurance with hoist machine exercises. The patient will continue to benefit from ongoing skilled physical therapy for reassessment by supervising therapist. PLAN FOR NEXT VISIT: PN, update POC SUBJECTIVE: Patient Reason for Visit: Pt states that he started back to work and his back locked up midshift and cannot perform his duties. 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 Pt reports that he quit his job since incident happened with his back locking up. Pt states he feels he is moving around a little better. Pt reports that he is able to lift a little over 25 pounds. Pain: Pain Pain Level: 0 Pain Location: Low Back/Lumbar Spine - Left Post Treatment Pain Post Treatment Pain Location: Low Back/Lumbar Spine - Left;Low Back/Lumbar Spine - Right;Low Back/Lumbar Spine- Midline Post Treatment Symptoms: aching OBJECTIVE MEASURES WITH LEVEL OF FUNCTION: Lumbar Spine AROM Lumbar R Side-Bend: Minimal limitation TREATMENT: Therapeutic Exercise: 1: prone lying x 3 minutes 2: prone on elbows 3 min 3: prone press ups 2x10 4: Standing lateral flexion 2x10 5: prone quad stretch 3x30 sec each side with strap (limited on L side compared to R) 6: Stir the pot at [place] 2 plates plus 3 round 2x15 B CW and CCW 7: hoist walk back and forward 5 steps 2x10 ; 2 plates + 3 small round 2 sets 8: Standing at hoist Pallof's press 2x15 both directions 2 plates plus 3 round Skilled Intervention: Patient was educated in proper exercise technique and purpose for exercises. Skilled judgment was provided in selection of appropriate interventions. Correct performance of therapeutic exercises was facilitated with verbal and visual cuing. Billing Therapeutic Exercise Treatment Minutes: 40 Total Treatment Time Minutes (timed/untimed): 40 ADRIENNE Snyder PT documented in this encounter [facility] 07-31-2022 Note HNO ID: [id number] Author: Héctor Lagunas PT Service: ? Author Type: Physical Therapist Type: Progress Notes Filed: 07/31/2022 6:44 PM Note Text: yeEpisode Visit Count: 8 Therapist That Will Accept/Oversee The Plan Of Care: Héctor Lagunas Start of Care Date: 06/14/22 Onset Date: 05/22/22 Plan of Care Certification Date: 07/13/22 Next Certification Due Date: 08/17/22 Patient Identified by Name and Date of : Yes REHABILITATION AND SPORTS THERAPY PHYSICAL THERAPY TREATMENT NOTE ASSESSMENT: Kam Gonzalez tolerated the session with fatigue. He demonstrated improvements in L lumbar side bend. The patient will continue to benefit from ongoing skilled physical therapy to progress toward set goals. PLAN FOR NEXT VISIT: Continue core stabilization strengthening, improve L lumbar side flexion and rotation AROM SUBJECTIVE: Patient Reason for Visit: Pt reports that he is feeling better. Pt reports compliance with HEP. Pt states that he is going back to work Saturday08/06/22. Pain: Pain Pain Level: 2 Pain Location: Low Back/Lumbar Spine - Left Description: Aching OBJECTIVE MEASURES WITH LEVEL OF FUNCTION: Lumbar Spine AROM Lumbar R Side-Bend: Minimal limitation (fingers to superior patella) TREATMENT: Therapeutic Exercise: 1: prone lying x 3 minutes 2: prone on elbows 3 min 3: prone press ups x7reps,x3 reps 4: Standing lateral flexion 2x10 5: prone quad stretch 3x30 sec each side with strap (limited on L side compared to R) 6: standing TA pull down at [facility] 2 plates + 3 round 3x12 7: hoist walk back and forward 5 steps x3 rounds; 2 plates + 3 small round 2 sets Skilled Intervention: Patient was educated in proper exercise technique and purpose for exercises. Skilled judgment was provided in selection of appropriate interventions. Correct performance of therapeutic exercises was facilitated with verbal and visual cuing. Therapeutic Activity: 1: Repetitive lifting 15 # DB from table height to 6 inch step with instruction on propr technique and not twisting at back for RTW. Skilled Intervention: Instructed on proper lifting and carrying techniques with importance of core activation. Educated on proper/safe technique for activities performed today. Activity progression based on professional judgment. Demonstration for proper lifting mechanics. Billing Therapeutic Exercise Treatment Minutes: 35 Therapeutic Activity Treatment Minutes: 10 Total Treatment Time Minutes (timed/untimed): 45 Ana Sprague, PHARMACEUTICAL SALES REPRESENTATIVE Héctor Lagunas, PT [facility] 07-31-2022 History of Presen t illness Narrative yeEpisode Visit Count: 8 Therapist That Will Accept/Oversee The Plan Of Care: Héctor Lagunas Start of Care Date: 06/14/22 Onset Date: 05/22/22 Plan of Care Certification Date: 07/13/22 Next Certification Due Date: 08/17/22 Patient Identified by Name and Date of : Yes REHABILITATION AND SPORTS THERAPY PHYSICAL THERAPY TREATMENT NOTE ASSESSMENT: Kam Gonzalez tolerated the session with fatigue. He demonstrated improvements in L lumbar side bend. The patient will continue to benefit from ongoing skilled physical therapy to progress toward set goals. PLAN FOR NEXT VISIT: Continue core stabilization strengthening, improve L lumbar side flexion and rotation AROM SUBJECTIVE: Patient Reason for Visit: Pt reports that he is feeling better. Pt reports compliance with HEP. Pt states that he is going back to work Saturday08/06/22. Pain: Pain Pain Level: 2 Pain Location: Low Back/Lumbar Spine - Left Description: Aching OBJECTIVE MEASURES WITH LEVEL OF FUNCTION: Lumbar Spine AROM Lumbar R Side-Bend: Minimal limitation (fingers to superior patella) TREATMENT: Therapeutic Exercise: 1: prone lying x 3 minutes 2: prone on elbows 3 min 3: prone press ups x7reps,x3 reps 4: Standing lateral flexion 2x10 5: prone quad stretch 3x30 sec each side with strap (limited on L side compared to R) 6: standing TA pull down at [facility] 2 plates + 3 round 3x12 7: ist walk back and forward 5 steps x3 rounds; 2 plates + 3 small round 2 sets Skilled Intervention: Patient was educated in proper exercise technique and purpose for exercises. Skilled judgment was provided in selection of appropriate interventions. Correct performance of therapeutic exercises was facilitated with verbal and visual cuing. Therapeutic Activity: 1: Repetitive lifting 15 # DB from table height to 6 inch step with instruction on propr technique and not twisting at back for RTW. Skilled Intervention: Instructed on proper lifting and carrying techniques with importance of core activation. Educated on proper/safe technique for activities performed today. Activity progression based on professional judgment. Demonstration for proper lifting mechanics. Billing Therapeutic Exercise Treatment Minutes: 35 Therapeutic Activity Treatment Minutes: 10 Total Treatment Time Minutes (timed/untimed): 45 ADRIENNE Snyder PT documented in this encounter [facility] 07-24-2022 Note HNO ID: [id number] Author: Héctor Lagunas PT Service: ? Author Type: Physical Therapist Type: Progress Notes Filed: 07/24/2022 5:31 PM Note Text: Episode Visit Count: 7 Therapist That Will Accept/Oversee The Plan Of Care: Héctor O'Anshu Start of Care Date: 06/14/22 Onset Date: 05/22/22 Plan of Care Certification Date: 07/13/22 Next Certification Due Date: 08/17/22 Patient Identified by Name and Date of : Yes REHABILITATION AND SPORTS THERAPY PHYSICAL THERAPY TREATMENT NOTE ASSESSMENT: Kam Gonzalez tolerated the session with decreased symptoms. He demonstrated difficulty with standing lumbar side bending. The patient will continue to benefit from ongoing skilled physical therapy to progress toward set goals. PLAN FOR NEXT VISIT: Continue core stabilization strengthening, improve L lumbar side flexion and rotation AROM SUBJECTIVE: Patient Reason for Visit: Pt reports that the chiropractor popped him back into place yesterday and he is very sore and achy from it, but denies pain. Pt states that his bowflex is too much for him, he is using a theraband instead. Pt reports that his Chiropractor would like him to work 1/2 shift until otherwise noted. Pt has not heard from employer yet. Pain: Pain Pain Location: Low Back/Lumbar Spine - Left Description: Aching Post Treatment Pain Post Treatment Pain Level: Better OBJECTIVE MEASURES WITH LEVEL OF FUNCTION: Lumbar Spine AROM Lumbar R Side-Bend: Moderate limitation (Fingers to mid thigh on L) TREATMENT: Therapeutic Exercise: 1: prone lying x 3 minutes 2: prone on elbows 3 min 3: prone press ups x1rep (pt said that it was not a good feeling, ache got worse, when he tried the press up) 4: *Standing lateral flexion x7,x5 5: prone quad stretch 3x30 sec each side with strap (limited on L side compared to R) 6: standing TA pull down at hoist 2 plates + 3 round 3x10 7: hoist walk back and forward 5 steps 2 plates + 3 small round 2 sets 8: *Seated lumbar rotation 2 x 10 B Skilled Intervention: Patient was educated in proper exercise technique and purpose for exercises. Reviewed and educated patient on additions/changes for home exercise program as above (*). Skilled judgment was provided in selection of appropriate interventions. Provided written instruction for home exercise program to facilitate proper performance and compliance. Correct performance of therapeutic exercises was facilitated with verbal and visual cuing. Billing Therapeutic Exercise Treatment Minutes: 45 Total Treatment Time Minutes (timed/untimed): 45 Ana Sprague, PHARMACEUTICAL SALES REPRESENTATIVE Héctor Lagunas, PT [facility] 07-24-2022 History of Presen t illness Narrative Episode Visit Count: 7 Therapist That Will Accept/Oversee The Plan Of Care: Héctor Lagunas Start of Care Date: 06/14/22 Onset Date: 05/22/22 Plan of Care Certification Date: 07/13/22 Next Certification Due Date: 08/17/22 Patient Identified by Name and Date of : Yes REHABILITATION AND SPORTS THERAPY PHYSICAL THERAPY TREATMENT NOTE ASSESSMENT: Kam Gonzalez tolerated the session with decreased symptoms. He demonstrated difficulty with standing lumbar side bending. The patient will continue to benefit from ongoing skilled physical therapy to progress toward set goals. PLAN FOR NEXT VISIT: Continue core stabilization strengthening, improve L lumbar side flexion and rotation AROM SUBJECTIVE: Patient Reason for Visit: Pt reports that the chiropractor popped him back into place yesterday and he is very sore and achy from it, but denies pain. Pt states that his bowflex is too much for him, he is using a theraband instead. Pt reports that his Chiropractor would like him to work 1/2 shift until otherwise noted. Pt has not heard from employer yet. Pain: Pain Pain Location: Low Back/Lumbar Spine - Left Description: Aching Post Treatment Pain Post Treatment Pain Level: Better OBJECTIVE MEASURES WITH LEVEL OF FUNCTION: Lumbar Spine AROM Lumbar R Side-Bend: Moderate limitation (Fingers to mid thigh on L) TREATMENT: Therapeutic Exercise: 1: prone lying x 3 minutes 2: prone on elbows 3 min 3: prone press ups x1rep (pt said that it was not a good feeling, ache got worse, when he tried the press up) 4: *Standing lateral flexion x7,x5 5: prone quad stretch 3x30 sec each side with strap (limited on L side compared to R) 6: standing TA pull down at hoist 2 plates + 3 round 3x10 7: hoist walk back and forward 5 steps 2 plates + 3 small round 2 sets 8: *Seated lumbar rotation 2 x 10 B Skilled Intervention: Patient was educated in proper exercise technique and purpose for exercises. Reviewed and educated patient on additions/changes for home exercise program as above (*). Skilled judgment was provided in selection of appropriate interventions. Provided written instruction for home exercise program to facilitate proper performance and compliance. Correct performance of therapeutic exercises was facilitated with verbal and visual cuing. Billing Therapeutic Exercise Treatment Minutes: 45 Total Treatment Time Minutes (timed/untimed): 45 Ana Francistroy, ADRIENNE Lagunas PT documented in this encounter [facility] 07-19-2022 Note HNO ID: [id number] Author: Cheryle Everett LPN Service: ? Author Type: ? Type: Progress Notes Filed: 07/19/2022 1:04 PM Note Text: Patient presents for COVID vaccine. Denies any problems at this time. Tolerated injection well. Cheryle Everett LPN [facility] 07-19-2022 History of Presen t illness Narrative Patient presents for COVID vaccine. Denies any problems at this time. Tolerated injection well. Cheryle Everett LPN documented in this encounter [facility] 07-13-2022 Note HNO ID: [id number] Author: Héctor Lagunas PT Service: ? Author Type: Physical Therapist Type: Progress Notes Filed: 07/13/2022 3:27 PM Note Text: Episode Visit Count: 6 Therapist That Will Accept/Oversee The Plan Of Care: Héctor Lagunas Start of Care Date: 06/14/22 Onset Date: 05/22/22 Plan of Care Certification Date: 07/13/22 Next Certification Due Date: 08/17/22 REHABILITATION AND SPORTS THERAPY PHYSICAL THERAPY PROGRESS REPORT PLAN OF CARE UPDATE: Assessment: Kam Gonzalez demonstrates improvements in sitting, rising from a chair, standing, walking, and walking in the house. He hasprogressed toward goals. Patient continues to present with impairments in ADL's, independence in exercise, joint mobility, overall function, patient reported outcome measures, posture, range of motion, strength , symptom management, and tissue tenderness that interfere with lifting;bending;working;stair negotiation;bed mobility;walking in the community . Current prognosis is Good due to: within-session changes;good support system/ coping skills;current objective clinical presentation;Prognosis may be limited due to limited tolerance to activity . He will benefit from continued skilled therapy services to meet the updated goals for this plan of care as noted below. Goals for Episode of Care: created on 06/14/22 through 07/26/22 Goals updated on 07/13/2022 through 08/17/22 Independent in home exercises. -- MET Patient will decrease pain to 2-3/10 with functional activities to allow patient to improve ambulation, transfers, and standing tolerance for ADLs. -- MET Restore pain-free lumbar ROM to minimal to no limitation grossly to allow for improved mobility to complete transfers and lifting activities at work. -- PARTIALLY MET WITH THE EXCEPTION OF L SB Stand / Walk 30 min on level surface, and unlevel surfaces without Pain/symptoms. -- MET Sleep through night without pain/symptoms. -- MET Sit 1-2 hours without pain/symptoms to allow for seated rest. -- MET Maintain proper sitting posture throughout session -- MET Patient will be able to tolerate lifting #30 or greater without increased symptoms while using correct body mechanics without need for cues. -- MET Patient will be able to correct postural deviations independently in order to improve postural alignment of trunk during transfers, ambulation, sitting, standing, and functional activities. -- MET Knowledgeable regarding prophylaxis. -- MET Patient Goals: return to work -- PT. RETURNS SATURDAY Patient Goals: return to work Planned Interventions, Frequency, and Duration: 1x/week, 6 weeks Total Number of Visits Planned: 6 Patient to be seen for Therapeutic exercise ([id number]);Self-skilled nursing management ([id number]) PLAN FOR NEXT VISIT: Continue core stabilization strengthening, improve L lumbar side flexion and rotation AROM SUBJECTIVE: Patient Reason for Visit: Pt. reports that his back is sore. He feels like the exercises are helpful and he has been completing all of them. Pt. reports 78% improvement overall.. Patient Goals: return to work Functional Limitations: lifting;bending;working;stair negotiation;bed mobility;walking in the community Pain: Pain Pain Level: 2 Pain Location: Low Back/Lumbar Spine - Left Description: Aching Post Treatment Pain Post Treatment Pain Level: 0 Post Treatment Pain Location: Low Back/Lumbar Spine- Midline Post Treatment Symptoms: I feel it in my core more than my back. PROMIS Scales T-scores: mean of general population = 50. 5 points is clinically meaningfully difference Percentiles provide an indication of how the patient's score ranks in relation to the general population. Higher percentile rankings indicate better function/quality of life. 50th percentile is the average of the general population and indicates half of respondents had a worse score. T-scores: mean of general population = 50. 5 points is clinically meaningfully difference Percentiles provide an indication of how the patient's score ranks in relation to the general population. Higher percentile rankings indicate better function/quality of life. 50th percentile is the average of the general population and indicates half of respondents had a worse score. OBJECTIVE MEASURES WITH LEVEL OF FUNCTION: Lumbar Spine AROM Lumbar Flexion: Moderate limitation Lumbar Extension: Minimal limitation Lumbar R Side-Bend: Moderate limitation Lumbar L Side-Bend: Major limitation Lumbar R Rotation: Moderate limitation Lumbar L Rotation: Major limitation TREATMENT: Therapeutic Exercise: 1: lumbar flexion, extension, SB R and L, rotation R and L 1x each 2: prone on elbows 5 min (pain reduced to 0/10) 3: prone press ups 3x5 4: prone hip extension 2x10 each side (cues to avoid lumbar rotation R with R hip extension) 5: prone quad stretch 3x30 sec each side with strap ( feel a pain, but in a good way. -- per p (more content not included)... [facility] 07-13-2022 History of Presen t illness Narrative Episode Visit Count: 6 Therapist That Will Accept/Oversee The Plan Of Care: Héctor Lagunas Start of Care Date: 06/14/22 Onset Date: 05/22/22 Plan of Care Certification Date: 07/13/22 Next Certification Due Date: 08/17/22 REHABILITATION AND SPORTS THERAPY PHYSICAL THERAPY PROGRESS REPORT PLAN OF CARE UPDATE: Assessment: Kam Gonzalez demonstrates improvements in sitting, rising from a chair, standing, walking, and walking in the house. He hasprogressed toward goals. Patient continues to present with impairments in ADL's, independence in exercise, joint mobility, overall function, patient reported outcome measures, posture, range of motion, strength , symptom management, and tissue tenderness that interfere with lifting;bending;working;stair negotiation;bed mobility;walking in the community . Current prognosis is Good due to: within-session changes;good support system/ coping skills;current objective clinical presentation;Prognosis may be limited due to limited tolerance to activity . He will benefit from continued skilled therapy services to meet the updated goals for this plan of care as noted below. Goals for Episode of Care: created on 06/14/22 through 07/26/22 Goals updated on 07/13/2022 through 08/17/22 Independent in home exercises. -- MET Patient will decrease pain to 2-3/10 with functional activities to allow patient to improve ambulation, transfers, and standing tolerance for ADLs. -- MET Restore pain-free lumbar ROM to minimal to no limitation grossly to allow for improved mobility to complete transfers and lifting activities at work. -- PARTIALLY MET WITH THE EXCEPTION OF L SB Stand / Walk 30 min on level surface, and unlevel surfaces without Pain/symptoms. -- MET Sleep through night without pain/symptoms. -- MET Sit 1-2 hours without pain/symptoms to allow for seated rest. -- MET Maintain proper sitting posture throughout session -- MET Patient will be able to tolerate lifting #30 or greater without increased symptoms while using correct body mechanics without need for cues. -- MET Patient will be able to correct postural deviations independently in order to improve postural alignment of trunk during transfers, ambulation, sitting, standing, and functional activities. -- MET Knowledgeable regarding prophylaxis. -- MET Patient Goals: return to work -- PT. RETURNS SATURDAY Patient Goals: return to work Planned Interventions, Frequency, and Duration: 1x/week, 6 weeks Total Number of Visits Planned: 6 Patient to be seen for Therapeutic exercise ([id number]);Self-skilled nursing management ([id number]) PLAN FOR NEXT VISIT: Continue core stabilization strengthening, improve L lumbar side flexion and rotation AROM SUBJECTIVE: Patient Reason for Visit: Pt. reports that his back is sore. He feels like the exercises are helpful and he has been completing all of them. Pt. reports 78% improvement overall.. Patient Goals: return to work Functional Limitations: lifting;bending;working;stair negotiation;bed mobility;walking in the community Pain: Pain Pain Level: 2 Pain Location: Low Back/Lumbar Spine - Left Description: Aching Post Treatment Pain Post Treatment Pain Level: 0 Post Treatment Pain Location: Low Back/Lumbar Spine- Midline Post Treatment Symptoms: I feel it in my core more than my back. PROMIS Scales T-scores: mean of general population = 50. 5 points is clinically meaningfully difference Percentiles provide an indication of how the patient's score ranks in relation to the general population. Higher percentile rankings indicate better function/quality of life. 50th percentile is the average of the general population and indicates half of respondents had a worse score. T-scores: mean of general population = 50. 5 points is clinically meaningfully difference Percentiles provide an indication of how the patient's score ranks in relation to the general population. Higher percentile rankings indicate better function/quality of life. 50th percentile is the average of the general population and indicates half of respondents had a worse score. OBJECTIVE MEASURES WITH LEVEL OF FUNCTION: Lumbar Spine AROM Lumbar Flexion: Moderate limitation Lumbar Extension: Minimal limitation Lumbar R Side-Bend: Moderate limitation Lumbar L Side-Bend: Major limitation Lumbar R Rotation: Moderate limitation Lumbar L Rotation: Major limitation TREATMENT: Therapeutic Exercise: 1: lumbar flexion, extension, SB R and L, rotation R and L 1x each 2: prone on elbows 5 min (pain reduced to 0/10) 3: prone press ups 3x5 4: prone hip extension 2x10 each side (cues to avoid lumbar rotation R with R hip extension) 5: prone quad stretch 3x30 sec each side with strap ( feel a pain, but in a good way. -- per pt.) 6: standing TA pull down at [facility] 2 plates + 3 round 2x12 7: hoist walk back and forward 5 steps 2 plates + 3 small round 2 sets Skilled Intervention: Patient was educated in proper exercise technique and purpose for exercises. Reviewed and educated patient on additions/changes for home exercise program as above (*). Skilled judgment was provided in selection of appropriate interventions. Additional time necessary for assessing progress toward goals due to progress note today. Educated patient on rationale for performing exercises in regards to decreasing fatigue , increase ease of ADL, and ROM and function . Patient education as noted. Self-Prison Management: 1: *discussed the healing process and return to ADLs/work taking longer than when pt. was in highschool 2: *discussed the importance of correct lifting mechanics reguardless of the amount of resistance. Skilled Intervention: Skilled judgment in the selection of proper modification for activity of daily living/home management based on clinical presentation, deficits, and needs. Reviewed patient specific diagnosis in relation to activities of daily living/home management. Activity progression based on professional judgement. Moderate verbal cues for maintaining neutral spine alignment. Reviewed and educated patient on additions/changes for home program as noted above with an (*). Billing Therapeutic Exercise Treatment Minutes: 35 Self-Care/Home Management Treatment Minutes: 5 Total Treatment Time Minutes (timed/untimed): 40 Héctor Lagunas PT documented in this encounter [facility] 07-09-2022 Note HNO ID: [id number] Author: Héctor Lagunas PT Service: ? Author Type: Physical Therapist Type: Progress Notes Filed: 07/09/2022 5:12 PM Note Text: Episode Visit Count: 5 Therapist That Will Accept/Oversee The Plan Of Care: Héctor Lagunas Start of Care Date: 06/14/22 Onset Date: 05/22/22 Plan of Care Certification Date: 06/14/22 Next Certification Due Date: 07/19/22 Patient Identified by Name and Date of : Yes REHABILITATION AND SPORTS THERAPY PHYSICAL THERAPY TREATMENT NOTE ASSESSMENT: Kam Gonzalez tolerated the session with fatigue and expected muscle soreness. He demonstrated improvements in lifting mechanics. The patient will continue to benefit from ongoing skilled physical therapy to progress toward set goals. PLAN FOR NEXT VISIT: Continue with standing and sitting core strengthening. SUBJECTIVE: Patient Reason for Visit: Pt visit started early due to pt early arrival. Pt reports having minimal pain since last visit, until yesterday. Pt's cat hit a candle off of counter and hit him in the back and it shot pain up his back, nothing to cause pain in low back. Pt states he feels he is getting better. pt able to complete 2x5 of standing lumbar extension at wall without pain. Pain: Pain Pain Level: 2 Pain Location: Low Back/Lumbar Spine - Left Description: Dull;Aching Post Treatment Pain Post Treatment Pain Level: No Change Post Treatment Symptoms: feel like I've worked it OBJECTIVE MEASURES WITH LEVEL OF FUNCTION: Pt able to maintain core stabilization with seated iso abs with UE and LE movements. TREATMENT: Therapeutic Exercise: 1: Seated iso abs wiht 5 second hold x5 2: standing TA pull down at hoist 2 plates + 3 round 2x10 3: standing TA paloff pressat hoist 2 plates 2x10 B 4: Seated iso abs with alt arms 2x10 B 5: *standing TA stir the pot at hoist 2x10 CW + CCW each side 6: Seated iso abs with alt marching 2x10 B 7: Seated iso abs alt arms with alt legs 2x8 B Skilled Intervention: Patient was educated in proper exercise technique and purpose for exercises. Reviewed and educated patient on additions/changes for home exercise program as above (*). Skilled judgment was provided in selection of appropriate interventions. Provided written instruction for home exercise program to facilitate proper performance and compliance. Correct performance of therapeutic exercises was facilitated with verbal and visual cuing. Therapeutic Activity: 1: repetitive lifting with 15 # weight from table height to pallet height with good form x10 2: reviewd lifting in terms of work tasks Skilled Intervention: Demonstration for technique with placing weight on low surface. Billing Therapeutic Exercise Treatment Minutes: 27 Therapeutic Activity Treatment Minutes: 17 Total Treatment Time Minutes (timed/untimed): 44 Ana Sprague, PHARMACEUTICAL SALES REPRESENTATIVE Héctor Lagunas, PT [facility] 07-09-2022 History of Presen t illness Narrative Episode Visit Count: 5 Therapist That Will Accept/Oversee The Plan Of Care: Héctor Lagunas Start of Care Date: 06/14/22 Onset Date: 05/22/22 Plan of Care Certification Date: 06/14/22 Next Certification Due Date: 07/19/22 Patient Identified by Name and Date of : Yes REHABILITATION AND SPORTS THERAPY PHYSICAL THERAPY TREATMENT NOTE ASSESSMENT: Kam Gonzalez tolerated the session with fatigue and expected muscle soreness. He demonstrated improvements in lifting mechanics. The patient will continue to benefit from ongoing skilled physical therapy to progress toward set goals. PLAN FOR NEXT VISIT: Continue with standing and sitting core strengthening. SUBJECTIVE: Patient Reason for Visit: Pt visit started early due to pt early arrival. Pt reports having minimal pain since last visit, until yesterday. Pt's cat hit a candle off of counter and hit him in the back and it shot pain up his back, nothing to cause pain in low back. Pt states he feels he is getting better. pt able to complete 2x5 of standing lumbar extension at wall without pain. Pain: Pain Pain Level: 2 Pain Location: Low Back/Lumbar Spine - Left Description: Dull;Aching Post Treatment Pain Post Treatment Pain Level: No Change Post Treatment Symptoms: feel like I've worked it OBJECTIVE MEASURES WITH LEVEL OF FUNCTION: Pt able to maintain core stabilization with seated iso abs with UE and LE movements. TREATMENT: Therapeutic Exercise: 1: Seated iso abs wiht 5 second hold x5 2: standing TA pull down at hoist 2 plates + 3 round 2x10 3: standing TA paloff pressat hoist 2 plates 2x10 B 4: Seated iso abs with alt arms 2x10 B 5: *standing TA stir the pot at hoist 2x10 CW + CCW each side 6: Seated iso abs with alt marching 2x10 B 7: Seated iso abs alt arms with alt legs 2x8 B Skilled Intervention: Patient was educated in proper exercise technique and purpose for exercises. Reviewed and educated patient on additions/changes for home exercise program as above (*). Skilled judgment was provided in selection of appropriate interventions. Provided written instruction for home exercise program to facilitate proper performance and compliance. Correct performance of therapeutic exercises was facilitated with verbal and visual cuing. Therapeutic Activity: 1: repetitive lifting with 15 # weight from table height to pallet height with good form x10 2: reviewd lifting in terms of work tasks Skilled Intervention: Demonstration for technique with placing weight on low surface. Billing Therapeutic Exercise Treatment Minutes: 27 Therapeutic Activity Treatment Minutes: 17 Total Treatment Time Minutes (timed/untimed): 44 Ana Sprague, ADRIENNE Lagunas PT documented in this encounter [facility] 07-05-2022 Note HNO ID: [id number] Author: Héctor Lagunas PT Service: ? Author Type: Physical Therapist Type: Progress Notes Filed: 07/05/2022 2:24 PM Note Text: Episode Visit Count: 4 Therapist That Will Accept/Oversee The Plan Of Care: Héctor Lagunas Start of Care Date: 06/14/22 Onset Date: 05/22/22 Plan of Care Certification Date: 06/14/22 Next Certification Due Date: 07/19/22 REHABILITATION AND SPORTS THERAPY PHYSICAL THERAPY TREATMENT NOTE ASSESSMENT: Kam Gonzalez tolerated the session with decreased symptoms. He demonstrated improvements in activity tolerance although he reports no further reduction in symptoms throughout visit when doing repeated lumbar extension exercises while seated. He is not able to tolerate the prone position or press ups at this time.. The patient will continue to benefit from ongoing skilled physical therapy to progress toward set goals. PLAN FOR NEXT VISIT: SUBJECTIVE: Patient Reason for Visit: Pt. reports improvement overall. He continues to have L side low back pain that feels like pressure. He is concerned how he will do lifting items at work as he has been avoiding bending forward. He has not been lying on the stomach due to feeling rib pain when lying prone although this was beneficial for LBP. Pain: Pain Pain Level: 3 Pain Location: Low Back/Lumbar Spine - Left Description: Pressure Post Treatment Pain Post Treatment Pain Location: Low Back/Lumbar Spine- Midline OBJECTIVE MEASURES WITH LEVEL OF FUNCTION: TREATMENT: Therapeutic Exercise: 1: seated lumbar extension 3x10 (symptoms do not change, pt. reports this is the lowest it gets ) 2: *standing TA pull down BTB 3x10 3: standing TA paloff press PTB 2x10 each side 4: * issued PTB 5: *standing TA stir the pot BTB 2x10 CW + CCW each side Skilled Intervention: Patient was educated in proper exercise technique and purpose for exercises. Skilled judgment was provided in selection of appropriate interventions. Provided written instruction for home exercise program to facilitate proper performance and compliance. Educated patient on rationale for performing exercises in regards to decreasing fatigue and increase ease of ADL. Patient education as noted. Therapeutic Activity: 1: reviewed lifting mechanics from table surface pt. waist level 2x10 #5 DB 2: side stepping technique while lifting and moving boxes avoiding lumbar rotation B DB #20 2x5 Skilled Intervention: Instructed on proper lifting and carrying techniques with importance of core activation. Moderate verbal cues for maintaining neutral spine alignment. Activity progression based on professional judgment. Reviewed and educated patient on additions/changes for home program as noted above with an (*). Self-Prison Management: 1: *discussed concepts of lifting mechanics while avoiding lumbar flexion and rotation. Skilled Intervention: Skilled judgment in the selection of proper modification for activity of daily living/home management based on clinical presentation, deficits, and needs. Educated the patient regarding recommendations and provided written instruction to facilitate compliance. Provided written instruction for activities of daily living techniques to facilitate proper performance and compliance. Reviewed patient specific diagnosis in relation to activities of daily living/home management. Activity progression based on professional judgement. Reviewed and educated patient on additions/changes for home program as noted above with an (*). Billing Therapeutic Exercise Treatment Minutes: 20 Therapeutic Activity Treatment Minutes: 15 Self-Care/Home Management Treatment Minutes: 5 Total Treatment Time Minutes (timed/untimed): 40 Héctormarissa Lagunas PT [facility] 07-05-2022 Miscellaneous Notes The following approved medication requests have been transmitted electronically. Requested Prescriptions Pending Prescriptions Disp Refills sertraline (ZOLOFT) 100 mg tablet [Pharmacy Med Name: SERTRALINE HCL 100MG TABS] 90 tablet 4 Sig: TAKE ONE TABLET BY MOUTH EVERY DAY Damaris Blanchard APRN.YIELD LOSS INSPECTOR Patient phones requesting refills as follows: Requested Prescriptions Pending Prescriptions Disp Refills sertraline (ZOLOFT) 100 mg tablet [Pharmacy Med Name: SERTRALINE HCL 100MG TABS] 30 tablet 5 Sig: TAKE ONE TABLET BY MOUTH EVERY DAY JOELLE-05/23/22 Labs-01/16/22 NOV-none med filled 01/16/22 Please review and advise. Soniya Barreto LPN documented in this encounter [facility] 06-27-2022 Note HNO ID: [id number] Author: Héctor Lagunas PT Service: ? Author Type: Physical Therapist Type: Progress Notes Filed: 06/27/2022 10:07 AM Note Text: Episode Visit Count: 3 Therapist That Will Accept/Oversee The Plan Of Care: Héctor Lagunas Start of Care Date: 06/14/22 Onset Date: 05/22/22 Plan of Care Certification Date: 06/14/22 Next Certification Due Date: 07/19/22 REHABILITATION AND SPORTS THERAPY PHYSICAL THERAPY TREATMENT NOTE ASSESSMENT: Kam Gonzalez tolerated the session with continued positive response to repeated lumbar based directional preference exercises that are modified to seated and prone positions. He demonstrated improvements in lumbar AAROM with continued sets of prone press ups. Pt. Reports the most relief and best tolerates seated position TA activation. The patient will continue to benefit from ongoing skilled physical therapy to progress toward set goals. PLAN FOR NEXT VISIT: Possibly try manual traction. TA activation seated if pt. reports positive symptom response with HEP. Continue lumbar extension directional preference stretching with low volume/multiple sets as tolerated to improve mobility. SUBJECTIVE: Patient Reason for Visit: Pt. arrived 8 min late rfor appointment. He reports going to the ER due to increased LBP following standing repeated lumbar extension exercises. These were discontinued and PHARMACEUTICAL SALES REPRESENTATIVE gave him a seated version last visit which he reports is painful but he thinks is helping. He reports feeling better today. Pain: Pain Pain Level: 4 Pain Location: Low Back/Lumbar Spine - Left Post Treatment Pain Post Treatment Pain Level: 5 Post Treatment Pain Location: Low Back/Lumbar Spine- Midline Post Treatment Symptoms: symptoms centralized to midline of lower back. Pt. reports further improvement following seated TA activation OBJECTIVE MEASURES WITH LEVEL OF FUNCTION: TREATMENT: Therapeutic Exercise: 1: seated lumbar extension 2x10 (no change in symptoms) 2: Prone prop x 2 minutes (no change in symptoms) 3: Prone press up 3x5, 1 min x3 between sets of 5 press ups (requires cues for correct technique, initially only extending at the thoracic spine and neck) 4: pone lay 2 min 5: *seated TA activation 3x10 Skilled Intervention: Patient was educated in proper exercise technique and purpose for exercises. Reviewed and educated patient on additions/changes for home exercise program as above (*). Skilled judgment was provided in selection of appropriate interventions. Provided written instruction for home exercise program to facilitate proper performance and compliance. Correct performance of therapeutic exercises was facilitated with verbal, visual, and tactile cuing. Additional time necessary for intermittent rest due to reports of increased pain and very limited activity tolerance demonstrated in modified positions. Educated patient on rationale for performing exercises in regards to decreasing fatigue , increase ease of ADL, and ROM and function . Patient education as noted. Self-Prison Management: 1: *discussed expected response to repeated lumbar extension exercises 2: *discussed correct use of lumbar roll 3: *discussed plan to improve core stabilization strength as tolerated while restoring lumbar spine mobility. Skilled Intervention: Skilled judgment in the selection of proper modification for activity of daily living/home management based on clinical presentation, deficits, and needs. Educated the patient regarding recommendations and provided written instruction to facilitate compliance. Provided written instruction for activities of daily living techniques to facilitate proper performance and compliance. Reviewed patient specific diagnosis in relation to activities of daily living/home management. Activity progression based on professional judgement. Moderate verbal cues for maintaining neutral spine alignment. Correct performance of home program was facilitated with verbal, visual, and tactile cueing. Billing Therapeutic Exercise Treatment Minutes: 25 Self-Care/Home Management Treatment Minutes: 5 Total Treatment Time Minutes (timed/untimed): 30 Héctor Lagunas, PT [facility] 06-27-2022 History of Presen t illness Narrative Episode Visit Count: 3 Therapist That Will Accept/Oversee The Plan Of Care: Héctor Lagunas Start of Care Date: 06/14/22 Onset Date: 05/22/22 Plan of Care Certification Date: 06/14/22 Next Certification Due Date: 07/19/22 REHABILITATION AND SPORTS THERAPY PHYSICAL THERAPY TREATMENT NOTE ASSESSMENT: Kam Gonzalez tolerated the session with continued positive response to repeated lumbar based directional preference exercises that are modified to seated and prone positions. He demonstrated improvements in lumbar AAROM with continued sets of prone press ups. Pt. Reports the most relief and best tolerates seated position TA activation. The patient will continue to benefit from ongoing skilled physical therapy to progress toward set goals. PLAN FOR NEXT VISIT: Possibly try manual traction. TA activation seated if pt. reports positive symptom response with HEP. Continue lumbar extension directional preference stretching with low volume/multiple sets as tolerated to improve mobility. SUBJECTIVE: Patient Reason for Visit: Pt. arrived 8 min late rfor appointment. He reports going to the ER due to increased LBP following standing repeated lumbar extension exercises. These were discontinued and PHARMACEUTICAL SALES REPRESENTATIVE gave him a seated version last visit which he reports is painful but he thinks is helping. He reports feeling better today. Pain: Pain Pain Level: 4 Pain Location: Low Back/Lumbar Spine - Left Post Treatment Pain Post Treatment Pain Level: 5 Post Treatment Pain Location: Low Back/Lumbar Spine- Midline Post Treatment Symptoms: symptoms centralized to midline of lower back. Pt. reports further improvement following seated TA activation OBJECTIVE MEASURES WITH LEVEL OF FUNCTION: TREATMENT: Therapeutic Exercise: 1: seated lumbar extension 2x10 (no change in symptoms) 2: Prone prop x 2 minutes (no change in symptoms) 3: Prone press up 3x5, 1 min x3 between sets of 5 press ups (requires cues for correct technique, initially only extending at the thoracic spine and neck) 4: pone lay 2 min 5: *seated TA activation 3x10 Skilled Intervention: Patient was educated in proper exercise technique and purpose for exercises. Reviewed and educated patient on additions/changes for home exercise program as above (*). Skilled judgment was provided in selection of appropriate interventions. Provided written instruction for home exercise program to facilitate proper performance and compliance. Correct performance of therapeutic exercises was facilitated with verbal, visual, and tactile cuing. Additional time necessary for intermittent rest due to reports of increased pain and very limited activity tolerance demonstrated in modified positions. Educated patient on rationale for performing exercises in regards to decreasing fatigue , increase ease of ADL, and ROM and function . Patient education as noted. Self-Prison Management: 1: *discussed expected response to repeated lumbar extension exercises 2: *discussed correct use of lumbar roll 3: *discussed plan to improve core stabilization strength as tolerated while restoring lumbar spine mobility. Skilled Intervention: Skilled judgment in the selection of proper modification for activity of daily living/home management based on clinical presentation, deficits, and needs. Educated the patient regarding recommendations and provided written instruction to facilitate compliance. Provided written instruction for activities of daily living techniques to facilitate proper performance and compliance. Reviewed patient specific diagnosis in relation to activities of daily living/home management. Activity progression based on professional judgement. Moderate verbal cues for maintaining neutral spine alignment. Correct performance of home program was facilitated with verbal, visual, and tactile cueing. Billing Therapeutic Exercise Treatment Minutes: 25 Self-Care/Home Management Treatment Minutes: 5 Total Treatment Time Minutes (timed/untimed): 30 Héctor Lagunas PT documented in this encounter [facility] 06-22-2022 Note HNO ID: [id number] Author: Héctor Lagunas PT Service: ? Author Type: Physical Therapist Type: Progress Notes Filed: 06/22/2022 3:23 PM Note Text: Episode Visit Count: 2 Therapist That Will Accept/Oversee The Plan Of Care: Héctor Lagunas Start of Care Date: 06/14/22 Onset Date: 05/22/22 Plan of Care Certification Date: 06/14/22 Next Certification Due Date: 07/19/22 Patient Identified by Name and Date of : Yes REHABILITATION AND SPORTS THERAPY PHYSICAL THERAPY TREATMENT NOTE ASSESSMENT: Kam Gonzalez tolerated the session with decreased symptoms. He demonstrated difficulty with repetitions of prone press ups. The patient will continue to benefit from ongoing skilled physical therapy to progress toward set goals. PLAN FOR NEXT VISIT: Continue with lumbar extension as tolerated SUBJECTIVE: Patient Reason for Visit: Pt reports that the exercises that he was given at the time of eval are now painful. Pt has to take prescription pain medication to take the edge off.Pt has not done exercises since they caused increased pain. Pt states his first set of 10 was ok but second set is what did him in. Pt erports he is unable to lay on his back, elevating LE while on back increases pain. Pt still seeing chiropractor. Pt apologizes for missing last appointment and being late to this visit. Pain: Pain Pain Level: 8 Pain Location: Low Back/Lumbar Spine - Left Description: Pressure Post Treatment Pain Post Treatment Pain Level: 6 Post Treatment Pain Location: Low Back/Lumbar Spine- Midline OBJECTIVE MEASURES WITH LEVEL OF FUNCTION: Increased lumbar extension noted with increased reps of prone press ups. TREATMENT: Therapeutic Exercise: 1: Prone lying x 7 minutes 2: Prone prop x 5 minutes (took pressure off of his low back) 3: Prone press up x10,x5 (Pressing into extension was good, coming back down into neurtal spine was challenging on first set. Second roud caused pain to go down B buttocks, alleviated with prone prop.) 4: Standing lumbar extension over edge of table x10 5: *discussed, in depth, rationale for all exercises. Skilled Intervention: Patient was educated in proper exercise technique and purpose for exercises. Skilled judgment was provided in selection of appropriate interventions. Correct performance of therapeutic exercises was facilitated with verbal and visual cuing. Self-Prison Management: 1: *Education on movements to help alleviate pain at home. 2: *education on limiting exercises to 1 set of 10 Skilled Intervention: Skilled judgment in the selection of proper modification for activity of daily living/home management based on clinical presentation, deficits, and needs. Billing Therapeutic Exercise Treatment Minutes: 28 Self-Care/Home Management Treatment Minutes: 10 Total Treatment Time Minutes (timed/untimed): 38 Ana Darcie, PHARMACEUTICAL SALES REPRESENTATIVE Héctor Lagunas, PT [facility] 06-22-2022 History of Presen t illness Narrative Episode Visit Count: 2 Therapist That Will Accept/Oversee The Plan Of Care: Héctor Lagunas Start of Care Date: 06/14/22 Onset Date: 05/22/22 Plan of Care Certification Date: 06/14/22 Next Certification Due Date: 07/19/22 Patient Identified by Name and Date of : Yes REHABILITATION AND SPORTS THERAPY PHYSICAL THERAPY TREATMENT NOTE ASSESSMENT: Kam Gonzalez tolerated the session with decreased symptoms. He demonstrated difficulty with repetitions of prone press ups. The patient will continue to benefit from ongoing skilled physical therapy to progress toward set goals. PLAN FOR NEXT VISIT: Continue with lumbar extension as tolerated SUBJECTIVE: Patient Reason for Visit: Pt reports that the exercises that he was given at the time of eval are now painful. Pt has to take prescription pain medication to take the edge off.Pt has not done exercises since they caused increased pain. Pt states his first set of 10 was ok but second set is what did him in. Pt erports he is unable to lay on his back, elevating LE while on back increases pain. Pt still seeing chiropractor. Pt apologizes for missing last appointment and being late to this visit. Pain: Pain Pain Level: 8 Pain Location: Low Back/Lumbar Spine - Left Description: Pressure Post Treatment Pain Post Treatment Pain Level: 6 Post Treatment Pain Location: Low Back/Lumbar Spine- Midline OBJECTIVE MEASURES WITH LEVEL OF FUNCTION: Increased lumbar extension noted with increased reps of prone press ups. TREATMENT: Therapeutic Exercise: 1: Prone lying x 7 minutes 2: Prone prop x 5 minutes (took pressure off of his low back) 3: Prone press up x10,x5 (Pressing into extension was good, coming back down into neurtal spine was challenging on first set. Second roud caused pain to go down B buttocks, alleviated with prone prop.) 4: Standing lumbar extension over edge of table x10 5: *discussed, in depth, rationale for all exercises. Skilled Intervention: Patient was educated in proper exercise technique and purpose for exercises. Skilled judgment was provided in selection of appropriate interventions. Correct performance of therapeutic exercises was facilitated with verbal and visual cuing. Self-Prison Management: 1: *Education on movements to help alleviate pain at home. 2: *education on limiting exercises to 1 set of 10 Skilled Intervention: Skilled judgment in the selection of proper modification for activity of daily living/home management based on clinical presentation, deficits, and needs. Billing Therapeutic Exercise Treatment Minutes: 28 Self-Care/Home Management Treatment Minutes: 10 Total Treatment Time Minutes (timed/untimed): 38 ADRIENNE Snyder PT documented in this encounter [facility] 06-20-2022 Miscellaneous Notes OK to refill as ordered Brennen Doshi MD Last office visit: 05/23/22 F/u scheduled: none Lorraine Stringer Ma documented in this encounter [facility] 06-14-2022 Note HNO ID: [id number] Author: Héctor Lagunas PT Service: ? 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 He presents with impairments in ADL's, flexibility, gait, independence in exercise, joint mobility, overall function, patient reported outcome measures, posture, range of motion, strength , symptom management, and tissue tenderness. . Prognosis for therapy is Good due to: within-session changes;good support system/ coping skills;current objective clinical presentation;Prognosis may be limited due to limited tolerance to activity . He will benefit from skilled therapy services to meet the goals established for this plan of care as noted below. Classification Low Back Pain Subgroup Classification: Specific exercise subgroup: recommended visits 8. Specific Exercies Subgroup Classification based on: directional preference;centralization Goals for Episode of Care: created on 06/14/22 through 07/26/22 Independent in home exercises. Patient will decrease pain to 2-3/10 with functional activities to allow patient to improve ambulation, transfers, and standing tolerance for ADLs. Restore pain-free lumbar ROM to minimal to no limitation grossly to allow for improved mobility to complete transfers and lifting activities at work. Stand / Walk 30 min on level surface, and unlevel surfaces without pain/symptoms. Sleep through night without pain/symptoms. Sit 1-2 hours without pain/symptoms to allow for seated rest. Maintain proper sitting posture throughout session Patient will be able to tolerate lifting #30 or greater without increased symptoms while using correct body mechanics without need for cues. Patient will be able to correct postural deviations independently in order to improve postural alignment of trunk during transfers, ambulation, sitting, standing, and functional activities. Knowledgeable regarding prophylaxis. Patient Goals: return to work Planned Interventions, Frequency, and Duration: Current Frequency: 2x/week Duration: 6 weeks Total Number of Visits Planned: 12 Planned Treatment Interventions: Therapeutic exercise (18572);Self-skilled nursing management (23736) PLAN FOR NEXT VISIT: Assess lumbar spine AROM and response to repeated lumbar extension while standing. Consider manual traction. Patient demonstrates good understanding of plan of care and treatment. The above goals and plan of care were discussed and agreed upon by patient/family. SUBJECTIVE: Kam Gonzalez is a 46 year old male seen today for for low back pain following lifting a washer up the steps. Pt. describes low back pain when being sudden forced into lumbar flexion grasping the washer to prevent it from falling down the steps onto his daughter lower on the steps assisting by pushing it up. Pt. has been off work for 3 weeks. PT and chiropractor was ordered by PCP. He has been recieving adjustments from a chiropractor with some reduction in symptoms, however due to having difficulty tolerating this treatment. Per pt. report, chiropractor encouraged pt. to try PT in addition to chiropractor visits for stretching and strengthening in combination with manual treatments. Currently pt. is only able to sleep on his stomach and unable to tolerate bending forward or walking down hill. 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 Cancer Clinical Reasoning: No identified risk factors. Infection Clinical Reasoning: No identified (more content not included)... 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 He presents with impairments in ADL's, flexibility, gait, independence in exercise, joint mobility, overall function, patient reported outcome measures, posture, range of motion, strength , symptom management, and tissue tenderness. . Prognosis for therapy is Good due to: within-session changes;good support system/ coping skills;current objective clinical presentation;Prognosis may be limited due to limited tolerance to activity . He will benefit from skilled therapy services to meet the goals established for this plan of care as noted below. Classification Low Back Pain Subgroup Classification: Specific exercise subgroup: recommended visits 8. Specific Exercies Subgroup Classification based on: directional preference;centralization Goals for Episode of Care: created on 06/14/22 through 07/26/22 Independent in home exercises. Patient will decrease pain to 2-3/10 with functional activities to allow patient to improve ambulation, transfers, and standing tolerance for ADLs. Restore pain-free lumbar ROM to minimal to no limitation grossly to allow for improved mobility to complete transfers and lifting activities at work. Stand / Walk 30 min on level surface, and unlevel surfaces without pain/symptoms. Sleep through night without pain/symptoms. Sit 1-2 hours without pain/symptoms to allow for seated rest. Maintain proper sitting posture throughout session Patient will be able to tolerate lifting #30 or greater without increased symptoms while using correct body mechanics without need for cues. Patient will be able to correct postural deviations independently in order to improve postural alignment of trunk during transfers, ambulation, sitting, standing, and functional activities. Knowledgeable regarding prophylaxis. Patient Goals: return to work Planned Interventions, Frequency, and Duration: Current Frequency: 2x/week Duration: 6 weeks Total Number of Visits Planned: 12 Planned Treatment Interventions: Therapeutic exercise (92118);Self-skilled nursing management ([id number]) PLAN FOR NEXT VISIT: Assess lumbar spine AROM and response to repeated lumbar extension while standing. Consider manual traction. Patient demonstrates good understanding of plan of care and treatment. The above goals and plan of care were discussed and agreed upon by patient/family. SUBJECTIVE: Kam Gonzalez is a 46 year old male seen today for for low back pain following lifting a washer up the steps. Pt. describes low back pain when being sudden forced into lumbar flexion grasping the washer to prevent it from falling down the steps onto his daughter lower on the steps assisting by pushing it up. Pt. has been off work for 3 weeks. PT and chiropractor was ordered by PCP. He has been recieving adjustments from a chiropractor with some reduction in symptoms, however due to having difficulty tolerating this treatment. Per pt. report, chiropractor encouraged pt. to try PT in addition to chiropractor visits for stretching and strengthening in combination with manual treatments. Currently pt. is only able to sleep on his stomach and unable to tolerate bending forward or walking down hill. 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 Cancer Clinical Reasoning: No identified risk factors. Infection Clinical Reasoning: No identified risk factors. Cauda Equina Syndrome Clinical Reasoning: No identified risk factors. Red Flags - Cervical Cancer Clinical Reasoning: No identified risk factors. Infection Clinical Reasoning: No identified risk factors. Spine History Symptoms Location at Onset: Back Symptoms Since Onset: Unchanging Pain is Worse Always: AM;Bending;Rising;Prolonged positions Pain is Better Always: Rest;Standing;Walking (walking on level ground, laying prone) Sleeping Position: Prone - head either right or left;Pillows (elevated LLE and quarter turned to the R, prefers to sleep on L side) Sleep Affected by Pain: Pain keeps from falling asleep;Pain awakens Pain: Pain Pain Level: 6 Pain Location: Low Back/Lumbar Spine - Left Description: Pressure Post Treatment Pain Post Treatment Pain Level: No Change Post Treatment Pain Location: Low Back/Lumbar Spine- Midline Post Treatment Symptoms: reduced symptoms sitting with lumbar towel roll during subjective history, reduced to a 5. Increased to a 6 with repeated lumbar extension at wall but centralized to midline PROMIS Scales T-scores: mean of general population = 50. 5 points is clinically meaningfully difference Percentiles provide an indication of how the patient's score ranks in relation to the general population. Higher percentile rankings indicate better function/quality of life. 50th percentile is the average of the general population and indicates half of respondents had a worse score. T-scores: mean of general population = 50. 5 points is clinically meaningfully difference Percentiles provide an indication of how the patient's score ranks in relation to the general population. Higher percentile rankings indicate better function/quality of life. 50th percentile is the average of the general population and indicates half of respondents had a worse score. OBJECTIVE MEASURES WITH LEVEL OF FUNCTION: Posture / Alignment Posture: Decreased lumbar lordosis Sitting Posture: Decreased lumbar lordosis Effects of Posture Correction: towel roll improves symptoms Spine Observations R Lumbar Spine Palpation Tenderness: Paraspinals L Lumbar Spine Palpation Tenderness: Paraspinals Sensation - Lumbar Sensation: Grossly Intact Lumbar Spine AROM Lumbar Flexion: Major limitation;Produces;Peripherali zing (L low back/buttock) Lumbar Extension: Major limitation;Produces Lumbar Spine AROM Comments: limited exam due to severe limitation and increased pain Repeated Test Movements - Lumbar RFIS - Symptoms During: peripheralizing YARED - Symptoms During: produces;centralizing YARED - Symptoms After: increase ROM (mid line, increased intensity) Gait Gait: Independent Gait Distance (feet): 100 Gait Device: None Gait Deviations: General Deviations General Deviations/Observations: Flexed trunk posture;Lateral sway increased;Trunk Control Decreased;Wide base of support;Non-functional gait speed;Step length decreased (lacks heels strike and push off LLE) Education: Education Learning Preferences: Demonstration;Explanation;Print ed Materials;Performance Barriers: Acuity of Illness Learning/educational needs: Home exercise program;Safety;Plan of Care;Posture;Gait Training Education Provided: Yes, see treatment interventions for education provided Education Provided To: Patient Education Mode/Type: Demonstration;Explanation/Discu ssion;Literature/Printed Materials;Performance Response to Education/Teach Back: States/Identifies;Return Demonstration TREATMENT: PT Treatment Interventions: Therapeutic Exercise;Self-Prison Management Evaluation Therapeutic Exercise: 1: *standing lumbar extension 3-5 sets of 10, slowly hands on wall to improve lumbar spine mobility 2: *prone lay 3 to 5 minutes in the morning and as needed for pain relief, you can place pillows under the stomach and leg if needed to tolerate. You may remove pillows as symptoms reduce for get more extension stretch. Skilled Intervention: Patient was educated in proper exercise technique and purpose for exercises. Skilled judgment was provided in selection of appropriate interventions. Provided written instruction for home exercise program to facilitate proper performance and compliance. Correct performance of therapeutic exercises was facilitated with verbal, visual, and tactile cuing. Additional time necessary for providing pt. Education using spine model and providing HEP due to initial evaluation. Education in use of heat and ice and parameters for each. Education regarding posture correction/use of lumbar roll. Educated patient on rationale for performing exercises in regards to decreasing fatigue , including balance, increase ease of ADL, and ROM and function . Patient education as noted. Self-Prison Management: 1: *postural education standing and seated in supportive firm chair with arm rests 2: *sit <> stand transfers without excessive trunk flexion to create momemtum or walking up the legs 3: *lumbar roll education to reduce symptoms and support lumbar lordotic curve during prolonged sitting 4: *substantial time spent using spine model and discussing possible lumbar disc derangement, demonstrated lumbar spine biomechanics with functional movements based on pt. description of symptoms 5: *pt. to avoid movement/postures and activities that cause increased pain including walking down or up hills and sitting on the floor. 6: *discussed use of heat and ice for appropriate amount of time and avoiding prolonged positions that cause increased symptoms Skilled Intervention: Skilled judgment in the selection of proper modification for activity of daily living/home management based on clinical presentation, deficits, and needs. Educated the patient regarding recommendations and provided written instruction to facilitate compliance. Provided written instruction for activities of daily living techniques to facilitate proper performance and compliance. Reviewed patient specific diagnosis in relation to activities of daily living/home management. Activity progression based on professional judgement. Moderate verbal cues for maintaining neutral spine alignment. Provided written instruction for home program to facilitate proper performance and compliance. Correct performance of home program was facilitated with verbal and visual cueing. Billing * Evaluation Low Complexity: 1 Unit Therapeutic Exercise Treatment Minutes: 15 Self-Care/Home Management Treatment Minutes: 10 Total Treatment Time Minutes (timed/untimed): 45 Héctor Lagunas PT documented in this encounter [facility] 06-05-2022 Note HNO ID: [id number] Author: Don Marquez PA-C Service: ? Author Type: Physician Strap Cutting Machine Operator Type: Progress Notes Filed: 06/05/2022 3:00 PM Note Text: FOLLOW UP VISIT - ENDOSCOPY NAME: Kam [facility] NO.: [id number] DATE OF SERVICE: 06/05/2022 : 1975 REFERRING PHYSICIAN: Brennen Doshi MD Kam is a patient I am following with Dr. Wharton for screening colonoscopy. Dr. Wharton performed lower endoscopy on 04/13/22. The patient was found to have: Impression: - Non-bleeding internal hemorrhoids. - One 13 to 19 mm polyp in the rectum, removed with a hot snare. Resected and retrieved. Pathology demonstrated: FINAL DIAGNOSIS A. Rectum, polyp, polypectomy: - Tubulovillous adenoma with high-grade dysplasia. - Cauterized margin free of epithelial dysplasia. The patient notes no complaints since the procedure. VITALS: Blood pressure 138/90, pulse 60, temperature 36.3 ?C (97.4 ?F), height 177.8 cm (5' 10 ), weight 136.1 kg (300 lb), SpO2 95 %. General: patient is alert, cooperative, pleasant and in no acute distress On examination, the abdomen is benign. Assessment IMPRESSION: s/p colonoscopy with polypectomy-tubulovillous adenoma with high-grade dysplasia PLAN: The operative findings and pathology report were reviewed with the patient, and the patient has had the opportunity to ask questions and have questions answered. If the patient notes any problems or changes in bowel function, the patient should contact me immediately. Otherwise I recommend follow up endoscopy in 1 year for close surveillance. HM updated and recall letter generated. Patient verbalized understanding of all above and agreed with the plan Diagnoses: (K63.5) Dysplastic polyp of colon (primary encounter diagnosis) (D36.9) Tubulovillous adenoma I spent a total of 23 minutes on the date of the service which included preparing to see the patient, [id number] patient care, completing clinical documentation, obtaining and/or reviewing separately obtained history, counseling and educating the patient/family/caregiver, and independently interpreting results (not separately reported). Don Marquez PA-C [facility] 06-05-2022 Instructions Don Marquez PA-C - 06/05/2022 11:06 AM EDT The following instructions are important for you related to your office visit today with the [facility]. INSTRUCTIONS FOLLOWING A POLYP FOUND AT COLONOSCOPY You were found to have a dysplastic tubulovillous colon polyp. I recommend you undergo repeat endoscopy in 1 year for surveillance. If you note bleeding, change in bowel habits, or other suspicious colon related symptoms before that time, those symptoms should be evaluated as necessary. If you have any difficulties or concerns, you should contact our office immediately. If you note any additional difficulties, questions, or concerns, you should contact our office immediately @ [phone] and ask to be transferred to the General Surgery department. documented in this encounter [facility] 06-05-2022 History of Presen t illness Narrative FOLLOW UP VISIT - ENDOSCOPY NAME: Kam [facility] NO.: [id number] DATE OF SERVICE: 06/05/2022 : 1975 REFERRING PHYSICIAN: Brennen Doshi MD Kam is a patient I am following with Dr. Wharton for screening colonoscopy. Dr. Wharton performed lower endoscopy on 04/13/22. The patient was found to have: Impression: - Non-bleeding internal hemorrhoids. - One 13 to 19 mm polyp in the rectum, removed with a hot snare. Resected and retrieved. Pathology demonstrated: FINAL DIAGNOSIS A. Rectum, polyp, polypectomy: - Tubulovillous adenoma with high-grade dysplasia. - Cauterized margin free of epithelial dysplasia. The patient notes no complaints since the procedure. VITALS: Blood pressure 138/90, pulse 60, temperature 36.3 C (97.4 F), height 177.8 cm (5' 10 ), weight 136.1 kg (300 lb), SpO2 95 %. General: patient is alert, cooperative, pleasant and in no acute distress On examination, the abdomen is benign. Assessment IMPRESSION: s/p colonoscopy with polypectomy-tubulovillous adenoma with high-grade dysplasia PLAN: The operative findings and pathology report were reviewed with the patient, and the patient has had the opportunity to ask questions and have questions answered. If the patient notes any problems or changes in bowel function, the patient should contact me immediately. Otherwise I recommend follow up endoscopy in 1 year for close surveillance. HM updated and recall letter generated. Patient verbalized understanding of all above and agreed with the plan Diagnoses: (K63.5) Dysplastic polyp of colon (primary encounter diagnosis) (D36.9) Tubulovillous adenoma I spent a total of 23 minutes on the date of the service which included preparing to see the patient, [id number] patient care, completing clinical documentation, obtaining and/or reviewing separately obtained history, counseling and educating the patient/family/caregiver, and independently interpreting results (not separately reported). Don Marquez PA-C documented in this encounter [facility] 05-23-2022 Note HNO ID: [id number] Author: Radha Ken APRN.YIELD LOSS INSPECTOR Service: ? Author Type: Nurse Practitioner Type: Progress Notes Filed: 05/23/2022 2:01 PM Note Text: 05/23/2022 Patient presents with: Back Pain: Since yesterday morning; lower back SUBJECTIVE: This is a 46 year old that is here today for Above Complaints. ONSET: yesterday morning LOCATION: low back DURATION: constant dull and aching intermittent sharp pain CHARACTERISTICS:dull ache and sharp AGGRAVATING FEATURES: lifting at work ALLEVIATING FEATURES: Ibuprofen 800 mg- not helping RADIATION: none Admits to past hx of back aches Denies past or present injury or surgery, extremity numbness, tingling, weakness, saddle anaesthesia, urinary/bowel incontinence or inability. PAST MEDICAL HISTORY Diagnosis Date Arthritis Gout, unspecified Hypertension, essential 01/12/2021 Migraine, unspecified, with intractable migraine, so stated, without mention of status migrainosus Migraine Moderate episode of recurrent major depressive disorder (HCC) 12/15/2020 Morbid obesity with BMI of 40.0-44.9, adult ([facility]) Obstructive sleep apnea ALLERGIES Naprosyn [Naproxen] and Sulfa (Sulfonamide Antibiotics) MEDICATIONS Current Outpatient Medications Medication Sig ibuprofen (MOTRIN) 800 mg tablet take 1 tablet by mouth every 8 hours if needed for pain with food allopurinol (ZYLOPRIM) 300 mg tablet Take 1 tablet by mouth once daily. For gout. sertraline (ZOLOFT) 100 mg tablet Take 1 tablet by mouth once daily. lisinopril (ZESTRIL, PRINIVIL) 10 mg tablet Take 1 tablet by mouth once daily. SUMAtriptan (IMITREX) 20 mg/actuation nasal spray Use 1 [place] in the nose as needed. loratadine (CLARITIN) 10 mg tablet Take 1 tablet by mouth once daily. peg 3350-Electrolytes (GOLYTELY) 236-22.74-6.74 -5.86 gram suspension Refer to printed prep instructions from your provider. BIPAP No current facility-administered medications for this visit. Medications and allergies reviewed by this provider. SOCIAL HISTORY Social History Tobacco Use Smoking status: Never Smokeless tobacco: Current Types: Chew Last attempt to quit: 01/03/2019 Tobacco comments: chew Vaping Use Vaping Use: Never used Substance Use Topics Alcohol use: Yes Comment: occassionally Drug use: No REVIEW OF SYSTEMS All other reviewed and negative other than HPI. OBJECTIVE: BP 138/96 Pulse 67 Resp 18 Wt (!) 136.4 kg (300 lb 9.6 oz) SpO2 98% BMI 43.13 kg/m? . Vital signs reviewed by this provider. APPEARANCE Well appearing, alert, in no acute distress, well-hydrated, well nourished. and Morbidly obese EYES PERRLA, conjunctiva and sclera normal. BACK: negative SLR test. TTP midline lumbar spine. No obvious deformity. Limited extension and flexion. No rashes or skin lesions to back observed EXTREMITIES Extremities normal, No deformities, No skin discoloration, and No edema NEURO Awake, alert and oriented x 3, Reflexes symmetrical, Normal gait, No involuntary motions., and negative findings: muscle tone normal, muscle strength normal, sensation to light touch and pinprick normal, reflexes normal and symmetric, plantar response downgoing bilaterally SKIN Skin color, texture, turgor normal, no suspicious rashes or lesions to exposed skin HEPATITIS B(1 of 3 - 3-dose series) Never done COVID-19 VACCINE(3 - Booster for Pfizer series) due on 05/03/2021 INFLUENZA(1) due on 04/19/2022 HEPATITIS C SCREENING due on 01/16/2023 HIV SCREENING due on 01/16/2023 BP CONTROLLED (<130/80) due on 06/09/2022 ANNUAL PCP TEAM CHRONIC DISEASE VISIT due on 01/16/2023 COLORECTAL CANCER SCREENING due on 04/13/2023 DIABETES SCREEN due on 01/16/2025 LIPID SCREEN due on 01/16/2027 DTAP,TDAP,TD(2 - Td or Tdap) due on 06/09/2031 ASSESSMENT/PLAN: 1. Acute midline low back pain without sciatica - ICD9: 724.2, ICD10: M54.50 - no red flag symptoms or exam findings - red flag symptoms discussed, verbalizes understanding - recommend OTC topical, lidocaine patches and heat for 15 minutes at a time. Discussed he should not sleep on heating pad, verbalizes understanding - CYCLOBENZAPRINE 10 MG TABLET- discussed not to drive or operate heavy machinery while taking, verbalizes understanding - MELOXICAM 15 MG TABLET- discussed he should not take any other OTC NSAID products while taking, verbalizes understanding - CONSULT TO PHYSICAL THERAPY - weight loss encouraged - follow-up if symptoms fail to improve, to ER with red flag symptoms Radha Podlogvaibhav, LAURA.YIELD LOSS INSPECTOR Prescription instructions reviewed with patient as applicable. Patient advised if symptoms do not improve or if symptoms worsen sooner, to contact their primary care physician. Potential red flag symptoms discussed with the patient. Reviewed appropriate action plan to take if red flag symptoms occur. Patient agreeable to treatment plan. I spent a total of 25 minutes on the date of the service which (more content not included)... [facility] 05-23-2022 History of Presen t illness Narrative 05/23/2022 Patient presents with: Back Pain: Since yesterday morning; lower back SUBJECTIVE: This is a 46 year old that is here today for Above Complaints. ONSET: yesterday morning LOCATION: low back DURATION: constant dull and aching intermittent sharp pain CHARACTERISTICS:dull ache and sharp AGGRAVATING FEATURES: lifting at work ALLEVIATING FEATURES: Ibuprofen 800 mg- not helping RADIATION: none Admits to past hx of back aches Denies past or present injury or surgery, extremity numbness, tingling, weakness, saddle anaesthesia, urinary/bowel incontinence or inability. PAST MEDICAL HISTORY Diagnosis Date Arthritis Gout, unspecified Hypertension, essential 01/12/2021 Migraine, unspecified, with intractable migraine, so stated, without mention of status migrainosus Migraine Moderate episode of recurrent major depressive disorder (HCC) 12/15/2020 Morbid obesity with BMI of 40.0-44.9, adult (HCC) Obstructive sleep apnea ALLERGIES Naprosyn [Naproxen] and Sulfa (Sulfonamide Antibiotics) MEDICATIONS Current Outpatient Medications Medication Sig ibuprofen (MOTRIN) 800 mg tablet take 1 tablet by mouth every 8 hours if needed for pain with food allopurinol (ZYLOPRIM) 300 mg tablet Take 1 tablet by mouth once daily. For gout. sertraline (ZOLOFT) 100 mg tablet Take 1 tablet by mouth once daily. lisinopril (ZESTRIL, PRINIVIL) 10 mg tablet Take 1 tablet by mouth once daily. SUMAtriptan (IMITREX) 20 mg/actuation nasal spray Use 1 [place] in the nose as needed. loratadine (CLARITIN) 10 mg tablet Take 1 tablet by mouth once daily. peg 3350-Electrolytes (GOLYTELY) 236-22.74-6.74 -5.86 gram suspension Refer to printed prep instructions from your provider. BIPAP No current facility-administered medications for this visit. Medications and allergies reviewed by this provider. SOCIAL HISTORY Social History Tobacco Use Smoking status: Never Smokeless tobacco: Current Types: Chew Last attempt to quit: 01/03/2019 Tobacco comments: chew Vaping Use Vaping Use: Never used Substance Use Topics Alcohol use: Yes Comment: occassionally Drug use: No REVIEW OF SYSTEMS All other reviewed and negative other than HPI. OBJECTIVE: BP 138/96 Pulse 67 Resp 18 Wt (!) 136.4 kg (300 lb 9.6 oz) SpO2 98% BMI 43.13 kg/m . Vital signs reviewed by this provider. APPEARANCE Well appearing, alert, in no acute distress, well-hydrated, well nourished. and Morbidly obese EYES PERRLA, conjunctiva and sclera normal. BACK: negative SLR test. TTP midline lumbar spine. No obvious deformity. Limited extension and flexion. No rashes or skin lesions to back observed EXTREMITIES Extremities normal, No deformities, No skin discoloration, and No edema NEURO Awake, alert and oriented x 3, Reflexes symmetrical, Normal gait, No involuntary motions., and negative findings: muscle tone normal, muscle strength normal, sensation to light touch and pinprick normal, reflexes normal and symmetric, plantar response downgoing bilaterally SKIN Skin color, texture, turgor normal, no suspicious rashes or lesions to exposed skin HEPATITIS B(1 of 3 - 3-dose series) Never done COVID-19 VACCINE(3 - Booster for Pfizer series) due on 05/03/2021 INFLUENZA(1) due on 04/19/2022 HEPATITIS C SCREENING due on 01/16/2023 HIV SCREENING due on 01/16/2023 BP CONTROLLED (<130/80) due on 06/09/2022 ANNUAL PCP TEAM CHRONIC DISEASE VISIT due on 01/16/2023 COLORECTAL CANCER SCREENING due on 04/13/2023 DIABETES SCREEN due on 01/16/2025 LIPID SCREEN due on 01/16/2027 DTAP,TDAP,TD(2 - Td or Tdap) due on 06/09/2031 ASSESSMENT/PLAN: 1. Acute midline low back pain without sciatica - ICD9: 724.2, ICD10: M54.50 - no red flag symptoms or exam findings - red flag symptoms discussed, verbalizes understanding - recommend OTC topical, lidocaine patches and heat for 15 minutes at a time. Discussed he should not sleep on heating pad, verbalizes understanding - CYCLOBENZAPRINE 10 MG TABLET- discussed not to drive or operate heavy machinery while taking, verbalizes understanding - MELOXICAM 15 MG TABLET- discussed he should not take any other OTC NSAID products while taking, verbalizes understanding - CONSULT TO PHYSICAL THERAPY - weight loss encouraged - follow-up if symptoms fail to improve, to ER with red flag symptoms Radha Ken APRN.JULIET Prescription instructions reviewed with patient as applicable. Patient advised if symptoms do not improve or if symptoms worsen sooner, to contact their primary care physician. Potential red flag symptoms discussed with the patient. Reviewed appropriate action plan to take if red flag symptoms occur. Patient agreeable to treatment plan. I spent a total of 25 minutes on the date of the service which included preparing to see the patient, [id number] patient care, completing clinical documentation, obtaining and/or reviewing separately obtained history, performing a medically appropriate examination, counseling and educating the patient/family/caregiver, and ordering medications, tests, or procedures. documented in this encounter [facility] 05-06-2022 Miscellaneous Notes Contacted patient, he stated he may have Covid so we scheduled him on 06-05-22 @ 10:30 am. Diamond Sullivan PSS 2 nd attempt left message to return call to r/s cancelled appointment with Juan Marquez for polyp showed high-grade dysplasia 1st attempt made to contact patient. L/m for patient to call and reschedule with Don Marquez. Héctor Ramírez Pss Patient needs to be seen in office for discussion please-polyp showed high-grade dysplasia and he will need close surveillance. Kam had a colonoscopy completed on 04/13/[address] Wharton. Biopsies were taken. Kam was scheduled to see VERA Vera on 05/02/2022, but did not show. Please advise regarding any needed follow up. Dolly Nielsen RN documented in this encounter [facility] 04-13-2022 Note HNO ID: [id number] Author: Chayo Phillip RN Service: ? Author Type: Registered Nurse Type: Nursing Progress Note Filed: 04/13/2022 9:05 AM Note Text: Applied oxygen per NC at 2L due to oxygen saturations running in low 90's post procedure. [facility] 04-13-2022 Nurse Note Applied oxygen per NC at 2L due to oxygen saturations running in low 90's post procedure. Arrived in phase II via cart, left lateral position, eyes closed, responds to verbal stimuli and gentle tactile stimulation. Denies pain on palpation of abdomen, abdomen is soft and non distended. Skin warm and dry, respirations regular and unlabored. Resting comfortably. documented in this encounter [facility] 04-13-2022 History and physical note UPDATED PROCEDURAL SEDATION HISTORY AND PHYSICAL EXAMINATION SERVICE DATE: 04/13/2022 SERVICE TIME: 8:11 PHYSICAL EXAM MUST BE COMPLETED ON ADMISSION PROCEDURE: colonoscopy, possible biopsies Procedure Indications: screening for colon cancer The History and Physical (completed in the past 30 days) has been reviewed and the patient has been examined. The contents accurately reflect the patient's condition with the following additions or revisions since the H&P was completed. ASA Class: ASA Class:: Patient with severe systemic disease Examination indicates no changes. AIRWAY: Airway Visualization of Uvula: Yes Mouth opening greater than 2 fingerbreadths: Yes Neck Full Range of Motion: Yes LUNGS: Lungs clear to auscultation CARDIAC: Regular rhythm,Regular rate Provisional Diagnosis/Treatment Plan: colonoscopy, possible biopsies SEDATION GOAL: Moderate This H&P can be found in the Electronic Medical Record. SIGNATURE: Roberta Wharton MD PATIENT NAME: Kam Gonzalez DATE: April 13, 2022 TIME: 8:13 AM Source Note - Roberta Wharton MD - 04/13/2022 8:15 AM EDT Images from the original note were not included. HISTORY AND PHYSICAL Kam Gonzalez 1975 REFERRING PHYSICIAN: Damaris Blanchard APRN.YIELD LOSS INSPECTOR CHIEF COMPLAINT: Consult (colonoscopy consult) HPI: The patient is a 46 year old male referred for endoscopy. Kam denies previous colonoscopy. He notes no colon cancer in his immediate family. He denies blood in his stools; he denies abdominal pain; he denies changes in bowel habits. PAST MEDICAL HISTORY Diagnosis Date Gout, unspecified Hypertension, essential 01/12/2021 Migraine, unspecified, with intractable migraine, so stated, without mention of status migrainosus Migraine Moderate episode of recurrent major depressive disorder (HCC) 12/15/2020 Morbid obesity with BMI of 40.0-44.9, adult (HCC) Obstructive sleep apnea PAST SURGICAL HISTORY Procedure Laterality Date FUSION OF ANKLE JOINT Right 2014 Current Outpatient Medications Medication Sig ibuprofen (MOTRIN) 800 mg tablet take 1 tablet by mouth every 8 hours if needed for pain with food allopurinol (ZYLOPRIM) 300 mg tablet Take 1 tablet by mouth once daily. For gout. sertraline (ZOLOFT) 100 mg tablet Take 1 tablet by mouth once daily. lisinopril (ZESTRIL, PRINIVIL) 10 mg tablet Take 1 tablet by mouth once daily. SUMAtriptan (IMITREX) 20 mg/actuation nasal spray Use 1 [place] in the nose as needed. BIPAP loratadine (CLARITIN) 10 mg tablet Take 1 tablet by mouth once daily. peg 3350-Electrolytes (GOLYTELY) 236-22.74-6.74 -5.86 gram suspension Refer to printed prep instructions from your provider. ALLERGIES: Naprosyn [Naproxen] and Sulfa (Sulfonamide Antibiotics) PERSONAL HISTORY: Social History Tobacco Use Smoking status: Never Smoker Smokeless tobacco: Current User Types: Chew Tobacco comment: chew Vaping Use Vaping Use: Never used Substance Use Topics Alcohol use: Yes Comment: occassionally Drug use: No FAMILY HISTORY Problem Relation Age of Onset Diabetes Mother Coronary Artery Disease Mother Hypertension Mother Alcohol/Drug Father cirrhosis, ETOH Diabetes Maternal Uncle Heart Sister The review of systems data was entered by the nurse and reviewed by mn Nursing Notes: Dolly Nielsen RN 03/07/2022 2:04 PM Signed REVIEW OF SYSTEMS: General: The patient denies fatigue, denies weight loss, denies weight gain, NOTES feeling hot, and denies feelings of cold. Eyes: The patient denies glaucoma, denies eye injury/surgery, wears glasses or contacts. Ear/Nose/Throat: The patient NOTES allergies, denies hayfever, denies ear infections, and denies bloody noses. Cardiovascular: The patient denies chest pain, denies heart disease, NOTES high blood pressure,denies cardiac stent, denies prior heart attack, denies irregular heart beat, denies high cholesterol, denies poor circulation, denies heart failure, other cardiac issues, denies claudication, denies cold feet, denies peripheral arterial stent. Respiratory: The patient denies tuberculosis, denies pneumonia, denies frequent cough, denies pulmonary embolism, denies shortness of breath, and denies coughing up blood. Gastrointestinal: The patient denies difficulty swallowing, denies acid reflux, denies ulcers, denies vomiting, denies jaundice/hepatitis, denies gallbladder problems, denies black or tarry stools, denies hemorrhoids, denies bleeding from rectum, denies diverticulitis, denies constipation, denies diarrhea, denies loss of stool control, and denies hernias. Kidney/Bladder: The patient denies kidney stones, denies urine infections, and denies bloody urine. Skin: The patient denies a history of skin cancer, denies bleeding/changing moles, and denies a history of skin rash. Neurologic: The patient denies a history of epilepsy/convulsions, NOTES headaches, denies head/spinal injuries, and denies stroke/TIA. Psychiatric: The patient denies psychiatric medications, denies depression, and denies voices, denies substance abuse. Endocrine: The patient denies thyroid disorders, denies diabetes, and denies hormonal problems. Hematologic: The patient denies a history of bruising, denies bleeding, and denies anemia, denies blood clots. Infections: The patient denies a history of measles and mumps, denies rheumatic fever, and denies sexually transmitted diseases. Musculoskeletal: The patient denies back pain/injury, NOTES back problems, denies sciatica, denies knee/foot trouble, denies arthritis, or NOTES gout. When was patient's last Mammogram screening? N/A Last Colonoscopy: None Dolly Nielsen RN PHYSICAL EXAMINATION: General: The patient is 46 year old male, well nourished, well hydrated in no acute distress. The patient is oriented to time, place, and person. VITALS: Blood pressure 148/92, pulse 73, temperature 36.6 C (97.8 F), height 177.8 cm (5' 10 ), weight (!) 136.5 kg (301 lb), SpO2 99 %. Body mass index is 43.19 kg/m . Head: Normal cephalic, atraumatic Eyes: pupils are equally round, sclera are clear/anicteric, wearing glasses Neck is supple with no tracheal deviation Respiratory: Normal respiratory excursion and pattern. Abdominal exam: benign Extremities: no clubbing, cyanosis or edema. Neuro: non focal Psych: normal mood Assessment IMPRESSION: screening for colon cancer PLAN: I have discussed the above with the patient. I have offered colonoscopy, possible biopsies I have explained the procedure to the patient. I have counseled the patient as to the risks of the procedure, including but not limited to: infection, bleeding, injury to any intrabdominal organs such as liver/spleen, perforation of the GI tract, inability to complete the procedure, complications of anesthesia, etc. - the patient understands. The patient was offered a surgery/procedure at a [facility]. The provider and patient have discussed in detail the risk of exposure to and/or potential harm posed by the COVID-19 virus with having a surgery/procedure at this time versus the risk of delaying the surgery/procedure. It is not possible to know either the risk of delaying the surgery or procedure or chance of getting an infection with perfect accuracy, but a joint decision was made between the patient and the provider to proceed at this time with the scheduled surgery/procedure. The patient wishes to proceed. I have answered all questions to the patient s satisfaction and the patient has no further questions. Diagnoses: (Z12.11) Screening for colon cancer Images from the original note were not included. HISTORY AND PHYSICAL Kam Gonzalez 1975 REFERRING PHYSICIAN: Damaris Blanchard APRN.JULIET CHIEF COMPLAINT: Consult (colonoscopy consult) HPI: The patient is a 46 year old male referred for endoscopy. Kam denies previous colonoscopy. He notes no colon cancer in his immediate family. He denies blood in his stools; he denies abdominal pain; he denies changes in bowel habits. PAST MEDICAL HISTORY Diagnosis Date Gout, unspecified Hypertension, essential 01/12/2021 Migraine, unspecified, with intractable migraine, so stated, without mention of status migrainosus Migraine Moderate episode of recurrent major depressive disorder (HCC) 12/15/2020 Morbid obesity with BMI of 40.0-44.9, adult (HCC) Obstructive sleep apnea PAST SURGICAL HISTORY Procedure Laterality Date FUSION OF ANKLE JOINT Right 2014 Current Outpatient Medications Medication Sig ibuprofen (MOTRIN) 800 mg tablet take 1 tablet by mouth every 8 hours if needed for pain with food allopurinol (ZYLOPRIM) 300 mg tablet Take 1 tablet by mouth once daily. For gout. sertraline (ZOLOFT) 100 mg tablet Take 1 tablet by mouth once daily. lisinopril (ZESTRIL, PRINIVIL) 10 mg tablet Take 1 tablet by mouth once daily. SUMAtriptan (IMITREX) 20 mg/actuation nasal spray Use 1 [place] in the nose as needed. BIPAP loratadine (CLARITIN) 10 mg tablet Take 1 tablet by mouth once daily. peg 3350-Electrolytes (GOLYTELY) 236-22.74-6.74 -5.86 gram suspension Refer to printed prep instructions from your provider. ALLERGIES: Naprosyn [Naproxen] and Sulfa (Sulfonamide Antibiotics) PERSONAL HISTORY: Social History Tobacco Use Smoking status: Never Smoker Smokeless tobacco: Current User Types: Chew Tobacco comment: chew Vaping Use Vaping Use: Never used Substance Use Topics Alcohol use: Yes Comment: occassionally Drug use: No FAMILY HISTORY Problem Relation Age of Onset Diabetes Mother Coronary Artery Disease Mother Hypertension Mother Alcohol/Drug Father cirrhosis, ETOH Diabetes Maternal Uncle Heart Sister The review of systems data was entered by the nurse and reviewed by me Nursing Notes: Dolly Nielsen RN 03/07/2022 2:04 PM Signed REVIEW OF SYSTEMS: General: The patient denies fatigue, denies weight loss, denies weight gain, NOTES feeling hot, and denies feelings of cold. Eyes: The patient denies glaucoma, denies eye injury/surgery, wears glasses or contacts. Ear/Nose/Throat: The patient NOTES allergies, denies hayfever, denies ear infections, and denies bloody noses. Cardiovascular: The patient denies chest pain, denies heart disease, NOTES high blood pressure,denies cardiac stent, denies prior heart attack, denies irregular heart beat, denies high cholesterol, denies poor circulation, denies heart failure, other cardiac issues, denies claudication, denies cold feet, denies peripheral arterial stent. Respiratory: The patient denies tuberculosis, denies pneumonia, denies frequent cough, denies pulmonary embolism, denies shortness of breath, and denies coughing up blood. Gastrointestinal: The patient denies difficulty swallowing, denies acid reflux, denies ulcers, denies vomiting, denies jaundice/hepatitis, denies gallbladder problems, denies black or tarry stools, denies hemorrhoids, denies bleeding from rectum, denies diverticulitis, denies constipation, denies diarrhea, denies loss of stool control, and denies hernias. Kidney/Bladder: The patient denies kidney stones, denies urine infections, and denies bloody urine. Skin: The patient denies a history of skin cancer, denies bleeding/changing moles, and denies a history of skin rash. Neurologic: The patient denies a history of epilepsy/convulsions, NOTES headaches, denies head/spinal injuries, and denies stroke/TIA. Psychiatric: The patient denies psychiatric medications, denies depression, and denies voices, denies substance abuse. Endocrine: The patient denies thyroid disorders, denies diabetes, and denies hormonal problems. Hematologic: The patient denies a history of bruising, denies bleeding, and denies anemia, denies blood clots. Infections: The patient denies a history of measles and mumps, denies rheumatic fever, and denies sexually transmitted diseases. Musculoskeletal: The patient denies back pain/injury, NOTES back problems, denies sciatica, denies knee/foot trouble, denies arthritis, or NOTES gout. When was patient's last Mammogram screening? N/A Last Colonoscopy: None Dolly Nielsen RN PHYSICAL EXAMINATION: General: The patient is 46 year old male, well nourished, well hydrated in no acute distress. The patient is oriented to time, place, and person. VITALS: Blood pressure 148/92, pulse 73, temperature 36.6 C (97.8 F), height 177.8 cm (5' 10 ), weight (!) 136.5 kg (301 lb), SpO2 99 %. Body mass index is 43.19 kg/m . Head: Normal cephalic, atraumatic Eyes: pupils are equally round, sclera are clear/anicteric, wearing glasses Neck is supple with no tracheal deviation Respiratory: Normal respiratory excursion and pattern. Abdominal exam: benign Extremities: no clubbing, cyanosis or edema. Neuro: non focal Psych: normal mood Assessment IMPRESSION: screening for colon cancer PLAN: I have discussed the above with the patient. I have offered colonoscopy, possible biopsies I have explained the procedure to the patient. I have counseled the patient as to the risks of the procedure, including but not limited to: infection, bleeding, injury to any intrabdominal organs such as liver/spleen, perforation of the GI tract, inability to complete the procedure, complications of anesthesia, etc. - the patient understands. The patient was offered a surgery/procedure at a [facility] facility. The provider and patient have discussed in detail the risk of exposure to and/or potential harm posed by the COVID-19 virus with having a surgery/procedure at this time versus the risk of delaying the surgery/procedure. It is not possible to know either the risk of delaying the surgery or procedure or chance of getting an infection with perfect accuracy, but a joint decision was made between the patient and the provider to proceed at this time with the scheduled surgery/procedure. The patient wishes to proceed. I have answered all questions to the patient s satisfaction and the patient has no further questions. Diagnoses: (Z12.11) Screening for colon cancer documented in this encounter [facility] 03-07-2022 Note HNO ID: [id number] Author: Roberta Wharton MD Service: ? Author Type: Physician Type: Progress Notes Filed: 03/10/2022 2:22 PM Note Text: HISTORY AND PHYSICAL Kam Gonzalez 1975 REFERRING PHYSICIAN: Damaris Blanchard APRN.YIELD LOSS INSPECTOR CHIEF COMPLAINT: Consult (colonoscopy consult) HPI: The patient is a 46 year old male referred for endoscopy. Kam denies previous colonoscopy. He notes no colon cancer in his immediate family. He denies blood in his stools; he denies abdominal pain; he denies changes in bowel habits. PAST MEDICAL HISTORY Diagnosis Date - Gout, unspecified - Hypertension, essential 01/12/2021 - Migraine, unspecified, with intractable migraine, so stated, without mention of status migrainosus Migraine - Moderate episode of recurrent major depressive disorder (HCC) 12/15/2020 - Morbid obesity with BMI of 40.0-44.9, adult (HCC) - Obstructive sleep apnea PAST SURGICAL HISTORY Procedure Laterality Date - FUSION OF ANKLE JOINT Right 2014 Current Outpatient Medications Medication Sig - ibuprofen (MOTRIN) 800 mg tablet take 1 tablet by mouth every 8 hours if needed for pain with food - allopurinol (ZYLOPRIM) 300 mg tablet Take 1 tablet by mouth once daily. For gout. - sertraline (ZOLOFT) 100 mg tablet Take 1 tablet by mouth once daily. - lisinopril (ZESTRIL, PRINIVIL) 10 mg tablet Take 1 tablet by mouth once daily. - SUMAtriptan (IMITREX) 20 mg/actuation nasal spray Use 1 [place] in the nose as needed. - BIPAP - loratadine (CLARITIN) 10 mg tablet Take 1 tablet by mouth once daily. - peg 3350-Electrolytes (GOLYTELY) 236-22.74-6.74 -5.86 gram suspension Refer to printed prep instructions from your provider. ALLERGIES: Naprosyn [Naproxen] and Sulfa (Sulfonamide Antibiotics) PERSONAL HISTORY: Social History Tobacco Use - Smoking status: Never Smoker - Smokeless tobacco: Current User Types: Chew - Tobacco comment: chew Vaping Use - Vaping Use: Never used Substance Use Topics - Alcohol use: Yes Comment: occassionally - Drug use: No FAMILY HISTORY Problem Relation Age of Onset - Diabetes Mother - Coronary Artery Disease Mother - Hypertension Mother - Alcohol/Drug Father cirrhosis, ETOH - Diabetes Maternal Uncle - Heart Sister The review of systems data was entered by the nurse and reviewed by me Nursing Notes: Dolly Nielsen RN 03/07/2022 2:04 PM Signed REVIEW OF SYSTEMS: General: The patient denies fatigue, denies weight loss, denies weight gain, NOTES feeling hot, and denies feelings of cold. Eyes: The patient denies glaucoma, denies eye injury/surgery, wears glasses or contacts. Ear/Nose/Throat: The patient NOTES allergies, denies hayfever, denies ear infections, and denies bloody noses. Cardiovascular: The patient denies chest pain, denies heart disease, NOTES high blood pressure,denies cardiac stent, denies prior heart attack, denies irregular heart beat, denies high cholesterol, denies poor circulation, denies heart failure, other cardiac issues, denies claudication, denies cold feet, denies peripheral arterial stent. Respiratory: The patient denies tuberculosis, denies pneumonia, denies frequent cough, denies pulmonary embolism, denies shortness of breath, and denies coughing up blood. Gastrointestinal: The patient denies difficulty swallowing, denies acid reflux, denies ulcers, denies vomiting, denies jaundice/hepatitis, denies gallbladder problems, denies black or tarry stools, denies hemorrhoids, denies bleeding from rectum, denies diverticulitis, denies constipation, denies diarrhea, denies loss of stool control, and denies hernias. Kidney/Bladder: The patient denies kidney stones, denies urine infections, and denies bloody urine. Skin: The patient denies a history of skin cancer, denies bleeding/changing moles, and denies a history of skin rash. Neurologic: The patient denies a history of epilepsy/convulsions, NOTES headaches, denies head/spinal injuries, and denies stroke/TIA. Psychiatric: The patient denies psychiatric medications, denies depression, and denies voices, denies substance abuse. Endocrine: The patient denies thyroid disorders, denies diabetes, and denies hormonal problems. Hematologic: The patient denies a history of bruising, denies bleeding, and denies anemia, denies blood clots. Infections: The patient denies a history of measles and mumps, denies rheumatic fever, and denies sexually transmitted diseases. Musculoskeletal: The patient denies back pain/injury, NOTES back problems, denies sciatica, denies knee/foot trouble, denies arthritis, or NOTES gout. When was patient's last Mammogram screening? N/A Last Colonoscopy: None Dolly Nielsen RN PHYSICAL EXAMINATION: General: The patient is 46 year old male, well nourished, well hydrated in no acute distress. The patient is oriented to time, place, and person. VITALS: Blood pressure 148/92, pulse 73, t (more content not included)... [facility] 03-07-2022 History of Presen t illness Narrative HISTORY AND PHYSICAL Kam Nuno Carlos 1975 REFERRING PHYSICIAN: Damaris Blanchard APRN.YIELD LOSS INSPECTOR CHIEF COMPLAINT: Consult (colonoscopy consult) HPI: The patient is a 46 year old male referred for endoscopy. Kma denies previous colonoscopy. He notes no colon cancer in his immediate family. He denies blood in his stools; he denies abdominal pain; he denies changes in bowel habits. PAST MEDICAL HISTORY Diagnosis Date Gout, unspecified Hypertension, essential 01/12/2021 Migraine, unspecified, with intractable migraine, so stated, without mention of status migrainosus Migraine Moderate episode of recurrent major depressive disorder (HCC) 12/15/2020 Morbid obesity with BMI of 40.0-44.9, adult (HCC) Obstructive sleep apnea PAST SURGICAL HISTORY Procedure Laterality Date FUSION OF ANKLE JOINT Right 2014 Current Outpatient Medications Medication Sig ibuprofen (MOTRIN) 800 mg tablet take 1 tablet by mouth every 8 hours if needed for pain with food allopurinol (ZYLOPRIM) 300 mg tablet Take 1 tablet by mouth once daily. For gout. sertraline (ZOLOFT) 100 mg tablet Take 1 tablet by mouth once daily. lisinopril (ZESTRIL, PRINIVIL) 10 mg tablet Take 1 tablet by mouth once daily. SUMAtriptan (IMITREX) 20 mg/actuation nasal spray Use 1 [place] in the nose as needed. BIPAP loratadine (CLARITIN) 10 mg tablet Take 1 tablet by mouth once daily. peg 3350-Electrolytes (GOLYTELY) 236-22.74-6.74 -5.86 gram suspension Refer to printed prep instructions from your provider. ALLERGIES: Naprosyn [Naproxen] and Sulfa (Sulfonamide Antibiotics) PERSONAL HISTORY: Social History Tobacco Use Smoking status: Never Smoker Smokeless tobacco: Current User Types: Chew Tobacco comment: chew Vaping Use Vaping Use: Never used Substance Use Topics Alcohol use: Yes Comment: occassionally Drug use: No FAMILY HISTORY Problem Relation Age of Onset Diabetes Mother Coronary Artery Disease Mother Hypertension Mother Alcohol/Drug Father cirrhosis, ETOH Diabetes Maternal Uncle Heart Sister The review of systems data was entered by the nurse and reviewed by mn Nursing Notes: Dolly Nielsen RN 03/07/2022 2:04 PM Signed REVIEW OF SYSTEMS: General: The patient denies fatigue, denies weight loss, denies weight gain, NOTES feeling hot, and denies feelings of cold. Eyes: The patient denies glaucoma, denies eye injury/surgery, wears glasses or contacts. Ear/Nose/Throat: The patient NOTES allergies, denies hayfever, denies ear infections, and denies bloody noses. Cardiovascular: The patient denies chest pain, denies heart disease, NOTES high blood pressure,denies cardiac stent, denies prior heart attack, denies irregular heart beat, denies high cholesterol, denies poor circulation, denies heart failure, other cardiac issues, denies claudication, denies cold feet, denies peripheral arterial stent. Respiratory: The patient denies tuberculosis, denies pneumonia, denies frequent cough, denies pulmonary embolism, denies shortness of breath, and denies coughing up blood. Gastrointestinal: The patient denies difficulty swallowing, denies acid reflux, denies ulcers, denies vomiting, denies jaundice/hepatitis, denies gallbladder problems, denies black or tarry stools, denies hemorrhoids, denies bleeding from rectum, denies diverticulitis, denies constipation, denies diarrhea, denies loss of stool control, and denies hernias. Kidney/Bladder: The patient denies kidney stones, denies urine infections, and denies bloody urine. Skin: The patient denies a history of skin cancer, denies bleeding/changing moles, and denies a history of skin rash. Neurologic: The patient denies a history of epilepsy/convulsions, NOTES headaches, denies head/spinal injuries, and denies stroke/TIA. Psychiatric: The patient denies psychiatric medications, denies depression, and denies voices, denies substance abuse. Endocrine: The patient denies thyroid disorders, denies diabetes, and denies hormonal problems. Hematologic: The patient denies a history of bruising, denies bleeding, and denies anemia, denies blood clots. Infections: The patient denies a history of measles and mumps, denies rheumatic fever, and denies sexually transmitted diseases. Musculoskeletal: The patient denies back pain/injury, NOTES back problems, denies sciatica, denies knee/foot trouble, denies arthritis, or NOTES gout. When was patient's last Mammogram screening? N/A Last Colonoscopy: None Dolly Nielsen RN PHYSICAL EXAMINATION: General: The patient is 46 year old male, well nourished, well hydrated in no acute distress. The patient is oriented to time, place, and person. VITALS: Blood pressure 148/92, pulse 73, temperature 36.6 C (97.8 F), height 177.8 cm (5' 10 ), weight (!) 136.5 kg (301 lb), SpO2 99 %. Body mass index is 43.19 kg/m . Head: Normal cephalic, atraumatic Eyes: pupils are equally round, sclera are clear/anicteric, wearing glasses Neck is supple with no tracheal deviation Respiratory: Normal respiratory excursion and pattern. Abdominal exam: benign Extremities: no clubbing, cyanosis or edema. Neuro: non focal Psych: normal mood Assessment IMPRESSION: screening for colon cancer PLAN: I have discussed the above with the patient. I have offered colonoscopy, possible biopsies I have explained the procedure to the patient. I have counseled the patient as to the risks of the procedure, including but not limited to: infection, bleeding, injury to any intrabdominal organs such as liver/spleen, perforation of the GI tract, inability to complete the procedure, complications of anesthesia, etc. the patient understands. The patient was offered a surgery/procedure at a [facility] facility. The provider and patient have discussed in detail the risk of exposure to and/or potential harm posed by the COVID-19 virus with having a surgery/procedure at this time versus the risk of delaying the surgery/procedure. It is not possible to know either the risk of delaying the surgery or procedure or chance of getting an infection with perfect accuracy, but a joint decision was made between the patient and the provider to proceed at this time with the scheduled surgery/procedure. The patient wishes to proceed. I have answered all questions to the patient s satisfaction and the patient has no further questions. Diagnoses: (Z12.11) Screening for colon cancer I have confirmed and edited as necessary, the PFSH and ROS obtained by others. Consultation requested by Damaris Blanchard for an opinion regarding patient's screening for colon cancer. My final recommendations will be communicated back to the requesting physician by way of shared Medical record or letter to requesting physician via US mail. Return to Clinic: The patient is scheduled for April 13 at the [facility] for colonoscopy Medical Decision Making: Risk: Low: Low risk from testing/treatment Medical Decision Making Level: 2 - Straightforward Roberta Wharton MD documented in this encounter [facility] 03-07-2022 Instructions Roberta Wharton MD - 03/07/2022 2:07 PM EDT Images from the original note were not included. Bowel Preparation Instructions for: Golytely, Nulytely, Trilyte or Colyte (polyethylene glycol 3350 and electrolytes) IF YOU DO NOT FOLLOW THESE DIRECTIONS, YOUR COLONOSCOPY WILL BE CANCELLED. Damon Instructions: Your bowel must be empty so that your doctor can clearly view your colon. Follow all of the instructions in this handout EXACTLY as they are written. Do NOT eat any solid food the ENTIRE day before your colonoscopy. Drink only clear liquids. Buy your bowel preparation at least 5 days before your colonoscopy. TRANSPORTATION on the Day of Your Exam A responsible person MUST be present with you at Check In prior to your colonoscopy and REMAIN in the endoscopy area until you are discharged. You are NOT ALLOWED to drive, take a taxi or bus, or leave the Endoscopy Center ALONE. If you do not have a responsible driver/refuse collector (family member or friend) with you to take you home, your exam cannot be done with sedation and will be cancelled. Please bring a list of all of your current medications, including any Over-the Counter medications with you. Medications If you take insulin, diabetic medications or blood thinners such as Coumadin (warfarin), Plavix (clopidogrel), Ticlid (ticlopidine hydrochloride), Agrylin (anagrelide), Xarelto (Rivaroxaban), Pradaxa (Dabigatran), Eliquis (Apixaban), and Effient (Prasugrel). You MUST call the doctors who orders those medicines for instructions on altering the dosage before your colonoscopy. All other medications should be taken the day of the exam with a sip of water including ASPIRIN. Five (5) Days Before Your Colonoscopy Do NOT take medicines that stop diarrhea - such as Imodium, Kaopectate, or Pepto Bismol. Do NOT take fiber supplements - such as Metamucil, Citrucel, or Perdiem. Do NOT take products that contain iron - such as multi-vitamins (the label lists what is in the products). Do NOT take Vitamin E. Buy the prescription bowel preparation solution at your local pharmacy or drugstore pharmacy. 07/2019 Bowel Preparation Instructions for: Golytely, Nulytely, Trilyte or Colyte (polyethylene glycol 3350 and electrolytes) Three (3) Days Before Your Colonoscopy Do NOT eat high-fiber foods - such as popcorn, beans, seeds (flax, sunflower, quinoa), multigrain bread, nuts, salad/vegetables, or fresh and dried fruit. One (1) Day Before Your Colonoscopy Only drink clear liquids the ENTIRE DAY before your colonoscopy. Do NOT eat any solid foods. Drink at least 8 ounces of clear liquids every hour after waking up. The clear liquids you can drink include: Clear Liquid (NO RED LIQUIDS) DO NOT DRINK Gatorade, Pedialyte or Powerade Clear broth or bouillon Coffee or tea (no milk or non-dairy creamer) Carbonated and non-carbonated soft drinks Nitin-Aid or other fruit flavored drinks Strained fruit juices (no pulp) Jell-O, popsicles, hard candy Water Alcohol Milk or non-dairy creamers Noodles or vegetables in soup Juice with pulp Liquid you cannot see through The bowel preparation solution will be consumed in two parts. Mix the solution the evening before your colonoscopy and refrigerate before drinking. You may add the flavor pack that came with the bowel preparation. Do NOT add ice, sugar or any other flavorings to the solution. Part 1 At 6:00 PM - Evening before your colonoscopy Drink an 8-oz glass of bowel preparation every 10 minutes for a total of 8 glasses. You may continue to drink clear liquids until midnight. Part 2 On the day of your colonoscopy you may drink clear liquids up to (three) 3 hours before your procedure. 4 1/2 hours before your colonoscopy Drink an 8-oz glass of bowel preparation every 10 minutes for a total of 8 glasses. Fifteen (15) minutes later, drink an 8-oz glass of clear liquids every 15 minutes for a total of 2 glasses. You may continue to drink clear liquids up to (three) 3 hours before your exam. 3 07/2019 documented in this encounter [facility] 03-07-2022 Nurse Note REVIEW OF SYSTEMS: General: The patient denies fatigue, denies weight loss, denies weight gain, NOTES feeling hot, and denies feelings of cold. Eyes: The patient denies glaucoma, denies eye injury/surgery, wears glasses or contacts. Ear/Nose/Throat: The patient NOTES allergies, denies hayfever, denies ear infections, and denies bloody noses. Cardiovascular: The patient denies chest pain, denies heart disease, NOTES high blood pressure,denies cardiac stent, denies prior heart attack, denies irregular heart beat, denies high cholesterol, denies poor circulation, denies heart failure, other cardiac issues, denies claudication, denies cold feet, denies peripheral arterial stent. Respiratory: The patient denies tuberculosis, denies pneumonia, denies frequent cough, denies pulmonary embolism, denies shortness of breath, and denies coughing up blood. Gastrointestinal: The patient denies difficulty swallowing, denies acid reflux, denies ulcers, denies vomiting, denies jaundice/hepatitis, denies gallbladder problems, denies black or tarry stools, denies hemorrhoids, denies bleeding from rectum, denies diverticulitis, denies constipation, denies diarrhea, denies loss of stool control, and denies hernias. Kidney/Bladder: The patient denies kidney stones, denies urine infections, and denies bloody urine. Skin: The patient denies a history of skin cancer, denies bleeding/changing moles, and denies a history of skin rash. Neurologic: The patient denies a history of epilepsy/convulsions, NOTES headaches, denies head/spinal injuries, and denies stroke/TIA. Psychiatric: The patient denies psychiatric medications, denies depression, and denies voices, denies substance abuse. Endocrine: The patient denies thyroid disorders, denies diabetes, and denies hormonal problems. Hematologic: The patient denies a history of bruising, denies bleeding, and denies anemia, denies blood clots. Infections: The patient denies a history of measles and mumps, denies rheumatic fever, and denies sexually transmitted diseases. Musculoskeletal: The patient denies back pain/injury, NOTES back problems, denies sciatica, denies knee/foot trouble, denies arthritis, or NOTES gout. When was patient's last Mammogram screening? N/A Last Colonoscopy: None Dolly Nielsen RN documented in this encounter [facility] 02-22-2022 Miscellaneous Notes 1st attempt left VM Patient due for screening colonoscopy . Patient is not appropriate for open access. Please schedule office consult Shay Arboleda documented in this encounter [facility] 02-12-2022 Miscellaneous Notes OK to refill as ordered Brennen Doshi MD Patient has been identified by name and date of : Yes Pending Prescriptions Disp Refills IBUPROFEN 800 MG TABLET 90 tablet 1 Sig: take 1 tablet by mouth every 8 hours if needed for pain with food MARISOL: No RX INSTRUCTIONS: Patient aware RX will be sent to pharmacy. No need to notify patient. Rachel Clemente Pss documented in this encounter [facility] 01-23-2022 Miscellaneous Notes Pt notified via Other Machine. Lorraine Stringer Ma Left message for to contact office. Rhianna Hanna MA I would suggest going ahead with the 300 mg dose of the allopurinol Brennen Doshi MD (Jennifer) returns call and reviews message. wanted to let Dr. Doshi know that patient is not consistently taking the allopurinol 100 mg. She reports that she isn't certain how often he misses it but fairly frequently.She reports he has no pain, redness, or swelling to feet currently. asking if you still want the increased dose of allopurinol. Jennifer asking for a call back at [phone] so she knows whether or not to warehouse order picker new prescription. Jeniffer Lofton RN documented in this encounter [facility] 01-18-2022 Miscellaneous Notes Pt sent Other Machine message notifying him of all information below. Notified new Rx sent to [facility] and to recheck Uric Acid around 04/20/22. If questions pt to contact office. Also made aware we were unable to reach him by phone. Rula Toussaint Ma Tried to reach pt, evens guillen. Lorraine Stringer Ma Please notify patient that his labs show that his glucose is slightly high but stable, cholesterol is OK. Uric acid level is still high, so I would suggest increasing allopurinol to 300 mg daily. New Rx done for this. Recheck Uric acid level in 3 months. Brennen Doshi MD documented in this encounter [facility] 01-16-2022 Instructions Damaris Blanchard APRN.CNP - 01/16/2022 1:26 PM EDT 1. Increase Zoloft to 100 mg daily, can take (2) of the 50 mg tablets 2. Schedule general surgery appointment to discuss colonoscopy 3. Get fasting blood work completed 4. Follow up in 3 months to check in with the Zoloft and depression. For diet, please focus on: - More lean meats like chicken, fish, turkey rather than red meats - Less carbs and when having carbs, more complex carbs such as beans, wheat or multigrain and brown rice - more vegetables - health fats such as olive oil, nuts, avocados For exercise: Please try and aim for a goal of 30 min a day most days of the week with a goal of 150min/wk. Brisk walking is plenty, if you can increase it later, then that is good, but if you are going from little or no exercise to this new routine, I do not want you to go too extreme. If you already exercise, I encourage you to try and do a little more than what you have been doing. Damaris Blanchard APRN.CNP' documented in this encounter [facility] 01-16-2022 History of Presen t illness Narrative Chief Complaint Patient presents with: Physical HPI Kam Gonzalez is a 46 year old male who presents here today for Chronic Medical Conditions.. Patient did not get his lab work completed prior to the encounter. Gout: Prescribed Allopurinol 100 mg daily. Last gout flare was about a year ago. HTN: Patient is compliant with meds Yes Monitors bp at home: No. Denies side effects: No. Chest pain: No. Dyspnea: No. Edema: No. Palpitations: No. Syncope: No. Headache: No. Dizziness: No. Migraines: Has a sumatriptan as needed. States that he has one two weeks, lasted a few days. Usually only gets 3 or 4 per week. Depression: On Zoloft 50 mg. At this time, he feels like the effectiveness of the medication has worn. Symptoms include low moods, low motivation, and sleeping too much. Also a short a fuse. Stubbed his right foot, 4th toe the yesterday. Wonders if it is broken. Had swelling yesterday, none today. Past medical history, appointments, medications, allergies reviewed. Previous Medical History PAST MEDICAL HISTORY Diagnosis Date Gout, unspecified Hypertension, essential 01/12/2021 Migraine, unspecified, with intractable migraine, so stated, without mention of status migrainosus Migraine Moderate episode of recurrent major depressive disorder (HCC) 12/15/2020 Morbid obesity with BMI of 40.0-44.9, adult (HCC) Obstructive sleep apnea Previous Surgical History PAST SURGICAL HISTORY Procedure Laterality Date NONE Family History FAMILY HISTORY Problem Relation Age of Onset Diabetes Mother Coronary Artery Disease Mother Hypertension Mother Alcohol/Drug Father cirrhosis, ETOH Diabetes Maternal Uncle Heart Sister Patient Allergies ALLERGIES Allergen Reactions Naprosyn [Naproxen] GI Upset Sulfa (Sulfonamide * Hives, Shortness of Breath Current Medications Current Outpatient Medications on File Prior to Visit Medication Sig lisinopril (ZESTRIL, PRINIVIL) 10 mg tablet Take 1 tablet by mouth once daily. promethazine (PHENERGAN) 25 mg suppository 1 Suppository by RECTAL route every 6 hours as needed for nausea/vomiting. ibuprofen (MOTRIN) 800 mg tablet take 1 tablet by mouth every 8 hours if needed for pain with food albuterol HFA (PROVENTIL HFA, VENTOLIN HFA) 90 mcg/actuation inhaler Inhale 2 Puffs as instructed every 6 hours as needed for wheezing/shortness of breath. SUMAtriptan (IMITREX) 20 mg/actuation nasal spray Use 1 [place] in the nose as needed. allopurinol (ZYLOPRIM) 100 mg tablet Take 1 tablet by mouth once daily. For gout. BIPAP fluticasone (FLONASE) 50 mcg/actuation nasal spray Use 2 Sprays in each nostril once daily. loratadine (CLARITIN) 10 mg tablet Take 1 tablet by mouth once daily. sertraline (ZOLOFT) 50 mg tablet Take 1 tablet by mouth once daily. Current Facility-Administered Medications on File Prior to Visit Medication perflutren lipid microspheres 1.3 mL in NaCl (PF) 0.9% 10 mL injection (DEFINITY) sodium chloride 0.9 % (flush) 10 mL (BD POSIFLUSH) Social History Social History Tobacco Use Smoking status: Never Smoker Smokeless tobacco: Current User Types: Chew Tobacco comment: chew Vaping Use Vaping Use: Never used Substance Use Topics Alcohol use: Not Currently Comment: occassionally Drug use: No REVIEW OF SYSTEMS: as above Reviewed relevant PMHx, PSHx, Social Hx, current medications and allergies. EXAM: BP 122/86 Pulse 60 Temp 36.2 C (97.1 F) (Left Tympanic) Resp 14 Wt 132 kg (291 lb) BMI 40.59 kg/m General Appearance: Well appearing, alert, in no acute distress, well-hydrated, well nourished. and Obese. Head: Normocephalic, no masses, lesions, tenderness or abnormalities. Eyes: Anicteric sclera. Pupils are equally round and reactive to light. Extraocular movements are intact. . Ears: External ears normal, canals clear. Nose/Sinuses: Nares normal, septum midline, mucosa normal, no drainage or sinus tenderness. Oropharynx: Lips, mucosa, and tongue normal, teeth and gums normal, oropharynx normal. Neck: Supple, no adenopathy; thyroid symmetric, normal size, Lungs: Lungs clear to auscultation. No wheezing, rhonchi, rales.. Heart: RRR without murmur, gallop, or rubs. No ectopy. Abdomen: Normal abdominal exam, Abdomen soft, non-tender. Bowel sounds normal. No masses, organomegaly. Extremities: No deformities, edema. Right foot: 4th digit is slightly tender near the DIPJ. No swelling, erythema. Health Maintenance List HEPATITIS C SCREENING Never done HIV SCREENING Never done COLORECTAL CANCER SCREENING Never done COVID-19 VACCINE(3 - Booster for Pfizer series) due on 08/08/2021 INFLUENZA(Season Ended) due on 04/19/2022 BP CONTROLLED (<130/80) due on 06/09/2022 ANNUAL PCP TEAM CHRONIC DISEASE VISIT due on 09/20/2022 DIABETES SCREEN due on 01/13/2024 LIPID SCREEN due on 01/12/2026 DTAP,TDAP,TD(2 - Td or Tdap) due on 06/09/2031 Data reviewed None recent ASSESSMENT/PLAN: 1. Moderate episode of recurrent major depressive disorder (HCC) - ICD9: 296.32, ICD10: F33.1 (primary diagnosis) - Expressing increased symptoms of depression, increase Zoloft to 100 mg - SERTRALINE 100 MG TABLET 2. Gout, unspecified cause, unspecified chronicity, unspecified site - ICD9: 274.9, ICD10: M10.9 - Check uric acid level. Continue allopurinol 3. Hypertension, essential - ICD9: 401.9, ICD10: I10 - good control - Continue current medication(s) - Recommended regular aerobic exercise. - Recommend home blood pressure monitoring, to bring results in on next visit - Goal of BP <130/80 4. Elevated glucose - ICD9: 790.29, ICD10: R73.09 - Check Hgb A1c 5. Screening for colon cancer - ICD9: V76.51, ICD10: Z12.11 - CONSULT TO GENERAL SURGERY 6. Migraine without status migrainosus, not intractable, unspecified migraine type - ICD9: 346.90, ICD10: G43.909 - Stable Damaris Blanchard APRN.YIELD LOSS INSPECTOR RTO in 3 months, sooner if needed. Get labs This note was partly generated using [employer] voice recognition dictation and may contain some misspelled or inaccurate words missed on review. documented in this encounter [facility] 01-04-2022 Miscellaneous Notes Detailed message left with patient notifying him lab work ordered and fast 10-12 hours. Rhoda Elizondo Ma Labs ordered Brennen Doshi MD Please see message and file orders that you are wanting completed. Patient calling to request an order for Labs Please advise. Patient is requesting a return call from our office. Date of next visit with PCP 01-16-2022 documented in this encounter [facility] 01-03-2022 Miscellaneous Notes The following approved medication requests have been transmitted electronically. Pending Prescriptions Disp Refills LISINOPRIL 10 MG TABLET 30 tablet 5 Sig: Take 1 tablet by mouth once daily. MARISOL: No Damaris Blanchard APRN.JULIET Patient has been identified by name and date of : Yes Pending Prescriptions Disp Refills LISINOPRIL 10 MG TABLET 30 tablet 5 Sig: Take 1 tablet by mouth once daily. MARISOL: No JOELLE-09/20/21 Labs-11/23/21 NOV-01/16/22 med filled 01/12/21 RX INSTRUCTIONS: Patient aware RX will be sent to pharmacy. No need to notify patient. Swetha Morgan documented in this encounter [facility] 11-29-2021 Miscellaneous Notes Forms completed and faxed back to information below. Rula Toussaint Ma Office received forms from [facility] regarding pt's PING supplies. Please review form and sign. Once completed fax back to [facility] at [phone]. Rula Toussaint Ma documented in this encounter [facility] 11-17-2020 Note HNO ID: [id number] Author: Denver Vinson Service: ? Author Type: Physician Type: Progress Notes Filed: 11/26/2020 12:17 PM Note Text: Chief Complaint: chronic left ankle pain, subtalar joint arthritis and lateral ankle instability Subjective: This 45 year old male with PMH indicated below presents for follow up of chronic left ankle and heel pain. Since last visit, he was able to obtain CT imaging as ordered. He states his pain is unchanged and constant worse with ambulation. Previous treatment with corticosteroid injection, NSAID and bracing that has provided temporary relief this far. He has been taking Mobic and wearing lace up ankle brace on a daily basis. Pain continues to be over the lateral and inferior ankle, occasionally severe, and rated as 7/10 on a daily basis. Pain is worst after prolong WB. Patient denies popping and clicking sensations. He has a history of R STJ fusion by Dr Vinson in 2015. Patient states he is ready to consider surgery to the left foot. Denies any other pedal complaints. PAST MEDICAL HISTORY Diagnosis Date - Gout, unspecified - Migraine, unspecified, with intractable migraine, so stated, without mention of status migrainosus Migraine - Morbid obesity with BMI of 40.0-44.9, adult (HCC) - Obstructive sleep apnea Current Outpatient Medications Medication Sig Dispense Refill - meloxicam (MOBIC) 15 mg tablet Take 1 tablet by mouth once daily. 30 tablet 2 - SUMAtriptan (IMITREX) 20 mg/actuation nasal spray Use 1 [place] in the nose as needed. 1 Inhaler 0 - ibuprofen (MOTRIN) 800 mg tablet take 1 tablet by mouth every 8 hours if needed for pain with food 90 tablet 1 - CPAP RECOMMENDATIONS: Auto titrating PAP device 5-15 cmH2O with humidification. Close review of a device download after acclimation is recommended. A large ResMed AirFit F10 full face mask without chin strap was used. However, a formal mask fitting and education are advised. filters, tubing, humidifier and lifetime supplies. 1 Device 0 - cyclobenzaprine (FLEXERIL) 10 mg tablet Take 1 tablet by mouth three times daily as needed for Muscle Spasm. (Patient not taking: Reported on 10/27/2019 ) 30 tablet 1 - fluticasone (FLONASE) 50 mcg/actuation nasal spray Use 2 Sprays in each nostril once daily. (Patient not taking: Reported on 10/27/2019 ) 1 Bottle 5 - lisinopril (ZESTRIL, PRINIVIL) 20 mg tablet Take 1 tablet by mouth once daily. (Patient not taking: Reported on 10/27/2019 ) 30 tablet 5 - IMITREX 100 mg tablet Take 1 tablet by mouth as needed. Do not exceed 200 mg/24 hours 9 tablet 5 - ALLERGY MEDICINE 25 mg tablet - famotidine (PEPCID) 20 mg tablet - CPAP Bilevel PAP 14/10 cmH2O with humidification and lifetime supplies. Please fax 7-10 day compliance download to [phone]. Dx: PING G47.33 327.23 (Patient not taking: Reported on 10/27/2019 ) 1 Units 0 - albuterol HFA 90 mcg/actuation inhaler Inhale 2 Puffs as instructed every 6 hours as needed for Wheezing/Shortness of Breath. 1 Inhaler 2 - loratadine (CLARITIN) 10 mg tablet Take 1 tablet by mouth once daily. (Patient not taking: Reported on 10/27/2019 ) 30 tablet 0 No current facility-administered medications for this visit. ALLERGIES Allergen Reactions - Naprosyn [Naproxen] GI Upset - Sulfa (Sulfonamide * Hives, Shortness of Breath PAST SURGICAL HISTORY Procedure Laterality Date - NONE FAMILY HISTORY Problem Relation Age of Onset - Diabetes Mother - Coronary Artery Disease Mother - Hypertension Mother - Alcohol/Drug Father cirrhosis, ETOH - Diabetes Maternal Uncle - Heart Sister Social History Tobacco Use - Smoking status: Never Smoker - Smokeless tobacco: Current User Types: Chew - Tobacco comment: chew Vaping Use - Vaping Use: Never used Substance Use Topics - Alcohol use: Not Currently Comment: occassionally - Drug use: No REVIEW OF SYSTEMS See tech note MSK: + as noted in HPI. Physical Examination: On General Observation: Patient is a pleasant, cooperative, well developed 44 year old adult male. The patient is alert and oriented to time, place and person. Patient has normal affect and mood. There were no vitals taken for this visit. Vascular: DP and PT pulses are palpable. CFT less than 3 seconds to all digits bilateral. Skin temperature is warm to warm from proximal to distal bilateral. Hair growth is noted. Mild edema to left ankle. No varicosities noted. Neuro: Light touch intact bilateral. Protective sensation intact at all pedal sites via [place] Ame 5.07 monofilament bilateral. Proprioception intact at the hallux bilateral. No clonus noted. Babinski reflex not elicited bilateral. Derm: Skin texture and turgor within normal limits. Toenails normal in appearance. Webspaces 1-4 clean, dry, intact bilateral. No rashes, subcutaneous nodules, or open lesions noted. No ecchymosis. No fracture blisters. No cellulitis, no lymphangit (more content not included)... [facility] 10-20-2020 Note HNO ID: [id number] Author: Anne-Marie Swartz (Rt) Service: Radiology Author Type: Display Director Type: Progress Notes Filed: 10/20/2020 12:23 PM Note Text: Radiology Service Progress Note PATIENT NAME: Kam Gonzalez DATE OF SERVICE: October 20, 2020 TIME: 12:22 PM PATIENT IDENTITY VERIFICATION COMPLETED USING TWO (2) IDENTIFIERS: Name and Date of confirmed by patient verbally. FALL SCREENING: Has the patient had 2 falls in the last year or 1 fall with injury or currently using an Ambulatory Assistive Device (Walker, Cane, Wheelchair, Crutches, etc.)? No PATIENT GENDER DATA: Male PATIENT RELEVANT IMPLANT DATA REVIEWED: Not Applicable RADIOLOGY DEPARTMENT: CT; Exam(s) Completed: Lower extremity PERIPHERAL IV DATA: Not applicable SIGNED BY: RT Maxime October 20, 2020 12:22 PM [facility] 09-08-2020 Note HNO ID: [id number] Author: Denver Vinson Service: ? Author Type: Physician Type: Progress Notes Filed: 09/19/2020 11:27 AM Note Text: CC: Follow up of left ankle pain HPI: This 44 year old male with PMH indicated below presents for follow up of left ankle pain and feelings of instability. Last visit patient received a corticosteroid injection that provided temporary relief. He has been taking Mobic and wearing lace up ankle brace on a daily basis. Pain is over the lateral and inferior ankle, occasionally severe, and rated as 7-8/10 on a daily basis. Pain is worst after prolong WB. Patient denies popping and clicking sensations. He has a history of R STJ fusion by Dr Vinson in 2015. No acute trauma. Denies any other pedal complaints. Occupation: [employer] PAST MEDICAL HISTORY Diagnosis Date - Gout, unspecified - Migraine, unspecified, with intractable migraine, so stated, without mention of status migrainosus Migraine - Morbid obesity with BMI of 40.0-44.9, adult (HCC) - Obstructive sleep apnea Current Outpatient Medications Medication Sig Dispense Refill - meloxicam (MOBIC) 15 mg tablet Take 1 tablet by mouth once daily. 30 tablet 2 - SUMAtriptan (IMITREX) 20 mg/actuation nasal spray Use 1 [place] in the nose as needed. 1 Inhaler 0 - ibuprofen (MOTRIN) 800 mg tablet take 1 tablet by mouth every 8 hours if needed for pain with food 90 tablet 1 - CPAP RECOMMENDATIONS: Auto titrating PAP device 5-15 cmH2O with humidification. Close review of a device download after acclimation is recommended. A large ResMed AirFit F10 full face mask without chin strap was used. However, a formal mask fitting and education are advised. filters, tubing, humidifier and lifetime supplies. 1 Device 0 - cyclobenzaprine (FLEXERIL) 10 mg tablet Take 1 tablet by mouth three times daily as needed for Muscle Spasm. (Patient not taking: Reported on 10/27/2019 ) 30 tablet 1 - fluticasone (FLONASE) 50 mcg/actuation nasal spray Use 2 Sprays in each nostril once daily. (Patient not taking: Reported on 10/27/2019 ) 1 Bottle 5 - lisinopril (ZESTRIL, PRINIVIL) 20 mg tablet Take 1 tablet by mouth once daily. (Patient not taking: Reported on 10/27/2019 ) 30 tablet 5 - IMITREX 100 mg tablet Take 1 tablet by mouth as needed. Do not exceed 200 mg/24 hours 9 tablet 5 - ALLERGY MEDICINE 25 mg tablet - famotidine (PEPCID) 20 mg tablet - CPAP Bilevel PAP 14/10 cmH2O with humidification and lifetime supplies. Please fax 7-10 day compliance download to [phone]. Dx: PING G47.33, 327.23 (Patient not taking: Reported on 10/27/2019 ) 1 Units 0 - albuterol HFA 90 mcg/actuation inhaler Inhale 2 Puffs as instructed every 6 hours as needed for Wheezing/Shortness of Breath. 1 Inhaler 2 - loratadine (CLARITIN) 10 mg tablet Take 1 tablet by mouth once daily. (Patient not taking: Reported on 10/27/2019 ) 30 tablet 0 No current facility-administered medications for this visit. ALLERGIES Allergen Reactions - Naprosyn [Naproxen] GI Upset - Sulfa (Sulfonamide * Hives, Shortness of Breath PAST SURGICAL HISTORY Procedure Laterality Date - NONE FAMILY HISTORY Problem Relation Age of Onset - Diabetes Mother - Coronary Artery Disease Mother - Hypertension Mother - Alcohol/Drug Father cirrhosis, ETOH - Diabetes Maternal Uncle - Heart Sister Social History Tobacco Use - Smoking status: Never Smoker - Smokeless tobacco: Current User Types: Chew - Tobacco comment: chew Substance Use Topics - Alcohol use: Not Currently Comment: occassionally - Drug use: No REVIEW OF SYSTEMS See tech note MSK: + as noted in HPI. Physical Examination: On General Observation: Patient is a pleasant, cooperative, well developed 44 year old adult male. The patient is alert and oriented to time, place and person. Patient has normal affect and mood. Resp 16 Ht 180.3 cm (5' 11 ) Wt 135.6 kg (299 lb) BMI 41.70 kg/m? Vascular: DP and PT pulses are palpable. CFT less than 3 seconds to all digits bilateral. Skin temperature is warm to warm from proximal to distal bilateral. Hair growth is noted. No edema to lateral ankle left. No varicosities noted. Neuro: Light touch intact bilateral. Protective sensation intact at all pedal sites via [place] Ame 5.07 monofilament bilateral. Proprioception intact at the hallux bilateral. No clonus noted. Babinski reflex not elicited bilateral. Derm: Skin texture and turgor within normal limits. Toenails normal in appearance. Webspaces 1-4 clean, dry, intact bilateral. No rashes, subcutaneous nodules, or open lesions noted. No ecchymosis. No fracture blisters. No cellulitis, no lymphangitis, no SSI. No hyperkeratotic tissue. Musculoskeletal/Orthopaedic: The range of motion of the ankle is noted to be painful and decreased. There is pain to STJ ROM and palpation of the sinus tarsi. This is the patient's noted point of maximal tenderness. STJ R (more content not included)... [facility] 07-28-2020 Note HNO ID: [id number] Author: Denver Vinson Service: ? Author Type: Physician Type: Progress Notes Filed: 08/08/2020 11:27 AM Note Text: Chief Complaint: Ankle pain left ankle HPI: This 45 year old male with PMH indicated below presents for a follow up of left ankle pain. He has been taking the mobic and using the lace up ankle brace as directed. Patient states he is still having pain to the ankle. He would like an injection today. No acute trauma. Denies any other pedal complaints. PCP: Brennen Doshi MD: PAST MEDICAL HISTORY Diagnosis Date - Gout, unspecified - Migraine, unspecified, with intractable migraine, so stated, without mention of status migrainosus Migraine - Morbid obesity with BMI of 40.0-44.9, adult (HCC) - Obstructive sleep apnea : Current Outpatient Medications Medication Sig - meloxicam (MOBIC) 15 mg tablet Take 1 tablet by mouth once daily. - allopurinol (ZYLOPRIM) 100 mg tablet Take 1 tablet by mouth once daily. For gout. - SUMAtriptan (IMITREX) 20 mg/actuation nasal spray Use 1 [place] in the nose as needed. - ibuprofen (MOTRIN) 800 mg tablet take 1 tablet by mouth every 8 hours if needed for pain with food - CPAP RECOMMENDATIONS: Auto titrating PAP device 5-15 cmH2O with humidification. Close review of a device download after acclimation is recommended. A large ResMed AirFit F10 full face mask without chin strap was used. However, a formal mask fitting and education are advised. filters, tubing, humidifier and lifetime supplies. - cyclobenzaprine (FLEXERIL) 10 mg tablet Take 1 tablet by mouth three times daily as needed for Muscle Spasm. (Patient not taking: Reported on 10/27/2019 ) - fluticasone (FLONASE) 50 mcg/actuation nasal spray Use 2 Sprays in each nostril once daily. (Patient not taking: Reported on 10/27/2019 ) - lisinopril (ZESTRIL, PRINIVIL) 20 mg tablet Take 1 tablet by mouth once daily. (Patient not taking: Reported on 10/27/2019 ) - IMITREX 100 mg tablet Take 1 tablet by mouth as needed. Do not exceed 200 mg/24 hours - ALLERGY MEDICINE 25 mg tablet - famotidine (PEPCID) 20 mg tablet - CPAP Bilevel PAP 14/10 cmH2O with humidification and lifetime supplies. Please fax 7- day compliance download to [phone]. Dx: PING G47.33, 327.23 (Patient not taking: Reported on 10/27/2019 ) - albuterol HFA 90 mcg/actuation inhaler Inhale 2 Puffs as instructed every 6 hours as needed for Wheezing/Shortness of Breath. - loratadine (CLARITIN) 10 mg tablet Take 1 tablet by mouth once daily. (Patient not taking: Reported on 10/27/2019 ) No current facility-administered medications for this visit. : ALLERGIES Allergen Reactions - Naprosyn [Naproxen] GI Upset - Sulfa (Sulfonamide * Hives, Shortness of Breath : PAST SURGICAL HISTORY Procedure Laterality Date - NONE FAMILY HISTORY Problem Relation Age of Onset - Diabetes Mother - Coronary Artery Disease Mother - Hypertension Mother - Alcohol/Drug Father cirrhosis, ETOH - Diabetes Maternal Uncle - Heart Sister : Social History Tobacco Use - Smoking status: Never Smoker - Smokeless tobacco: Current User Types: Chew - Tobacco comment: chew Substance Use Topics - Alcohol use: Not Currently Comment: occassionally - Drug use: No REVIEW OF SYSTEMS See MA note MSK: + as noted in HPI. Physical Examination: On General Observation: Patient is a pleasant, cooperative, well developed 45 year old adult male. The patient is alert and oriented to time, place and person. Patient has normal affect and mood. Resp 16 Ht 180.3 cm (5' 11 ) Wt 135.6 kg (299 lb) BMI 41.70 kg/m? Examination of both lower extremities: Satisfactory alignment. No gross deformity is noted. Normal alignment in stance. Peripheral pulses are palpable. Capillary refill time is less than 3 seconds to all toes. The skin is warm and dry. No rashes or lesions. There are no open wounds or signs of infection, There is no lymphadenopathy noted. Peripheral sensation and reflexes are intact, bilateral and symmetrical. Motor strength is 5/5 of all groups. Normal range of motion, stability and coordination of both lower extremities. Problem focused examination: Anterior drawer of the ankle is negative left foot. Talar tilt is negative. Pain is noted with maximal plantarflexion and inversion of the foot relative to the ankle. There is pain to palpation of the ATFL and CFL ligament. There is pain to palpation of the lateral gutter of the ankle. The range of motion of the ankle is noted to be smooth but decreased. Muscle strength testing is full and nonpainful.no pain to palpation anterior aspect of ankle joint and medial ankle gutter. There is not pain to palpation of the peroneal tendon course posterior and inferior to ankle joint and at insertion into 5th metatarsal base. Muscle strength testing is full. ASSESSMENT: This 45 year old male patient presents today (more content not included)... [facility] 07-28-2020 Note HNO ID: [id number] Author: Denver Vinson Service: ? Author Type: Physician Type: Progress Notes Filed: 08/08/2020 11:27 AM Note Text: REVIEW OF SYSTEMS: GENERAL: Well developed, well nourished. No acute distress PAIN: Pain left ankle CARDIOVASCULAR: Negative for chest pain, leg swelling and palpations. MSK: Negative for joint pain, swelling, back pain, muscle pain. SKIN: Negative for lesions, rash, itching, metal sensitivity NEURO: Negative for seizure, trauma, numbness/tingling of extremities. ENDOCRINE: Negative for Diabetes Type 1 and Type 2 HEMATOLOGY: Negative for excessive bleeding, clots, bleeding disorders. [facility] 05-19-2020 Note HNO ID: [id number] Author: Denver Vinson Service: ? Author Type: Physician Type: Progress Notes Filed: 05/20/2020 4:38 PM Note Text: CC: Ankle pain left ankle HPI: This 44 year old male with PMH indicated below presents complaining of left ankle pain and feelings of instability x 2 months. He has a history of R STJ fusion by Dr Vinson in 2015 and feels this pain is similar to what developed on his R side. He admits multiple ankle sprains and injuries in the past. States that ankle often gives out, especially on uneven surfaces. Patient denies popping and clicking sensations. Patient admits to to taking any analgesics. Pain is over the lateral and inferior ankle, occasionally severe, and rated as 8/10 and worst after prolonged WB and with noted post-static dyskinesia. Patient admits to history of ankle sprains in the past. No acute trauma. Denies any other pedal complaints. Occupation: [employer] PAST MEDICAL HISTORY Diagnosis Date - Gout, unspecified - Migraine, unspecified, with intractable migraine, so stated, without mention of status migrainosus Migraine - Morbid obesity with BMI of 40.0-44.9, adult (HCC) - Obstructive sleep apnea Current Outpatient Medications Medication Sig Dispense Refill - allopurinol (ZYLOPRIM) 100 mg tablet Take 1 tablet by mouth once daily. For gout. 30 tablet 2 - CPAP RECOMMENDATIONS: Auto titrating PAP device 5-15 cmH2O with humidification. Close review of a device download after acclimation is recommended. A large ResMed AirFit F10 full face mask without chin strap was used. However, a formal mask fitting and education are advised. filters, tubing, humidifier and lifetime supplies. 1 Device 0 - IMITREX 100 mg tablet Take 1 tablet by mouth as needed. Do not exceed 200 mg/24 hours 9 tablet 5 - ALLERGY MEDICINE 25 mg tablet - albuterol HFA 90 mcg/actuation inhaler Inhale 2 Puffs as instructed every 6 hours as needed for Wheezing/Shortness of Breath. 1 Inhaler 2 - SUMAtriptan (IMITREX) 20 mg/actuation nasal spray Use 1 [place] in the nose as needed. 1 Inhaler 0 - ibuprofen (MOTRIN) 800 mg tablet take 1 tablet by mouth every 8 hours if needed for pain with food 90 tablet 1 - cyclobenzaprine (FLEXERIL) 10 mg tablet Take 1 tablet by mouth three times daily as needed for Muscle Spasm. (Patient not taking: Reported on 10/27/2019 ) 30 tablet 1 - predniSONE (DELTASONE) 20 mg tablet Take 2 tablets by mouth once daily. (Patient not taking: Reported on 10/27/2019 ) 10 tablet 0 - fluticasone (FLONASE) 50 mcg/actuation nasal spray Use 2 Sprays in each nostril once daily. (Patient not taking: Reported on 10/27/2019 ) 1 Bottle 5 - lisinopril (ZESTRIL, PRINIVIL) 20 mg tablet Take 1 tablet by mouth once daily. (Patient not taking: Reported on 10/27/2019 ) 30 tablet 5 - famotidine (PEPCID) 20 mg tablet - CPAP Bilevel PAP 14/10 cmH2O with humidification and lifetime supplies. Please fax 7-10 day compliance download to [phone]. Dx: PING G47.33, 327.23 (Patient not taking: Reported on 10/27/2019 ) 1 Units 0 - loratadine (CLARITIN) 10 mg tablet Take 1 tablet by mouth once daily. (Patient not taking: Reported on 10/27/2019 ) 30 tablet 0 No current facility-administered medications for this visit. ALLERGIES Allergen Reactions - Naprosyn [Naproxen] GI Upset - Sulfa (Sulfonamide * Hives, Shortness of Breath PAST SURGICAL HISTORY Procedure Laterality Date - NONE FAMILY HISTORY Problem Relation Age of Onset - Diabetes Mother - Coronary Artery Disease Mother - Hypertension Mother - Alcohol/Drug Father cirrhosis, ETOH - Diabetes Maternal Uncle - Heart Sister Social History Tobacco Use - Smoking status: Never Smoker - Smokeless tobacco: Current User Types: Chew - Tobacco comment: chew Substance Use Topics - Alcohol use: Not Currently Comment: occassionally - Drug use: No REVIEW OF SYSTEMS See tech note MSK: + as noted in HPI. Physical Examination: On General Observation: Patient is a pleasant, cooperative, well developed 44 year old adult male. The patient is alert and oriented to time, place and person. Patient has normal affect and mood. Resp 16 Ht 180.3 cm (5' 11 ) Wt 131.5 kg (290 lb) BMI 40.45 kg/m? Vascular: DP and PT pulses are palpable. CFT less than 3 seconds to all digits bilateral. Skin temperature is warm to warm from proximal to distal bilateral. Hair growth is noted. No edema to lateral ankle left. No varicosities noted. Neuro: Light touch intact bilateral. Protective sensation intact at all pedal sites via [place] Ame 5.07 monofilament bilateral. Proprioception intact at the hallux bilateral. No clonus noted. Babinski reflex not elicited bilateral. Derm: Skin texture and turgor within normal limits. Toenails normal in appearance. Webspaces 1-4 clean, dry, intact bilateral. No rashes, subcutaneous nodules, or open lesions noted. No ecchymosis. No fracture blis (more content not included)... [facility] 05-19-2020 Note HNO ID: [id number] Author: Jyothi Gutiérrez Service: ? Author Type: Supervisor [employer] Department Type: Progress Notes Filed: 05/20/2020 4:38 PM Note Text: REVIEW OF SYSTEMS: GENERAL: Well developed, well nourished. No acute distress PAIN: Pain Left ankle 12/26 CARDIOVASCULAR: Negative for chest pain, leg swelling and palpations. MSK: Negative for joint pain, swelling, back pain, muscle pain. SKIN: Negative for lesions, rash, itching, metal sensitivity NEURO: Negative for seizure, trauma, numbness/tingling of extremities. ENDOCRINE: Negative for Diabetes Type 1 and Type 2 HEMATOLOGY: Negative for excessive bleeding, clots, bleeding disorders. [facility] documented as of this encounter (statuses as of 11/29/2021) [facility]05-[facility]2019 History of Past illness Narrative* Problem Noted Date Resolved Date Chronic right shoulder pain 01/07/20190 09/2020 Back strain 11/10/2014 01/12/2021 Pain in joint, lower leg 05/19/2012 021 Backache, unspecified 12/26/2009 01/12/2021 documented as of this encounter (statuses as of 01/03/2022) [facility] History of Past illness Narrative* Problem Noted Date Resolved Date Chronic right shoulder pain 01/07/20190 09/2020 Back strain 11/10/2014 01/12/2021 Pain in joint, lower leg 05/19/2012 021 Backache, unspecified 12/26/2009 01/12/2021 documented as of this encounter (statuses as of 01/04/2022) [facility] History of Past illness Narrative* Problem Noted Date Resolved Date Chronic right shoulder pain 01/07/20190 09/2020 Back strain 11/10/2014 01/12/2021 Pain in joint, lower leg 05/19/2012 021 Backache, unspecified 12/26/2009 01/12/2021 documented as of this encounter (statuses as of 01/16/2022) [facility] History of Past illness Narrative* Problem Noted Date Resolved Date Chronic right shoulder pain 01/07/2019 07/0 09/2020 Back strain 11/10/2014 01/12/2021 Pain in joint, lower leg 05/19/2012 021 Backache, unspecified 12/26/2009 01/12/2021 documented as of this encounter (statuses as of 01/18/2022) [facility] History of Past illness Narrative* Problem Noted Date Resolved Date Chronic right shoulder pain 01/07/2019 07/0 09/2020 Back strain 11/10/2014 01/12/2021 Pain in joint, lower leg 05/19/2012 021 Backache, unspecified 12/26/2009 01/12/2021 documented as of this encounter (statuses as of 01/23/2022) [facility] History of Past illness Narrative* Problem Noted Date Resolved Date Chronic right shoulder pain 01/07/2019 07/0 09/2020 Back strain 11/10/2014 01/12/2021 Pain in joint, lower leg 05/19/2012 021 Backache, unspecified 12/26/2009 01/12/2021 documented as of this encounter (statuses as of 02/12/2022) [facility] History of Past illness Narrative* Problem Noted Date Resolved Date Chronic right shoulder pain 01/07/2019 07/0 09/2020 Back strain 11/10/2014 01/12/2021 Pain in joint, lower leg 05/19/2012 021 Backache, unspecified 12/26/2009 01/12/2021 documented as of this encounter (statuses as of 03/07/2022) [facility] History of Past illness Narrative* Problem Noted Date Resolved Date Chronic right shoulder pain 01/07/2019 07/0 09/2020 Back strain 11/10/2014 01/12/2021 Pain in joint, lower leg 05/19/2012 021 Backache, unspecified 12/26/2009 01/12/2021 documented as of this encounter (statuses as of 03/10/2022) [facility] History of Past illness Narrative* Problem Noted Date Resolved Date Chronic right shoulder pain 01/07/2019 07/0 09/2020 Back strain 11/10/2014 01/12/2021 Pain in joint, lower leg 05/19/2012 021 Backache, unspecified 12/26/2009 01/12/2021 documented as of this encounter (statuses as of 04/14/2022) [facility] History of Past illness Narrative* Problem Noted Date Resolved Date Chronic right shoulder pain 01/07/2019 07/0 09/2020 Back strain 11/10/2014 01/12/2021 Pain in joint, lower leg 05/19/2012 021 Backache, unspecified 12/26/2009 01/12/2021 documented as of this encounter (statuses as of 05/06/2022) [facility] History of Past illness Narrative* Problem Noted Date Resolved Date Chronic right shoulder pain 01/07/2019 07/0 09/2020 Back strain 11/10/2014 01/12/2021 Pain in joint, lower leg 05/19/2012 021 Backache, unspecified 12/26/2009 01/12/2021 documented as of this encounter (statuses as of 05/23/2022) [facility] History of Past illness Narrative* Problem Noted Date Resolved Date Chronic right shoulder pain 01/07/2019 07/0 09/2020 Back strain 11/10/2014 01/12/2021 Pain in joint, lower leg 05/19/2012 021 Backache, unspecified 12/26/2009 01/12/2021 documented as of this encounter (statuses as of 06/05/2022) [facility] History of Past illness Narrative* Problem Noted Date Resolved Date Chronic right shoulder pain 01/07/2019 07/0 09/2020 Back strain 11/10/2014 01/12/2021 Pain in joint, lower leg 05/19/2012 021 Backache, unspecified 12/26/2009 01/12/2021 documented as of this encounter (statuses as of 06/14/2022) [facility] History of Past illness Narrative* Problem Noted Date Resolved Date Chronic right shoulder pain 01/07/2019 07/0 09/2020 Back strain 11/10/2014 01/12/2021 Pain in joint, lower leg 05/19/2012 021 Backache, unspecified 12/26/2009 01/12/2021 documented as of this encounter (statuses as of 06/20/2022) [facility] History of Past illness Narrative* Problem Noted Date Resolved Date Chronic right shoulder pain 01/07/2019 07/0 09/2020 Back strain 11/10/2014 01/12/2021 Pain in joint, lower leg 05/19/2012 021 Backache, unspecified 12/26/2009 01/12/2021 documented as of this encounter (statuses as of 06/22/2022) [facility] History of Past illness Narrative* Problem Noted Date Resolved Date Chronic right shoulder pain 01/07/2019 07/0 09/2020 Back strain 11/10/2014 01/12/2021 Pain in joint, lower leg 05/19/2012 021 Backache, unspecified 12/26/2009 01/12/2021 documented as of this encounter (statuses as of 06/27/2022) [facility] History of Past illness Narrative* Problem Noted Date Resolved Date Chronic right shoulder pain 01/07/2019 07/0 09/2020 Back strain 11/10/2014 01/12/2021 Pain in joint, lower leg 05/19/2012 021 Backache, unspecified 12/26/2009 01/12/2021 documented as of this encounter (statuses as of 07/05/2022) [facility] History of Past illness Narrative* Problem Noted Date Resolved Date Chronic right shoulder pain 01/07/2019 07/0 09/2020 Back strain 11/10/2014 01/12/2021 Pain in joint, lower leg 05/19/2012 021 Backache, unspecified 12/26/2009 01/12/2021 documented as of this encounter (statuses as of 07/10/2022) [facility] History of Past illness Narrative* Problem Noted Date Resolved Date Chronic right shoulder pain 01/07/2019 07/0 09/2020 Back strain 11/10/2014 01/12/2021 Pain in joint, lower leg 05/19/2012 021 Backache, unspecified 12/26/2009 01/12/2021 documented as of this encounter (statuses as of 07/13/2022) [facility] History of Past illness Narrative* Problem Noted Date Resolved Date Chronic right shoulder pain 01/07/2019 07/0 09/2020 Back strain 11/10/2014 01/12/2021 Pain in joint, lower leg 05/19/2012 021 Backache, unspecified 12/26/2009 01/12/2021 documented as of this encounter (statuses as of 07/19/2022) [facility] History of Past illness Narrative* Problem Noted Date Resolved Date Chronic right shoulder pain 01/07/2019 07/0 09/2020 Back strain 11/10/2014 01/12/2021 Pain in joint, lower leg 05/19/2012 021 Backache, unspecified 12/26/2009 01/12/2021 documented as of this encounter (statuses as of 07/24/2022) [facility] History of Past illness Narrative* Problem Noted Date Resolved Date Chronic right shoulder pain 01/07/2019 07/0 09/2020 Back strain 11/10/2014 01/12/2021 Pain in joint, lower leg 05/19/2012 021 Backache, unspecified 12/26/2009 01/12/2021 documented as of this encounter (statuses as of 07/31/2022) [facility]05-22-2019 History of Past illness Narrative* Problem Noted Date Resolved Date Chronic right shoulder pain 01/07/2019 07/0 09/2020 Back strain 11/10/2014 01/12/2021 Pain in joint, lower leg 05/19/2012 021 Backache, unspecified 12/26/2009 01/12/2021 documented as of this encounter (statuses as of 08/23/2022) [facility]05-22-2019 History of Past illness Narrative* Problem Noted Date Resolved Date Chronic right shoulder pain 01/07/2019 07/0 09/2020 Back strain 11/10/2014 01/12/2021 Pain in joint, lower leg 05/19/2012 021 Backache, unspecified 12/26/2009 01/12/2021 documented as of this encounter (statuses as of 11/24/2022) [facility]2019 History of Past illness Narrative* Problem Noted Date Resolved Date Chronic right shoulder pain 01/07/2019 07/0 09/2020 Back strain 11/10/2014 01/12/2021 Pain in joint, lower leg 05/19/2012 021 Backache, unspecified 12/26/2009 01/12/2021 documented as of this encounter (statuses as of 12/20/2022) [facility] History of Past illness Narrative* Problem Noted Date Resolved Date Chronic right shoulder pain 01/07/2019 07/0 09/2020 Back strain 11/10/2014 01/12/2021 Pain in joint, lower leg 05/19/2012 021 Backache, unspecified 12/26/2009 01/12/2021 documented as of this encounter (statuses as of 12/24/2022) [facility] History of Past illness Narrative* Problem Noted Date Resolved Date Chronic right shoulder pain 01/07/2019 07/0 09/2020 Back strain 11/10/2014 01/12/2021 Pain in joint, lower leg 05/19/2012 021 Backache, unspecified 12/26/2009 01/12/2021 documented as of this encounter (statuses as of 01/01/2023) [facility] History of Past illness Narrative* Problem Noted Date Resolved Date Chronic right shoulder pain 01/07/2019 07/0 09/2020 Back strain 11/10/2014 01/12/2021 Pain in joint, lower leg 05/19/2012 021 Backache, unspecified 12/26/2009 01/12/2021 documented as of this encounter (statuses as of 02/01/2023) [facility] Hypertension, essential Unspecified essential hypertension [facility] Diagnosis Gout, unspecified cause, unspecified chronicity, unspecified site- Primary Hypertension, essential Unspecified essential hypertension Elevated glucose Other abnormal glucose [facility] Diagnosis Moderate episode of recurrent major depressive disorder (HCC)- Primary Gout, unspecified cause, unspecified chronicity, unspecified site Hypertension, essential Unspecified essential hypertension Elevated glucose Other abnormal glucose Screening for colon cancer Special screening for malignant neoplasms, colon Migraine without status migrainosus, not intractable, unspecified migraine type documented in this encounter [facility] note* Diagnosis Gout, unspecified cause, unspecified chronicity, unspecified site- Primary documented in this encounter [facility] note* Diagnosis Chronic right shoulder pain Pain in joint, shoulder region [facility]* Diagnosis Screening for colon cancer Special screening for malignant neoplasms, colon documented in this encounter [facility] note* Diagnosis Screening for colon cancer- Primary Special screening for malignant neoplasms, colon Special screening for malignant neoplasms, colon documented in this encounter [facility] note* Diagnosis Acute midline low back pain without sciatica- Primary [facility]* Diagnosis Dysplastic polyp of colon- Primary Benign neoplasm of colon Tubulovillous adenoma Benign neoplasm of unspecified site [facility]* Diagnosis Acute midline low back pain without sciatica- Primary [facility]* Diagnosis Hypertension, essential Unspecified essential hypertension [facility]* Diagnosis Acute midline low back pain without sciatica- Primary [facility]* Diagnosis Acute midline low back pain without sciatica- Primary [facility]* Diagnosis Moderate episode of recurrent major depressive disorder (HCC) [facility] Diagnosis Acute midline low back pain without sciatica- Primary [facility] Diagnosis Acute midline low back pain without sciatica- Primary [facility] Diagnosis Need for vaccination- Primary Need for prophylactic vaccination and inoculation against unspecified single disease [facility]* Diagnosis Acute midline low back pain without sciatica- Primary [facility]* Diagnosis Mesenteric panniculitis (HCC) Sclerosing mesenteritis Morbid obesity (HCC) Morbid obesity [facility] Diagnosis Migraine without status migrainosus, not intractable, unspecified migraine type [facility] Diagnosis Hypertension, essential- Primary Unspecified essential hypertension Elevated glucose Other abnormal glucose Gout, unspecified cause, unspecified chronicity, unspecified site documented in this encounter [facility] for referral (narrative)* Outpatient Procedure (Routine) - Closed Specialty Diagnoses / Procedures Referred By Contac t Referred To Contact [facility] Diagnoses Special screening for malignant neoplasms, colon Procedures COLONOSCOPY SCREENING COLONOSCOPY FLX DX W/COLLJ SPEC WHEN Roberta Lewis MD [address] [place] [address] [address] [address] [place] [address] Referral ID Status Reason Start Date Expiration Date V isits Requested Visits Authorized [id number] Closed Auto-Generate d Referral 03/07/2022 03/07/2023 1 1 [facility] for visit Narrative* Outpatient Procedure (Routine) - Closed Specialty Diagnoses / Procedures Referred By Donya rao Referred To Contact [facility] Diagnoses Special screening for malignant neoplasms, colon Procedures COLONOSCOPY SCREENING COLONOSCOPY FLX DX W/COLLJ SPEC WHEN Roberta Lewis MD [address] [place] [address] [facility] [address] [place] [address] Referral ID Status Reason Start Date Expiration Date V isits Requested Visits Authorized [id number] Closed Auto-Generate d Referral 03/07/2022 03/07/2023 1 1 [facility] Summary Purpose Family History No Family History Records FoundNo Family History Records FoundNo Family History Records FoundNo Family History Records FoundNo Family History Records Found Advance Directives No Advanced Directives Records FoundDocuments on File Type Date Recorded 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 Advance Directive(s) Documents on File Type Date Recorded 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 Advance Directive(s) Reason for Referral Specialty Diagnoses / Procedures Referred By Contac t Referred To Contact General Surgery Diagnoses Screening for colon cancer Procedures CONSULT TO GENERAL SURGERY OFFICE/OUTPATIENT NEW HIGH MDM 60-74 MINUTES Ken, Damaris, LAURA.YIELD LOSS INSPECTOR [address] [place] [address] Referral ID Status Reason Start Date Expiration Date Visits Requested Visits Authorized [id number] Authorized PCP Requested Referral 01/16/2022 01/16/2023 1 1 Specialty Diagnoses / Procedures Referred By Contac t Referred To Contact [facility] Diagnoses Acute midline low back pain without sciatica Procedures CONSULT TO PHYSICAL THERAPY PHYSICAL THERAPY EVALUATION HIGH COMPLEX 45 MINS Podlogar, LAURA aGrcia.YIELD LOSS INSPECTOR [address] [place] [address] [facility] [address] [place] [id number] Referral ID Status Reason Start Date Expiration Date Visits Requested Visits Authorized [id number] Pending Review Auto-Generat ed Referral 05/23/2022 05/23/2023 1 1 Specialty Diagnoses / Procedures Referred By Contac t Referred To Contact [facility] Diagnoses Acute midline low back pain without sciatica Procedures PT REHAB FOLLOW UP ORDER THERAPEUTIC EXERCISES RE, EA 15 MIN. Héctor Lagunas, PT [facility] [address] [place] [address] Referral ID Status Reason Start Date Expiration Date Visits Requested Visits Authorized [id number] Pending Review PCP Requested Referral Auto-Generate d Referral 2 09/12/2022 1 1 Referral ID Status Reason Start Date Expiration Date Visits Requested Visits Authorized [id number] Pending Review PCP Requested Referral Auto-Generate d Referral 2 10/11/2022 1 1 Specialty Diagnoses / Procedures Referred By Contac t Referred To Contact Diagnoses Migraine without status migrainosus, not intractable, unspecified migraine type Podlogar, Radha, LAURA.YIELD LOSS INSPECTOR [address] [place] [address] Referral ID Status Reason Start Date Expiration Date Visits Re quested Visits Authorized [id number] Closed 1 1 Medications Administered Section Inactive Administered Medications - up to 3 most recent administrations Medication Order MAR Action Action Date Dose Rate Site diphenhydrAMINE 12.5-50 mg injection (BENADRYL) 12.5-50 mg, INTRAVENOUS, DIRECTED, Starting on Sat04/13/22 at 0830, Until Sat04/13/22 at 1229, DOSING DIRECTED BY PHYSICIAN FOR PROCEDURAL SEDATION ONLY, Intraprocedure Given 04/13/2022 8:22 AM EDT 50 mg fentaNYL 50 mcg/mL 25-100 mcg injection (SUBLIMAZE) 25-100 mcg, INTRAVENOUS, DIRECTED, Starting on Sat04/13/22 at 0830, Until Sat04/13/22 at 1229, DOSING DIRECTED BY PHYSICIAN FOR PROCEDURAL SEDATION ONLY, Intraprocedure Given 04/13/2022 8:33 AM EDT 50 mcg Inactive Administered Medications - up to 3 most recent administrations Medication Order MAR Action Action Date Dose Rate Site keTORolac 60 mg injection (Toradol) 60 mg, INTRAMUSCULAR, ONCE, 1 dose, On Sat12/19/22 at 1500, Ketorolac (Toradol) is indicated for the short-term (up to 5 days) management of moderately severe acute pain. Continuation of ketorolac (Toradol) beyond 5 days increases the risk of developing serious adverse events. Please verify the duration of therapy for ketorolac (Toradol)., If ordered PRN for pain, patient/guardian may elect to receive this medication for higher pain levels INSTEAD of the opioid, if preferred: N/A Given 12/19/2022 2:53 PM EDT 60 mg Buttocks, Left Additional Source Comments (unrecognized sect ion and content) No Status Records FoundNo Status Records FoundNo Status Records FoundNo Status Records FoundNo Status Records Found INFORMATION SOURCE (unrecogn ized section and content) DATE CREATED AUTHOR AUTHOR'S ORGANIZ ATION 03/31/2019 [facility] Effie foley [place] DATE CREATED AUTHOR AUTHOR'S ORGANIZ ATION 01/10/2021 [facility] DATE CREATED AUTHOR AUTHOR'S ORGANIZ ATION 06/13/2021 [facility] DATE CREATED AUTHOR AUTHOR'S ORGANIZ ATION 02/19/2023 [facility] Source Comments (unrecognize d section and content) In the event this informatio n is protected by the Federal Confidentiality of Alcohol and Drug Abuse Patient Records regulations: The Federal rules restrict any use of the information to criminally investigate or prosecute any alcohol or drug abuse patient.[facility] the event this information is protected by the Federal Confidentiality of Alcohol and Drug Abuse Patient Records regulations: The Federal rules restrict any use of the information to criminally investigate or prosecute any alcohol or drug abuse patient.[facility] the event this information is protected by the Federal Confidentiality of Alcohol and Drug Abuse Patient Records regulations: The Federal rules restrict any use of the information to criminally investigate or prosecute any alcohol or drug abuse patient.[facility] the event this information is protected by the Federal Confidentiality of Alcohol and Drug Abuse Patient Records regulations: The Federal rules restrict any use of the information to criminally investigate or prosecute any alcohol or drug abuse patient.[facility] the event this information is protected by the Federal Confidentiality of Alcohol and Drug Abuse Patient Records regulations: The Federal rules restrict any use of the information to criminally investigate or prosecute any alcohol or drug abuse patient.[facility] the event this information is protected by the Federal Confidentiality of Alcohol and Drug Abuse Patient Records regulations: The Federal rules restrict any use of the information to criminally investigate or prosecute any alcohol or drug abuse patient.[facility] the event this information is protected by the Federal Confidentiality of Alcohol and Drug Abuse Patient Records regulations: The Federal rules restrict any use of the information to criminally investigate or prosecute any alcohol or drug abuse patient.[facility] the event this information is protected by the Federal Confidentiality of Alcohol and Drug Abuse Patient Records regulations: The Federal rules restrict any use of the information to criminally investigate or prosecute any alcohol or drug abuse patient.[facility] the event this information is protected by the Federal Confidentiality of Alcohol and Drug Abuse Patient Records regulations: The Federal rules restrict any use of the information to criminally investigate or prosecute any alcohol or drug abuse patient.[facility] the event this information is protected by the Federal Confidentiality of Alcohol and Drug Abuse Patient Records regulations: The Federal rules restrict any use of the information to criminally investigate or prosecute any alcohol or drug abuse patient.[facility] the event this information is protected by the Federal Confidentiality of Alcohol and Drug Abuse Patient Records regulations: The Federal rules restrict any use of the information to criminally investigate or prosecute any alcohol or drug abuse patient.[facility] the event this information is protected by the Federal Confidentiality of Alcohol and Drug Abuse Patient Records regulations: The Federal rules restrict any use of the information to criminally investigate or prosecute any alcohol or drug abuse patient.[facility] the event this information is protected by the Federal Confidentiality of Alcohol and Drug Abuse Patient Records regulations: The Federal rules restrict any use of the information to criminally investigate or prosecute any alcohol or drug abuse patient.[facility] the event this information is protected by the Federal Confidentiality of Alcohol and Drug Abuse Patient Records regulations: The Federal rules restrict any use of the information to criminally investigate or prosecute any alcohol or drug abuse patient.[facility] the event this information is protected by the Federal Confidentiality of Alcohol and Drug Abuse Patient Records regulations: The Federal rules restrict any use of the information to criminally investigate or prosecute any alcohol or drug abuse patient.[facility] the event this information is protected by the Federal Confidentiality of Alcohol and Drug Abuse Patient Records regulations: The Federal rules restrict any use of the information to criminally investigate or prosecute any alcohol or drug abuse patient.[facility] the event this information is protected by the Federal Confidentiality of Alcohol and Drug Abuse Patient Records regulations: The Federal rules restrict any use of the information to criminally investigate or prosecute any alcohol or drug abuse patient.[facility] the event this information is protected by the Federal Confidentiality of Alcohol and Drug Abuse Patient Records regulations: The Federal rules restrict any use of the information to criminally investigate or prosecute any alcohol or drug abuse patient.[facility] the event this information is protected by the Federal Confidentiality of Alcohol and Drug Abuse Patient Records regulations: The Federal rules restrict any use of the information to criminally investigate or prosecute any alcohol or drug abuse patient.[facility] the event this information is protected by the Federal Confidentiality of Alcohol and Drug Abuse Patient Records regulations: The Federal rules restrict any use of the information to criminally investigate or prosecute any alcohol or drug abuse patient.[facility] the event this information is protected by the Federal Confidentiality of Alcohol and Drug Abuse Patient Records regulations: The Federal rules restrict any use of the information to criminally investigate or prosecute any alcohol or drug abuse patient.[facility] the event this information is protected by the Federal Confidentiality of Alcohol and Drug Abuse Patient Records regulations: The Federal rules restrict any use of the information to criminally investigate or prosecute any alcohol or drug abuse patient.[facility] the event this information is protected by the Federal Confidentiality of Alcohol and Drug Abuse Patient Records regulations: The Federal rules restrict any use of the information to criminally investigate or prosecute any alcohol or drug abuse patient.[facility] the event this information is protected by the Federal Confidentiality of Alcohol and Drug Abuse Patient Records regulations: The Federal rules restrict any use of the information to criminally investigate or prosecute any alcohol or drug abuse patient.[facility] the event this information is protected by the Federal Confidentiality of Alcohol and Drug Abuse Patient Records regulations: The Federal rules restrict any use of the information to criminally investigate or prosecute any alcohol or drug abuse patient.[facility] the event this information is protected by the Federal Confidentiality of Alcohol and Drug Abuse Patient Records regulations: The Federal rules restrict any use of the information to criminally investigate or prosecute any alcohol or drug abuse patient.[facility] the event this information is protected by the Federal Confidentiality of Alcohol and Drug Abuse Patient Records regulations: The Federal rules restrict any use of the information to criminally investigate or prosecute any alcohol or drug abuse patient.[facility] the event this information is protected by the Federal Confidentiality of Alcohol and Drug Abuse Patient Records regulations: The Federal rules restrict any use of the information to criminally investigate or prosecute any alcohol or drug abuse patient.[facility] the event this information is protected by the Federal Confidentiality of Alcohol and Drug Abuse Patient Records regulations: The Federal rules restrict any use of the information to criminally investigate or prosecute any alcohol or drug abuse patient.[facility] Reason for Visit (unrecogniz ed section and content) Reason Onset Date Comments Refill Request 01/03/2022 Reason Comments Orders Reason Comments Physical Reason Comments Results Reason Onset Date Comments Refill Request 02/12/2022 Reason Comments Outpatient Colonoscopy Reason Comments Consult colonoscopy consult Specialty Diagnoses / Procedures Referred By Donya rao Referred To Contact General Surgery Diagnoses Screening for colon cancer Procedures CONSULT TO GENERAL SURGERY OFFICE/OUTPATIENT [facility] MDM 60-74 MINUTES Damaris Blanchard APRN.YIELD LOSS INSPECTOR [address] [place] [address] Referral ID Status Reason Start Date Expiration Date V isits Requested Visits Authorized [id number] Closed PCP Requested Referral 01/16/2022 01/16/2023 1 1 Reason Comments Procedure Colonoscopy results 04/13/2022 Reason Comments Back Pain Since yesterday morn ing; lower back Reason Comments Follow Up colonoscopy Reason Comments PT Eval Specialty Diagnoses / Procedures Referred By Donya rao Referred To Contact [facility] Diagnoses Acute midline low back pain without sciatica Procedures CONSULT TO PHYSICAL THERAPY PHYSICAL THERAPY EVALUATION HIGH COMPLEX 45 MINS PodlogRadha clarke APRN.YIELD LOSS INSPECTOR [address] [place] [address] [facility] [address] [place] [address] Referral ID Status Reason Start Date Expiration Date Visits Requested Visits Authorized [id number] Authorized Auto-Generat ed Referral 08/19/2021 08/18/2022 20 20 Reason Comments Refill Request Reason Comments Physical Therapy Specialty Diagnoses / Procedures Referred By Contac t Referred To Contact [facility] Diagnoses Acute midline low back pain without sciatica Procedures CONSULT TO PHYSICAL THERAPY PHYSICAL THERAPY EVALUATION HIGH [facility] 45 MINS Podlogar, LAURA Garcia.YIELD LOSS INSPECTOR [address] [place] [address] [facility] [address] [address] Reason Comments Physical Therapy Reason Comments Imm/Inj Specialty Diagnoses / Procedures Referred By Contac t Referred To Contact [facility] Diagnoses Acute midline low back pain without sciatica Procedures PT REHAB FOLLOW UP ORDER THERAPEUTIC EXERCISES RE, EA 15 MIN. Héctor Lagunas, PT [facility] [address] [address] Referral ID Status Reason Start Date Expiration Date V isits Requested Visits Authorized [id number] Closed PCP Requested Referral Auto-Generated Referral 07/13/2022 10/11/2022 1 1 Reason Comments Consult ER follow-up, [facility] panniculitis Specialty Diagnoses / Procedures Referred By Contac t Referred To Contact General Surgery Diagnoses Mesenteric panniculitis (HCC) Procedures CONSULT TO GENERAL SURGERY OFFICE/OUTPATIENT [facility] MDM 60-74 MINUTES Brennen Doshi MD [address] [place] [address] Referral ID Status Reason Start Date Expiration Date V isits Requested Visits Authorized [id number] Closed PCP Requested Referral 11/19/2022 11/19/2023 1 1 Reason Comments Headache Migraine since yeste rday, took last dose of inhalation nasal spray. Woke up today and migraine is still there. Patient with nausea and vomiting x2 this day. Reason Comments Insurance Authorization Reason Comments Patient Update Reason Comments Yearly routine labs Care Teams (unrecognized sec tion and content) Church Administrator Relationship Specialty Start Date End Date Brennen Doshi MD [address] [place] [address] PCP - General 07/13/08 Church Administrator Relationship Specialty Start Date End Date Brennen oDshi MD [address] [facility] [place] [address] PCP - General 07/13/08 Church Administrator Relationship Specialty Start Date End Date Brennen Doshi MD [address] [facility] [place] [address] PCP - General 07/13/08 Church Administrator Relationship Specialty Start Date End Date Brennen Doshi MD [address] [facility] [place] [address] PCP - General 07/13/08 Church Administrator Relationship Specialty Start Date End Date Brennen Doshi MD [address] [place] [address] PCP - General 07/13/08 Church Administrator Relationship Specialty Start Date End Date Brennen Doshi MD [address] [facility] [place] [address] PCP - General 07/13/08 Church Administrator Relationship Specialty Start Date End Date Brennen Doshi MD [address] [facility] [place] [address] PCP - General 07/13/08 Church Administrator Relationship Specialty Start Date End Date Brennen Doshi MD [address] [facility] [place] [address] PCP - General 07/13/08 Church Administrator Relationship Specialty Start Date End Date Brennen Doshi MD [address] [facility] [place] [address] PCP - General 07/13/08 Church Administrator Relationship Specialty Start Date End Date Brennen Doshi MD [facility] [place] [address] PCP - General 07/13/08 Church Administrator Relationship Specialty Start Date End Date Brennen Doshi MD [address] [facility] [place] [address] PCP - General 07/13/08 Church Administrator Relationship Specialty [place] [address] [place] [address], [place] [address] PCP - General 07/13/08 Church Administrator Relationship Specialty [place] [address] [place] [address], [place] [address] PCP - General 07/13/08 Church Administrator Relationship Specialty Start Date End Date Brennen Doshi MD [address] [place] [address], [place] [address] PCP - General 07/13/08 Church Administrator Relationship Specialty Start Date End Date Brennen Doshi MD [address] [facility] [place] [address] PCP - General 07/13/08 Church Administrator Relationship Specialty Start Date End Date Brennen Doshi MD [address] [place] [address], [place] [address] PCP - General 07/13/08 Church Administrator Relationship Specialty Start Date End Date Brennen Doshi MD [facility] [place] [address] PCP - General 07/13/08 Church Administrator Relationship Specialty Start Date End Date Brennen Doshi MD [address] [place] [address], [place] [address] PCP - General 07/13/08 FOR RECORDS PERTAINING TO PATIENTS WHO ARE OR HAVE BEEN ENROLLED IN A CHEMICAL DEPENDENCY/SUBSTANCEABUSE PROGRAM, SOME INFORMATION MAY BE OMITTED. This clinical summary was aggregated from multiple sources. Caution should be exercised in using it in the provision of clinical care. This summary normalizes information from multiple sources, and as a consequence, information in this document may materially change the coding, format and clinical context of patient data. In addition, data may be omitted in some cases. CLINICAL DECISIONS SHOULD BE BASED ON THE PRIMARY CLINICAL RECORDS. [facility] [employer] [facility]. provides no warranty or guarantee of the accuracy or completeness of information in this document.
== END 2023-10-11 21:50 | disposition left against medical advice (07) ==
LOC: ED 21:51
PROVIDERS: PCP Family Medicine
DX: Z53.21 Procedure and treatment not carried out due to patient leaving prior to being seen by health care provider (principal)

== ENCOUNTER → 2023-12-06 | Outpatient (CLI) | payer MEDICAID, SELFPAY ==
[2023-12-06 15:59] LABS: Erythrocyte Sedimentation Rate 10 mm/hr (0-20)
[2023-12-06 16:36] LABS: Amylase 55 U/L (25-115); CRP 7.01 mg/L (0.0-3.0); Free T3 2.5 pg/mL (2.18-3.98); LDH 211 U/L (87-241); Lipase 61 U/L (13-75); T4 Free Direct 1.04 ng/dL (0.76-1.46); Thyroid Stim Hormone (TSH) 0.45 uIU/mL (0.358-3.74)
[2023-12-09 13:07] LABS: Anti-Centromere B Ab <0.2 AI (0.0-0.9); Anti-Chromatin <0.2 AI (0.0-0.9); Anti-Jo <0.2 AI (0.0-0.9); Anti-Scleroderma-70 AB <0.2 AI (0.0-0.9); Anti-dsDNA Ab <1 IU/mL (0-9); RNP Ab 0.2 AI (0.0-0.9); SJOGREN'S Anti-SS-A test < 0.2 AI (0.0-0.9); SJOGREN'S Anti-SS-B test < 0.2 AI (0.0-0.9); Smith Ab <0.2 AI (0.0-0.9)
[2023-12-11 11:09] LABS: ACCA 6 units (0-90); ALCA 41 units (0-60); AMCA 24 units (0-100); Albumin 3.7 g/dL (2.9-4.4); Alpha-1-Globulins 0.3 g/dL (0.0-0.4); Alpha-2-Globulins 0.7 g/dL (0.4-1.0); Chromogranin A 40.8 ng/mL (0.0-101.8); Cytoplasmic Ab (C-ANCA) <1:20 titer (Neg:<1:20); Endomysial Antibody IgA Negative (Negative); Gamma Globulin 1.1 g/dL (0.4-1.8); Gastrin, Serum < 10 pg/mL (0-115); IgG, Quant 1054 mg/dL (603-1613); Immunoglobulin A 399 mg/dL (90-386); Immunoglobulin G, Subclass 1 547 mg/dL (248-810); Immunoglobulin G, Subclass 2 401 mg/dL (130-555); Immunoglobulin G, Subclass 3 28 mg/dL (15-102); Immunoglobulin G, Subclass 4 34 mg/dL (2-96); Immunoglobulin M 52 mg/dL (20-172); PROEL- TOTAL PROTEIN 7.1 g/dL (6.0-8.5); Perinuclear Ab (P-ANCA) <1:20 titer (Neg:<1:20); gASCA 24 units (0-50); t-Transglutaminase IgA <2 U/mL (0-3)
== END | disposition home or self-care (01) ==
LOC: LAB 14:46
PROVIDERS: PCP Family Medicine; Referring Provider Internal Medicine Gastroenterology; Visit Provider Internal Medicine Gastroenterology
DX: K65.4 Sclerosing mesenteritis (principal); R10.813 Right lower quadrant abdominal tenderness
CPT/HCPCS: 36415; 82150; 82784; 82787; 82941; 83516; 83615; 83690; 84165; 84439; 84443; 84481; 85652; 86036; 86140; 86225; 86235; 86255; 86256; 86316; 86334; 86671

== ENCOUNTER 2023-12-24 21:32 | Emergency (ER) | payer MEDICAID, SELFPAY ==
[2023-12-24 21:33] VITALS: BP 162/109; PULSE 65; RESP 12; TEMP 36.8; O2SAT 96; BMI 40.1
--- NOTE | 2023-12-24 22:51 | EDS_ITS ---
HPI History of Present Illness Chief Complaint: Eye Problem Informant: patient Narrative Narrative: Patient is a 48-year-old male with past medical history of migraine headache and hypertension. 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 He states right as he did this the person working next to him decided to spark their torch and he tried to close his eyes but was unsuccessful. He states he did not feel anything initially but a few hours later began with eye redness pain and irritation that felt similar nature to his previous bouts of Welders flash. He denies wearing contact lenses he denies any high risk activities such as chipping metal or grinding wood and states that he is light sensitive at this time but otherwise has normal vision. [facility] Medical History Acute frontal sinusitis, unspecified Asthma BiPAP (biphasic positive airway pressure) dependence Bradycardia Cardiology follow-up encounter Chews tobacco Contact with and (suspected) exposure to other viral communicable diseases Depression Deviated nasal septum Encounter for screening for COVID-19 Essential hypertension Family history of premature CAD Gastroenteritis Gout History of steroid therapy History of stress test Hypertrophy of nasal turbinates Hypertrophy of tonsils Laceration of oral cavity Left-sided chest wall pain Lumbar strain Migraine PING (obstructive sleep apnea) URI (upper respiratory infection) Home Medications sertraline 50 mg tablet (Zoloft) 100 mg PO DAILY 03/20/21 [History Last Taken Unknown] lisinopril 10 mg tablet 10 mg PO QHS 08/10/21 [History Last Taken Unknown] sumatriptan succinate 100 mg tablet 100 mg PO DAILY PRN migraine headache 01/08/23 [History Last Taken Unknown] ibuprofen 800 mg tablet 800 mg PO TID Pain #40 tabs 05/03/23 [Rx Last Taken Unknown] bisacodyl 5 mg tablet 5 mg PO ONCE #4 tabs 05/29/23 [Rx Last Taken Unknown] cyclobenzaprine 5 mg tablet 5 mg PO QHS #14 tabs 05/31/23 [Rx Last Taken Unknown] prednisone 20 mg tablet 60 mg PO DAILY PRN ANKLE PAIN 05/31/23 [History Last Taken Unknown] polyethylene glycol 3350 17 gram/dose oral powder (Miralax) 4 g PO DAILY PRN 12/06/23 [History Last Taken Unknown] erythromycin 5 mg/gram (0.5 %) eye ointment 1 applic EACH EYE 4X/DAY 5 days #3.5 grams 12/24/23 [Rx Last Taken Unknown] hydrocodone-acetaminophen 5-325mg 5mg-325mg 1 tab PO Q6H PRN PRN Pain 3 days #12 TABLETS 12/24/23 [Rx Last Taken Unknown] ketorolac (PF) 0.45 % eye drops in a dropperette 1 drp EACH EYE BID PRN eye pain 5 days #30 ea 12/24/23 [Rx Last Taken Unknown] Allergy/AdvReac Type Severity Reaction Status Date / Time Sulfa (Sulfonamide Allergy Rash Verified 12/06/23 14:05 Antibiotics) sulfamethoxazole Allergy Rash Verified 12/06/23 14:05 [From Bactrim] trimethoprim [From Bactrim] Allergy Rash Verified 12/06/23 14:05 naproxen AdvReac Other Verified 12/06/23 14:05 Family History Mother Heart disease Myocardial infarction Father Throat cancer Surgical History History of ankle surgery History of esophagogastroduodenoscopy (EGD) Social History (Updated 12/06/23 @ 14:07 by Clotilde Hoffman) household members: spouse and children Smoking Status: Never smoker Smokeless tobacco user: chewing tobacco alcohol intake: never substance use type: does not use caffeine: Yes Type: carbonated beverages and tea Number of servings: 1 ROS ROS ED Constitutional Constitutional ED: Denies chills or fever(s) Eyes Eyes: Reports other Details: Positive photophobia ENT ENT ED: Denies sore throat Cardiovascular Cardiovascular: Denies chest pain Respiratory/Chest Respiratory/Chest: Denies cough or dyspnea Gastrointestinal Gastrointestinal: Denies abdominal pain, diarrhea, nausea or vomiting Genitourinary Genitourinary ED: Denies dysuria Musculoskeletal Musculoskeletal: Denies myalgias Integumentary Denies rash Neurologic Neurologic: Reports headache(s) Hematologic/Lymphatic Hematologic/Lymphatic: Denies easy bleeding or easy bruising EXAM Physical Exam Const Vital Signs: 12/24/23 21:33 Temperature 98.2 F Temperature Source Temporal Pulse Rate 65 Respiratory Rate 12 Blood Pressure 162/109 H Blood Pressure Mean 126 Pulse Ox 96 Oxygen Delivery Method Room Air Positive well nourished and well developed General Appearance ED: well developed HEENT HEENT Narrative: Normocephalic atraumatic Eyes PERRL and EOMs intact bilaterally Eyes Narrative: Pupils are equal reactive to light and accommodation and extra ocular muscles are intact Patient has bilateral scleral injection with increased tearing. There is no foreign body noted with upper lid everted. Staining with fluorescein shows diffuse uptake of dye consistent with Welders arc. Negative Jeremy sign. Patient had complete relief after tetracaine administration Neck supple Neck Narrative: No nuchal rigidity or meningeal signs noted Resp normal respiratory effort and clear to auscultation bilaterally Cardio regular rate and regular rhythm Extremity normal to inspection Neuro oriented x3, CN's II-XII intact bilaterally, moves all extremities and no sensory deficits noted Sensorium / Orientation: alert Motor Exam: strength 5/5 throughout Psych mental status grossly normal Skin no rashes or lesions noted and no wounds MDM MDM MDM Narrative Medical decision making narrative: Patient presented ER hypertensive but has a past medical history of this and otherwise had stable vitals. He reported exposure to UV light at his job and reported bilateral eye pain a few hours later. Differential diagnosis is for UV keratitis versus corneal abrasion versus corneal foreign body. Exam did not show any foreign body or corneal abrasion but is most consistent with UV keratitis. At this time as he does not have signs of ocular injury such as globe rupture or retained foreign body there is no need for emergent ophthalmology consultation. Patient will be treated with erythromycin ointment to prevent infection provide lubrication as well as ketorolac eyedrops for pain control but is otherwise safe for discharge with outpatient follow-up. History & Record Review Discussion w/independent historian: Patient Discharge Plan Triage Chief Complaint: Eye Problem ED Provider: Sher Appiah Dx/Rx/DC Orders Clinical Impression: UV keratitis, PING (obstructive sleep apnea), Migraine headache, Essential hypertension Instructions: ED Flash Burn to Eye Prescriptions: New erythromycin 5 mg/gram (0.5 %) ointment 1 applic EACH EYE 4X/DAY 5 Days Qty: 3.5 0RF ketorolac (PF) 0.45 % dropperette 1 drp EACH EYE BID PRN (Reason: eye pain) 5 Days Qty: 30 0RF hydrocodone-acetaminophen 5-325 mg tablet 1 tab PO Q6H PRN PRN (Reason: Pain) 3 Days Qty: 12 0RF No Action sertraline [Zoloft] 50 mg tablet 100 mg PO DAILY lisinopril 10 mg tablet 10 mg PO QHS cyclobenzaprine 5 mg tablet 5 mg PO QHS Qty: 14 0RF ibuprofen 800 mg tablet 800 mg PO TID Qty: 40 0RF Rx Instructions: Do not take in conjunction with other NSAIDs. Tylenol is okay. polyethylene glycol 3350 [Miralax] 17 gram/dose powder 4 g PO DAILY PRN Rx Instructions: mix with 64 fluid oz of clear liquid as part of colon prep sumatriptan succinate 100 mg tablet 100 mg PO DAILY PRN (Reason: migraine headache) prednisone 20 mg tablet 60 mg PO DAILY PRN (Reason: ANKLE PAIN) bisacodyl 5 mg tablet 5 mg PO ONCE Qty: 4 0RF Rx Instructions: take ( 4 tablets ) before starting the miralax mixture per instructions. Primary Care Provider: Moisés Barclay Referrals: Moisés Barclay MD [Primary Care Provider] - Miguelina Jimenez MD [Med Staff - Active Staff] - Activity Restrictions/Additional Instructions: If symptoms do not improve with the prescribed medication follow-up with ophthalmology or return to the ER for repeat evaluation Disposition Disposition: Home, Self Care
[2023-12-24] MEDS: Tetracaine 0.5% Ophthalmic Bottle 1 DRP EACH EYE (23:27)
[2023-12-24] MEDS: Fluorescein 1 MG STRIP 1 STRIP EACH EYE (23:27)
[2023-12-24 23:29] VITALS: BP 137/102; PULSE 69; RESP 16; TEMP 36.6; O2SAT 99
== END 2023-12-24 23:29 | disposition home or self-care (01) ==
PROVIDERS: Emergency Provider Emergency Medicine; PCP Family Medicine; Visit Provider Emergency Medicine
DX: H16.139 Photokeratitis, unspecified eye (principal); G47.33 Obstructive sleep apnea (adult) (pediatric); I10 Essential (primary) hypertension; G43.909 Migraine, unspecified, not intractable, without status migrainosus; J45.909 Unspecified asthma, uncomplicated; F17.220 Nicotine dependence, chewing tobacco, uncomplicated; W89.0XXA Exposure to welding light (arc), initial encounter
CPT/HCPCS: 99284

== ENCOUNTER 2024-07-31 13:44 | Emergency (ER) | payer OTHER, SELFPAY ==
[2024-07-31 13:45] VITALS: BP 151/94; PULSE 77; RESP 15; TEMP 36.8; O2SAT 98; BMI 41.8
--- NOTE | 2024-07-31 13:54 | ED.RN ---
states sick for 2 weeks. tested negative for covid. dizziness and nauesa resolved just ttired and weak
--- NOTE | 2024-07-31 14:12 | RAD_ITS ---
STUDY: X-RAY CHEST REASON FOR EXAM: Male, 49 years old. Cough. Chills and bodyaches. TECHNIQUE: PA and lateral views of the chest. COMPARISON: Comparison is made with prior study dated November 21, 2021. FINDINGS: The lungs are clear and expanded. There is no demonstrated pleural abnormality. Normal size heart. Normal mediastinum and vazquez. Normal visualized pulmonary arteries. Normal visualized aortic arch and descending thoracic aorta. There are diffuse degenerative changes of the visualized thoracic spine. Normal visualized ribs, clavicles, and shoulders. There is no demonstrated abnormality of the visualized soft tissue structures of the upper abdomen. RAD/Chest PA and Lateral IMPRESSION: Normal x-ray examination of the chest. Electronically Signed: Domingo Biggs MD at 14:27 EST ,
--- NOTE | 2024-07-31 14:19 | EX.ED.DYSGE1 ---
HPI <MARIAM Stubbs - Last Filed: 07/31/24 15:26> History of Present Illness Chief Complaint: General Illness Narrative Narrative: Patient is a 49-year-old male with history of hypertension, obesity, migraine headaches who presents to the emergency department for 2 weeks of generalized weakness, body aches. Patient states that the first week he had some nausea and vomiting, this week, he has more bodyaches, cough as well as some left ear pain. Denies any sick contacts. Pay states he did call his doctor however thought it was a virus and to wait it out. Patient does have history of sleep apnea have has been unable to wear his mask secondary to congestion. PFSH <MARIAM Stubbs - Last Filed: 07/31/24 15:26> [facility] Medical History Partial thickness burn of left hand Left knee pain History of steroid therapy Chews tobacco Depression BiPAP (biphasic positive airway pressure) dependence History of stress test Cardiology follow-up encounter Contact with and (suspected) exposure to other viral communicable diseases URI (upper respiratory infection) Left-sided chest wall pain Lumbar strain Encounter for screening for COVID-19 Family history of premature CAD Bradycardia Essential hypertension Migraine Gastroenteritis Deviated nasal septum Hypertrophy of nasal turbinates Hypertrophy of tonsils PING (obstructive sleep apnea) Acute frontal sinusitis, unspecified Laceration of oral cavity Gout Asthma Home Medications ?Medication ?Instructions ?Recorded ?Last Taken ?Type sertraline 50 mg tablet (Zoloft) 100 mg PO DAILY 03/20/21 Unknown History lisinopril 10 mg tablet 10 mg PO QHS 08/10/21 Unknown History ibuprofen 800 mg tablet 800 mg PO TID Pain #40 tabs 05/03/23 Unknown Rx cetirizine 10 mg tablet 10 mg PO DAILY PRN 02/10/24 Unknown History prednisone 20 mg tablet 20 mg PO DAILY #30 tabs 03/06/24 Unknown Rx budesonide 9 mg tablet,delayed and 9 mg PO QAM #90 ea 07/10/24 Unknown Rx extended release amoxicillin 875 mg tablet 875 mg PO BID #20 tabs 07/31/24 Unknown Rx Allergy/AdvReac Type Severity Reaction Status Date / Time Sulfa (Sulfonamide Allergy Severe Anaphylaxis Verified 07/31/24 13:45 Antibiotics) sulfamethoxazole (From Allergy Severe Anaphylaxis Verified 07/31/24 13:45 Bactrim) trimethoprim (From Bactrim) Allergy Rash Verified 07/31/24 13:45 naproxen AdvReac Other Verified 07/31/24 13:45 Family History Mother Heart disease Myocardial infarction Father Throat cancer Surgical History History of esophagogastroduodenoscopy (EGD) History of ankle surgery Social History household members: spouse and children Smoking Status: Never smoker Smokeless tobacco user: chewing tobacco alcohol intake: never substance use type: does not use caffeine: Yes Type: carbonated beverages and tea Number of servings: 1 ROS <MARIAM Stubbs - Last Filed: 07/31/24 15:26> ROS ED ROS Narrative Constitutional: Negative for fever, chills, weight loss. Positive for weakness Eyes: Negative for vision loss, vision change, double vision ENT: Negative for any sore throat, congestion. Positive for left ear pain Cardiovascular: Negative for any chest pain, tightness, palpitations Respiratory: Negative for any sputum production, hemoptysis, dyspnea, dyspnea on exertion, orthopnea. Positive for cough Gastrointestinal: Negative for any abdominal pain, nausea, vomiting, diarrhea, constipation, blood in stool, blood in vomit : Negative for any urinary frequency, dysuria, retention, blood in urine Muscle skeletal: Negative for any neck pain, back pain. Positive for myalgias Neurological: Negative for any headache, syncope, dizziness Skin: Negative for any rashes, itching, abrasions, lacerations Psychiatric: Negative for any depression, anxiety, stress, suicidal ideation, homicidal ideation Hematologic: Negative for any excessive bruising, easy bleeding EXAM <MARIAM Stubbs - Last Filed: 07/31/24 15:26> Physical Exam Narrative Exam Narrative: Vital signs reviewed. Patient is normal vital signs HEET: Head normocephalic atraumatic, right tympanic membrane is clear, left tympanic membrane is erythematous, no fluid behind the ear. Posterior pharynx is clear, moist mucous membranes. Nares clear bilaterally. Neck: Supple with no lymphadenopathy or tenderness. No signs of meningismus. Cardiac: Regular rate and rhythm no murmurs gallops or rubs, equal peripheral pulses bilaterally. Respiratory: Lungs clear to auscultation bilaterally. No chest tenderness. Abdomen: Soft, nontender, nondistended. No abdominal bruit or pulsatile masses. No hepatosplenomegaly Extremities: No peripheral edema, no signs of gross trauma or deformity. Active full range of motion of all extremities. Neuro: Cranial nerves II through XII intact, no focal neurological deficits. Skin: Clean dry and intact with no rash, purpura, petechiae, vesicles or pustules. Backs/flank: No CVA tenderness, no midline spinal tenderness, no deformity. Psych: Normal mood and affect. No SI, HI or acute psychosis. Const Vital Signs: 07/31/24 13:45 07/31/24 13:56 Temperature 98.2 F Temperature Source Temporal Pulse Rate 77 Respiratory Rate 15 Respiratory Effort Normal Respiratory Pattern Normal Blood Pressure 151/94 H Blood Pressure Mean 113 Pulse Ox 98 Oxygen Delivery Method Room Air <Dr. Rob Murphy MD - Last Filed: 07/31/24 15:28> Physical Exam Const Vital Signs: 07/31/24 13:45 07/31/24 13:56 Temperature 98.2 F Temperature Source Temporal Pulse Rate 77 Respiratory Rate 15 Respiratory Effort Normal Respiratory Pattern Normal Blood Pressure 151/94 H Blood Pressure Mean 113 Pulse Ox 98 Oxygen Delivery Method Room Air MDM <MARIAM Stubbs - Last Filed: 07/31/24 15:26> MDM Radiography Diagnostic Testing: Clinical Impression(s) from Imaging Studies Chest X-Ray 07/31/24 14:12 IMPRESSION: Normal x-ray examination of the chest. Electronically Signed: Domingo Biggs MD at 14:27 EST , Treatment and Re-Evaluation :: Differential diagnosis includes however is not limited to: COVID-19, influenza, RSV, community-acquired pneumonia, acute otitis media, viral syndrome Patient appears generally well, vital signs are stable, patient is nontoxic-appearing. Presenting to the emergency department with complaints of cough, congestion, nausea and vomiting, generalized illness over the last 2 weeks. Patient physical examination does show left otitis media, patient received a two-view chest x-ray as well as a COVID-19, influenza, RSV swab. All radiologic examinations were read, reviewed by the emergency department attending. From these reads, a plan of care will be put in place. COVID-19, influenza, RSV was negative. Patient's two-view chest x-ray was negative. At this time, patient be treated for a URI as well as a left otitis media. Patient restarted amoxicillin. Patient to take this twice a day for 10 days. Patient struck to continue to use ibuprofen and Tylenol. Is happy with the plan of care, all questions answered, stable for discharge. <Dr. Rob Murphy MD - Last Filed: 07/31/24 15:28> [facility] MDM Narrative Medical decision making narrative: I have personally performed a face to face assessment of the patient and have reviewed the REBEL Note. I performed a substantive portion of the visit including all aspects of the following. My multani findings include: History is remarkable for flulike symptoms started 2 weeks ago. Worse over the past 24 to 48 hours. Son was ill with viral symptoms and predominantly GI symptoms. He denies any GI symptoms. He does endorse myalgias arthralgias. Does endorse nasal congestion sore throat and cough. The symptoms started approximately 2 days ago. He denies rash. He denies joint swelling. He denies documented fever. Exam is remarkable for patient appearing ill but not toxic. Vital signs are marked for an elevated blood pressure. Not tachycardic, tachypneic, febrile or hypoxic. Lungs are clear to auscultation with symmetric breath sounds. Heart is regular. Rate is normal. There is no murmur, gallop or rub. Will perform otoscopic exam since the nurse practitioner is concerned that he has otitis media. Medical Decision Making suspect patient has viral illness. Most likely this represents either influenza or COVID. If those are negative. This may be due to another virus that is prevalent during this time of year. Other additions or changes: Patient's left TM is erythematous. There is some obscuring of the landmarks. Since he is complaining of pain this probably represents acute otitis suppurativa on the left. Lab Data Attestation: I reviewed the patient's lab results. Lab results narrative: Rapid antigen for COVID, influenza and RSV are all negative. Radiography Chest X-Ray - ED: 2 View, Read by ED Physician (Dr. Murphy), Unchanged, Normal, Heart, Lungs, Mediastinum, Bony Structures and No Acute Disease Diagnostic Testing: Clinical Impression(s) from Imaging Studies Chest X-Ray 07/31/24 14:12 IMPRESSION: Normal x-ray examination of the chest. Electronically Signed: Domingo Biggs MD at 14:27 EST , Discharge Plan Triage Chief Complaint: General Illness ED Midlevel Provider: Shaan Elizondo ED Provider: Rob Murphy Dx/Rx/DC Orders Clinical Impression: Systemic viral illness, Acute left otitis media, Myalgia, Elevated blood pressure reading with diagnosis of hypertension Instructions: ED Otitis Media Adult, ED Viral Syndrome (Adult) Prescriptions: New amoxicillin 875 mg tablet 875 mg PO BID Qty: 20 0RF No Action sertraline [Zoloft] 50 mg tablet 100 mg PO DAILY lisinopril 10 mg tablet 10 mg PO QHS ibuprofen 800 mg tablet 800 mg PO TID Qty: 40 0RF Rx Instructions: Do not take in conjunction with other NSAIDs. Tylenol is okay. prednisone 20 mg tablet 20 mg PO DAILY Qty: 30 5RF cetirizine 10 mg tablet 10 mg PO DAILY PRN budesonide 9 mg tablet,delayed and ext.release 9 mg PO QAM Qty: 90 3RF Primary Care Provider: Moisés Barclay Referrals: Moisés Barclay MD [Primary Care Provider] - Activity Restrictions/Additional Instructions: Take the antibiotics until finished. Make sure that you maintain your hydration. Your urine should be light yellow. Print Language: Mongolian Disposition Disposition: Home, Self Care
[2024-07-31] MEDS: AMOXICILLIN 500 MG CAPSULE PO (15:31)
== END 2024-07-31 15:33 | disposition home or self-care (01) ==
PROVIDERS: Emergency Provider Emergency Medicine; PCP Family Medicine; Visit Provider Emergency Medicine
DX: B34.9 Viral infection, unspecified (principal); H66.92 Otitis media, unspecified, left ear; M79.10 Myalgia, unspecified site; I10 Essential (primary) hypertension; G47.33 Obstructive sleep apnea (adult) (pediatric)
CPT/HCPCS: 71046; 87631; 99282

== ENCOUNTER 2024-09-14 03:28 | Emergency (ER) | payer OTHER, SELFPAY ==
[2024-09-14 03:29] VITALS: PULSE 63; RESP 18; TEMP 36.8; O2SAT 96; BMI 39.3
--- NOTE | 2024-09-14 03:43 | EDS_ITS ---
HPI History of Present Illness Chief Complaint: Chest Pain Informant: patient Onset/Context/Timing Onset: Today Activity at onset: gradual Timing: Continuous Location: Substernal Worsened By: Nothing Relieved By: Nothing Associated Symptoms: Positive for Nausea and Vomiting; Negative for Diaphoresis, Dyspnea, Cough, Fever, Lightheadedness, Acid Reflux or Palpitations Narrative Narrative: Patient presents with chest pain that began approximately 45 minutes prior to ar rival. Patient states he was sleeping when the pain began. Patient states it is gradually getting worse. Patient describes the pain as dull and aching. Patient states it has been constant. Patient states it is over the substernal area. Patient states nothing makes it better nothing makes it worse. Patient admits to some nausea and vomiting. Patient denies any diaphoresis. Patient denies any shortness of breath or cough. Patient denies any palpitations or fever. CVD Risk Factors: Positive for Hypertension and Family History 1' </=55; Negative for Diabetes, Hypercholesterolemia or Smoking PE Risk Factors: Negative for Recent Travel/Surgery, Recent Immobilization, Prior DVT or PE, Cancer or OCP + Smoking + >/=35 PFSH PFSH Medical History Partial thickness burn of left hand Left knee pain History of steroid therapy Chews tobacco Depression BiPAP (biphasic positive airway pressure) dependence History of stress test Cardiology follow-up encounter Contact with and (suspected) exposure to other viral communicable diseases URI (upper respiratory infection) Left-sided chest wall pain Lumbar strain Encounter for screening for COVID-19 Family history of premature CAD Bradycardia Essential hypertension Migraine Gastroenteritis Deviated nasal septum Hypertrophy of nasal turbinates Hypertrophy of tonsils PING (obstructive sleep apnea) Acute frontal sinusitis, unspecified Laceration of oral cavity Gout Asthma Home Medications ?Medication ?Instructions ?Recorded ?Last Taken ?Type sertraline 50 mg tablet (Zoloft) 100 mg PO DAILY 03/20/21 Unknown History lisinopril 10 mg tablet 10 mg PO QHS 08/10/21 Unknown History ibuprofen 800 mg tablet 800 mg PO TID Pain #40 tabs 05/03/23 Unknown Rx cetirizine 10 mg tablet 10 mg PO DAILY PRN allergy symptoms 02/10/24 Unknown History prednisone 20 mg tablet 20 mg PO DAILY #30 tabs 03/06/24 Unknown Rx budesonide 9 mg tablet,delayed and 9 mg PO QAM #90 ea 07/10/24 Unknown Rx extended release allopurinol 300 mg tablet 300 mg PO BID 09/14/24 Unknown History meloxicam 15 mg tablet 15 mg PO DAILY 09/14/24 Unknown History sildenafil 50 mg tablet 50 mg PO DAILY PRN erectile 09/14/24 Unknown History dysfunction sumatriptan 20 mg/actuation nasal 20 mg intranasal PRN PRN migraine 09/14/24 Unknown History spray headache Allergy/AdvReac Type Severity Reaction Status Date / Time Sulfa (Sulfonamide Allergy Severe Anaphylaxis Verified 09/14/24 03:29 Antibiotics) sulfamethoxazole (From Allergy Severe Anaphylaxis Verified 09/14/24 03:29 Bactrim) trimethoprim (From Bactrim) Allergy Rash Verified 09/14/24 03:29 naproxen AdvReac Other Verified 09/14/24 03:29 Family History Mother Heart disease Myocardial infarction Father Throat cancer Surgical History History of esophagogastroduodenoscopy (EGD) History of ankle surgery Social History household members: spouse and children Smoking Status: Never smoker Smokeless tobacco user: chewing tobacco alcohol intake: never substance use type: does not use caffeine: Yes Type: carbonated beverages and tea Number of servings: 1 ROS ROS ED Constitutional Constitutional ED: Denies chills or fever(s) Eyes Eyes: Denies blurry vision or change in vision ENT ENT ED: Denies rhinorrhea or sore throat Cardiovascular Cardiovascular: Reports as per HPI and chest pain; Denies palpitations Respiratory/Chest Respiratory/Chest: Denies cough or dyspnea Gastrointestinal Gastrointestinal: Reports nausea and vomiting Genitourinary Genitourinary ED: Denies dysuria or hematuria Musculoskeletal Musculoskeletal: Denies back pain or neck pain Integumentary Denies abscess or rash Neurologic Neurologic: Denies headache(s) or weakness Allergic/Immunologic Allergic/Immunologic ED: Denies mouth swelling or urticaria EXAM Physical Exam Const Vital Signs: 09/14/24 03:29 09/14/24 03:29 09/14/24 03:56 Temperature 98.2 F Temperature Source Oral Pulse Rate 63 Respiratory Rate 18 Respiratory Effort Normal Non-Labored Blood Pressure Blood Pressure Mean Pulse Ox 96 95 Oxygen Delivery Method Room Air Room Air 09/14/24 04:29 09/14/24 05:00 09/14/24 06:00 Temperature Temperature Source Pulse Rate 59 L 60 53 L Respiratory Rate 20 H 19 H 16 Respiratory Effort Blood Pressure 125/79 H 129/78 H 123/78 H Blood Pressure Mean 94 95 93 Pulse Ox 97 97 97 Oxygen Delivery Method Room Air Room Air Room Air Positive well nourished and well developed Constitutional Narrative: BMI is 39.4 General Appearance ED: well developed and NAD HEENT Reports moist mucous membranes Neck supple and no JVD Chest Wall inspection of chest normal Chest Narrative: There is mild tenderness over the lower chest wall. This does not reproduce his symptoms. Resp normal respiratory effort and clear to auscultation bilaterally Cardio regular rate and regular rhythm GI soft to palpation, non-tender and non-distended Neuro oriented x3, CN's II-XII intact bilaterally and no sensory deficits noted Sensorium / Orientation: awake and alert Motor Exam: strength 5/5 throughout Psych mental status grossly normal Heart Score History: Slightly/Non-Suspicious ECG: Nonspecific Repolarization Age: >45 - <65 years Risk Factors: 1 or 2 Risk Factors Troponin: </= Normal Limit Score: 3 MDM MDM MDM Narrative Medical decision making narrative: Differential diagnosis includes cardiac dysrhythmia, cardiac ischemia, electrolyte abnormality, pneumonia, pneumothorax, gastroesophageal reflux disease, musculoskeletal pain, and anxiety. EKG will be obtained to assess for cardiac dysrhythmia and cardiac ischemia. Chest x-ray will be obtained to as sess for pneumonia and pneumothorax. CBC will be obtained to assess for leukocytosis and anemia. Basic metabolic profile will be obtained to assess for electrolyte abnormality and renal function. High-sensitivity troponin will be obtained to assess for cardiac ischemia. 2-hour repeat high-sensitivity troponin will be obtained to assess for ongoing cardiac ischemia. Lab Data Attestation: I reviewed the patient's lab results. Lab results narrative: CBC was reviewed and was within normal limits. Basic metabolic profile was reviewed and was within normal limits. High-sensitivity troponin was reviewed and was normal at 8. 2-hour repeat high-sensitivity troponin was reviewed and was normal at 7. Labs: Laboratory Results - last 24 hr 09/14/24 09/14/24 03:50 05:55 WBC 10.4 RBC 5.08 Hgb 14.4 Hct 41.9 MCV 82.5 MCH 28.3 MCHC 34.4 RDW Std Deviation 38.2 RDW Coeff of Asif 12.7 Plt Count 331 MPV 9.1 Immature Gran % (Auto) 0.900 Neut % (Auto) 58.7 Lymph % (Auto) 26.9 [place] % (Auto) 7.4 Eos % (Auto) 5.2 H Baso % (Auto) 0.9 Absolute Neuts (auto) 6.1 Absolute Lymphs (auto) 2.78 Nucleated RBC % 0 Sodium 137 Potassium 3.8 Chloride 104 Carbon Dioxide 26.0 Anion Gap 6 BUN 12 Creatinine 1.03 Estim Creat Clear Calc 116.22 Est GFR (MDRD) Af Amer 99 Est GFR (MDRD) Non-Af 82 BUN/Creatinine Ratio 11.7 Glucose 117 H Calcium 8.9 Troponin I High Sens 8 7 Radiography Chest X-Ray - ED: 1 View, Read by ED Physician, Read by Radiologist and No Acute Disease Diagnostic Testing: Clinical Impression(s) from Imaging Studies Chest X-Ray 09/14/24 04:05 IMPRESSION: No evidence of cardiopulmonary disease. Electronically Signed: Ho CameronDO at 6:11 EST , Portable 1 view chest x-ray was obtained. On my independent interpretation, lung goff are clear. There is normal cardiac silhouette. Bony thorax is normal. There is no acute process noted. Radiologist also interpreted the x- ray and agrees. EKG Initial EKG: Attestation: I personally reviewed and interpreted this EKG as follows: Interpretation: Sinus Rhythm (With first-degree AV block with a rate of 61), RBBB, LAFB and Non-Specific ST Changes Comments: EKG was obtained. On my independent interpretation, it shows sinus rhythm with first-degree AV block with a rate of 61. [place] interval was prolonged at 214 ms. QRS interval was prolonged at 154 ms. QTc interval was 450 ms. There is left axis deviation at -69. There is a right bundle branch block pattern noted. There is a left anterior fascicular block pattern noted. There is evidence of left ventricular hypertrophy. There are nonspecific ST-T wave changes noted. Compared to previous EKG dated 03/19/2019, the right bundle branch block is new. Prior EKG tracings: available for review Prior: Changed (Compared to previous EKG dated 03/19/2019, the right bundle branch block is no) Treatment and Re-Evaluation :: Patient was given aspirin here. Patient was advised of his findings. Patient has a HEART score of 3. Patient was advised that this is low risk for acute cardiac event. Patient was instructed to follow-up with his primary care physician in 5 to 7 days. Patient was instructed to return if worse in any way. Patient understood and was agreeable with plan. All questions were answered. Discharge Plan Triage Chief Complaint: Chest Pain ED Provider: Luigi Londono Dx/Rx/DC Orders Clinical Impression: Chest pain, Essential hypertension Instructions: ED Chest Pain, Uncertain Cause Prescriptions: No Action sertraline [Zoloft] 50 mg tablet 100 mg PO DAILY lisinopril 10 mg tablet 10 mg PO QHS ibuprofen 800 mg tablet 800 mg PO TID Qty: 40 0RF Rx Instructions: Do not take in conjunction with other NSAIDs. Tylenol is okay. prednisone 20 mg tablet 20 mg PO DAILY Qty: 30 5RF cetirizine 10 mg tablet 10 mg PO DAILY PRN (Reason: allergy symptoms) budesonide 9 mg tablet,delayed and ext.release 9 mg PO QAM Qty: 90 3RF sildenafil 50 mg tablet 50 mg PO DAILY PRN (Reason: erectile dysfunction) allopurinol 300 mg tablet 300 mg PO BID sumatriptan 20 mg/actuation spray,non-aerosol 20 mg INTRANASAL PRN PRN (Reason: migraine headache) meloxicam 15 mg tablet 15 mg PO DAILY Primary Care Provider: Moisés Barclay Referrals: Moisés Barclay MD [Primary Care Provider] - 5-7 Days Print Language: Faroese Disposition Disposition: Home, Self Care
[2024-09-14 03:56] VITALS: O2SAT 95
--- NOTE | 2024-09-14 03:56 | EKG12_ITS ---
Test Reason : CP Blood Pressure : */* mmHG Vent. Rate : 61 BPM Atrial Rate : 61 BPM P-R Int : 214 ms QRS Dur : 154 ms QT Int : 448 ms P-R-T Axes : 44 -69 1 degrees QTcB Int : 450 ms Sinus rhythm with 1st degree A-V block Right bundle branch block Left anterior fascicular block Bifascicular block Minimal voltage criteria for LVH, may be normal variant ( R in aVL ) Abnormal ECG Confirmed by JENNA PÉREZ, RIC ([id number]), subeditor DON MARTE ([id number]) on 09/16/2024 6:17:15 AM Referred By: YENNIFER Confirmed By: RIC WEST MD
--- NOTE | 2024-09-14 04:05 | RAD_ITS ---
INDICATION: chest pain EXAMINATION/TECHNIQUE: X-RAY - XR Chest 1 View COMPARISON: 07/31/2024. FINDINGS: LINES/DEVICES: None. LUNGS: No consolidation or evidence of an effusion. No evidence of edema or a pneumothorax. MEDIASTINUM AND CARDIOVASCULAR STRUCTURES: Cardiac silhouette is normal in size and contour. Mediastinum is unremarkable. BONES AND SOFT TISSUES: No acute abnormality. RAD/Chest 1 View (Portable) IMPRESSION: No evidence of cardiopulmonary disease. Electronically Signed: Ho Cameron DO at 6:11 EST ,
[2024-09-14 04:09] LABS: Absolute Lymphocyte Count 2.78 X10^3/uL (0.83-4.51); Absolute Neutrophil Count 6.1 X10^3/uL (2.0-7.7); Basophil# 0.09 X10^3/uL; Basophil% 0.9 % (0-1); Eosinophil# 0.54 X10^3/uL; Eosinophils% 5.2 % (0-5); Hematocrit 41.9 % (40-54); Hemoglobin 14.4 g/dL (13.0-16.5); Lymphocyte # 2.78 X10^3/ul (0.83-4.51); Lymphocyte % 26.9 % (19-41); Mean Corp Hgb Conc 34.4 g/dL (32-36); Mean Corpuscular Hgb 28.3 pg (27.0-32.0); Mean Corpuscular Volume 82.5 fL (80-94); Mean Platelet Vol. 9.1 fl (6.2-12.0); Monocyte# 0.77 X10^3/uL; Monocyte% 7.4 % (0-10); NRBC Flagged by Analyzer 0 % (0-5); Neutrophil # 6.08 X10^3/uL (2.7-7.7); Neutrophil % 58.7 % (47-70); Platelet Count 331 K/mm3 (150-450); RBC Distribution Width CV 12.7 % (11.6-14.6); RBC Distribution Width SD 38.2 fl (35.1-43.9); Red Blood Count 5.08 M/mm3 (4.6-6.2); White Blood Count 10.4 K/mm3 (4.4-11.0)
[2024-09-14] MEDS: Aspirin 81 MG TAB.CHEW 324 MG PO (04:10)
[2024-09-14 04:29] VITALS: BP 125/79; PULSE 59; RESP 20; O2SAT 97
[2024-09-14 04:33] LABS: Anion Gap 6 (5-15); BUN 12 mg/dL (7-18); BUN/Creat Ratio 11.7 RATIO (10-20); Calcium,Total 8.9 mg/dL (8.5-10.1); Chloride 104 mmol/L (98-107); Creatinine, Serum 1.03 mg/dL (0.70-1.30); EST Glomerular Filtration Rate 82 mL/min (>60); Est Glom Filt Rate - Afr Amer 99 mL/min (>60); Estimated Creatinine Clearance 116.22 ml/min; Glucose 117 mg/dL (74-106); Potassium 3.8 mmol/L (3.5-5.1); Sodium Level 137 mmol/L (136-145); Troponin-I HS (w/2H Reflex) 8 pg/mL (3.0-78.0)
[2024-09-14 05:00] VITALS: BP 129/78; PULSE 60; RESP 19; O2SAT 97
[2024-09-14 06:00] VITALS: BP 123/78; PULSE 53; RESP 16; O2SAT 97
[2024-09-14 06:06] LABS: Reflex Troponin-HS? (from REC) Y
[2024-09-14 06:43] LABS: Troponin-I HS 7 pg/mL (3.0-78.0)
[2024-09-14 07:07] VITALS: BP 122/74; PULSE 58; RESP 16; TEMP 36.6; O2SAT 96
== END 2024-09-14 07:08 | disposition home or self-care (01) ==
PROVIDERS: Emergency Provider Emergency Medicine; PCP Family Medicine; Visit Provider Emergency Medicine
DX: R07.9 Chest pain, unspecified (principal); I10 Essential (primary) hypertension; F32.A Depression, unspecified; G47.33 Obstructive sleep apnea (adult) (pediatric); Z79.899 Other long term (current) drug therapy
CPT/HCPCS: 71045; 80048; 84484; 85025; 93005; 99283

== ENCOUNTER 2025-05-12 20:49 | Emergency (ER) | payer OTHER, SELFPAY ==
[2025-05-12 20:52] VITALS: BP 136/93; PULSE 67; RESP 18; TEMP 36; O2SAT 98; BMI 38.5
[2025-05-12] MEDS: Ketorolac 30 MG/ML Syringe IV (23:09)
[2025-05-12] MEDS: DiphenhydrAMINE 50 MG/ML Syringe IV (23:09)
[2025-05-12] MEDS: 0.9% Normal Saline (1000mL) 1,000 ML 999 ML IV (23:17)
[2025-05-12 23:18] VITALS: PULSE 78; RESP 16; O2SAT 99
--- NOTE | 2025-05-12 23:47 | EX.ED.DYSGE1 ---
HPI History of Present Illness Chief Complaint: Headache Informant: patient Narrative Narrative: Patient is a 49-year-old male with past medical history of migraine headache as well as hypertension. He states he will occasionally get a migraine and when he does so he takes his Imitrex. He states earlier today he noticed a headache that came on gradually increased over the course of hours. He states it was sensitive to light and sound and felt similar nature to his previous migraines. He reports that there is no recent trauma or fevers or chills or known sick contact. He states he took his Imitrex without symptom relief. He states this occasionally will happen and he will require treatment in the ER for his headache. Therefore as symptoms have not resolved with his standard home therapy he presents for evaluation [facility] Medical History Partial thickness burn of left hand Left knee pain History of steroid therapy Chews tobacco Depression BiPAP (biphasic positive airway pressure) dependence History of stress test Cardiology follow-up encounter Contact with and (suspected) exposure to other viral communicable diseases URI (upper respiratory infection) Left-sided chest wall pain Lumbar strain Encounter for screening for COVID-19 Family history of premature CAD Bradycardia Essential hypertension Migraine Gastroenteritis Deviated nasal septum Hypertrophy of nasal turbinates Hypertrophy of tonsils PING (obstructive sleep apnea) Acute frontal sinusitis, unspecified Laceration of oral cavity Gout Asthma Home Medications ?Medication ?Instructions ?Recorded ?Last Taken ?Type sertraline 50 mg tablet (Zoloft) 100 mg PO DAILY 03/20/21 Unknown History lisinopril 10 mg tablet 10 mg PO QHS 08/10/21 Unknown History ibuprofen 800 mg tablet 800 mg PO TID Pain #40 tabs 05/03/23 Unknown Rx cetirizine 10 mg tablet 10 mg PO DAILY PRN allergy symptoms 02/10/24 Unknown History prednisone 20 mg tablet 20 mg PO DAILY #30 tabs 03/06/24 Unknown Rx budesonide 9 mg tablet,delayed and 9 mg PO QAM #90 ea 07/10/24 Unknown Rx extended release allopurinol 300 mg tablet 300 mg PO BID 09/14/24 Unknown History meloxicam 15 mg tablet 15 mg PO DAILY 09/14/24 Unknown History sildenafil 50 mg tablet 50 mg PO DAILY PRN erectile 09/14/24 Unknown History dysfunction sumatriptan 20 mg/actuation nasal 20 mg intranasal PRN PRN migraine 09/14/24 Unknown History spray headache Allergy/AdvReac Type Severity Reaction Status Date / Time Sulfa (Sulfonamide Allergy Severe Anaphylaxis Verified 05/12/25 20:52 Antibiotics) sulfamethoxazole (From Allergy Severe Anaphylaxis Verified 05/12/25 20:52 Bactrim) trimethoprim (From Bactrim) Allergy Rash Verified 05/12/25 20:52 naproxen AdvReac Other Verified 05/12/25 20:52 Family History Mother Heart disease Myocardial infarction Father Throat cancer Surgical History History of esophagogastroduodenoscopy (EGD) History of ankle surgery Social History household members: spouse and children Smoking Status: Never smoker Smokeless tobacco user: chewing tobacco alcohol intake: never substance use type: does not use caffeine: Yes Type: carbonated beverages and tea Number of servings: 1 ROS ROS ED Constitutional Constitutional ED: Denies chills or fever(s) Eyes Eyes: Reports other Details: Positive photophobia ENT ENT ED: Denies sore throat Cardiovascular Cardiovascular: Denies chest pain Respiratory/Chest Respiratory/Chest: Denies cough or dyspnea Gastrointestinal Gastrointestinal: Denies abdominal pain, diarrhea, nausea or vomiting Genitourinary Genitourinary ED: Denies dysuria Musculoskeletal Musculoskeletal: Denies myalgias or neck pain Integumentary Denies rash Neurologic Neurologic: Reports headache(s) Hematologic/Lymphatic Hematologic/Lymphatic: Denies easy bleeding or easy bruising EXAM Physical Exam Const Vital Signs: 05/12/25 20:52 05/12/25 23:18 05/12/25 23:59 Temperature 96.8 F L 98.2 F Temperature Source Temporal Pulse Rate 67 78 70 Respiratory Rate 18 16 16 Blood Pressure 136/93 H 139/89 H Blood Pressure Mean 107 105 Pulse Ox 98 99 100 Oxygen Delivery Method Room Air Room Air Positive well nourished, well developed and obese General Appearance ED: well developed; Negative for pallor Nutritional Appearance: obese HEENT HEENT Narrative: Normocephalic atraumatic No pain on palpation over top of the frontal ethmoid or maxillary sinuses Eyes PERRL and EOMs intact bilaterally General Eye ED: Negative for scleral icterus Neck supple Neck Narrative: No nuchal rigidity or meningeal signs Resp normal respiratory effort and clear to auscultation bilaterally Cardio regular rate and regular rhythm Rate: other Other Details: Heart is regular rate and rhythm Radial and carotid pulses are equal and symmetric Extremity normal to inspection Neuro oriented x3, CN's II-XII intact bilaterally and no sensory deficits noted Neuro Narrative: GCS of 15 Cranial nerves II through XII are grossly intact without focal neurologic deficit No pronator drift no dysmetria no truncal ataxia NIH stroke scale score of 0 Sensorium / Orientation: alert Motor Exam: strength 5/5 throughout Psych mental status grossly normal Skin no rashes or lesions noted and no wounds General Skin Exam: Negative for jaundice or pallor MDM MDM MDM Narrative Medical decision making narrative: Patient arrived to the ER overall stable vitals. He reported a past medical history of headache and states this feels very similar nature to his previous migraines. Moreover the headache came on gradually and increased over the course of hours. There was no report or signs of trauma and he denied any sick symptoms. At this time I have low concern for a subarachnoid or subdural hemorrhage based on his history and exam and do not feel the need for head CT. Also have low concern that this is related to potential infectious process such as acute sinusitis or viral URI such as COVID influenza or RSV. Therefore the patient was given IV fluids Toradol Benadryl Reglan and Decadron. On reevaluation he reports complete resolution of his headache. His neurologic exam remains normal. Therefore at this time as patient's symptoms have completely resolved with therapy and his neurologic exam remains normal I do not feel need for further workup but he is otherwise safe for discharge. History & Record Review Discussion w/independent historian: Patient Discharge Plan Triage Chief Complaint: Headache ED Provider: Sher Appiah Dx/Rx/DC Orders Clinical Impression: Cephalgia, Essential hypertension Instructions: ED Headache Unspecified Prescriptions: No Action sertraline [Zoloft] 50 mg tablet 100 mg PO DAILY lisinopril 10 mg tablet 10 mg PO QHS ibuprofen 800 mg tablet 800 mg PO TID Qty: 40 0RF Rx Instructions: Do not take in conjunction with other NSAIDs. Tylenol is okay. prednisone 20 mg tablet 20 mg PO DAILY Qty: 30 5RF cetirizine 10 mg tablet 10 mg PO DAILY PRN (Reason: allergy symptoms) laylaonide 9 mg tablet,delayed and ext.release 9 mg PO QAM Qty: 90 3RF sildenafil 50 mg tablet 50 mg PO DAILY PRN (Reason: erectile dysfunction) allopurinol 300 mg tablet 300 mg PO BID sumatriptan 20 mg/actuation spray,non-aerosol 20 mg INTRANASAL PRN PRN (Reason: migraine headache) meloxicam 15 mg tablet 15 mg PO DAILY Stand Alone Forms: ED Work / School Excuse Primary Care Provider: Moisés Barclay Referrals: Moisés Barclay MD [Primary Care Provider, Family Practice] Activity Restrictions/Additional Instructions: Patient return to the ER should you have any further concerns or worsening of symptoms Print Language: Emirati Disposition Disposition: Home, Self Care Discharge Date/Time: 05/13/25 00:00
[2025-05-12 23:59] VITALS: BP 139/89; PULSE 70; RESP 16; TEMP 36.8; O2SAT 100
== END 2025-05-13 | disposition home or self-care (01) ==
PROVIDERS: Emergency Provider Emergency Medicine; PCP Family Medicine; Visit Provider Emergency Medicine
DX: G43.909 Migraine, unspecified, not intractable, without status migrainosus (principal); I10 Essential (primary) hypertension; E66.9 Obesity, unspecified; F32.A Depression, unspecified; M10.9 Gout, unspecified; G47.33 Obstructive sleep apnea (adult) (pediatric); Z79.899 Other long term (current) drug therapy; F17.220 Nicotine dependence, chewing tobacco, uncomplicated
CPT/HCPCS: 96374; 96375; 96376; 99283; A4216